=== PATIENT | male | born 1960 | race Caucasian/White ===

== ENCOUNTER → 2017-02-02 | Outpatient (CLI) | payer OTHER ==
[~2017-02-02] MED LIST: ASPI325T PO; ASPI81CH PO; CLONI1TA PO; FOLI1TAB2 PO; LISI10TA4 PO; LOPR1TAB6 PO; METO50TA2 PO; MULT1TAB8 PO; NO HOME MEDS; SERO1TAB PO; SERT50TA PO; TRAZ50TA4 PO; VITA100T2 PO; ZEST1TAB6 PO; ZOLO25TA PO; ZOLO50TA PO; serax PO
[2017-02-02 12:44] LABS: BASO % 0.3 % (0.0-1.0); EOS % 0.9 % (0.0-3.0); LYMPH # 2.2 K/mm3 (1.5-4.5); LYMPH % 46.4 % (24.0-44.0); MEAN CORPUSCULAR HEMOGLOBIN 33.4 pg (27.0-33.0); MEAN CORPUSCULAR HGB CONC 33.5 g/dl (32.0-36.5); MEAN CORPUSCULAR VOLUME 99.8 fl (80.0-96.0); MONO # 0.2 K/mm3 (0.0-0.8); NEUTROPHILS # 2.1 K/mm3 (1.8-7.7); NEUTROPHILS % 45.1 % (36.0-66.0); RED CELL DISTRIBUTION WIDTH 12.5 % (11.5-14.5); WHITE BLOOD COUNT 4.6 K/mm3 (4.0-10.0)
[2017-02-02 13:26] LABS: ALBUMIN 3.4 GM/DL (3.2-5.2); ALBUMIN/GLOBULIN RATIO 0.89 (1.00-1.93); ALKALINE PHOSPHATASE 58 U/L (45-117); ALT/SGPT 36 U/L (12-78); ANION GAP 6 MEQ/L (8-16); AST/SGOT 26 U/L (15-37); BILIRUBIN,TOTAL 0.4 MG/DL (0.2-1.0); BLOOD UREA NITROGEN 6 MG/DL (7-18); CALCIUM LEVEL 8.5 MG/DL (8.5-10.1); CARBON DIOXIDE LEVEL 31 MEQ/L (21-32); CHLORIDE LEVEL 105 MEQ/L (98-107); CHOLESTEROL LEVEL 173 MG/DL (<200); CREATININE FOR GFR 0.84 MG/DL (0.70-1.30); GLOMERULAR FILTRATION RATE > 60.0 (>56); GLUCOSE, FASTING 98 MG/DL (70-105); POTASSIUM SERUM 4.1 MEQ/L (3.5-5.1); SODIUM LEVEL 142 MEQ/L (136-145); TOTAL PROTEIN 7.2 GM/DL (6.4-8.2); TRIGLYCERIDES LEVEL 175 MG/DL (<150)
== END ==
LOC: M LAB 11:41
PROVIDERS: ATTEND Physician Assistant Medical
DX: I10 Essential (primary) hypertension (principal); R53.83 Other fatigue

== ENCOUNTER → 2017-04-08 | Outpatient (CLI) | payer OTHER ==
[2017-04-08 14:15] LABS: BASO # 0.1 K/mm3 (0.0-0.2); BASO % 1.1 % (0.0-1.0); EOS # 0.1 K/mm3 (0.0-0.50); EOS % 1.4 % (0.0-3.0); LYMPH # 2.3 K/mm3 (1.5-4.5); LYMPH % 41.4 % (24.0-44.0); MEAN CORPUSCULAR HEMOGLOBIN 34.5 pg (27.0-33.0); MEAN CORPUSCULAR HGB CONC 34.7 g/dl (32.0-36.5); MEAN CORPUSCULAR VOLUME 99.6 fl (80.0-96.0); MONO # 0.4 K/mm3 (0.0-0.8); MONO % 6.4 % (0.0-5.0); NEUTROPHILS # 2.5 K/mm3 (1.8-7.7); NEUTROPHILS % 45.7 % (36.0-66.0); RED CELL DISTRIBUTION WIDTH 13.1 % (11.5-14.5); WHITE BLOOD COUNT 5.5 K/mm3 (4.0-10.0)
[2017-04-08 15:28] LABS: ALBUMIN 3.9 GM/DL (3.2-5.2); ALKALINE PHOSPHATASE 60 U/L (45-117); ALT/SGPT 53 U/L (12-78); ANION GAP 5 MEQ/L (8-16); AST/SGOT 33 U/L (15-37); BILIRUBIN,TOTAL 0.5 MG/DL (0.2-1.0); BLOOD UREA NITROGEN 14 MG/DL (7-18); CALCIUM LEVEL 8.9 MG/DL (8.5-10.1); CARBON DIOXIDE LEVEL 28 MEQ/L (21-32); CHLORIDE LEVEL 106 MEQ/L (98-107); CREATININE FOR GFR 0.95 MG/DL (0.70-1.30); FERRITIN 377 NG/ML (26-388); GLOMERULAR FILTRATION RATE > 60.0 (>56); GLUCOSE, FASTING 88 MG/DL (70-105); SODIUM LEVEL 139 MEQ/L (136-145); TOTAL PROTEIN 7.8 GM/DL (6.4-8.2)
[2017-04-08 15:34] LABS: FOLATE 18.5 NG/ML; VITAMIN B12 LEVEL 240 PG/ML
--- NOTE | 2017-04-09 00:53 | ECGEPIP ---
Stationary ECG Study [facility] Test Date: 2017-04-08 Pat Name: ADIEL KNIGHT Department: Room: - Gender: M Outreach Assistant: MICHAEL : 1960 Requested By: Kathe Eugene Order Number: [id number] Reading MD: Micha Julio Measurements Intervals [place] Rate: 85 P: 29 WY: 165 QRS: 6 QRSD: 102 T: 14 QT: 393 QTc: 468 Interpretive Statements SINUS RHYTHM INCOMPLETE RIGHT BUNDLE BRANCH BLOCK MODERATE T-WAVE ABNORMALITY, CONSIDER ANTERIOR ISCHEMIA Compared to the last 4 tracings in the system, no significant changes Electronically Signed On 04-09-2017 0:53:03 EDT by Micha Julio
--- NOTE | 2017-04-09 01:47 | REP ---
Clinical: Back pain. Technique: AP, lateral, flexion/extension, bilateral oblique and coned-down views of the lumbosacral spine. Findings: Alignment and lordosis maintained. No acute fracture / compression injury or subluxation. Mild osteopenia is suggested along with moderate to early advanced multilevel degenerative disc osteophyte complexes. Findings primarily involve L5-S1, L4-L5, and L3-L4 levels and include marginal osteophytes, endplate sclerosis and disc space narrowing. No evidence for spondylolysis. Impression: Osteopenia and moderate/early advanced multilevel degenerative changes. No acute fracture / compression injury or subluxation. Signed by Rakesh Dacosta MD 04/09/2017 01:39 A
[2017-04-10 00:07] LABS: Lyme Disease IgG/IgM Antibodie <0.91 ISR (0.00-0.90); Lyme Disease IgM Ab Quantitati <0.80 index (0.00-0.79)
[2017-04-12 11:37] LABS: ALBUMIN 4.41 GM/DL (3.29-5.55); ALBUMIN % 56.6 % (55.8-66.1); GAMMA GLOBULIN % 17.9 % (11.1-18.8)
== END ==
LOC: M LAB 12:59
PROVIDERS: ATTEND Physician Assistant Medical
DX: R53.83 Other fatigue (principal); R00.2 Palpitations; M54.5 Low back pain; M81.0 Age-related osteoporosis without current pathological fracture; M47.9 Spondylosis, unspecified; I45.10 Unspecified right bundle-branch block

== ENCOUNTER → 2017-05-14 | Outpatient (CLI) | payer OTHER ==
[~2017-05-14] MED LIST changes: -FOLI1TAB2 PO; +FOLI1TAB4 PO; -METO50TA2 PO; +METO50TA7 PO; +TRAZ50TA11 PO; -TRAZ50TA4 PO
--- NOTE | 2017-05-14 16:51 | REP ---
CHEST, TWO VIEWS: COMPARISON: 12/08/2014 There is no evidence of acute infiltrate. No pleural effusion is seen. The heart is normal in size. The mediastinal silhouette is unremarkable. The visualized osseous structures are intact. IMPRESSION: No acute pulmonary disease. Signed by Preet Vieira MD 05/14/2017 04:52 P
--- NOTE | 2017-05-14 17:20 | REP ---
REASON: Low back pain. COMPARISON: None. No history of trauma. There is moderate loss of disc space height posteriorly and universal loss of disc hydrational signal at L3-4 to L5-S1. The remainder of the disc spaces are relatively well hydrated and of normal appearing height. There is a vertebral body hemangioma seen involving T11. The marrow signal is within normal limits. Modic type 1 and 2 endplate changes are seen anteriorly at L5-S1. At the L1-2 level there is no disc herniation or foraminal narrowing or central canal stenosis. At the L2-3 level there is a minimal broad based annular bulge. There is no disc herniation or foraminal narrowing, or central canal stenosis. At the L3-4 level there is a moderate broad based annular bulge which mildly compresses the anterior thecal sac. There is no right foraminal stenosis. There is mild left foraminal narrowing. At the L4-5 level there is a large asymmetric broad based annular bulge seen in conjunction with degenerative facet joint changes bilaterally and thickening of the ligamentum flava. Factors in concert are causing moderate right foraminal stenosis with mild right L4 nerve compression. The left L4 nerve is not compressed. There is minimal central canal stenosis. There is no evidence of an acute disc extrusion. At the L5-S1 level there is a broad based annular bulge seen with conjunction with a small central and slightly right paracentral disc protrusion which contacts but does not deform the anterior thecal sac. Degenerative facet joint changes are present bilaterally with thickening of the ligamentum ligamenta. There is mild bilateral foraminal narrowing, right slightly greater than left. There is no evidence of an acute disc extrusion. IMPRESSION: Multilevel discogenic changes and other findings as described above. Signed by Capo Rasmussen DO 05/14/2017 05:57 P
== END ==
LOC: M RAD 15:19
PROVIDERS: ATTEND Physician Assistant Medical
DX: M54.5 Low back pain (principal)

== ENCOUNTER 2017-08-30 14:17 | Inpatient (IN) | payer OTHER ==
[~2017-08-30] VITALS: Ht 162.6 cm; Wt 97.1 kg
[2017-08-30] MEDS ORDERED: NS 1,000 ML IV ONE (14:45)
[2017-08-30] MEDS ORDERED: CLON1TAB17 (14:49)
[2017-08-30] MEDS ORDERED: DOXE10CA PO (14:49)
[2017-08-30] MEDS ORDERED: LOSA100T36 PO (14:49)
[2017-08-30] MEDS ORDERED: TRAZ1TAB14 PO (14:49)
[2017-08-30] MEDS ORDERED: METO1TAB7 PO (14:49)
[2017-08-30] MEDS ORDERED: TIZA4CAP3 (14:49)
[2017-08-30 15:22] LABS: MEAN CORPUSCULAR HEMOGLOBIN 33.6 pg (27.0-33.0); MEAN CORPUSCULAR HGB CONC 35.2 g/dl (32.0-36.5); MEAN CORPUSCULAR VOLUME 95.4 fl (80.0-96.0); PLATELET COUNT, AUTOMATED 286 10^3/uL (150-450); RED CELL DISTRIBUTION WIDTH 12.3 % (11.5-14.5); WHITE BLOOD COUNT 6.6 10^3/uL (4.0-10.0)
[2017-08-30 15:54] LABS: ALBUMIN 4.1 GM/DL (3.2-5.2); ALBUMIN/GLOBULIN RATIO 0.95 (1.00-1.93); ALKALINE PHOSPHATASE 80 U/L (45-117); ALT/SGPT 45 U/L (12-78); ANION GAP 10 MEQ/L (8-16); AST/SGOT 36 U/L (7-37); BILIRUBIN,DIRECT 0.1 MG/DL (0.0-0.2); BILIRUBIN,TOTAL 0.5 MG/DL (0.2-1.0); BLOOD UREA NITROGEN 6 MG/DL (7-18); CALCIUM LEVEL 8.7 MG/DL (8.5-10.1); CARBON DIOXIDE LEVEL 27 MEQ/L (21-32); CHLORIDE LEVEL 104 MEQ/L (98-107); CREATININE FOR GFR 0.95 MG/DL (0.70-1.30); GLOMERULAR FILTRATION RATE > 60.0 (>56); GLUCOSE, FASTING 127 MG/DL (70-105); POTASSIUM SERUM 4.2 MEQ/L (3.5-5.1); SODIUM LEVEL 141 MEQ/L (136-145); TOTAL PROTEIN 8.4 GM/DL (6.4-8.2)
[2017-08-30 16:05] LABS: METHADONE URINE NEGATIVE (NEGATIVE)
--- NOTE | 2017-08-30 16:50 | REP ---
Clinical: Overdose . Comparison: 05/14/2017 . Findings: The mediastinum and cardiac silhouette are stable and within normal limits for portable technique. The lung flannery are clear without acute consolidation, effusion, or pneumothorax. Skeletal structures are intact. Impression: No acute cardiopulmonary process appreciated. Signed by Rakesh Dacosta MD 08/30/2017 04:41 P
[2017-08-30] MEDS ORDERED: CLON1TAB PO (17:14)
[2017-08-30] MEDS ORDERED: ZANA4TAB PO (17:14)
[2017-08-30] MEDS: ACETAMINOPHEN TAB 650MG DOSE (2X325MG) PO PRN (18:35)
--- NOTE | 2017-08-30 18:35 | ECGEPIP ---
Stationary ECG Study [facility] Test Date: 2017-08-30 Pat Name: ADIEL KNIGHT Department: Room: - Gender: M Slip Caster: zoila : 1960 Requested By: Mary Alice Preston Order Number: [id number] Reading MD: Reyes Sanders Measurements Intervals [place] Rate: 136 P: 18 [place]: 150 QRS: -3 QRSD: 93 T: 16 QT: 297 QTc: 447 Interpretive Statements SINUS TACHYCARDIA INCOMPLETE RIGHT BUNDLE BRANCH BLOCK NSTTW ABNORMALITIES SIMILAR TO 04/08/17 Electronically Signed On 08-30-2017 18:35:11 EST by Reyes Sanders
--- NOTE | 2017-08-30 20:08 | HPE ---
DATE OF ADMISSION: 08/30/2017 This a patient of Yoselyn Fleming. CHIEF COMPLAINT: Overdose. The following is a summary of his presentation: This is a 57-year-old gentleman who on the anniversary of his lover's 12 years ago relapsed from his abstinence from alcohol, began drinking heavily and today took an overdose of beta blockade in the form of metoprolol succinate, trazodone and various other pills in an attempt to kill himself. He does not want to live anymore. Currently is without complaint. He is not a useful historian for review of systems. PAST MEDICAL HISTORY: Notable for: Depression. Hypertension. Suicidal ideation. Alcohol dependence. ALLERGIES: To PENICILLIN, BEES, ZOLOFT, AMBIEN and BANANAS. HOME MEDICATIONS: Include: - clonazepam - doxepin - losartan - metoprolol succinate - Zanaflex - trazodone PAST SURGICAL HISTORY: Notable for: Hernia repair. SOCIAL HISTORY: He is a former smoker, lives alone. FAMILY HISTORY: Notable for father with squamous cell cancer, mother with pulmonary hypertension. PHYSICAL EXAMINATION: Temperature is 97.4, pulse is 125, respiratory rate 18, blood pressure 132/82, 96% on room air. He is awake, appropriately interactive, sitting upright in bed, no acute distress, somewhat variable in his affect. Head is normocephalic, nontender sinuses. Pupils are equal, round, and reactive, anicteric. Nasal septum is midline. Mucous membranes are moist. Neck is thick. Breathing is symmetrical and rested. I:E ratio is 1:3. No wheezes, rales or rhonchi. Heart: Distant sounding. Normal S1, S2. He is tachycardic. Radial pulses are 2+. Capillary refill is less than 2 seconds. The abdomen is distended, soft, doughy, nontender. There is no lower extremity edema. He is moving all four extremities. White cell count is 6.6, hemoglobin 16.1 and platelets of 286. BUN 6, creatinine 0.95, CK 335, albumin 4.1. TSH is 1.24. Chest x-ray shows no acute process. EKG shows sinus tachycardia with incomplete right bundle branch block similar to March of 2017. My assessment is as follows: This is a 57-year-old with suicidal ideation, intentional overdose. The plan will be as follows: 1. Cardiovascular: The patient will be monitored on telemetry. Obviously withhold his home medications, including his beta blockade. He is tachycardic. The cause of this remains unclear. I will give him some intravenous (IV) fluids. Blood pressure is reasonably well controlled for the current setting. 2. The patient has severe depression and suicidal ideation with suicidal attempt. He will need psychiatric consult in the morning and will likely benefit from an inpatient mental health unit (IMHU) stay. 3. Deep vein thrombosis (DVT) prophylaxis is ordered.
[2017-08-30 20:20] VITALS: BP 141/84
[2017-08-30] MEDS: NS 1,000 ML IV SCH (20:36)
[2017-08-30] MEDS: LORazepam 2 MG TAB PO PRN (22:54)
[2017-08-31] VITALS: BP 143/82
[2017-08-31] MEDS: ONDANSETRON 4MG/2ML VIAL (J2405) IV PRN ×2 (00:46→08:58)
[2017-08-31 04:00] VITALS: BP 129/76
[2017-08-31] MEDS: ACETAMINOPHEN TAB 650MG DOSE (2X325MG) PO PRN ×2 (04:22→09:43)
[2017-08-31 05:35] LABS: MEAN CORPUSCULAR HEMOGLOBIN 32.9 pg (27.0-33.0); MEAN CORPUSCULAR HGB CONC 34.7 g/dl (32.0-36.5); MEAN CORPUSCULAR VOLUME 94.7 fl (80.0-96.0); RED CELL DISTRIBUTION WIDTH 12.3 % (11.5-14.5); WHITE BLOOD COUNT 6.8 10^3/uL (4.0-10.0)
[2017-08-31 05:48] LABS: PLATELET COUNT, AUTOMATED 177 10^3/uL (150-450)
[2017-08-31 05:57] LABS: ALBUMIN 3.3 GM/DL (3.2-5.2); ALBUMIN/GLOBULIN RATIO 0.97 (1.00-1.93); ALKALINE PHOSPHATASE 63 U/L (45-117); ALT/SGPT 36 U/L (12-78); ANION GAP 8 MEQ/L (8-16); AST/SGOT 27 U/L (7-37); BLOOD UREA NITROGEN 3 MG/DL (7-18); CALCIUM LEVEL 7.9 MG/DL (8.5-10.1); CARBON DIOXIDE LEVEL 27 MEQ/L (21-32); CHLORIDE LEVEL 103 MEQ/L (98-107); CREATININE FOR GFR 0.76 MG/DL (0.70-1.30); GLOMERULAR FILTRATION RATE > 60.0 (>56); GLUCOSE, FASTING 104 MG/DL (70-105); MAGNESIUM LEVEL 1.4 MG/DL (1.8-2.4); POTASSIUM SERUM 3.3 MEQ/L (3.5-5.1); SODIUM LEVEL 138 MEQ/L (136-145); TOTAL PROTEIN 6.7 GM/DL (6.4-8.2)
[2017-08-31 07:50] VITALS: BP 165/89
[2017-08-31] MEDS: NS 1,000 ML IV SCH (08:58)
[2017-08-31] MEDS ORDERED: ENOXAPARIN 40 MG/0.4 ML SYRINGE (J1650) SC SCH (09:00)
[2017-08-31] MEDS ORDERED: POTASSIUM CHLORIDE 10 MEQ SR TABLET PO ONE (09:00)
[2017-08-31] MEDS: MAG SULF 1GM/100ML (MAG RUN) 1 GM in APPROPRIATE DILUENT 1 EA IV SCH ×3 (09:44→12:06)
[2017-08-31] MEDS: LORazepam 2 MG TAB PO PRN (10:41)
[2017-08-31 12:45] VITALS: BP 155/81
[2017-08-31 15:40] VITALS: BP 150/97
[2017-08-31 20:00] VITALS: BP 152/91
--- NOTE | 2017-08-31 20:59 | MHCR ---
DATE OF CONSULTATION: 08/31/2017 CHIEF COMPLAINT: Feels stressed. SUBJECTIVE: He is 57 years old. He came in after he had overdosed, had taken a couple of trazodone and his other pills, including clonazepam and losartan. He had wanted to kill himself. He was admitted to medicine, seen by the hospitalist. I was asked to come in and see him by Dr. Araujo. He was admitted for mental stabilization, as there were concerns regarding the effects of the overdose. He was monitored and he is now being deemed as medically stable. I had seen him a couple of years ago, January 2015, on the consult service. Please refer to my summary from that time for details related to background history, his condition at that time, and of circumstances. He was diagnosed with alcohol induced depressive disorder with the possibility of major depressive disorder. Has a history of alcohol use disorder. He says that he had been sober for about 3 years, and had a disagreement with his boss. He implies that this happened about 5 days ago and that they were in [place]. Says after that, yesterday, he got afraid after he had relapsed, started drinking again, called a friend, and that the police were sent over to check on his welfare and they brought him here. He reluctantly acknowledges that he had taken an overdose, metoprolol, Klonopin, losartan, trazodone. He now denies that he was trying to kill himself. Says he just wanted to "go to sleep." It should also be noted that the narrative and the time line, per the nursing staff here, has changed on a couple of occasions when the patient has been asked about this. He says that he is quite involved with his own recovery, participates at [facility], apparently a local center here, and attends outpatient psychiatric care at [facility] ([facility]). Sees a nurse practitioner there, as well as a therapist. 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 He spoke of anniversaries, apparently his partner about 12 years ago. The patient did not go into any other details of any other anniversaries. Says he attends his appointments regularly at [facility]. Upon admission here, has been stabilized medically, and is now deemed stable. PAST PSYCHIATRIC HISTORY: Has had at least one previous hospitalization. Please refer to my summary of a couple of years ago, and details related to hospitalization, as well as circumstances of that hospitalization. He had apparently had one prior hospitalization before the one 2-1/2 years ago. MEDICAL HISTORY: Has a history of hypertension, depression. ALLERGIES: PENICILLIN, BEES, ZOLOFT, AMBIEN, BANANAS. MEDICATIONS AT HOME: These include: - clonazepam 1 mg four times a day as needed for anxiety - trazodone 300 mg at bedtime - doxepin 10 mg daily - tizanidine 4 mg three times a day as needed for muscle spasms - metoprolol 50 mg daily SUBSTANCE ABUSE HISTORY: He has a history of alcohol misuse, was clean from alcohol for about 3 years, suggests that he relapsed a few days ago. SOCIAL HISTORY/BACKGROUND HISTORY: Please refer to the previous summaries. Says has good social supports locally. MENTAL STATUS EXAMINATION: Sitting up in bed, cooperative, though somewhat superficially so. No agitation. No psychomotor retardation. He is neat. He is coherent. Speech is normal in amount and rate, spontaneous. No formal thought disorder. At times appears mildly anxious. He denies any thoughts of harming himself or anyone else at present. No evidence of any psychosis. Cognition is grossly intact. Judgment is quite questionable. Insight is poor. VITAL SIGNS: Blood pressure 150/97, pulse 106, temperature 98.9. ASSESSMENT: 1. Adjustment Disorder with mixed disturbance of emotions and conduct. 2. Alcohol induced depressive disorder. 3. Alcohol use disorder. 4. Rule out major depressive disorder. 5. Status post overdose. He has relapsed into using alcohol a few days. He says that this was after a disagreement with his boss. He took an overdose of several pills, including Klonopin, metoprolol, losartan, trazodone and per the emergency room note and assessment, he had indicated that he wanted to . I understand there are discrepancies in his narrative when asked by various staff members. He currently minimizes his difficulties. He has questionable insight and judgment. RECOMMENDATIONS: He needs inpatient psychiatric hospitalization once he is medically stable. Per the hospitalist, I understand that he has been stabilized. He does not want to be hospitalized, meets criteria for involuntary hospitalization. The relevant paperwork, its implication and the legal status are explained to the patient. Thank you for the consult. If you have any questions, please call. The assessment took 30 minutes. MIESHA
[2017-09-01] MEDS ORDERED: CELE10TA PO (14:23)
--- NOTE | 2017-09-01 15:10 | DS.PDOC ---
Discharge Summary General Date of Admission Aug 30, 2017 at 16:57 Date of Discharge 08/31/17 Specialist/Consultants Involve: Casandra Rod MD Discharge Summary PROCEDURES PERFORMED DURING STAY: None. ADMITTING/DISCHARGE DIAGNOSES: Suicidal ideation/attempt Alcohol dependence Depression HTN COMPLICATIONS/CHIEF COMPLAINT: Intentional O/D Beta Adrenergic Blocking Drug. HISTORY OF PRESENT ILLNESS: . 57-year-old male with past medical history of depression, hypertension, suicide attempt, and alcohol dependence presented to the ER after he relapsed from alcohol abstinence and began to drink heavily. The patient states that he began to drink alcohol because he was upset about the anniversary of his lover passing away. In addition, the patient states that he took a handful of his metoprolol, trazodone, and various other pills in an attempt to kill himself. He subsequently called his counselor after the event, who brought him to the emergency room. The hospitalist service was called to admit the patient for medical observation. During hospitalization, the patient did not have any acute events and was provided supportive treatment with IV fluid hydration and close monitoring on telemetry. At this time, the patient states he is feeling well, and is without any acute complaints. Psychiatry was consulted, and has deemed that the patient be admitted to the inpatient mental health unit for further psychiatric stabilization. I've advised the patient to follow-up with psychiatric stabilization and inpatient mental health unit, and to follow-up with his behavioral therapist/mental counselor as an outpatient once he is eventually discharge. In addition, the patient is advised to follow-up with his primary care physician within 7 days, and he has been consulted to return to the ER for any acute emergencies. DISCHARGE MEDICATIONS: Please see below. ALLERGIES: Please see below. PHYSICAL EXAMINATION ON DISCHARGE: VITAL SIGNS: Please see below. GENERAL: Awake, alert, oriented HEENT: Normocephalic, atraumatic NECK: No JVD CARDIOVASCULAR EXAMINATION: Normal rate, normal S1, S2 RESPIRATORY EXAMINATION: Clear to auscultation bilaterally ABDOMINAL EXAMINATION: Soft, nontender, nondistended EXTREMITIES: No erythema or tenderness LABORATORY DATA: Please see below. IMAGING: Clinical: Overdose . Comparison: 05/14/2017 . Findings: The mediastinum and cardiac silhouette are stable and within normal limits for portable technique. The lung flannery are clear without acute consolidation, effusion, or pneumothorax. Skeletal structures are intact. Impression: No acute cardiopulmonary process appreciated. PROGNOSIS: Fair ACTIVITY: As tolerated. DIET: . 2 g low sodium diet DISCHARGE PLAN: DISPOSITION: 66 [facility]. DISCHARGE INSTRUCTIONS: 1. . Follow-up with psychiatric stabilization in the inpatient mental health unit 2. . Follow-up with outpatient behavioral health/mental counselor, follow-up with PCP within 7 days 3. . Return to the ER for any acute emergencies DISCHARGE CONDITION: Stable. TIME SPENT ON DISCHARGE: Greater than 30 minutes. Vital Signs/I&Os Vital Signs Date Time Temp Pulse Resp B/P (MAP) Pulse Ox O2 Delivery O2 Flow Rate FiO2 08/31/17 20:00 99.1 111 18 152/91 (111) 94 Room Air Discharge Medications Scheduled Citalopram Hydrobromide (Celexa) 10 Mg Tab, 10 MG PO QAM for DEPRESSION Increase to 20 mg in 3 days Losartan Potassium (Losartan Potassium) 100 Mg Tab, 100 MG PO DAILY, (Reported) Metoprolol Succinate (Metoprolol Succinate ER) 50 Mg Tab, 50 MG PO DAILY, ( Reported) Allergies Coded Allergies: Bee Venom (Verified Allergy, Severe, ANAPHYLAXIS, 12/08/14) Penicillins (Verified Allergy, Severe, ANAPHYLACTIC, 12/08/14) Banana (Unverified Allergy, Intermediate, hives, 08/30/17) Sertraline (Verified Adverse Reaction, Intermediate, "STRANGE THOUGHTS", ) Zolpidem (Verified Adverse Reaction, Intermediate, PSYCHOTIC, 08/30/17) YOSI MORILLO MD Sep 01, 2017 15:10
--- NOTE | 2017-09-02 00:25 | ECGEPIP ---
Stationary ECG Study [facility] Test Date: 2017-08-31 Pat Name: ADIEL KNIGHT Department: Room: [place] [address] Gender: M Hearse Driver: TOMI : 1960 Requested By: TASHA Mazariegos Order Number: [id number] Reading MD: Micha Julio Measurements Intervals [place] Rate: 100 P: 21 DC: 161 QRS: -3 QRSD: 104 T: 18 QT: 389 QTc: 502 Interpretive Statements SINUS TACHYCARDIA INCOMPLETE RIGHT BUNDLE BRANCH BLOCK MODERATE T-WAVE ABNORMALITY, CONSIDER ANTERIOR ISCHEMIA Last tracing on 08/31/2017 at 14:42:13, heart rate is now slower Electronically Signed On 09-02-2017 0:25:10 EST by Micha Julio
== END 2017-08-31 21:59 | DRG 812 ==
LOC: EDBD 14:17 → M ED 14:17 → M ED INP 16:57 → M PCU 20:16
PROVIDERS: ADMIT Internal Medicine; ATTEND Internal Medicine
DX: T44.7X2A Poisoning by beta-adrenoreceptor antagonists, intentional self-harm, initial encounter (principal); R45.851 Suicidal ideations; I10 Essential (primary) hypertension; F32.9 Major depressive disorder, single episode, unspecified; Z88.0 Allergy status to penicillin; Z91.018 Allergy to other foods; Z88.8 Allergy status to other drugs, medicaments and biological substances; Z91.030 Bee allergy status; Z79.899 Other long term (current) drug therapy; Z87.891 Personal history of nicotine dependence; Z91.5 Personal history of self-harm; F43.25 Adjustment disorder with mixed disturbance of emotions and conduct; F10.14 Alcohol abuse with alcohol-induced mood disorder

== ENCOUNTER 2017-08-31 21:11 | Inpatient (IN) | payer OTHER ==
[~2017-08-31] VITALS: Ht 172.7 cm; Wt 96.0 kg
[2017-08-31] MEDS: THIAMINE 100 MG TAB PO SCH (21:00)
[~2017-08-31 21:11] MED LIST changes: +CLON1TAB PO; +CLON1TAB17; +DOXE10CA PO; +LOSA100T36 PO; +METO1TAB7 PO; +TIZA4CAP3; +TRAZ1TAB14 PO; +ZANA4TAB PO
[2017-08-31 22:52] VITALS: BP 152/90
[2017-09-01] MEDS ORDERED: MOM 30ML SUSPENSION UDC PO PRN
[2017-09-01] MEDS ORDERED: MAALOX 30 ML SUSP *UDC PO PRN
[2017-09-01] MEDS ORDERED: tiZANidine 4 MG TAB PO PRN
[2017-09-01] MEDS ORDERED: traZODone 50 MG TAB PO PRN
[2017-09-01] MEDS ORDERED: LORazepam 2 MG TAB PO PRN
[2017-09-01 06:35] VITALS: BP 143/91
[2017-09-01] MEDS ORDERED: CitaloPRAM (CeleXA) 10 MG TABLET PO SCH (09:00)
[2017-09-01] MEDS ORDERED: METOPROLOL SUCC (TopROL XL) 50MG **XL** TAB PO SCH (09:00)
[2017-09-01] MEDS ORDERED: FOLIC ACID 1 MG TAB PO SCH (09:00)
[2017-09-01] MEDS ORDERED: MULTIVITAMINS/MINERALS THERAP 1 TAB PO SCH (09:00)
[2017-09-01] MEDS ORDERED: LOSARTAN 50 MG TAB PO SCH (09:00)
[2017-09-01 09:15] VITALS: BP 160/96
[2017-09-01] MEDS: THIAMINE 100 MG TAB PO SCH (09:15)
--- NOTE | 2017-09-01 09:48 | HPEPDOC ---
[facility] Medical History & Physical Date of Admission Aug 31, 2017 History and Physical PCP: Kathe Fleming PA-C ATTENDING: Dr. Deep Garrido HPI: 57yoM [facility] for unspecified depressive disorder, being medically examined today. The patient was admitted to [facility] from 08/30/17-08/31/17 related to a relapse of alcohol use and an overdose of metoprolol, trazodone, and other pills. The patient was medically stabilized and felt stable to transfer to [facility] 08/31/17. The patient reports no acute medical complaints today. Denies any fevers, chills, weakness, fatigue, LEO, CP, SOB, cough, palpitations, abdominal pain, N/V/D or changes in bowel or bladder habits. PMHx: Depression Anxiety Suicidal Ideation/suicide attempt. Overdose. Basal cell carcinoma (left wrist) Hx of ETOH use HTN history of superficial DVT in right upper extremity PSHX: BL Inguinal Hernia Repair SOCHX: From: [place]. 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 Previously had not consumed alcohol in 3 years per patient. Illicit Drugs: Denies IV Drug Use: Denies Tattoos done unprofessionally: Denies FAMHX: Mother: age 72 secondary to pulmonary edema Father: secondary to age 69 secondary to squamous cell carcinoma. History of alcohol use. Siblings: Alive, well (1 brothers, 3 sisters) Unexpected deaths due to medical reasons: None. ROS: As noted in HPI, otherwise 10pt ROS of systems reviewed and unremarkable.. PE: GEN: 57yoM, appears stated age. Well-nourished, well developed. No acute distress. Alert and oriented x 3. Pleasant, interactive. HEENT: Normocephalic, atraumatic. Pupils are equal, round, and reactive to light. Extraocular movements are intact. No nystagmus appreciated. Sclera are nonicteric. Conjunctiva without injection. Nose midline. No facial asymmetry. Moist mucous membranes. Dentition fair. Pharynx pink and moist, no cobblestoning. Neck supple, trachea midline. No lymphadenopathy or thyromegaly appreciated. CHEST: Regular rate and rhythm, +S1, +S2 LUNGS: Clear to auscultation bilaterally. No wheezes, rales, or rhonchi. Breathing appears symmetric and easy. Patient is speaking in full sentences. No accessory muscle use. ABD: Round, soft, non-tender, non-distended. +Bowel sounds throughout. No rebound or guarding. No costovertebral angle tenderness. EXT: Pulses 2+ bilaterally dorsalis pedis and radial. No lower extremity edema appreciated. SKIN: [place], dry, warm. Capillary refill <2sec. No rashes. NEURO: Alert and oriented x 3. No focal deficits appreciated. EK08/30/17 SINUS TACHYCARDIA INCOMPLETE RIGHT BUNDLE BRANCH BLOCK NSTTW ABNORMALITIES SIMILAR TO 04/08/17 A&P: 57yoM admitted [facility] for unspecified depressive disorder 1. Psych. Plan per Psychiatry. EKG on file. 2. Substance use. Per psychiatry. Continue multivitamin, thiamine, and folic acid supplements. 3. Borderline EKG. No cardiac signs or symptoms appreciated on exam, follow with PCP. 4. Follow up as outpatient with Yoselyn Fleming. 5. HTN. Continue metoprolol XL with hold parameters and Cozaar 100 mg by mouth daily with hold parameters. 6. Hypokalemia. Status post supplement. Recheck BMP today. 7. Hypomagnesemia. Status post supplement. Recheck magnesium level today. 8. Staff member Tam present throughout exam. Vital Signs Vital Signs Date Time Temp Pulse Resp B/P (MAP) Pulse Ox O2 Delivery O2 Flow Rate FiO2 09/01/17 09:15 160/96 09/01/17 09:15 90 09/01/17 06:35 98.9 16 Room Air Laboratory Data Labs 24H Item Value Date Time Sodium Level 138 MEQ/L 08/31/17 0507 Potassium Level 3.3 MEQ/L L # 08/31/17 0507 Chloride Level 103 MEQ/L 08/31/17 0507 Carbon Dioxide Level 27 MEQ/L 08/31/17 0507 Anion Gap 8 MEQ/L 08/31/17 0507 Blood Urea Nitrogen 3 MG/DL L 08/31/17 0507 Creatinine 0.76 MG/DL 08/31/17 0507 Glomerular Filtration Rate > 60.0 08/31/17 0507 Fasting Glucose 104 MG/DL 08/31/17 0507 Calcium Level 7.9 MG/DL L 08/31/17 0507 Magnesium Level 1.4 MG/DL L 08/31/17 0507 Total Bilirubin 1.0 MG/DL # 08/31/17 0507 Aspartate Amino Transf (AST/SGOT) 27 U/L 08/31/17 0507 Alanine Aminotransferase (ALT/SGPT) 36 U/L 08/31/17 0507 Alkaline Phosphatase 63 U/L 08/31/17 0507 Total Protein 6.7 GM/DL # 08/31/17 0507 Albumin 3.3 GM/DL 08/31/17 0507 Albumin/Globulin Ratio 0.97 L 08/31/17 0507 Thyroid Stimulating Hormone (TSH) 1.240 uIU/ML 08/30/17 1510 White Blood Count 6.8 10^3/uL 08/31/17 0507 Red Blood Count 3.80 10^6/uL L 08/31/17 0507 Hemoglobin 12.5 g/dl L # 08/31/17 0507 Hematocrit 36.0 % L 08/31/17 0507 Mean Corpuscular Volume 94.7 fl 08/31/17 0507 Mean Corpuscular Hemoglobin 32.9 pg 08/31/17 0507 Mean Corpuscular Hemoglobin Concent 34.7 g/dl 08/31/17 0507 Red Cell Distribution Width 12.3 % 08/31/17 0507 Platelet Count 177 10^3/uL # 08/31/17 0507 Salicylates Level < 1.7 MG/DL L 08/30/17 1510 Urine Opiates Screen NEGATIVE 08/30/17 1534 Urine Methadone Screen NEGATIVE 08/30/17 1534 Acetaminophen Level < 2.0 UG/ML L 08/30/17 1510 Urine Barbiturates Screen NEGATIVE 08/30/17 1534 Urine Phencyclidine Screen NEGATIVE 08/30/17 1534 Urine Amphetamines Screen NEGATIVE 08/30/17 1534 Urine Benzodiazepines Screen NEGATIVE 08/30/17 1534 Urine Cocaine Metabolite Screen NEGATIVE 08/30/17 1534 Urine Cannabinoids Screen NEGATIVE 08/30/17 1534 Ethyl Alcohol Level 0.292 % H 08/30/17 1510 Home Medications Scheduled Doxepin HCl (Doxepin HCl) 10 Mg Cap, 10 MG PO DAILY Losartan Potassium (Losartan Potassium) 100 Mg Tab, 100 MG PO DAILY Metoprolol Succinate (Metoprolol Succinate ER) 50 Mg Tab, 50 MG PO DAILY Scheduled PRN Tizanidine Hydrochloride (Zanaflex) 4 Mg Tab, 1 TAB PO TID PRN for MUSCLE SPASMS Allergies Coded Allergies: Bee Venom (Verified Allergy, Severe, ANAPHYLAXIS, 12/08/14) Penicillins (Verified Allergy, Severe, ANAPHYLACTIC, 12/08/14) Banana (Unverified Allergy, Intermediate, hives, 08/30/17) Sertraline (Verified Adverse Reaction, Intermediate, "STRANGE THOUGHTS", ) Zolpidem (Verified Adverse Reaction, Intermediate, PSYCHOTIC, 08/30/17) Aliyah Mcgrath Sep 01, 2017 09:48
[2017-09-01 10:19] LABS: MEAN CORPUSCULAR HEMOGLOBIN 34.2 pg (27.0-33.0); MEAN CORPUSCULAR HGB CONC 36.4 g/dl (32.0-36.5); MEAN CORPUSCULAR VOLUME 93.9 fl (80.0-96.0); PLATELET COUNT, AUTOMATED 189 10^3/uL (150-450); WHITE BLOOD COUNT 7.3 10^3/uL (4.0-10.0)
[2017-09-01 10:40] VITALS: BP 160/96
[2017-09-01 11:22] LABS: ANION GAP 7 MEQ/L (8-16); BLOOD UREA NITROGEN 3 MG/DL (7-18); CALCIUM LEVEL 8.6 MG/DL (8.5-10.1); CARBON DIOXIDE LEVEL 27 MEQ/L (21-32); CHLORIDE LEVEL 105 MEQ/L (98-107); CREATININE FOR GFR 1.04 MG/DL (0.70-1.30); GLOMERULAR FILTRATION RATE > 60.0 (>56); GLUCOSE, FASTING 108 MG/DL (70-105); MAGNESIUM LEVEL 2.2 MG/DL (1.8-2.4); POTASSIUM SERUM 3.8 MEQ/L (3.5-5.1); SODIUM LEVEL 139 MEQ/L (136-145)
[2017-09-01] MEDS ORDERED: CELE10TA PO (14:23)
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
== END 2017-09-01 16:00 | disposition home or self-care (01) | DRG 754 ==
LOC: M PSY 22:01
PROVIDERS: ADMIT Psychiatry & Neurology Psychiatry; ATTEND Psychiatry & Neurology Psychiatry
DX: F32.9 Major depressive disorder, single episode, unspecified (principal); E83.42 Hypomagnesemia; I10 Essential (primary) hypertension; F10.14 Alcohol abuse with alcohol-induced mood disorder; Z91.5 Personal history of self-harm; Z86.718 Personal history of other venous thrombosis and embolism; Z87.891 Personal history of nicotine dependence; E87.6 Hypokalemia; R94.31 Abnormal electrocardiogram [ECG] [EKG]

== ENCOUNTER → 2018-07-12 | Outpatient (CLI) | payer OTHER | LOC: M SLEEP HO 10:01 | DX: I27.20 Pulmonary hypertension, unspecified (principal) ==

== ENCOUNTER → 2018-09-16 | Outpatient (CLI) | payer OTHER ==
[2018-09-16 14:47] LABS: RED BLOOD COUNT 4.45 10^6/uL (4.30-6.10); WHITE BLOOD COUNT 4.6 10^3/uL (4.0-10.0)
[2018-09-16 14:48] LABS: BASO % 0.4 % (0.0-1.0); EOS # 0.1 10^3/uL (0.0-0.50); EOS % 1.1 % (0.0-3.0); HEMATOCRIT 42.9 % (42.0-52.0); LYMPH % 42.9 % (24.0-44.0); MEAN CORPUSCULAR HEMOGLOBIN 33.7 pg (27.0-33.0); MEAN CORPUSCULAR VOLUME 96.4 fl (80.0-96.0); MONO # 0.4 10^3/uL (0.0-0.8); MONO % 8.5 % (0.0-5.0); NEUTROPHILS # 2.2 10^3/uL (1.8-7.7); NEUTROPHILS % 47.1 % (36.0-66.0); PLATELET COUNT, AUTOMATED 224 10^3/uL (150-450); RED CELL DISTRIBUTION WIDTH 11.7 % (11.5-14.5)
[2018-09-16 15:21] LABS: ALBUMIN 3.8 GM/DL (3.2-5.2); ALBUMIN/GLOBULIN RATIO 1.09 (1.00-1.93); ALKALINE PHOSPHATASE 64 U/L (45-117); ALT/SGPT 29 U/L (12-78); ANION GAP 7 MEQ/L (8-16); AST/SGOT 14 U/L (7-37); BILIRUBIN,DIRECT 0.2 MG/DL (0.0-0.2); BILIRUBIN,TOTAL 0.7 MG/DL (0.2-1.0); BLOOD UREA NITROGEN 8 MG/DL (7-18); CARBON DIOXIDE LEVEL 30 MEQ/L (21-32); CHLORIDE LEVEL 103 MEQ/L (98-107); CHOLESTEROL LEVEL 178 MG/DL (<200); CHOLESTEROL RISK RATIO 5.085 (<5); CREATININE FOR GFR 1.12 MG/DL (0.70-1.30); GLOMERULAR FILTRATION RATE > 60.0 (>56); GLUCOSE, FASTING 100 MG/DL (70-100); GLUCOSE,RANDOM 100 MG/DL (LESS THAN 200); HDL CHOLESTEROL 35 MG/DL (>40); LDL CHOLESTEROL 124 MG/DL (<100); NON-HDL-C 143 MG/DL; PHOSPHORUS LEVEL 2.4 MG/DL (2.5-4.9); POTASSIUM SERUM 3.9 MEQ/L (3.5-5.1); SODIUM LEVEL 140 MEQ/L (136-145); TOTAL PROTEIN 7.3 GM/DL (6.4-8.2); TRIGLYCERIDES LEVEL 96 MG/DL (<150)
[2018-09-16 15:57] LABS: TOTAL 25(OH) VITAMIN D 30.4 NG/ML (30.0-100.0)
== END ==
LOC: M LAB 13:21
DX: F33.1 Major depressive disorder, recurrent, moderate (principal)
CPT/HCPCS: 93005

== ENCOUNTER → 2018-09-16 | Outpatient (CLI) | payer OTHER ==
[2018-09-16 14:47] LABS: BASO % 0.4 % (0.0-1.0); EOS # 0.1 10^3/uL (0.0-0.50); EOS % 1.3 % (0.0-3.0); HEMATOCRIT 43.6 % (42.0-52.0); IMMATURE GRANULOCYTE % 0.2 % (0-3.0); LYMPH # 1.9 10^3/uL (1.5-4.5); LYMPH % 41.2 % (24.0-44.0); MEAN CORPUSCULAR HEMOGLOBIN 33.3 pg (27.0-33.0); MEAN CORPUSCULAR HGB CONC 34.4 g/dl (32.0-36.5); MEAN CORPUSCULAR VOLUME 96.9 fl (80.0-96.0); MONO # 0.4 10^3/uL (0.0-0.8); MONO % 8.2 % (0.0-5.0); NEUTROPHILS # 2.3 10^3/uL (1.8-7.7); NEUTROPHILS % 48.7 % (36.0-66.0); PLATELET COUNT, AUTOMATED 234 10^3/uL (150-450); RED CELL DISTRIBUTION WIDTH 11.7 % (11.5-14.5); WHITE BLOOD COUNT 4.7 10^3/uL (4.0-10.0)
[2018-09-16 15:25] LABS: ALBUMIN 3.6 GM/DL (3.2-5.2); ALBUMIN/GLOBULIN RATIO 0.97 (1.00-1.93); ALKALINE PHOSPHATASE 61 U/L (45-117); ALT/SGPT 30 U/L (12-78); ANION GAP 9 MEQ/L (8-16); AST/SGOT 13 U/L (7-37); BILIRUBIN,TOTAL 0.7 MG/DL (0.2-1.0); BLOOD UREA NITROGEN 8 MG/DL (7-18); CALCIUM LEVEL 8.5 MG/DL (8.5-10.1); CARBON DIOXIDE LEVEL 30 MEQ/L (21-32); CHLORIDE LEVEL 104 MEQ/L (98-107); CHOLESTEROL LEVEL 173 MG/DL (<200); CHOLESTEROL RISK RATIO 4.325 (<5); CREATININE FOR GFR 1.13 MG/DL (0.70-1.30); FOLLICLE STIMULATING HORMONE 3.7 mIU/mL (1.4-18.1); FREE T4 0.92 NG/DL (0.76-1.46); GLOMERULAR FILTRATION RATE > 60.0 (>56); GLUCOSE, FASTING 92 MG/DL (70-100); HDL CHOLESTEROL 40 MG/DL (>40); LDL CHOLESTEROL 114 MG/DL (<100); LUTEINIZING HORMONE 2.9 mIU/mL (1.5-9.3); NON-HDL-C 133 MG/DL; POTASSIUM SERUM 3.9 MEQ/L (3.5-5.1); PROLACTIN 8.4 NG/ML (2.1-17.7); SODIUM LEVEL 143 MEQ/L (136-145); TOTAL PROTEIN 7.3 GM/DL (6.4-8.2); TRIGLYCERIDES LEVEL 94 MG/DL (<150)
[2018-09-17 14:13] LABS: TESTOSTERONE FREE (DIRECT) 13.7 pg/mL (7.2-24.0)
== END ==
LOC: M LAB 13:13
DX: I10 Essential (primary) hypertension (principal)
CPT/HCPCS: 83001

== ENCOUNTER → 2019-04-10 | Outpatient (CLI) | payer OTHER ==
[~2019-04-10] MED LIST changes: +ASPI-1 PO; -ASPI325T PO; -ASPI81CH PO; +ASPI81CH49 PO; +CELE10TA PO; -CLON1TAB PO; +CLON1TAB8 PO; +FOLI1TAB11 PO; -FOLI1TAB4 PO; -LOSA100T36 PO; +LOSA100T50 PO; +SERT-141 PO; -SERT50TA PO; +TIZA4CAP; -TIZA4CAP3; +TRAZ-252 PO; -TRAZ50TA11 PO; -VITA100T2 PO; +VITA100T8 PO
--- NOTE | 2019-04-10 14:19 | REP ---
Clinical: Right shoulder pain. Technique: Internal rotation, external rotation, and Y view of the right shoulder. Findings: Very subtle cortical irregularity at the acromioclavicular joint is appreciated. Subacromial space is normal. The glenohumeral joint appears intact and normal for age. No periarticular calcifications or loose bodies. Surrounding soft tissues are unremarkable. Impression: Mild age-related degenerative changes suggested. Electronically Signed by Rakesh Dacosta MD 04/10/2019 02:10 P
--- NOTE | 2019-04-10 14:20 | REP ---
Clinical: Radicular pain to the right upper extremity. Technique: AP, lateral, flexion/extension, bilateral oblique, and open mouth views of the cervical spine. Findings: Reversal of normal lordosis is appreciated along with advanced multilevel degenerative disc osteophyte complexes including chronic-appearing compression deformities at C6 and C7. Alignment is essentially maintained. Oblique views demonstrate relatively patent bilateral neural foramen. Open mouth view demonstrates normal C1-C2 articulation and odontoid process. Impression: Reversal of normal lordosis along with multilevel degenerative changes including chronic loss of vertebral body height primarily involving C6 and C7. Electronically Signed by Rakesh Dacosta MD 04/10/2019 02:12 P
== END ==
LOC: M SMT 13:06
PROVIDERS: ATTEND Nurse Practitioner Family
DX: M50.323 Other cervical disc degeneration at C6-C7 level (principal)

== ENCOUNTER → 2019-06-03 | Outpatient (CLI) | payer OTHER ==
--- NOTE | 2019-06-04 12:36 | REP ---
MRI CERVICAL SPINE WITHOUT CONTRAST: 06/03/2019. Comparison: X-ray 04/10/2019. Clinical history: Neuropathy numbness of right upper extremity involving three fingers. Technique: Sagittal T1, T2 and STIR; axial T1 and T2 sequences. Findings: There is reversal of the normal cervical lordosis as on the radiographs. Loss of height of the C5-6 and C6-7 vertebral bodies as on the radiographs. The C6 vertebral body shows hyperintense T1 and T2 signal consistent with vertebral hemangioma. It is not hyperintense on STIR images. There are discogenic endplate changes anteriorly at C3-4. Loss of disc water signal at all levels in the cervical spine. The disc space heights are maintained. There is no pattern of hyperintense marrow to suggest acute or subacute compression fractures or marrow replacement process. There is ample subarachnoid space at the craniocervical junction with no cerebellar tonsillar ectopia. Cervical cord shows no intrinsic signal abnormality, syrinx, atrophy or mass. At C2-3 there is a minimal broad-based disc bulge slightly thinning the ventral thecal sac to its right of midline. Ample subarachnoid space in the foramina adequate. At C3-4 broad-based disc bulge thinning ventral subarachnoid space causing mild central canal stenosis without cord compression. Foramina show uncinate spurring, right greater than left with mild encroachment on the right. At C4-5 there is no significant disc bulge or herniation and no central canal stenosis. Foramina appear grossly adequate. At C5-6 there is mild broad-based disc bulge thinning ventral subarachnoid space but not causing cord compression, central canal marginally adequate foramina are adequate. At C6-7 posterior osteophytic ridging and right paracentral region with associated disc bulge. This abuts and indents the ventral cord surface to the right of midline and there is central canal stenosis with subarachnoid space absent. AP canal diameter 7.1 mm. Uncinate spurring causing some encroachment, left greater than right at this level. At C7-T1 mild broad-based disc bulge without central canal stenosis. Foramina adequate on the right mildly narrowed on the left with some encroachment. Impression: 1. At C6-7 there is cervical spondylosis with right paracentral disc bulge and associated osteophyte causing central canal stenosis and compressing the ventral right aspect of the cord. AP canal diameter only 7.1 mm with no subarachnoid space. Foraminal encroachment, greater on the left than right. 2. The C3-4 and C5-6 levels show mild disc bulges without significant central canal stenosis. There is some foraminal encroachment on the right and at C3-4 greater on left. 3. Some left foraminal encroachment at C7-T1. Electronically Signed by Kenney Watson MD 06/04/2019 08:31 P
== END ==
LOC: M RAD 11:48
PROVIDERS: ATTEND Physician Assistant Medical
DX: G62.9 Polyneuropathy, unspecified (principal)

== ENCOUNTER → 2019-06-12 | Outpatient (REF) | payer OTHER | LOC: M SFHCPLAZ 11:04 | PROVIDERS: ATTEND Physician Assistant Medical | DX: Z12.5 Encounter for screening for malignant neoplasm of prostate (principal) ==

== ENCOUNTER 2019-11-01 13:02 | Outpatient (RCR) | payer OTHER | END 2019-11-17 | LOC: M PT 13:02 | PROVIDERS: ATTEND Physician Assistant Medical | DX: G62.9 Polyneuropathy, unspecified (principal) ==

== ENCOUNTER → 2019-11-01 | Outpatient (CLI) | payer OTHER ==
--- NOTE | 2019-11-01 09:41 | REPPI ---
INDICATION: Osteoarthritis PROCEDURE: Plain films of the lumbar spine COMPARISON STUDIES: Plain films of the lumbar spine 04/08/2017. FINDINGS: No acute fracture or malalignment. There is degenerative anterior osteophytic spurring L5 S1 level. Vertebral heights are well preserved. No malalignments. Neural foraminal narrowing appears significant at L5 S1 level with loss of disc height and migration of the superior articulating facet of S1. The AP view also shows some are more advanced degenerative change at L5 and S1 levels. Scattered surgical material seen within the pelvis, may represent surgical mesh. When compared to prior studies 04/08/2017 and there appears to be diffuse progression of degenerative disc disease at L4-5 and L5 S1 levels. IMPRESSION: No acute findings. Degenerative changes more notable at L4-5 and L5 S1 levels as described. Electronically Signed by Jaspreet Prater MD 11/01/2019 09:34 A
== END ==
LOC: M PLAIMG 09:15
PROVIDERS: ATTEND Physician Assistant Medical
DX: M47.816 Spondylosis without myelopathy or radiculopathy, lumbar region (principal)

== ENCOUNTER → 2019-11-01 | Outpatient (REF) | payer OTHER ==
[2019-11-01 12:38] LABS: BASO % 0.4 % (0.0-1.0); EOS % 0.7 % (0.0-3.0); HEMATOCRIT 49.4 % (42.0-52.0); HEMOGLOBIN 16.7 g/dl (13.5-17.5); LYMPH # 2.3 10^3/uL (1.5-5.0); LYMPH % 42.1 % (24.0-44.0); MEAN CORPUSCULAR HEMOGLOBIN 32.6 pg (27.0-33.0); MEAN CORPUSCULAR HGB CONC 33.8 g/dl (32.0-36.5); MEAN CORPUSCULAR VOLUME 96.3 fl (80.0-96.0); MONO # 0.6 10^3/uL (0.0-0.8); MONO % 11.6 % (0.0-5.0); NEUTROPHILS # 2.5 10^3/uL (1.5-8.5); PLATELET COUNT, AUTOMATED 231 10^3/uL (150-450); RED BLOOD COUNT 5.13 10^6/uL (4.30-6.10); WHITE BLOOD COUNT 5.5 10^3/uL (4.0-10.0)
[2019-11-01 13:11] LABS: ALBUMIN 4.3 GM/DL (3.2-5.2); ALT/SGPT 32 U/L (12-78); BILIRUBIN,TOTAL 0.7 MG/DL (0.2-1.0); BLOOD UREA NITROGEN 11 MG/DL (7-18); CALCIUM LEVEL 9.3 MG/DL (8.5-10.1); CARBON DIOXIDE LEVEL 30 MEQ/L (21-32); CHLORIDE LEVEL 105 MEQ/L (98-107); CHOLESTEROL LEVEL 167 MG/DL (<200); CHOLESTEROL RISK RATIO 4.513 (<5); CREATININE FOR GFR 1.12 MG/DL (0.70-1.30); FREE T4 0.99 NG/DL (0.76-1.46); GLOMERULAR FILTRATION RATE > 60.0 (>56); GLUCOSE, FASTING 96 MG/DL (70-100); HDL CHOLESTEROL 37 MG/DL (>40); LDL CHOLESTEROL 92 MG/DL (<100); NON-HDL-C 130 MG/DL; POTASSIUM SERUM 4.2 MEQ/L (3.5-5.1); SODIUM LEVEL 140 MEQ/L (136-145); TRIGLYCERIDES LEVEL 191 MG/DL (<150)
== END ==
LOC: M SFHCPLAZ 09:05
PROVIDERS: ATTEND Physician Assistant Medical
DX: I10 Essential (primary) hypertension (principal); E66.1 Drug-induced obesity; Z13.220 Encounter for screening for lipoid disorders

== ENCOUNTER → 2019-11-27 | Outpatient (CLI) | payer OTHER ==
--- NOTE | 2019-11-27 17:52 | REPVR ---
PROCEDURE INFORMATION: Exam: MR Lumbar Spine Without Contrast. Exam date and time: 11/27/2019 2:57 PM Age: 59 years old Clinical indication: Low back pain; Additional info: Osteoarthritis of lumbar, unspec complication statu TECHNIQUE: Imaging protocol: Multiplanar magnetic resonance images of the lumbar spine without contrast. COMPARISON: MRI-Spine, L.S. without con 05/14/2017 3:31 PM FINDINGS: Vertebral body height and AP alignment is preserved. Multilevel disc desiccation. There is degenerative endplate signal without evidence of discitis/osteomyelitis. Prominent hemangioma involving the T11 vertebral body is incompletely imaged. There are few scattered additional small vertebral body hemangiomas. Conus medullaris terminates at L1. No epidural fluid collection. L1-L2: No significant central or foraminal stenosis. L2-L3: No significant central or foraminal stenosis. L3-L4: Mild disc bulge without significant central canal stenosis. [id number] bilateral foraminal stenosis. L4-L5: Ubwg-hb-[id number] disc bulge with left foraminal annular tear. There is mild bilateral facet joint arthropathy. There is mild central canal stenosis, moderate right foraminal stenosis and [id number] left foraminal stenosis. L5-S1: Mild disc bulge with mild facet joint arthropathy and small bilateral facet joint effusions. No significant central canal stenosis. There is moderate bilateral foraminal stenosis. IMPRESSION: 1. No acute abnormality. 2. Degenerative findings as above including mild central canal stenosis at L4-L5. No high-grade central canal stenosis. Electronically signed by: Aden Caballero On 11/27/2019 17:52:44 PM
== END ==
LOC: M RAD 14:17
PROVIDERS: ATTEND Physician Assistant Medical
DX: M19.90 Unspecified osteoarthritis, unspecified site (principal)

== ENCOUNTER → 2019-11-27 | Outpatient (REF) | payer OTHER ==
[2019-11-27 15:29] LABS: APPEARANCE, URINE CLEAR (CLEAR); BACTERIA, URINE AUTO NEGATIVE (NEGATIVE); BILIRUBIN, URINE AUTO NEGATIVE (NEGATIVE); BLOOD, URINE BLOOD NEGATIVE (NEGATIVE); COLOR, URINE YELLOW (YELLOW); GLUCOSE, URINE (UA) AUTO NEGATIVE (NEGATIVE); KETONE, URINE AUTO NEGATIVE (NEGATIVE); LEUKOCYTE ESTERASE, URINE AUTO NEGATIVE (NEGATIVE); NITRITE, URINE AUTO NEGATIVE (NEGATIVE); PROTEIN, URINE AUTO NEGATIVE (NEGATIVE); RBC, URINE AUTO 2 /HPF (0-3); SPECIFIC GRAVITY URINE AUTO 1.009 (1.002-1.035); SQUAMOUS EPITHELIAL CELL UR AU 0 /HPF (0-6); UROBILINOGEN, URINE AUTO 0.2 mg/dL (0.0-2.0); WBC, URINE AUTO 1 /HPF (0-3)
== END ==
LOC: M SFHCPLAZ 14:59
PROVIDERS: ATTEND Physician Assistant Medical
DX: R35.0 Frequency of micturition (principal)

== ENCOUNTER → 2020-01-05 | Outpatient (CLI) | payer OTHER ==
--- NOTE | 2020-01-09 02:27 | ECWPNPC ---
PATIENT NAME: ADIEL KNIGHT : 1960 GENDER: MALE VISIT DATE: 01/05/2020 DISCHARGE DATE: 01/05/20 1056 VISIT LOCKED DATE TIME: PHYSICIAN: AMARILIS WEEKS RESOURCE: AMARILIS WEEKS REASON FOR APPOINTMENT 1. NECK HISTORY OF PRESENT ILLNESS PAIN SCREENING: PATIENT HAS A COMPLAINT OF ACUTE OR CHRONIC PAIN :YES LOCATION OF PAIN:NECK, HAND(S) RIGHT INTENSITY OF PAIN (SCALE OF 1 TO 10):5 WHAT DOES YOUR PAIN FEEL LIKE:ACHING DURATION:INTERMITTENT PAIN IS INREASED BY:ACTIVITIES ACTIVITIES INVOLVING THE ARM 59-YEAR-OLD MALE IN FOR INITIAL PAIN CONSULT. HE RATES HIS PAIN CURRENTLY AT A 5 OUT OF 10 AND DESCRIBES IT ACHING. HE'S HAD PAIN ON THE RIGHT SIDE OF HIS NECK WITH RIGHT-SIDED RADICULOPATHY FOR ALMOST ONE YEAR NOW. HE HAS BEEN SEEN BY ORTHOPEDICS FOR THIS AND THEY ARE THE REFERRING SOURCE. HE HAS TAKEN MELOXICAM AND TIZANIDINE IN THE PAST TO HELP ALLEVIATE HIS SYMPTOMS AND HE FELT THAT THESE WERE BENEFICIAL. HE DENIES HISTORY OF TRAUMA. FALL RISK SCREENING: SCREENING :NO FALLS REPORTED IN THE LAST YEAR CURRENT MEDICATIONS TAKING METOPROLOL TARTRATE 50 MG TABLET 1 TABLET WITH FOOD ORALLY ONCE DAILY TAKING TRAZODONE HCL 300 MG TABLET 0.5 TABLET AT BEDTIME ORALLY ONCE A DAY TAKING TRIAMCINOLONE ACETONIDE 55 MCG/ACT AEROSOL 1 SPRAY IN EACH NOSTRIL NASALLY ONCE A DAY TAKING AMLODIPINE BESYLATE 5 MG TABLET 1 TABLET ORALLY ONCE A DAY NOT-TAKING BIOFREEZE 4 % GEL 1 APPLICATION TO AFFECTED AREA NEEDED EXTERNALLY THREE TIMES A DAY NOT-TAKING TIZANIDINE HCL 4 MG TABLET 1 TABLET NEEDED ORALLY THREE TIMES A DAY NOT-TAKING MELOXICAM 7.5 MG TABLET 1 TABLET ORALLY ONCE A DAY MEDICATION LIST REVIEWED AND RECONCILED WITH THE PATIENT PAST MEDICAL HISTORY MAJOR DEPRESSIVE DISORDER C MULTIPLE HOSPITALIZATIONS DDD, HNP, OA-MRI 04/2017 LUMBAR, MULTILEVEL DISCOGENIC CHANGES HTN H/O BASAL CELL CA REMOVED FROM LEFT WRIST ALLERGIES PENICILLIN (FOR ALLERGIES USE ONLY) ZOLOFT AMBIEN BANANA (DIAGNOSTIC) BEE STINGS : ANAPHYLAXIS DECADRON: ANGER, AGGRESSION SURGICAL HISTORY DOUBLE HERNIA [address] WINSTON 2012 WISDOM TEETH EXTRACTED PREV.LY FAMILY HISTORY FATHER: 72 YRS, DIAGNOSED WITH OTHER MALIGNANT NEOPLASM OF UNSPECIFIED SITE MOTHER: 73 YRS, HYPERTENSION 1 BROTHER(S) , 3 SISTER(S) . FATHER HAD SQUAMOUS CELL OF HIS FACE\NMOTHER OF PULM. HTN, PE\NNO CHILDREN\N1 BROTHER A&W\N3 SISTERS A&W. SOCIAL HISTORY GENERAL: TOBACCO USE ARE YOU A:NONSMOKER HIV / HEP-C SCREENING HIV TEST OFFERED TO PATIENT:YES DATE OFFERED:01/10/2018 TEST ACCEPTED:NO HEP-C TEST OFFERED TO PATIENT:YES DATE OFFERED:01/10/2018 REASON:OTHER (DOCUMENT IN NOTE) HAVE BEEN TESTED TEST ACCEPTED:NO REASON:PATIENT DECLINED BROCHURE PROVIDED TO PATIENTYES OTHERS AT HOME: NICA MCKEON. EDUCATION LEVEL OF EDUCATION:COLLEGE LANGUAGE LANGUAGES SPOKEN:VIETNAMESE SIGN LANGUAGE DOMESTIC VIOLENCE DO YOU FEEL SAFE IN YOUR ENVIRONMENT?YES RECREATIONAL DRUG USE DRUG USE?NO LEARNING BARRIERS / SPECIAL NEEDS CHANGE FROM LAST VISIT?NO BARRIERS TO LEARNING?NO HEARING IMPAIRED?NO VISION IMPAIRED?YES COGNITIVELY IMPAIRED?NO :CORRECTIVE LENSES READINESS TO LEARN?YES LEARNING PREFERENCES?YES :HANDOUTS LEARNING CAPABILITIES PRESENT?YES EMOTIONAL BARRIERS?NO SPECIAL DEVICES?NO LIFE SKILLS TRAINER NEEDED?NO PAIN CLINIC PFS, CLERGY, PUBLIC HEALTH REFERRALS PFS REFERRAL NEEDED?NO CLERGY REFERRAL NEEDED?NO PUBLIC HEALTH REFERRAL NEEDED?NO HAS THE PATIENT BEEN EDUCATED REGARDING HIS/HER PLAN OF CARE?YES HAS THE PATIENT BEEN EDUCATED REGARDING PAIN, THE RISK FOR PAIN, THE IMPORTANCE OF EFFECTIVE PAIN MANAGEMENT, AND THE PAIN ASSESSMENT PROCESS?YES LATEX QUESTIONNAIRE LATEX ALLERGY : HAVE YOU EVER DEVELOPED ANY TYPE OF REACTION AFTER HANDLING LATEX PRODUCTS SUCH RUBBER GLOVES, CONDOMS, DIAPHRAGMS, BALLOONS, SOCKS, OR UNDERWEAR?NO LATEX ALLERGY : HAVE YOU EVER DEVELOPED ANY TYPE OF REACTION DURING OR AFTER DENTAL APPOINTMENT, VAGINAL/RECTAL EXAMINATION, SURGICAL PROCEDURE, OR ANY OTHER EXPOSURE?NO DATE ASKED : 02/15/2019 LATEX RISK : HAVE YOU EVER HAD ANY DIFFICULTY BREATHING OR HIVES AFTER EATING OR HANDLING ANY FRUITS, OR VEGETABLES; SUCH KIWI, BANANAS, STONE FRUITS, OR CHESTNUTSNO LATEX RISK : DO YOU HAVE A PREVIOUS PERSONAL HISTORY OF MORE THAN NINE SURGERIES, SPINA BIFIDA, OR REPEATED CATHERIZATIONS? NO LATEX RISK : ARE YOU FREQUENTLY EXPOSED TO LATEX PRODUCTS IN YOUR OCCUPATION?NO CAFFEINE CAFFEINE USE?YES COFFEE, TEA AND SODA ADVANCE DIRECTIVE ADVANCE DIRECTIVE DISCUSSED WITH PATIENT: 01/05/2020 PT DOES NOT HAVE ANY ADVANCED DIRECTIVES AND SHE DECLINES INFORMATION ON HCP AT THIS TIME YARSANI [id number] OTHER MARITAL STATUS: SINGLE. 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 SEXUAL HX HAD SEX IN THE LAST 12 MONTHS (VAGINAL, ORAL, OR ANAL)?YES WITHMEN ONLY USE PROTECTION?YES HAVE YOU EVER HAD AN STD?NO HOSPITALIZATION/MAJOR DIAGNOSTIC PROCEDURE PSYCHOTIC EPISODE 08/2017 REVIEW OF SYSTEMS REVIEWED BY: PROVIDER: JULIETTE CARLIN . CONSTITUTIONAL: ANY CHANGE IN YOUR MEDICAL CONDITION? NO . CHILLS NO . FEVER NO . INFECTION: DO YOU HAVE NEW INFECTIONS? NO . DO YOU HAVE HISTORY OF MRSA? NO . MUSCULOSKELETAL: ANY NEW PATTERNS OF PAIN OR NUMBNESS? YES, PAIN AND NUMBNESS GOES THRU THE NECK AND THRU THE RIGHT ARM AND FINGERS . SYTEMIC LUPUS NO . GASTROENTEROLOGY: ANY NEW CHANGE IN BOWEL CONTROL? NO . BARRETTS ESOPHAGUS NO . CIRRHOSIS NO . HEPATITIS NO . LIVER FAILURE NO . ACID REFLUX NO . UNEXPLAINED WEIGHT LOSS NO . GENITOURINARY: ANY NEW CHANGE IN BLADDER CONTROL? NO . IS THERE A CHANCE YOU COULD BE ? NO . HEMATOLOGY/LYMPH: DO YOU TAKE ANY BLOOD THINNERS? (FOR EXAMPLE- COUMADIN, PLAVIX, AGGRENOX, PLATEL, PRADAXA, OR XARELTO) NO . WHEN WAS YOUR LAST DOSE? DATE: TIME: . LOW PLATELET COUNT NO . SICKLE CELL DISEASE NO . VON WILLIEBRANDS NO . FACTOR V LEIDEN NO . THALLASEMIA NO . ANEMIA NO . EASY BRUISING NO . NEUROLOGY: HAVE YOU FALLEN IN THE PAST 12 MONTHS? NO . ANY NEW EXTREMITY NUMBNESS OR WEAKNESS? NO . HEAD INJURY NO . DEMENTIA NO . CEREBRAL PALSY NO . MULTIPLE SCLEROSIS NO . DIZZINESS NO . HEADACHE NO . STROKES NO . VERTIGO NO . CARDIOLOGY: DO YOU HAVE A PACEMAKER OR DEFIBRILLATOR? NO . ANGINA NO . HEART ATTACK NO . HEART SURGERY NO . CONGESTIVE HEART FAILURE/FLUID OVERLOAD NO . CHEST PAIN NO . HIGH BLOOD PRESSURE NO . IRREGULAR HEART BEAT NO . RESPIRATORY: HAVE YOU BEEN SICK IN THE PAST WEEK? NO . FEVER NO . FLU LIKE SYMPTOMS? NO . CPAP NO . BYPAP NO . ASTHMA NO . EMPHYSEMA NO . CHRONIC LUNG DISEASES NO . SHORTNESS OF BREATH ON EXERTION NO . COUGH NO . SNORING NO . INTEGUMENTARY: DO YOU HAVE ANY RASHES OR OPEN SORES? NO . ALLERGIC/IMMUNO: ARE YOU ALLERGIC TO IV DYE? NO . ANY NEW ALLERGIES? NO . PSYCHIATRIC: DO YOU HAVE THOUGHTS OF HURTING YOURSELF OR SOMEONE ELSE? NO . ARE YOU ABUSED, NEGLECTED, OR IN AN UNSAFE ENVIRONMENT? NO . ENDOCRINOLOGY: ARE YOU DIABETIC? NO . THYROID DISORDER NO . OTHER: DO YOU NEED ANY PRESCRIPTIONS? NO . IF YES, PLEASE LIST: ____ . ANY NEW PROBLEMS WITH YOUR MEDICATIONS? NO . WHEN DID YOU LAST EAT? ____ . WHEN DID YOU LAST DRINK? ____ . WHAT DID YOU LAST DRINK? ____ . NAME OF PERSON DRIVING YOU HOME? ____ . DO YOU HAVE ANY OTHER QUESTIONS OR CONCERNS NO . VITAL SIGNS WT 199.4 LBS, HT 68 IN, BMI 30.32 INDEX, BP 110/73 MM HG, HR 73 /MIN, RR 18 /MIN, TEMP 96.0 F, OXYGEN SAT % 96%, SAFE IN ENV? (Y/N) YES, NA INITIALS AW 1008, REVIEWED BY: TUYET LUDWIG LPN. EXAMINATION GENERAL EXAMINATION: GENERALNO ACUTE DISTRESS, WELL NOURISHED AND HYDRATED. PSYCHAPPROPRIATE MOOD AND AFFECT . NECK:DENIES POINT TENDERNESS ALONG CERVICAL SPINE, SURROUNDING SKIN SHOWS NO ERYTHEMA, ECCHYMOSIS, INCREASED WARMTH, AND/OR SKIN ERUPTIONS NOTED. PATIENT DOES ENDORSE INCREASED PAIN WHEN ASKED TO LIFT ARMS AGAINST RESISTANCE ESPECIALLY ON THE RIGHT SIDE. . LUNGS:CLEAR TO AUSCULTATION BILATERALLY, NO WHEEZES, RHONCHI, RALES. HEART:NO MURMURS, REGULAR RATE AND RHYTHM. ASSESSMENTS CERVICAL RADICULOPATHY DUE TO INTERVERTEBRAL DISC DISORDER - M50.10 (PRIMARY) TREATMENT CERVICAL RADICULOPATHY DUE TO INTERVERTEBRAL DISC DISORDER NOTES: MEE C7-T1. CLINICAL NOTES: 59-YEAR-OLD MALE IN FOR INITIAL PAIN CONSULT. GIVEN PRESENTING SYMPTOMS AND RESULTS OF PHYSICAL EXAMINATION RECOMMENDED MEE C7-T1 WITH POSTPROCEDURAL FOLLOW-UP. PATIENT HAS EXPRESSED UNDERSTANDING OF AND WAS IN AGREEMENT WITH TREATMENT PLAN. GIVEN TIME TO ASK QUESTIONS AND EXPRESS CONCERNS. PREVENTIVE MEDICINE PAIN CLINIC TEACHING: PROCEDURE TEACHING PRINTED AND REVIEWED INFORMATION ON CERVICAL EPIDURAL STEROID INJECTION PROCEDURE WITH PATIENT. ALSO REVIEWED PRE-PROCEDURE INSTRUCTIONS. PATIENT VERBALIZED AN UNDERSTANDING. LALIT LO 01/05/2020 11:07:27 AM > . PROCEDURE CODES FA211 ESTABILISHED PATIENT [facility] CHARGE DISPOSITION & COMMUNICATION FOLLOW UP POSTPROCEDURE (REASON: MEE C7-T1) ELECTRONICALLY SIGNED BY CL COBOS ON 01/08/2020 AT 01:48 PM EDT DISCLAIMER : THIS IS A VISIT SUMMARY EXTRACTED FROM THE [employer] CHART. IT IS NOT A COPY OF THE [employer] PROGRESS NOTE. DIRKD
== END ==
LOC: M PAIN 10:30
PROVIDERS: ATTEND Family Medicine
DX: M50.10 Cervical disc disorder with radiculopathy, unspecified cervical region (principal)

== ENCOUNTER → 2020-02-16 | Outpatient (CLI) | payer OTHER | LOC: M LABSMTC 11:06 | PROVIDERS: ATTEND Anesthesiology | DX: Z11.59 Encounter for screening for other viral diseases (principal) ==

== ENCOUNTER → 2020-02-19 | Outpatient (CLI) | payer OTHER ==
[~2020-02-19] MED LIST changes: +ISOVUE-M 300 61% 15ML VIAL As Ordered ONE; +LIDOCAINE 1% SDV 30ML VIAL As Ordered ONE; +NORCO, ANEXSIA 5/325MG TABLET (HYDROcodone/ACETAMINOPHEN) As Ordered ONE; +dexameTHASONE 10MG/1ML VIAL PRES.FREE (J1100 PER 1MG) As Ordered ONE; +diazePAM 2 MG TAB As Ordered ONE
--- NOTE | 2020-02-19 12:04 | REP ---
C-ARM VIEWS CERVICAL SPINE: CLINICAL HISTORY: Pain. Three C-arm views of the cervical spine performed during cervical epidural injection performed by Dr. Boone. A needle is seen at the cervicothoracic junction. 32 seconds of fluoroscopy time utilized. Electronically Signed by Preet Vieira MD 02/19/2020 12:05 P
--- NOTE | 2020-02-20 00:44 | ECWPNPC ---
PATIENT NAME: ADIEL KNIGHT : 1960 GENDER: MALE VISIT DATE: 02/19/2020 DISCHARGE DATE: 02/19/20 1019 VISIT LOCKED DATE TIME: PHYSICIAN: JUSTO MENDOZA MD RESOURCE: JUSTO MENDOZA MD REASON FOR APPOINTMENT 1. MEE C7-T1 HISTORY OF PRESENT ILLNESS HISTORY OF PRESENT ILLNESS: PAIN THE PATIENT DESCRIBES THE PAIN... FALL RISK SCREENING: SCREENING :NO FALLS REPORTED IN THE LAST YEAR CURRENT MEDICATIONS TAKING AMLODIPINE BESYLATE 5 MG TABLET 1 TABLET ORALLY ONCE A DAY, NOTES: 02/19/2020 0700 TAKING TRAZODONE HCL 300 MG TABLET 0.5 TABLET AT BEDTIME ORALLY ONCE A DAY, NOTES: 02/18/2020 2300 TAKING TRIAMCINOLONE ACETONIDE 55 MCG/ACT AEROSOL 1 SPRAY IN EACH NOSTRIL NASALLY ONCE A DAY, NOTES: PRN TAKING TIZANIDINE HCL 4 MG TABLET 1 TABLET NEEDED ORALLY THREE TIMES A DAY, NOTES: PRN TAKING METOPROLOL TARTRATE 50 MG TABLET 1 TABLET WITH FOOD ORALLY ONCE DAILY, NOTES: 02/19/2020 0700 MEDICATION LIST REVIEWED AND RECONCILED WITH THE PATIENT PAST MEDICAL HISTORY MAJOR DEPRESSIVE DISORDER C MULTIPLE HOSPITALIZATIONS DDD, HNP, OA-MRI 04/2017 LUMBAR, MULTILEVEL DISCOGENIC CHANGES HTN H/O BASAL CELL CA REMOVED FROM LEFT WRIST ALLERGIES PENICILLIN (FOR ALLERGIES USE ONLY): ANAPHYLAXIS - ALLERGY ZOLOFT: PSYCHOSIS - SIDE EFFECTS AMBIEN: AMNESIA - ALLERGY BANANA (DIAGNOSTIC): HIVES - SIDE EFFECTS BEE STINGS : ANAPHYLAXIS - ALLERGY DECADRON: ANGER, AGGRESSION SURGICAL HISTORY DOUBLE HERNIA [address] WINSTON 2012 WISDOM TEETH EXTRACTED PREV.LY FAMILY HISTORY FATHER: 72 YRS, DIAGNOSED WITH OTHER MALIGNANT NEOPLASM OF UNSPECIFIED SITE MOTHER: 73 YRS, HYPERTENSION 1 BROTHER(S) , 3 SISTER(S) . FATHER HAD SQUAMOUS CELL OF HIS FACE\NMOTHER OF PULM. HTN, PE\NNO CHILDREN\N1 BROTHER A&W\N3 SISTERS A&W. SOCIAL HISTORY GENERAL: TOBACCO USE ARE YOU A:NONSMOKER LATEX QUESTIONNAIRE LATEX ALLERGY : HAVE YOU EVER DEVELOPED ANY TYPE OF REACTION AFTER HANDLING LATEX PRODUCTS SUCH RUBBER GLOVES, CONDOMS, DIAPHRAGMS, BALLOONS, SOCKS, OR UNDERWEAR?NO LATEX ALLERGY : HAVE YOU EVER DEVELOPED ANY TYPE OF REACTION DURING OR AFTER DENTAL APPOINTMENT, VAGINAL/RECTAL EXAMINATION, SURGICAL PROCEDURE, OR ANY OTHER EXPOSURE?NO DATE ASKED : 02/15/2019 LATEX RISK : HAVE YOU EVER HAD ANY DIFFICULTY BREATHING OR HIVES AFTER EATING OR HANDLING ANY FRUITS, OR VEGETABLES; SUCH KIWI, BANANAS, STONE FRUITS, OR CHESTNUTSNO LATEX RISK : DO YOU HAVE A PREVIOUS PERSONAL HISTORY OF MORE THAN NINE SURGERIES, SPINA BIFIDA, OR REPEATED CATHERIZATIONS? NO LATEX RISK : ARE YOU FREQUENTLY EXPOSED TO LATEX PRODUCTS IN YOUR OCCUPATION?NO ALCOHOL SCREENING DID YOU HAVE A DRINK CONTAINING ALCOHOL IN THE PAST YEAR?NO POINTS0 INTERPRETATIONNEGATIVE RECREATIONAL DRUG USE DRUG USE?NO CAFFEINE CAFFEINE USE?YES COFFEE, TEA AND SODA SEXUAL HX HAD SEX IN THE LAST 12 MONTHS (VAGINAL, ORAL, OR ANAL)?YES WITHMEN ONLY USE PROTECTION?YES HAVE YOU EVER HAD AN STD?NO HIV / HEP-C SCREENING HIV TEST OFFERED TO PATIENT:YES DATE OFFERED:01/10/2018 TEST ACCEPTED:NO HEP-C TEST OFFERED TO PATIENT:YES DATE OFFERED:01/10/2018 REASON:OTHER (DOCUMENT IN NOTE) HAVE BEEN TESTED TEST ACCEPTED:NO REASON:PATIENT DECLINED BROCHURE PROVIDED TO PATIENTYES CHEONDOISM [id number] OTHER LANGUAGE LANGUAGES SPOKEN:CHADIAN SIGN LANGUAGE EDUCATION LEVEL OF EDUCATION:COLLEGE LEARNING BARRIERS / SPECIAL NEEDS CHANGE FROM LAST VISIT?NO BARRIERS TO LEARNING?NO HEARING IMPAIRED?NO VISION IMPAIRED?YES COGNITIVELY IMPAIRED?NO :CORRECTIVE LENSES READINESS TO LEARN?YES LEARNING PREFERENCES?YES :HANDOUTS LEARNING CAPABILITIES PRESENT?YES EMOTIONAL BARRIERS?NO SPECIAL DEVICES?NO HYDRAULIC PRESS TENDER NEEDED?NO DOMESTIC VIOLENCE DO YOU FEEL SAFE IN YOUR ENVIRONMENT?YES 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 MARITAL STATUS: SINGLE. OTHERS AT HOME: NICA MCKEON. NEW PATIENT PAIN DIARY TODAY'S VISITNOTES PATIENT DESCRIBES PAIN :ACHING, IT COMES AND GOES, OTHER PINS AND NEEDLES IN RIGHT HAND FROM 0-10, WHAT LEVEL IS YOUR PAIN TODAY?5 PRECIPITATING FACTORS ACTIVITY ALLEVIATING FACTORS SOMETIMES TIZANIDINE HELPS PAIN CLINIC PFS, CLERGY, PUBLIC HEALTH REFERRALS PFS REFERRAL NEEDED?NO CLERGY REFERRAL NEEDED?NO PUBLIC HEALTH REFERRAL NEEDED?NO HAS THE PATIENT BEEN EDUCATED REGARDING HIS/HER PLAN OF CARE?YES HAS THE PATIENT BEEN EDUCATED REGARDING PAIN, THE RISK FOR PAIN, THE IMPORTANCE OF EFFECTIVE PAIN MANAGEMENT, AND THE PAIN ASSESSMENT PROCESS?YES ADVANCE DIRECTIVE ADVANCE DIRECTIVE DISCUSSED WITH PATIENT: 01/05/2020 PT DOES NOT HAVE ANY ADVANCED DIRECTIVES AND SHE DECLINES INFORMATION ON HCP AT THIS TIME HOSPITALIZATION/MAJOR DIAGNOSTIC PROCEDURE PSYCHOTIC EPISODE 08/2017 REVIEW OF SYSTEMS REVIEWED BY: PROVIDER: JUSTO MENDOZA MD . CONSTITUTIONAL: ANY CHANGE IN YOUR MEDICAL CONDITION? NO . CHILLS NO . FEVER NO . INFECTION: DO YOU HAVE NEW INFECTIONS? NO . DO YOU HAVE HISTORY OF MRSA? NO . MUSCULOSKELETAL: ANY NEW PATTERNS OF PAIN OR NUMBNESS? NO . GASTROENTEROLOGY: ANY NEW CHANGE IN BOWEL CONTROL? NO . GENITOURINARY: ANY NEW CHANGE IN BLADDER CONTROL? NO . IS THERE A CHANCE YOU COULD BE ? NO . HEMATOLOGY/LYMPH: DO YOU TAKE ANY BLOOD THINNERS? (FOR EXAMPLE- COUMADIN, PLAVIX, AGGRENOX, PLATEL, PRADAXA, OR XARELTO) NO . WHEN WAS YOUR LAST DOSE? DATE: TIME: . NEUROLOGY: HAVE YOU FALLEN IN THE PAST 12 MONTHS? NO . ANY NEW EXTREMITY NUMBNESS OR WEAKNESS? NO . CARDIOLOGY: DO YOU HAVE A PACEMAKER OR DEFIBRILLATOR? NO . RESPIRATORY: HAVE YOU BEEN SICK IN THE PAST WEEK? NO . FEVER NO . FLU LIKE SYMPTOMS? NO . COUGH NO . INTEGUMENTARY: DO YOU HAVE ANY RASHES OR OPEN SORES? NO . ALLERGIC/IMMUNO: ARE YOU ALLERGIC TO IV DYE? NO . ANY NEW ALLERGIES? NO . PSYCHIATRIC: DO YOU HAVE THOUGHTS OF HURTING YOURSELF OR SOMEONE ELSE? NO . ARE YOU ABUSED, NEGLECTED, OR IN AN UNSAFE ENVIRONMENT? NO . ENDOCRINOLOGY: ARE YOU DIABETIC? NO . OTHER: DO YOU NEED ANY PRESCRIPTIONS? NO . IF YES, PLEASE LIST: ____ . ANY NEW PROBLEMS WITH YOUR MEDICATIONS? NO . WHEN DID YOU LAST EAT? 02/18/20200 . WHEN DID YOU LAST DRINK? 02/19/2020 . WHAT DID YOU LAST DRINK? 02/19/2020 ORANGE JUICE . NAME OF PERSON DRIVING YOU HOME? SISTER . DO YOU HAVE ANY OTHER QUESTIONS OR CONCERNS NO . VITAL SIGNS WT 200.4 LBS, HT 68 IN, BMI 30.47 INDEX, BP 113/71 MM HG, HR 65 /MIN, RR 18 /MIN, TEMP 97.1 F, OXYGEN SAT % 95%, SAFE IN ENV? (Y/N) YES, NA INITIALS AW 0844, REVIEWED BY: NLJ. ASSESSMENTS CERVICAL DISC DISORDER WITH RADICULOPATHY OF CERVICAL REGION - M50.10 (PRIMARY) CERVICAL SPINAL STENOSIS - M48.02 TREATMENT CERVICAL DISC DISORDER WITH RADICULOPATHY OF CERVICAL REGION [facility] FLUORO GUIDE SPINE INJECTION (PAIN)[id number] PROCEDURES PN CERVICAL EPIDURAL PRE PROCEDURE DIAGNOSIS CERVICAL DISC DISORDER WITH RADICULOPATHY, CERVICAL SPINAL STENOSIS POST PROCEDURE DIAGNOSIS CERVICAL DISC DISORDER WITH RADICULOPATHY, CERVICAL SPINAL STENOSIS PROCEDURE CERVICAL EPIDURAL STEROID INJECTION UNDER FLUOROSCOPIC GUIDANCE SURGEON DR. JUSTO MENDOZA BRAZING MACHINE TENDER NONE ANESTHESIA LOCAL PRE PROCEDURE NOTE THE PATIENT HAS A HISTORY OF CHRONIC CERVICAL PAIN. I EVALUATED THE PATIENT AND REVIEWED THE CHART. I WENT OVER THE RISKS, ALTERNATIVES, AND BENEFITS ASSOCIATED WITH THIS PROCEDURE. I DISCUSSED WITH THE PATIENT THAT THE USE OF STEROIDS MAY CONTRIBUTE TO IMMUNOSUPPRESSION OF HIS BODY AGAINST INFECTIONS SUCH THE DRAPER VIRUS, COVID-19. HE IS AWARE OF THE POTENTIAL COMPLICATIONS ASSOCIATED WITH AN INFECTION OF THIS VIRUS INCLUDING . THE PATIENT WOULD LIKE TO PROCEED AND GIVE CONSENT TO PERFORMED THE PROCEDURE. THE PATIENT DENIES UNEXPLAINABLE WEIGHT LOSS, FEVER, CHILLS, OR NEW CHANGES IN URINARY OR BOWEL CONTROL. THE PATIENT IS COVID-19 NEGATIVE DESCRIPTION OF PROCEDURE THE PATIENT WAS BROUGHT TO THE PROCEDURE ROOM AND PLACED IN THE PRONE POSITION. THE CERVICOTHORACIC AREA WAS CLEANED WITH BETADINE SOLUTION AND DRAPED ASEPTICALLY. THE PROCEDURE WAS DONE UNDER STERILE CONDITIONS. I CHECKED LATERALITY AND THE LEVEL WHERE THE PROCEDURE WAS GOING TO BE PERFORMED WITH THE PATIENT AND THE SUPPORTING STAFF AT THE MOMENT OF THE TIME OUT IN THE PROCEDURE ROOM. UNDER FLUOROSCOPIC GUIDANCE, THE TARGET WAS SELECTED AT THE INTERLAMINAR LEVEL OF C7-T1. LIDOCAINE WAS USED TO NUMB THE SKIN AND THE SUBCUTANEOUS TISSUE BELOW IT. EPIDURAL TUOHY NEEDLE 17-GAUGE WAS ADVANCED UNDER FLUOROSCOPIC GUIDANCE AND FOLLOWING PATIENT FEEDBACK UNTIL THE EPIDURAL SPACE WAS REACHED 6 CM DEEP INTO THE SKIN BY THE LOSS OF RESISTANCE TECHNIQUE. ISOVUE M DYE 30%, 0.25 ML, WAS INJECTED SHOWING ADEQUATE SPREAD OF THE DYE. THEN, A SOLUTION OF 3 ML OF NORMAL SALINE WITH DEXAMETHASONE 10 MG WAS INJECTED SLOWLY FOLLOWING PATIENT FEEDBACK. THERE WAS NO EVIDENCE OF BLOOD, PARESTHESIA OR CEREBROSPINAL FLUID DURING THE PROCEDURE. THE PATIENT WAS SENT TO THE RECOVERY ROOM. THE PATIENT WAS MOVING THE EXTREMITIES AND DOING WELL. THERE WAS NO COMPLICATION DURING THE PROCEDURE. FLUOROSCOPY TIME WAS 31 SECONDS POST PROCEDURE NOTE THE PATIENT WILL BE SEEN IN A FOLLOW UP IN THE NEXT FEW WEEKS. INSTRUCTIONS WERE GIVEN, QUESTIONS WERE ANSWERED, AND THE PATIENT EXPRESSED UNDERSTANDING AND AGREES WITH THE PLAN. I INSTRUCTED THE PATIENT TO STAY HOME, IF POSSIBLE, FOR A WEEK DUE TO COVID-19. I, CARTER FAM, DOCUMENTED THE ABOVE INFORMATION ACTING A SCRIBE FOR DR. MENDOZA. I HAVE REVIEWED THE ABOVE DOCUMENT, WRITTEN BY CARTER FAM, SCRIBE, AND I VERIFY THAT IT IS ACCURATE PROCEDURE CODES 6045F RADXPS IN END [id number] PXD [id number] CERVICAL/THORACIC W/ IMAGING DISPOSITION & COMMUNICATION FOLLOW UP F/UP WITH MEAT GRINDER (REASON: POST-PROCEDURE F/UP-NECK PAIN) ELECTRONICALLY SIGNED BY JUSTO MENDOZA MD, MD ON 02/19/2020 AT 10:45 AM EDT DISCLAIMER : THIS IS A VISIT SUMMARY EXTRACTED FROM THE [email or web address] CHART. IT IS NOT A COPY OF THE [email or web address] PROGRESS NOTE. MTDD
== END ==
LOC: M PAIN 09:00
PROVIDERS: ATTEND Anesthesiology
DX: M50.10 Cervical disc disorder with radiculopathy, unspecified cervical region (principal); M48.02 Spinal stenosis, cervical region; Z86.59 Personal history of other mental and behavioral disorders; I10 Essential (primary) hypertension; Z88.0 Allergy status to penicillin; Z88.8 Allergy status to other drugs, medicaments and biological substances; Z91.018 Allergy to other foods; Z91.030 Bee allergy status; Z79.899 Other long term (current) drug therapy
CPT/HCPCS: 62321; J1100; Q9967

== ENCOUNTER → 2020-03-05 | Outpatient (CLI) | payer OTHER ==
[~2020-03-05] MED LIST changes: -ISOVUE-M 300 61% 15ML VIAL As Ordered ONE; -LIDOCAINE 1% SDV 30ML VIAL As Ordered ONE; -NORCO, ANEXSIA 5/325MG TABLET (HYDROcodone/ACETAMINOPHEN) As Ordered ONE; -dexameTHASONE 10MG/1ML VIAL PRES.FREE (J1100 PER 1MG) As Ordered ONE; -diazePAM 2 MG TAB As Ordered ONE
--- NOTE | 2020-03-07 00:31 | ECWPNPC ---
PATIENT NAME: ADIEL KNIGHT : 1960 GENDER: MALE VISIT DATE: 03/05/2020 DISCHARGE DATE: 03/05/20 0946 VISIT LOCKED DATE TIME: PHYSICIAN: AMARILIS WEEKS RESOURCE: AMARILIS WEEKS REASON FOR APPOINTMENT 1. POST-PROCEDURE F/UP-NECK PAIN HISTORY OF PRESENT ILLNESS HISTORY OF PRESENT ILLNESS: PAIN THE PATIENT DESCRIBES THE PAIN... 59-YEAR-OLD MALE IN FOR POST MEE FOLLOW-UP. HE RATES HIS PAIN PREPROCEDURE AT A 5-6 OUT OF 10 AND POSTPROCEDURE AT A 2 OUT OF 10X2 DAYS. HE RATES HIS PAIN CURRENTLY AT A 5 OUT OF 10 AND DESCRIBES IT ACHY. FALL RISK SCREENING: SCREENING :NO FALLS REPORTED IN THE LAST YEAR CURRENT MEDICATIONS TAKING AMLODIPINE BESYLATE 5 MG TABLET 1 TABLET ORALLY ONCE A DAY TAKING TRAZODONE HCL 300 MG TABLET 0.5 TABLET AT BEDTIME ORALLY ONCE A DAY TAKING TRIAMCINOLONE ACETONIDE 55 MCG/ACT AEROSOL 1 SPRAY IN EACH NOSTRIL NASALLY ONCE A DAY TAKING TIZANIDINE HCL 4 MG TABLET 1 TABLET NEEDED ORALLY THREE TIMES A DAY TAKING METOPROLOL TARTRATE 50 MG TABLET 1 TABLET WITH FOOD ORALLY ONCE DAILY MEDICATION LIST REVIEWED AND RECONCILED WITH THE PATIENT PAST MEDICAL HISTORY MAJOR DEPRESSIVE DISORDER C MULTIPLE HOSPITALIZATIONS DDD, HNP, OA-MRI 04/2017 LUMBAR, MULTILEVEL DISCOGENIC CHANGES HTN H/O BASAL CELL CA REMOVED FROM LEFT WRIST ALLERGIES PENICILLIN (FOR ALLERGIES USE ONLY): ANAPHYLAXIS - ALLERGY ZOLOFT: PSYCHOSIS - SIDE EFFECTS AMBIEN: AMNESIA - ALLERGY BANANA (DIAGNOSTIC): HIVES - SIDE EFFECTS BEE STINGS : ANAPHYLAXIS - ALLERGY DECADRON: ANGER, AGGRESSION SURGICAL HISTORY DOUBLE HERNIA [address] WINSTON 2013 WISDOM TEETH EXTRACTED PREV.LY FAMILY HISTORY FATHER: 72 YRS, DIAGNOSED WITH OTHER MALIGNANT NEOPLASM OF UNSPECIFIED SITE MOTHER: 73 YRS, HYPERTENSION 1 BROTHER(S) , 3 SISTER(S) . FATHER HAD SQUAMOUS CELL OF HIS FACE\NMOTHER OF PULM. HTN, PE\NNO CHILDREN\N1 BROTHER A&W\N3 SISTERS A&W. SOCIAL HISTORY GENERAL: TOBACCO USE ARE YOU A:NONSMOKER LATEX QUESTIONNAIRE LATEX ALLERGY : HAVE YOU EVER DEVELOPED ANY TYPE OF REACTION AFTER HANDLING LATEX PRODUCTS SUCH RUBBER GLOVES, CONDOMS, DIAPHRAGMS, BALLOONS, SOCKS, OR UNDERWEAR?NO LATEX ALLERGY : HAVE YOU EVER DEVELOPED ANY TYPE OF REACTION DURING OR AFTER DENTAL APPOINTMENT, VAGINAL/RECTAL EXAMINATION, SURGICAL PROCEDURE, OR ANY OTHER EXPOSURE?NO LATEX RISK : HAVE YOU EVER HAD ANY DIFFICULTY BREATHING OR HIVES AFTER EATING OR HANDLING ANY FRUITS, OR VEGETABLES; SUCH KIWI, BANANAS, STONE FRUITS, OR CHESTNUTSNO LATEX RISK : DO YOU HAVE A PREVIOUS PERSONAL HISTORY OF MORE THAN NINE SURGERIES, SPINA BIFIDA, OR REPEATED CATHERIZATIONS? NO LATEX RISK : ARE YOU FREQUENTLY EXPOSED TO LATEX PRODUCTS IN YOUR OCCUPATION?NO DATE ASKED : 03/05/2020 ALCOHOL SCREENING DID YOU HAVE A DRINK CONTAINING ALCOHOL IN THE PAST YEAR?NO POINTS0 INTERPRETATIONNEGATIVE RECREATIONAL DRUG USE DRUG USE?NO CAFFEINE CAFFEINE USE?YES COFFEE, TEA AND SODA SEXUAL HX HAD SEX IN THE LAST 12 MONTHS (VAGINAL, ORAL, OR ANAL)?YES WITHMEN ONLY USE PROTECTION?YES HAVE YOU EVER HAD AN STD?NO HIV / HEP-C SCREENING HIV TEST OFFERED TO PATIENT:YES DATE OFFERED:01/10/2018 TEST ACCEPTED:NO HEP-C TEST OFFERED TO PATIENT:YES DATE OFFERED:01/10/2018 REASON:OTHER (DOCUMENT IN NOTE) HAVE BEEN TESTED TEST ACCEPTED:NO REASON:PATIENT DECLINED BROCHURE PROVIDED TO PATIENTYES CAODAISM [id number] OTHER LANGUAGE LANGUAGES SPOKEN:MAURITANIAN SIGN LANGUAGE EDUCATION LEVEL OF EDUCATION:COLLEGE LEARNING BARRIERS / SPECIAL NEEDS CHANGE FROM LAST VISIT?NO BARRIERS TO LEARNING?NO HEARING IMPAIRED?NO VISION IMPAIRED?YES COGNITIVELY IMPAIRED?NO :CORRECTIVE LENSES READINESS TO LEARN?YES LEARNING PREFERENCES?YES :HANDOUTS LEARNING CAPABILITIES PRESENT?YES EMOTIONAL BARRIERS?NO SPECIAL DEVICES?NO DIELECTRIC PRESS OPERATOR NEEDED?NO DOMESTIC VIOLENCE DO YOU FEEL SAFE IN YOUR ENVIRONMENT?YES 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 OTHERS AT HOME: NICA MCKEON. NEW PATIENT PAIN DIARY TODAY'S VISITNOTES 03/05/20 PATIENT DESCRIBES PAIN :ACHING, IT COMES AND GOES, OTHER PINS AND NEEDLES IN RIGHT HAND FROM 0-10, WHAT LEVEL IS YOUR PAIN TODAY?5 PRECIPITATING FACTORS ACTIVITY ALLEVIATING FACTORS SOMETIMES TIZANIDINE HELPS IMPACT ON FUNCTION YES PAIN CLINIC PFS, CLERGY, PUBLIC HEALTH REFERRALS PFS REFERRAL NEEDED?NO CLERGY REFERRAL NEEDED?NO PUBLIC HEALTH REFERRAL NEEDED?NO HAS THE PATIENT BEEN EDUCATED REGARDING HIS/HER PLAN OF CARE?YES HAS THE PATIENT BEEN EDUCATED REGARDING PAIN, THE RISK FOR PAIN, THE IMPORTANCE OF EFFECTIVE PAIN MANAGEMENT, AND THE PAIN ASSESSMENT PROCESS?YES ADVANCE DIRECTIVE ADVANCE DIRECTIVE DISCUSSED WITH PATIENT: PT DOES NOT HAVE ANY ADVANCED DIRECTIVES AND SHE DECLINES INFORMATION ON HCP AT THIS TIME HOSPITALIZATION/MAJOR DIAGNOSTIC PROCEDURE PSYCHOTIC EPISODE 08/2017 REVIEW OF SYSTEMS REVIEWED BY: PROVIDER: JULIETTE CARLIN . CONSTITUTIONAL: ANY CHANGE IN YOUR MEDICAL CONDITION? NO . CHILLS NO . FEVER NO . INFECTION: DO YOU HAVE NEW INFECTIONS? NO . DO YOU HAVE HISTORY OF MRSA? NO . MUSCULOSKELETAL: ANY NEW PATTERNS OF PAIN OR NUMBNESS? NO . GASTROENTEROLOGY: ANY NEW CHANGE IN BOWEL CONTROL? NO . GENITOURINARY: ANY NEW CHANGE IN BLADDER CONTROL? NO . IS THERE A CHANCE YOU COULD BE ? NO . HEMATOLOGY/LYMPH: DO YOU TAKE ANY BLOOD THINNERS? (FOR EXAMPLE- COUMADIN, PLAVIX, AGGRENOX, PLATEL, PRADAXA, OR XARELTO) NO . WHEN WAS YOUR LAST DOSE? DATE: TIME: . NEUROLOGY: HAVE YOU FALLEN IN THE PAST 12 MONTHS? NO . ANY NEW EXTREMITY NUMBNESS OR WEAKNESS? NO . CARDIOLOGY: DO YOU HAVE A PACEMAKER OR DEFIBRILLATOR? NO . RESPIRATORY: HAVE YOU BEEN SICK IN THE PAST WEEK? NO . FEVER NO . FLU LIKE SYMPTOMS? NO . COUGH NO . INTEGUMENTARY: DO YOU HAVE ANY RASHES OR OPEN SORES? NO . ALLERGIC/IMMUNO: ARE YOU ALLERGIC TO IV DYE? NO . ANY NEW ALLERGIES? NO . PSYCHIATRIC: DO YOU HAVE THOUGHTS OF HURTING YOURSELF OR SOMEONE ELSE? NO . ARE YOU ABUSED, NEGLECTED, OR IN AN UNSAFE ENVIRONMENT? NO . ENDOCRINOLOGY: ARE YOU DIABETIC? NO . OTHER: DO YOU NEED ANY PRESCRIPTIONS? NO . IF YES, PLEASE LIST: ____ . ANY NEW PROBLEMS WITH YOUR MEDICATIONS? NO . WHEN DID YOU LAST EAT? ____ . WHEN DID YOU LAST DRINK? ____ . WHAT DID YOU LAST DRINK? ____ . NAME OF PERSON DRIVING YOU HOME? ____ . DO YOU HAVE ANY OTHER QUESTIONS OR CONCERNS NO . VITAL SIGNS WT 200.4 LBS, HT 68 IN, BMI 30.47 INDEX, BP 114/59 MM HG, HR 964 /MIN, RR 18 /MIN, TEMP 96.5 F, OXYGEN SAT % 97%, SAFE IN ENV? (Y/N) Y, NA INITIALS AW 0905, REVIEWED BY: EM. EXAMINATION GENERAL EXAMINATION: GENERALNO ACUTE DISTRESS, WELL NOURISHED AND HYDRATED. PSYCHAPPROPRIATE MOOD AND AFFECT . LUNGS:CLEAR TO AUSCULTATION BILATERALLY, NO WHEEZES, RHONCHI, RALES. HEART:NO MURMURS, REGULAR RATE AND RHYTHM. 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 DISCUSSED SYMPTOMS WITH PATIENT AND HE ADMITS TO CONCERNS REGARDING FUNCTIONALITY OF RIGHT ARM. PATIENT HAS HAD A CONSULT WITH DR. TANNER IN THE PAST AND HE WAS ENCOURAGED TO DISCUSS CONTINUED SYMPTOMS WITH HIM THE MEE DID NOT WORK FOR PATIENT. GIVEN PRESENTING SYMPTOMS RECOMMEND LYRICA 75 MG DAILY WITH FOLLOW-UP IN ONE MONTH TO DETERMINE EFFICACY OF TREATMENT. PATIENT HAS EXPRESSED UNDERSTANDING OF AND WAS IN AGREEMENT WITH TREATMENT PLAN. GIVEN TIME TO ASK QUESTIONS AND EXPRESS CONCERNS. OTHERS NOTES: PREGABALIN MATERIAL WAS PRINTED. PROCEDURE CODES FA211 ESTABILISHED PATIENT [facility] CHARGE DISPOSITION & COMMUNICATION FOLLOW UP 4 WEEKS (REASON: NECK PAIN,NEW MED ) ELECTRONICALLY SIGNED BY CL COBOS ON 03/06/2020 AT 07:58 AM EDT DISCLAIMER : THIS IS A VISIT SUMMARY EXTRACTED FROM THE [employer] CHART. IT IS NOT A COPY OF THE [employer] PROGRESS NOTE. MIESHA
== END ==
LOC: M PAIN 09:30
PROVIDERS: ATTEND Family Medicine
DX: M50.10 Cervical disc disorder with radiculopathy, unspecified cervical region (principal); Z79.899 Other long term (current) drug therapy; Z88.0 Allergy status to penicillin; Z88.8 Allergy status to other drugs, medicaments and biological substances; Z91.018 Allergy to other foods; Z91.030 Bee allergy status

== ENCOUNTER → 2020-03-18 | Outpatient (REF) | payer OTHER ==
[2020-03-18 15:37] LABS: BASO % 0.3 % (0.0-1.0); EOS # 0.1 10^3/uL (0.0-0.5); EOS % 0.8 % (0.0-3.0); HEMATOCRIT 46.4 % (42.0-52.0); HEMOGLOBIN 16.1 g/dl (13.5-17.5); LYMPH # 2.8 10^3/uL (1.5-5.0); LYMPH % 41.9 % (24.0-44.0); MEAN CORPUSCULAR HEMOGLOBIN 32.8 pg (27.0-33.0); MEAN CORPUSCULAR HGB CONC 34.7 g/dl (32.0-36.5); MEAN CORPUSCULAR VOLUME 94.5 fl (80.0-96.0); MONO # 0.7 10^3/uL (0.0-0.8); MONO % 11.1 % (0.0-5.0); NEUTROPHILS % 45.6 % (36.0-66.0); PLATELET COUNT, AUTOMATED 264 10^3/uL (150-450); RED BLOOD COUNT 4.91 10^6/uL (4.30-6.10); WHITE BLOOD COUNT 6.6 10^3/uL (4.0-10.0)
[2020-03-18 16:01] LABS: ALT/SGPT 33 U/L (12-78); BILIRUBIN,TOTAL 0.7 MG/DL (0.2-1.0); BLOOD UREA NITROGEN 5 MG/DL (7-18); CALCIUM LEVEL 9.4 MG/DL (8.5-10.1); CARBON DIOXIDE LEVEL 34 MEQ/L (21-32); CHLORIDE LEVEL 105 MEQ/L (98-107); CREATININE FOR GFR 1.05 MG/DL (0.70-1.30); GLOMERULAR FILTRATION RATE > 60.0 (>56); GLUCOSE, FASTING 104 MG/DL (70-100); POTASSIUM SERUM 4.3 MEQ/L (3.5-5.1); SODIUM LEVEL 142 MEQ/L (136-145); TOTAL PROTEIN 7.7 GM/DL (6.4-8.2)
== END ==
LOC: M SFHCPLAZ 12:51
PROVIDERS: ATTEND Physician Assistant Medical
DX: I10 Essential (primary) hypertension (principal)

== ENCOUNTER → 2020-09-03 | Outpatient (CLI) | payer SELFPAY | LOC: M LABSMTC 11:13 | PROVIDERS: ATTEND Pediatrics | DX: Z20.828 Contact with and (suspected) exposure to other viral communicable diseases (principal) ==

== ENCOUNTER → 2021-08-04 | Outpatient (CLI) | payer OTHER ==
[~2021-08-04] MED LIST changes: +LISI10TA22 PO; -LISI10TA4 PO
[2021-08-04 14:21] LABS: BASO % 0.2 % (0.0-1.0); EOS # 0.1 10^3/uL (0.0-0.5); EOS % 0.9 % (0.0-3.0); HEMATOCRIT 45.7 % (42.0-52.0); HEMOGLOBIN 15.5 g/dl (13.5-17.5); LYMPH # 1.9 10^3/uL (1.5-5.0); MEAN CORPUSCULAR HEMOGLOBIN 33.4 pg (27.0-33.0); MEAN CORPUSCULAR HGB CONC 33.9 g/dl (32.0-36.5); MEAN CORPUSCULAR VOLUME 98.5 fl (80.0-96.0); MONO # 0.6 10^3/uL (0.0-0.8); MONO % 10.6 % (2.0-8.0); NEUTROPHILS % 53.9 % (36.0-66.0); PLATELET COUNT, AUTOMATED 216 10^3/uL (150-450); RED BLOOD COUNT 4.64 10^6/uL (4.30-6.10); WHITE BLOOD COUNT 5.6 10^3/uL (4.0-10.0)
[2021-08-04 14:54] LABS: ALBUMIN 3.4 GM/DL (3.2-5.2); ALT/SGPT 29 U/L (12-78); BILIRUBIN,TOTAL 0.5 MG/DL (0.2-1.0); BLOOD UREA NITROGEN 11 MG/DL (7-18); CARBON DIOXIDE LEVEL 31 MEQ/L (21-32); CHLORIDE LEVEL 106 MEQ/L (98-107); CHOLESTEROL LEVEL 165 MG/DL (<200); CHOLESTEROL RISK RATIO 2.946 (<5); CREATININE FOR GFR 0.94 MG/DL (0.70-1.30); FREE T4 0.82 NG/DL (0.76-1.46); GLOMERULAR FILTRATION RATE > 60.0 (>49); GLUCOSE, FASTING 103 MG/DL (70-100); HDL CHOLESTEROL 56 MG/DL (>40); LDL CHOLESTEROL 93 MG/DL (<100); NON-HDL-C 109 MG/DL; POTASSIUM SERUM 4.5 MEQ/L (3.5-5.1); SODIUM LEVEL 139 MEQ/L (136-145); THYROID STIMULATING HORMONE 0.596 uIU/ML (0.358-3.740); TOTAL PROTEIN 7.2 GM/DL (6.4-8.2); TRIGLYCERIDES LEVEL 78 MG/DL (<150)
== END ==
LOC: M PLALAB 10:25
PROVIDERS: ATTEND Physician Assistant Medical
DX: Z12.5 Encounter for screening for malignant neoplasm of prostate (principal); I10 Essential (primary) hypertension; F32.5 Major depressive disorder, single episode, in full remission; Z13.220 Encounter for screening for lipoid disorders

== ENCOUNTER → 2021-11-25 | Outpatient (CLI) | payer OTHER ==
[~2021-11-25] MED LIST changes: +LOSA100T45 PO; -LOSA100T50 PO
[2021-11-25 12:52] LABS: BLOOD UREA NITROGEN 5 MG/DL (7-18); CREATININE FOR GFR 0.77 MG/DL (0.70-1.30); GLOMERULAR FILTRATION RATE > 60.0 (>49)
== END ==
LOC: M LAB 11:04
PROVIDERS: ATTEND Internal Medicine Gastroenterology
DX: R63.4 Abnormal weight loss (principal)

== ENCOUNTER → 2021-12-05 | Outpatient (CLI) | payer OTHER ==
[~2021-12-05] MED LIST changes: +GLUCAGON INJ 1MG VIAL As Ordered ONE; +ISOVUE-370 76% 100ML VIAL As Ordered ONE; +NEULUMEX 0.1% SUSPENSION 450ML BOTTLE (FORMERLY VOLUMEN) As Ordered ONE
== END ==
LOC: M RAD 11:47
PROVIDERS: ATTEND Internal Medicine Gastroenterology
DX: R63.4 Abnormal weight loss (principal); R19.7 Diarrhea, unspecified
CPT/HCPCS: 74177; 82656; 87505; J1610; Q9967

== ENCOUNTER 2021-12-16 10:44 | Day surgery (SDC) | payer OTHER ==
[~2021-12-16] VITALS: Ht 172.7 cm; Wt 84.7 kg
[~2021-12-16 10:44] MED LIST changes: +AMLO1TAB24 PO; -GLUCAGON INJ 1MG VIAL As Ordered ONE; -ISOVUE-370 76% 100ML VIAL As Ordered ONE; -NEULUMEX 0.1% SUSPENSION 450ML BOTTLE (FORMERLY VOLUMEN) As Ordered ONE; +NS 1,000 ML IV ONE; +TRAZ-257 PO; +XANA0.5T PO
[2021-12-16] MEDS ORDERED: fentaNYL 100 MCG/2 ML INJECTION As Ordered ONE (11:23)
[2021-12-16] MEDS ORDERED: propofoL 500 MG/50 ML VIAL As Ordered ONE (11:23)
[2021-12-16] MEDS ORDERED: LIDOCAINE 2% 100MG/5ML SDV (FOR ANES.) As Ordered ONE (11:23)
[2021-12-16 13:15] VITALS: BP 138/85
== END 2021-12-16 13:16 | disposition home or self-care (01) ==
LOC: M OPP 10:44
PROVIDERS: ATTEND Internal Medicine Gastroenterology
DX: K52.9 Noninfective gastroenteritis and colitis, unspecified (principal); K63.5 Polyp of colon; K22.89 Other specified disease of esophagus; R63.4 Abnormal weight loss; Z79.899 Other long term (current) drug therapy; Z88.0 Allergy status to penicillin; Z88.8 Allergy status to other drugs, medicaments and biological substances; Z91.018 Allergy to other foods; Z91.030 Bee allergy status; Z87.891 Personal history of nicotine dependence
CPT/HCPCS: 43239; 45380; 45385; 88305; J3010

== ENCOUNTER → 2021-12-19 | Outpatient (CLI) | payer OTHER ==
[~2021-12-19] MED LIST changes: -NS 1,000 ML IV ONE
[2021-12-19 13:31] LABS: BASO % 0.4 % (0.0-1.0); EOS # 0.1 10^3/uL (0.0-0.5); HEMATOCRIT 47.2 % (42.0-52.0); HEMOGLOBIN 16.3 g/dl (13.5-17.5); LYMPH # 2.9 10^3/uL (1.5-5.0); LYMPH % 43.4 % (24.0-44.0); MEAN CORPUSCULAR HEMOGLOBIN 33.2 pg (27.0-33.0); MEAN CORPUSCULAR HGB CONC 34.5 g/dl (32.0-36.5); MEAN CORPUSCULAR VOLUME 96.1 fl (80.0-96.0); MONO # 0.8 10^3/uL (0.0-0.8); MONO % 11.2 % (2.0-8.0); NEUTROPHILS # 2.9 10^3/uL (1.5-8.5); NEUTROPHILS % 43.9 % (36.0-66.0); PLATELET COUNT, AUTOMATED 216 10^3/uL (150-450); RED BLOOD COUNT 4.91 10^6/uL (4.30-6.10); WHITE BLOOD COUNT 6.7 10^3/uL (4.0-10.0)
[2021-12-19 14:19] LABS: ALT/SGPT 42 U/L (12-78); BILIRUBIN,TOTAL 0.9 MG/DL (0.2-1.0); BLOOD UREA NITROGEN 7 MG/DL (7-18); CALCIUM LEVEL 9.6 MG/DL (8.8-10.2); CARBON DIOXIDE LEVEL 30 MEQ/L (21-32); CHLORIDE LEVEL 104 MEQ/L (98-107); CHOLESTEROL LEVEL 180 MG/DL (<200); CREATININE FOR GFR 0.88 MG/DL (0.70-1.30); FREE T4 0.91 NG/DL (0.76-1.46); GLOMERULAR FILTRATION RATE > 60.0 (>49); GLUCOSE, FASTING 97 MG/DL (70-100); HDL CHOLESTEROL 50 MG/DL (>40); LDL CHOLESTEROL 101 MG/DL (<100); NON-HDL-C 130 MG/DL; SODIUM LEVEL 139 MEQ/L (136-145); TRIGLYCERIDES LEVEL 146 MG/DL (<150)
== END ==
LOC: M PLALAB 10:33
PROVIDERS: ATTEND Physician Assistant Medical
DX: F32.5 Major depressive disorder, single episode, in full remission (principal); Z12.5 Encounter for screening for malignant neoplasm of prostate; I10 Essential (primary) hypertension; Z13.220 Encounter for screening for lipoid disorders

== ENCOUNTER → 2022-08-04 | Outpatient (CLI) | payer OTHER | LOC: M PLAIMG 15:47 | PROVIDERS: ATTEND Physician Assistant | DX: S49.92XA Unspecified injury of left shoulder and upper arm, initial encounter (principal); W18.30XA Fall on same level, unspecified, initial encounter; Y92.009 Unspecified place in unspecified non-institutional (private) residence as the place of occurrence of the external cause ==

== ENCOUNTER 2022-11-02 18:38 | Emergency (ER) | payer OTHER ==
[~2022-11-02] VITALS: Ht 172.7 cm; Wt 81.8 kg
[2022-11-02 19:04] VITALS: BP 124/97
[2022-11-02 20:10] LABS: HEMATOCRIT 47.3 % (42.0-52.0); HEMOGLOBIN 16.7 g/dl (13.5-17.5); MEAN CORPUSCULAR HEMOGLOBIN 33.7 pg (27.0-33.0); MEAN CORPUSCULAR HGB CONC 35.3 g/dl (32.0-36.5); MEAN CORPUSCULAR VOLUME 95.6 fl (80.0-96.0); PLATELET COUNT, AUTOMATED 233 10^3/uL (150-450); RED BLOOD COUNT 4.95 10^6/uL (4.30-6.10); WHITE BLOOD COUNT 9.6 10^3/uL (4.0-10.0)
[2022-11-02 20:33] LABS: ETHYL ALCOHOL (ETHANOL) 0.096 % (0.000-0.010)
[2022-11-02 20:35] LABS: ACETAMINOPHEN LEVEL < 2.0 UG/ML (10.0-20.0); ALKALINE PHOSPHATASE 82 U/L (46-116); ALT/SGPT 38 U/L (7.0-40); AST/SGOT 30 U/L (<34); BILIRUBIN,DIRECT 0.3 MG/DL (<0.4); BILIRUBIN,TOTAL 0.6 MG/DL (0.3-1.2); BLOOD UREA NITROGEN 6 MG/DL (9-23); CALCIUM LEVEL 8.8 MG/DL (8.3-10.6); CARBON DIOXIDE LEVEL 29 MMOL/L (20-31); CHLORIDE LEVEL 100 MMOL/L (98-107); CREATININE FOR GFR 0.66 MG/DL (0.70-1.30); GLOMERULAR FILTRATION RATE > 60.0 (>49); GLUCOSE, FASTING 121 MG/DL (74-106); SALICYLATE LEVEL < 3.0 MG/DL (<30); SODIUM LEVEL 138 MMOL/L (136-145); TOTAL PROTEIN 7.9 G/DL (5.7-8.2)
[2022-11-02 20:38] LABS: THYROID STIMULATING HORMONE 1.119 uIU/ML (0.55-4.78)
== END 2022-11-02 22:16 | disposition home or self-care (01) ==
LOC: M ED 18:58
DX: F32.A Depression, unspecified (principal); F41.9 Anxiety disorder, unspecified; I45.10 Unspecified right bundle-branch block; R00.0 Tachycardia, unspecified; Z88.0 Allergy status to penicillin; Z88.8 Allergy status to other drugs, medicaments and biological substances; Z91.030 Bee allergy status; Z79.899 Other long term (current) drug therapy

== ENCOUNTER → 2023-05-21 | Outpatient (CLI) | payer OTHER ==
[~2023-05-21] MED LIST changes: -LOSA100T45 PO; +LOSA100T46 PO
[2023-05-21 13:46] LABS: APPEARANCE, URINE HAZY (CLEAR); BACTERIA, URINE AUTO NEGATIVE (NEGATIVE); BILIRUBIN, URINE AUTO NEGATIVE (NEGATIVE); BLOOD, URINE BLOOD NEGATIVE (NEGATIVE); CALCIUM OXALATE CRYSTALS LARGE; COLOR, URINE AMBER (YELLOW); GLUCOSE, URINE (UA) AUTO NEGATIVE (NEGATIVE); KETONE, URINE AUTO NEGATIVE (NEGATIVE); LEUKOCYTE ESTERASE, URINE AUTO NEGATIVE (NEGATIVE); MUCUS, URINE LARGE (NEGATIVE); NITRITE, URINE AUTO NEGATIVE (NEGATIVE); PROTEIN, URINE AUTO 1+ mg/dL (NEGATIVE); RBC, URINE AUTO 0 /HPF (0-3); SPECIFIC GRAVITY URINE AUTO 1.028 (1.002-1.035); SQUAMOUS EPITHELIAL CELL UR AU 1 /HPF (0-6); WBC, URINE AUTO 0 /HPF (0-3)
[2023-05-21 15:56] LABS: LIPASE 41 U/L (12-53)
[2023-05-21 15:59] LABS: ALBUMIN 4.3 G/DL (3.2-5.2); ALKALINE PHOSPHATASE 110 U/L (46-116); ALT/SGPT 118 U/L (7.0-40); AST/SGOT 91 U/L (<34); BASO % 0.3 % (0.0-1.0); BLOOD UREA NITROGEN 9 MG/DL (9-23); CALCIUM LEVEL 9.7 MG/DL (8.3-10.6); CARBON DIOXIDE LEVEL 27 MMOL/L (20-31); CHLORIDE LEVEL 100 MMOL/L (98-107); CHOLESTEROL LEVEL 146 MG/DL (<200); CHOLESTEROL RISK RATIO 2.81 (<5); CREATININE FOR GFR 0.91 MG/DL (0.70-1.30); EOS % 0.3 % (0.0-3.0); GLOMERULAR FILTRATION RATE > 60.0 (>49); GLUCOSE, FASTING 98 MG/DL (74-106); HDL CHOLESTEROL 51.8 MG/DL (>40); HEMATOCRIT 51.1 % (42.0-52.0); HEMOGLOBIN 17.3 g/dl (13.5-17.5); LDL CHOLESTEROL 72.6 MG/DL (<100); LYMPH # 2.3 10^3/uL (1.5-5.0); LYMPH % 34.8 % (24.0-44.0); MEAN CORPUSCULAR HEMOGLOBIN 33.7 pg (27.0-33.0); MEAN CORPUSCULAR HGB CONC 33.9 g/dl (32.0-36.5); MEAN CORPUSCULAR VOLUME 99.4 fl (80.0-96.0); MONO # 0.8 10^3/uL (0.0-0.8); NEUTROPHILS # 3.4 10^3/uL (1.5-8.5); NEUTROPHILS % 52.1 % (36.0-66.0); NON-HDL-C 94.2 MG/DL; PLATELET COUNT, AUTOMATED 148 10^3/uL (150-450); POTASSIUM SERUM 3.9 MMOL/L (3.5-5.1); RED BLOOD COUNT 5.14 10^6/uL (4.30-6.10); SODIUM LEVEL 138 MMOL/L (136-145); TOTAL PROTEIN 8.2 G/DL (5.7-8.2); TRIGLYCERIDES LEVEL 108 MG/DL (<150); WHITE BLOOD COUNT 6.5 10^3/uL (4.0-10.0)
[2023-05-21 16:02] LABS: FREE T4 1.21 NG/DL (0.89-1.76); THYROID STIMULATING HORMONE 2.125 uIU/ML (0.55-4.78)
[2023-05-21 16:30] LABS: HEMOGLOBIN A1c 5.1 % (4.0-6.0)
== END ==
LOC: M PLALAB 12:34
PROVIDERS: ATTEND Physician Assistant Medical
DX: I10 Essential (primary) hypertension (principal); R10.9 Unspecified abdominal pain

== ENCOUNTER → 2023-05-24 | Outpatient (CLI) | payer OTHER | LOC: M RAD 07:47 | PROVIDERS: ATTEND Physician Assistant Medical | DX: S32.020A Wedge compression fracture of second lumbar vertebra, initial encounter for closed fracture (principal); R10.9 Unspecified abdominal pain; W19.XXXA Unspecified fall, initial encounter; Y92.89 Other specified places as the place of occurrence of the external cause; Y93.89 Activity, other specified; Y99.8 Other external cause status ==

== ENCOUNTER 2023-12-15 06:45 | Emergency (ER) | payer OTHER ==
[~2023-12-15] VITALS: Ht 172.7 cm; Wt 83.5 kg
[2023-12-15 06:52] VITALS: TEMP 98.3; O2SAT 93
[2023-12-15 07:46] VITALS: BP 129/75
== END 2023-12-15 08:55 | disposition left against medical advice (07) ==
LOC: M ED 06:45 → EDBD 06:45 → M ED 08:55
DX: R04.0 Epistaxis (principal); I10 Essential (primary) hypertension; F19.10 Other psychoactive substance abuse, uncomplicated; G47.33 Obstructive sleep apnea (adult) (pediatric); B19.9 Unspecified viral hepatitis without hepatic coma; K58.9 Irritable bowel syndrome, unspecified; Z88.8 Allergy status to other drugs, medicaments and biological substances; Z88.0 Allergy status to penicillin; Z91.018 Allergy to other foods; Z91.030 Bee allergy status; Z79.899 Other long term (current) drug therapy; Z53.9 Procedure and treatment not carried out, unspecified reason

== ENCOUNTER 2024-01-02 12:07 | Observation (INO) | payer OTHER ==
[~2024-01-02] VITALS: Ht 172.7 cm; Wt 85.5 kg
[2024-01-02] MEDS: ACETAMINOPHEN TAB 650MG DOSE (2X325MG) PO ONE (13:15)
[2024-01-02] MEDS: FOLIC ACID 1MG TAB PO ONE (13:15)
[2024-01-02] MEDS: MULTIVITAMINS/MINERALS THERAP 1 TAB PO ONE (13:15)
[2024-01-02] MEDS: NS 1,000 ML IV ONE ×3 (13:15→21:53)
[2024-01-02] MEDS: THIAMINE 100 MG TAB PO ONE (13:15)
[2024-01-02 13:25] LABS: HEMATOCRIT 42.1 % (42.0-52.0); HEMOGLOBIN 15.6 g/dl (13.5-17.5); MEAN CORPUSCULAR HEMOGLOBIN 35.8 pg (27.0-33.0); MEAN CORPUSCULAR VOLUME 96.6 fl (80.0-96.0); PLATELET COUNT, AUTOMATED 128 10^3/uL (150-450); RED BLOOD COUNT 4.36 10^6/uL (4.30-6.10); WHITE BLOOD COUNT 8.6 10^3/uL (4.0-10.0)
[2024-01-02] MEDS: OXAZEPAM 10MG CAP PO PRN (13:37)
[2024-01-02 13:41] LABS: CK-MB VALUE MASS < 1.0 NG/ML (<3.6); LIPASE 54 U/L (12-53)
[2024-01-02 13:42] LABS: ETHYL ALCOHOL (ETHANOL) 0.283 % (0.000-0.010)
[2024-01-02 13:43] LABS: MEAN CORPUSCULAR HGB CONC 37.1 g/dl (32.0-36.5); SALICYLATE LEVEL < 3.0 MG/DL (<30)
[2024-01-02 13:44] LABS: ALBUMIN 3.8 G/DL (3.2-5.2); ALKALINE PHOSPHATASE 88 U/L (46-116); ALT/SGPT 102 U/L (7.0-40); AST/SGOT 107 U/L (<34); BILIRUBIN,DIRECT 0.3 MG/DL (<0.4); BILIRUBIN,TOTAL 0.8 MG/DL (0.3-1.2); BLOOD UREA NITROGEN 8 MG/DL (9-23); CALCIUM LEVEL 8.3 MG/DL (8.3-10.6); CARBON DIOXIDE LEVEL 22 MMOL/L (20-31); CHLORIDE LEVEL 98 MMOL/L (98-107); CPK CREATINE PHOSPHOKINASE 289 U/L (46-171); CREATININE FOR GFR 0.63 MG/DL (0.70-1.30); GLOMERULAR FILTRATION RATE > 60.0 (>49); GLUCOSE, FASTING 152 MG/DL (74-106); MAGNESIUM LEVEL 1.7 MG/DL (1.8-2.4); MB/CK RELATIVE INDEX 0.34 (< OR =4); SODIUM LEVEL 132 MMOL/L (136-145)
[2024-01-02 13:45] LABS: THYROID STIMULATING HORMONE 0.462 uIU/ML (0.55-4.78)
[2024-01-02] MEDS: ONDANSETRON 4MG 2ML VIAL IV ONE (13:45)
[2024-01-02] MEDS: MAG SULF 1GM/100ML (MAG RUN) 1 GM in IV 1 EA IV ONE (13:59)
[2024-01-02 14:08] LABS: FREE T4 0.85 NG/DL (0.89-1.76)
[2024-01-02] MEDS ORDERED: ISOVUE-370 76% 100ML VIAL As Ordered ONE (14:30)
[2024-01-02 15:49] LABS: AMPHETAMINES LEVEL URINE NEGATIVE (NEGATIVE); BARBITURATES URINE NEGATIVE (NEGATIVE); BENZODIAZEPINES URINE NEGATIVE (NEGATIVE); COCAINE METABOLITE URINE NEGATIVE (NEGATIVE); METHADONE URINE NEGATIVE (NEGATIVE)
[2024-01-02 15:50] LABS: CANNABINOIDS URINE NEGATIVE (NEGATIVE); OPIATES URINE NEGATIVE (NEGATIVE); PHENCYCLIDINE URINE NEGATIVE (NEGATIVE)
[2024-01-02] MEDS ORDERED: MOM 30ML SUSPENSION UDC PO PRN (16:55)
[2024-01-02] MEDS ORDERED: MAALOX 30 ML SUSP *UDC PO PRN (16:55)
[2024-01-02] MEDS: PROPRANOLOL 20 MG TAB PO ONE (18:42)
[2024-01-02] MEDS ORDERED: HOME MED LIST COMPLETE! XX SCH (19:05)
[2024-01-02 19:57] VITALS: BP 122/75; TEMP 103.4; O2SAT 93
[2024-01-02 20:07] VITALS: BP 122/75
[2024-01-02] MEDS: ACETAMINOPHEN TAB 650MG DOSE (2X325MG) PO PRN (20:21)
[2024-01-02] MEDS: SODIUM CHLORIDE 0.9% 1000ML IV STA (20:43)
[2024-01-02] MEDS: LORazepam 2 MG TAB PO PRN (20:47)
[2024-01-02] MEDS: OXAZEPAM 15MG CAP PO SCH (21:00)
[2024-01-02] MEDS ORDERED: VANCOMYCIN HCL 1,000 MG, VIAL MATE ADAPTER 1 EACH in NS 250 ML IV SCH (21:15)
[2024-01-02 21:19] LABS: ABG HCO3 23.8 MMOL/L (22.0-26.0); ABG O2 SATURATION 94.8 % (95.0-99.0); ABG PARTIAL PRESSURE CO2 32.3 mmHg (35.0-45.0); ABG PARTIAL PRESSURE O2 68.4 mmHg (75.0-100.0); ABG STANDARD HCO3 25.3 MMOL/L. (22.0-26.0); ABG TOTAL CO2 24.8 MMOL/L (23.0-31.0); ABG pH (ARTERIAL) 7.485 UNITS (7.350-7.450)
[2024-01-02 21:36] VITALS: BP 120/65; TEMP 102.5; O2SAT 93
[2024-01-02 21:38] LABS: BASO % 0.3 % (0.0-1.0); HEMATOCRIT 34.5 % (42.0-52.0); LYMPH % 12.7 % (24.0-44.0); MEAN CORPUSCULAR HEMOGLOBIN 35.2 pg (27.0-33.0); MEAN CORPUSCULAR HGB CONC 35.9 g/dl (32.0-36.5); MONO # 0.7 10^3/uL (0.0-0.8); MONO % 8.6 % (2.0-8.0); NEUTROPHILS % 77.7 % (36.0-66.0); PLATELET COUNT, AUTOMATED 106 10^3/uL (150-450); RED BLOOD COUNT 3.52 10^6/uL (4.30-6.10); WHITE BLOOD COUNT 7.7 10^3/uL (4.0-10.0)
[2024-01-02 21:41] LABS: HEMOGLOBIN 12.4 g/dl (13.5-17.5)
[2024-01-02 21:58] LABS: PROCALCITONIN 0.22 ng/ml
[2024-01-02 22:00] VITALS: BP 120/65
[2024-01-02] MEDS: MULTIVITAMIN -ADULT INJECTION 10 ML, THIAMINE INJection 100 MG, FOLIC ACID 1 MG in NS 1... IV ONE (22:19)
[2024-01-02 22:26] LABS: HEPATITIS C VIRUS ABY INDEX 0.03 INDEX (<0.8)
[2024-01-02 22:27] LABS: HEPATITIS B CORE ANTIBODY IGM NEGATIVE (NEGATIVE)
[2024-01-02 22:29] LABS: ALKALINE PHOSPHATASE 64 U/L (46-116); ALT/SGPT 71 U/L (7.0-40); AST/SGOT 73 U/L (<34); BILIRUBIN,TOTAL 0.7 MG/DL (0.3-1.2); BLOOD UREA NITROGEN 8 MG/DL (9-23); CALCIUM LEVEL 7.5 MG/DL (8.3-10.6); CARBON DIOXIDE LEVEL 24 MMOL/L (20-31); CHLORIDE LEVEL 100 MMOL/L (98-107); CREATININE FOR GFR 0.69 MG/DL (0.70-1.30); GLOMERULAR FILTRATION RATE > 60.0 (>49); GLUCOSE, FASTING 111 MG/DL (74-106); POTASSIUM SERUM 3.8 MMOL/L (3.5-5.1); SODIUM LEVEL 131 MMOL/L (136-145); TOTAL PROTEIN 6.2 G/DL (5.7-8.2)
[2024-01-02] MEDS: VANCOMYCIN HCL 1,000 MG, VIAL MATE ADAPTER 1 EACH in D5W 250 ML IV ONE (22:32)
[2024-01-02 23:25] LABS: MAGNESIUM LEVEL 1.7 MG/DL (1.8-2.4)
[2024-01-02 23:59] VITALS: BP 132/67; TEMP 101.3; O2SAT 97
[2024-01-03] VITALS (26 sets, daily range): BP systolic 112–132; BP diastolic 67–93; TEMP 98.4–100.9; O2SAT 90–98
[2024-01-03] MEDS: MAG SULF 1GM/100ML (MAG RUN) 1 GM in IV 1 EA IV SCH (00:19)
[2024-01-03] MEDS: VANCOMYCIN HCL 750 MG, VIAL MATE ADAPTER 1 EACH in D5W 250 ML IV ONE (00:20)
[2024-01-03] MEDS: AZTREONAM 1 GM in D5W MINI-BAG PLUS 50 ML IV SCH (02:12)
[2024-01-03] MEDS: LevoFLOXacin IV 750 MG in IV 1 EA IV SCH (02:57)
[2024-01-03 05:59] LABS: BLOOD UREA NITROGEN 9 MG/DL (9-23); CALCIUM LEVEL 7.5 MG/DL (8.3-10.6); CARBON DIOXIDE LEVEL 26 MMOL/L (20-31); CHLORIDE LEVEL 102 MMOL/L (98-107); CREATININE FOR GFR 0.69 MG/DL (0.70-1.30); GLOMERULAR FILTRATION RATE > 60.0 (>49); GLUCOSE, FASTING 105 MG/DL (74-106); MAGNESIUM LEVEL 2.3 MG/DL (1.8-2.4); POTASSIUM SERUM 3.7 MMOL/L (3.5-5.1); SODIUM LEVEL 133 MMOL/L (136-145)
[2024-01-03] MEDS ORDERED: OXAZEPAM 15MG CAP PO SCH ×2 (09:00→21:00)
[2024-01-03] MEDS ORDERED: PROPRANOLOL 20 MG TAB PO PRN (09:00)
[2024-01-03] MEDS ORDERED: OXAZEPAM 10MG CAP PO SCH (09:14)
[2024-01-03] MEDS: amLODIPine 5 MG TAB PO SCH (09:24)
[2024-01-03] MEDS: LACTOBACILLUS ACIDOPHILUS CAP (BACID) PO SCH (09:25)
[2024-01-03] MEDS: MULTIVITAMINS/MINERALS THERAP 1 TAB PO SCH (09:25)
[2024-01-03] MEDS: OXAZEPAM 10MG CAP PO SCH (09:25)
[2024-01-03] MEDS: FOLIC ACID 1MG TAB PO SCH (09:25)
[2024-01-03] MEDS: FLUTICASONE PROP 0.05% NASAL SPRAY 16 GM (FLONASE) NARES SCH (09:26)
[2024-01-03] MEDS: ENOXAPARIN 40MG/0.4ML SYRINGE (J1650 PER 10MG) SC SCH (09:26)
[2024-01-03] MEDS: VANCOMYCIN HCL 750 MG, VIAL MATE ADAPTER 1 EACH in D5W 250 ML IV SCH (09:39)
[2024-01-03] MEDS: VANCOMYCIN HCL 500 MG in D5W MINI-BAG PLUS 100 ML IV SCH (11:34)
[2024-01-03] MEDS: OFLOXACIN 0.3 % (OCUFLOX) OPTH SOL 5ML OU SCH (12:30)
[2024-01-03] MEDS: THIAMINE 100 MG TAB PO SCH (20:07)
[2024-01-04] VITALS (12 sets, daily range): BP systolic 1–133; BP diastolic 65–85; TEMP 97.8–99.4; O2SAT 95–97
[2024-01-04 06:00] LABS: BLOOD UREA NITROGEN 7 MG/DL (9-23); CALCIUM LEVEL 8.2 MG/DL (8.3-10.6); CARBON DIOXIDE LEVEL 28 MMOL/L (20-31); CHLORIDE LEVEL 104 MMOL/L (98-107); CREATININE FOR GFR 0.69 MG/DL (0.70-1.30); GLOMERULAR FILTRATION RATE > 60.0 (>49); GLUCOSE, FASTING 84 MG/DL (74-106); MAGNESIUM LEVEL 2.2 MG/DL (1.8-2.4); POTASSIUM SERUM 3.9 MMOL/L (3.5-5.1); SODIUM LEVEL 136 MMOL/L (136-145)
[2024-01-04] MEDS: LevoFLOXacin 750 MG TABLET PO SCH (06:31)
[2024-01-04] MEDS ORDERED: LEVO1TAB40 PO (11:26)
[2024-01-04] MEDS ORDERED: OCUF0.25 OU (11:26)
[2024-01-04] MEDS ORDERED: RISATAB3 PO (11:26)
== END 2024-01-04 22:19 ==
LOC: M ED 12:07 → M ED INP 12:08 → M PCU 19:52
PROVIDERS: ADMIT Student in an Organized Health Care Education/Training Program; ATTEND Student in an Organized Health Care Education/Training Program
DX: F10.139 Alcohol abuse with withdrawal, unspecified (principal); F32.A Depression, unspecified; R45.851 Suicidal ideations; H10.9 Unspecified conjunctivitis; J32.0 Chronic maxillary sinusitis; R50.9 Fever, unspecified; K76.0 Fatty (change of) liver, not elsewhere classified; R74.01 Elevation of levels of liver transaminase levels; E87.1 Hypo-osmolality and hyponatremia; E83.42 Hypomagnesemia; R74.02 Elevation of levels of lactic acid dehydrogenase [LDH]; D69.6 Thrombocytopenia, unspecified; F41.9 Anxiety disorder, unspecified; R25.1 Tremor, unspecified; Z63.79 Other stressful life events affecting family and household; Z88.0 Allergy status to penicillin; Z88.8 Allergy status to other drugs, medicaments and biological substances; Z91.018 Allergy to other foods; Z91.030 Bee allergy status; Z79.899 Other long term (current) drug therapy; Z79.2 Long term (current) use of antibiotics
CPT/HCPCS: 36600; 71046; 74177; 80048; 80053; 80074; 80076; 80143; 80307; 81001; 82077; 82550; 82553; 82803; 83605; 83690; 83735; 84145; 84439; 84443; 85025; 85027; 86140; 87040; 87486; 87581; 87633; 87641; 87798; 93005; 93041; 96372; 96374; 96375; 96376; 99285; J0457; J1650; J1956; J2405; J3370; J3411; J3475; Q9967

== ENCOUNTER 2024-01-04 13:57 | Inpatient (IN) | payer MEDICAID, OTHER ==
[~2024-01-04] VITALS: Ht 172.7 cm; Wt 80.7 kg
[~2024-01-04 13:57] MED LIST changes: +LEVO1TAB40 PO; +OCUF0.25 OU; +RISATAB3 PO
[2024-01-04] MEDS ORDERED: MOM 30ML SUSPENSION UDC PO PRN (18:40)
[2024-01-04] MEDS ORDERED: LORazepam 2 MG TAB PO PRN (18:40)
[2024-01-04] MEDS ORDERED: IBUPROFEN 400MG TAB PO PRN (18:40)
[2024-01-04] MEDS ORDERED: ACETAMINOPHEN TAB 650MG DOSE (2X325MG) PO PRN (18:40)
[2024-01-04] MEDS ORDERED: MAALOX 30 ML SUSP *UDC PO PRN (18:40)
[2024-01-04] MEDS: THIAMINE 100 MG TAB PO SCH (22:45)
[2024-01-04 22:59] VITALS: BP 132/79; TEMP 98.7; O2SAT 95
[2024-01-05] MEDS: OXAZEPAM 10MG CAP PO SCH (00:44)
[2024-01-05 06:00] VITALS: BP 118/74
[2024-01-05 06:21] VITALS: BP 111/69; TEMP 98.6; O2SAT 95
[2024-01-05] MEDS: FOLIC ACID 1MG TAB PO SCH (09:18)
[2024-01-05] MEDS: MULTIVITAMINS/MINERALS THERAP 1 TAB PO SCH (09:18)
[2024-01-05] MEDS: LevoFLOXacin 750 MG TABLET PO SCH (14:10)
[2024-01-05 17:38] VITALS: BP 136/76; TEMP 97.8
[2024-01-05] MEDS: CARIPRAZINE 1.5MG CAPSULE (VRAYLAR) PO SCH (20:59)
[2024-01-05] MEDS: traZODone 50 MG TAB PO PRN (20:59)
[2024-01-05 21:01] VITALS: BP 146/83
[2024-01-06 06:00] VITALS: BP 139/82
[2024-01-06 06:40] VITALS: BP 139/82; TEMP 98.3; O2SAT 96
[2024-01-06] MEDS ORDERED: ALPR0.25 PO (11:04)
[2024-01-06] MEDS ORDERED: OFLO5DRO OU (11:04)
[2024-01-06] MEDS ORDERED: TRAZ300T2 PO (11:04)
[2024-01-06] MEDS ORDERED: CREO6000 PO (11:06)
[2024-01-06] MEDS ORDERED: HOME MED LIST COMPLETE! XX SCH (11:10)
[2024-01-06] MEDS: METOPROLOL TART 50 MG TAB PO SCH (13:16)
[2024-01-06] MEDS: amLODIPine 5 MG TAB PO SCH (13:16)
[2024-01-06 13:18] VITALS: BP 140/80; TEMP 97.8; O2SAT 98
[2024-01-06] MEDS: OXAZEPAM 10MG CAP PO SCH (20:46)
[2024-01-06 21:01] VITALS: BP 148/98
[2024-01-06 21:14] VITALS: BP 148/98
[2024-01-06] MEDS: QUEtiapine FUMARATE 25 MG TAB PO SCH (21:19)
[2024-01-07 06:50] VITALS: BP 124/66; TEMP 98.4; O2SAT 96
[2024-01-07 07:41] LABS: CHOLESTEROL RISK RATIO 2.97 (<5); HDL CHOLESTEROL 40.7 MG/DL (>40); LDL CHOLESTEROL 51.7 MG/DL (<100); NON-HDL-C 80.3 MG/DL
[2024-01-07 08:42] VITALS: BP 139/82
[2024-01-07 16:33] VITALS: BP 117/70; TEMP 98.5; O2SAT 99
[2024-01-07] MEDS ORDERED: SODIUM CHLORIDE NASAL 0.65% SPRAY BTL (OCEAN) PRN (19:50)
[2024-01-07] MEDS: QUEtiapine FUMARATE 50MG TAB PO SCH (21:14)
[2024-01-07] MEDS: OXAZEPAM 10MG CAP PO SCH (21:14)
[2024-01-08 06:18] VITALS: BP 124/77; TEMP 97.7; O2SAT 95
[2024-01-08] MEDS: ARTIFICIAL TEARS DROPS 15ML BTL (VISINE DRY RELIEF) OU SA PRN (15:15)
[2024-01-08 16:00] VITALS: BP 131/78; TEMP 98.1; O2SAT 98
[2024-01-09 06:41] VITALS: BP 132/79; TEMP 98.3; O2SAT 95
[2024-01-09] MEDS: OXAZEPAM 10MG CAP PO SCH (08:18)
[2024-01-09 16:11] VITALS: BP 113/59; TEMP 97.4; O2SAT 97
[2024-01-09] MEDS: diphenhydrAMINE 25MG CAP PO PRN (20:37)
[2024-01-10 06:51] VITALS: BP 132/76; TEMP 98.7; O2SAT 97
[2024-01-10 16:48] VITALS: BP 138/73; TEMP 97.7; O2SAT 99
[2024-01-11 06:17] VITALS: BP 128/78; TEMP 98.4; O2SAT 87
[2024-01-11 08:27] VITALS: BP 136/76
[2024-01-11] MEDS ORDERED: QUET50TA4 PO (10:16)
[2024-01-11] MEDS ORDERED: VRAY1.5C PO (10:16)
== END 2024-01-11 11:43 | disposition home or self-care (01) | DRG 751 ==
LOC: M ED INP 18:36 → M PSY 22:20
PROVIDERS: ADMIT Student in an Organized Health Care Education/Training Program; ATTEND Student in an Organized Health Care Education/Training Program
DX: F33.9 Major depressive disorder, recurrent, unspecified (principal); F10.230 Alcohol dependence with withdrawal, uncomplicated; R45.851 Suicidal ideations; G47.00 Insomnia, unspecified; I10 Essential (primary) hypertension; J32.9 Chronic sinusitis, unspecified; H10.9 Unspecified conjunctivitis; Z79.899 Other long term (current) drug therapy; Z88.0 Allergy status to penicillin; Z88.8 Allergy status to other drugs, medicaments and biological substances; Z91.030 Bee allergy status; Z91.018 Allergy to other foods; Z63.5 Disruption of family by separation and divorce

== ENCOUNTER 2024-05-15 15:45 | Emergency (ER) | payer MEDICAID, OTHER ==
[~2024-05-15] VITALS: Ht 172.7 cm; Wt 86.4 kg
[~2024-05-15 15:45] MED LIST changes: +ALPR0.25 PO; +CREO6000 PO; +OFLO5DRO OU; +QUET50TA4 PO; +TRAZ300T2 PO; +VRAY1.5C PO
[2024-05-15 16:00] VITALS: TEMP 97.2
[2024-05-15] MEDS ORDERED: ISOVUE-370 76% 100ML VIAL As Ordered ONE (16:23)
[2024-05-15 16:46] LABS: BASO % 0.6 % (0.0-1.0); EOS % 0.6 % (0.0-3.0); HEMOGLOBIN 15.8 g/dl (13.5-17.5); LYMPH % 37.6 % (24.0-44.0); MEAN CORPUSCULAR HEMOGLOBIN 34.2 pg (27.0-33.0); MEAN CORPUSCULAR HGB CONC 35.1 g/dl (32.0-36.5); MEAN CORPUSCULAR VOLUME 97.4 fl (80.0-96.0); MONO # 0.7 10^3/uL (0.0-0.8); NEUTROPHILS # 2.6 10^3/uL (1.5-8.5); NEUTROPHILS % 48.8 % (36.0-66.0); PLATELET COUNT, AUTOMATED 142 10^3/uL (150-450); RED BLOOD COUNT 4.62 10^6/uL (4.30-6.10); WHITE BLOOD COUNT 5.4 10^3/uL (4.0-10.0)
[2024-05-15] MEDS: NS 500 ML IV ONE (16:49)
[2024-05-15] MEDS: LORazepam 2 MG/ML 1ML VIAL IV STA (16:49)
[2024-05-15 17:05] LABS: INR 1.09; PARTIAL THROMBOPLASTIN TIME 24.5 SECONDS (24.8-34.2); PROTHROMBIN TIME 13.8 SECONDS (12.5-14.5)
[2024-05-15 17:16] LABS: ETHYL ALCOHOL (ETHANOL) 0.037 % (0.000-0.010)
[2024-05-15 17:18] LABS: CPK CREATINE PHOSPHOKINASE 278 U/L (46-171); SALICYLATE LEVEL < 3.0 MG/DL (<30)
[2024-05-15 17:21] LABS: ALKALINE PHOSPHATASE 74 U/L (46-116); ALT/SGPT 126 U/L (7.0-40); AST/SGOT 119 U/L (<34); BILIRUBIN,DIRECT 0.3 MG/DL (<0.4); BILIRUBIN,TOTAL 0.8 MG/DL (0.3-1.2); BLOOD UREA NITROGEN < 5 MG/DL (9-23); CALCIUM LEVEL 9.3 MG/DL (8.3-10.6); CARBON DIOXIDE LEVEL 30 MMOL/L (20-31); CHLORIDE LEVEL 100 MMOL/L (98-107); CK-MB VALUE MASS 2.7 NG/ML (<3.6); CREATININE FOR GFR 0.76 MG/DL (0.70-1.30); GLOMERULAR FILTRATION RATE > 60.0 (>49); GLUCOSE, FASTING 124 MG/DL (74-106); MB/CK RELATIVE INDEX 0.97 (< OR =4); POTASSIUM SERUM 3.8 MMOL/L (3.5-5.1); SODIUM LEVEL 138 MMOL/L (136-145); THYROID STIMULATING HORMONE 1.772 uIU/ML (0.55-4.78); TOTAL PROTEIN 8.2 G/DL (5.7-8.2)
[2024-05-15 17:51] LABS: AMPHETAMINES LEVEL URINE NEGATIVE (NEGATIVE); BARBITURATES URINE NEGATIVE (NEGATIVE); BENZODIAZEPINES URINE NEGATIVE (NEGATIVE); COCAINE METABOLITE URINE NEGATIVE (NEGATIVE); METHADONE URINE NEGATIVE (NEGATIVE); OPIATES URINE NEGATIVE (NEGATIVE); PHENCYCLIDINE URINE NEGATIVE (NEGATIVE)
[2024-05-15 17:53] LABS: CANNABINOIDS URINE POSITIVE (NEGATIVE)
[2024-05-15 17:59] LABS: HEPATITIS B SURFACE ANTIGEN NEGATIVE (NEGATIVE)
[2024-05-15 18:12] LABS: HIV 1&2 SCREEN NEGATIVE (NEGATIVE)
[2024-05-15 18:21] LABS: HEPATITIS B CORE ANTIBODY IGM NEGATIVE (NEGATIVE); HEPATITIS C VIRUS ABY INDEX 0.03 INDEX (<0.8)
[2024-05-15 19:57] LABS: MB/CK RELATIVE INDEX 0.78 (< OR =4)
[2024-05-15 20:30] VITALS: BP 159/84; O2SAT 92
== END 2024-05-15 21:12 | disposition home or self-care (01) ==
LOC: M ED 15:45 → EDBD 15:45 → M ED 21:12
DX: R20.0 Anesthesia of skin (principal); I45.81 Long QT syndrome; I10 Essential (primary) hypertension; F32.A Depression, unspecified; F41.9 Anxiety disorder, unspecified; F10.10 Alcohol abuse, uncomplicated; K58.9 Irritable bowel syndrome, unspecified; F12.10 Cannabis abuse, uncomplicated; Z87.891 Personal history of nicotine dependence; Z88.0 Allergy status to penicillin; Z88.8 Allergy status to other drugs, medicaments and biological substances; Z91.030 Bee allergy status; Z91.018 Allergy to other foods; Z79.899 Other long term (current) drug therapy
CPT/HCPCS: 36415; 70450; 70496; 70498; 70551; 71045; 80047; 80048; 80074; 80076; 80143; 80307; 82077; 82550; 82553; 84443; 84484; 85025; 85610; 85730; 87389; 93005; 93041; 94760; 96361; 96374; 99285; J2060; Q9967

== ENCOUNTER 2024-06-28 18:06 | Inpatient (IN) | payer MEDICAID, OTHER ==
[~2024-06-28] VITALS: Ht 172.7 cm; Wt 86.4 kg
[2024-06-28 19:18] LABS: HEMATOCRIT 47.3 % (42.0-52.0); MEAN CORPUSCULAR HEMOGLOBIN 34.8 pg (27.0-33.0); MEAN CORPUSCULAR HGB CONC 35.9 g/dl (32.0-36.5); MEAN CORPUSCULAR VOLUME 96.9 fl (80.0-96.0); PLATELET COUNT, AUTOMATED 165 10^3/uL (150-450); RED BLOOD COUNT 4.88 10^6/uL (4.30-6.10)
[2024-06-28] MEDS ORDERED: HOME MED LIST COMPLETE! XX SCH (19:30)
[2024-06-28] MEDS: LORazepam 2 MG TAB PO STA (19:45)
[2024-06-28 19:48] LABS: ETHYL ALCOHOL (ETHANOL) < 0.003 % (0.000-0.010)
[2024-06-28 19:50] LABS: ALBUMIN 4.5 G/DL (3.2-5.2); ALKALINE PHOSPHATASE 70 U/L (46-116); ALT/SGPT 105 U/L (7.0-40); AST/SGOT 103 U/L (<34); BILIRUBIN,DIRECT 0.6 MG/DL (<0.4); BILIRUBIN,TOTAL 1.5 MG/DL (0.3-1.2); BLOOD UREA NITROGEN 6 MG/DL (9-23); CARBON DIOXIDE LEVEL 23 MMOL/L (20-31); CHLORIDE LEVEL 96 MMOL/L (98-107); CREATININE FOR GFR 0.63 MG/DL (0.70-1.30); GLOMERULAR FILTRATION RATE > 60.0 (>49); GLUCOSE, FASTING 127 MG/DL (74-106); MAGNESIUM LEVEL 1.4 MG/DL (1.8-2.4); POTASSIUM SERUM 3.6 MMOL/L (3.5-5.1); SALICYLATE LEVEL < 3.0 MG/DL (<30); SODIUM LEVEL 131 MMOL/L (136-145); TOTAL PROTEIN 9.1 G/DL (5.7-8.2)
[2024-06-28 19:52] LABS: THYROID STIMULATING HORMONE 1.664 uIU/ML (0.55-4.78)
[2024-06-28 21:04] LABS: AMPHETAMINES LEVEL URINE NEGATIVE (NEGATIVE)
[2024-06-28 21:05] LABS: BARBITURATES URINE NEGATIVE (NEGATIVE); BENZODIAZEPINES URINE NEGATIVE (NEGATIVE); COCAINE METABOLITE URINE NEGATIVE (NEGATIVE); METHADONE URINE NEGATIVE (NEGATIVE); OPIATES URINE NEGATIVE (NEGATIVE); PHENCYCLIDINE URINE NEGATIVE (NEGATIVE)
[2024-06-28 21:06] LABS: CANNABINOIDS URINE POSITIVE (NEGATIVE)
[2024-06-28] MEDS: MAGNESIUM OXIDE 400MG TAB (MAG-OX) PO ONE (21:29)
[2024-06-28] MEDS ORDERED: IBUPROFEN 400MG TAB PO PRN (23:00)
[2024-06-28] MEDS ORDERED: MAALOX 30 ML SUSP *UDC PO PRN (23:00)
[2024-06-28] MEDS ORDERED: diphenhydrAMINE 25MG CAP PO PRN (23:00)
[2024-06-28] MEDS ORDERED: ACETAMINOPHEN TAB 650MG DOSE (2X325MG) PO PRN (23:00)
[2024-06-28] MEDS ORDERED: LORazepam 2 MG TAB PO PRN (23:00)
[2024-06-28] MEDS ORDERED: MOM 30ML SUSPENSION UDC PO PRN (23:00)
[2024-06-28] MEDS ORDERED: NICOTINE 21MG/24HR 1 EA TRANSDERMAL TD PRN (23:00)
[2024-06-28] MEDS ORDERED: traZODone 50 MG TAB PO PRN (23:00)
[2024-06-28] MEDS: THIAMINE 100 MG TAB PO SCH (23:32)
[2024-06-28 23:34] VITALS: BP 135/97
[2024-06-28] MEDS: amLODIPine 5 MG TAB PO ONE (23:34)
[2024-06-28 23:55] LABS: FOLATE > 24.00 NG/ML (>5.4); VITAMIN B12 LEVEL 373 PG/ML (211-911)
[2024-06-29 00:42] VITALS: BP 136/94; TEMP 97.7; O2SAT 98
[2024-06-29 00:55] VITALS: BP 136/94; TEMP 97.7; O2SAT 98
[2024-06-29 05:53] VITALS: BP 140/91
[2024-06-29 06:37] VITALS: BP 140/91; TEMP 97.8; O2SAT 95
[2024-06-29] MEDS: MULTIVITAMINS/MINERALS THERAP 1 TAB PO SCH (08:49)
[2024-06-29] MEDS: FOLIC ACID 1MG TAB PO SCH (08:49)
[2024-06-29] MEDS ORDERED: MAGN400C2 PO (13:49)
== END 2024-06-29 14:38 | disposition home or self-care (01) | DRG 751 ==
LOC: M ED 18:06 → M ED INP 22:56 → M PSY 06-29 00:43
PROVIDERS: ADMIT Psychiatry & Neurology Psychiatry; ATTEND Psychiatry & Neurology Psychiatry
DX: F33.0 Major depressive disorder, recurrent, mild (principal); E87.0 Hyperosmolality and hypernatremia; K76.0 Fatty (change of) liver, not elsewhere classified; E83.42 Hypomagnesemia; F41.0 Panic disorder [episodic paroxysmal anxiety]; Z62.811 Personal history of psychological abuse in childhood; Z63.8 Other specified problems related to primary support group; I10 Essential (primary) hypertension; Z87.891 Personal history of nicotine dependence; Z79.899 Other long term (current) drug therapy; Z88.0 Allergy status to penicillin; Z88.8 Allergy status to other drugs, medicaments and biological substances; Z91.018 Allergy to other foods; Z91.030 Bee allergy status; Z85.828 Personal history of other malignant neoplasm of skin; R20.0 Anesthesia of skin

== ENCOUNTER 2024-07-11 13:16 | Emergency (ER) | payer MEDICAID, OTHER ==
[~2024-07-11] VITALS: Ht 172.7 cm; Wt 90.9 kg
[~2024-07-11 13:16] MED LIST changes: +MAGN400C2 PO
[2024-07-11 13:57] LABS: HEMATOCRIT 46.3 % (42.0-52.0); HEMOGLOBIN 16.7 g/dl (13.5-17.5); MEAN CORPUSCULAR HEMOGLOBIN 35.1 pg (27.0-33.0); MEAN CORPUSCULAR HGB CONC 36.1 g/dl (32.0-36.5); MEAN CORPUSCULAR VOLUME 97.3 fl (80.0-96.0); PLATELET COUNT, AUTOMATED 227 10^3/uL (150-450); RED BLOOD COUNT 4.76 10^6/uL (4.30-6.10); WHITE BLOOD COUNT 6.9 10^3/uL (4.0-10.0)
[2024-07-11 14:19] LABS: ETHYL ALCOHOL (ETHANOL) 0.142 % (0.000-0.010)
[2024-07-11 14:21] LABS: ALBUMIN 3.9 G/DL (3.2-5.2); ALKALINE PHOSPHATASE 71 U/L (46-116); ALT/SGPT 113 U/L (7.0-40); AST/SGOT 108 U/L (<34); BILIRUBIN,DIRECT 0.4 MG/DL (<0.4); BILIRUBIN,TOTAL 0.8 MG/DL (0.3-1.2); BLOOD UREA NITROGEN 5 MG/DL (9-23); CALCIUM LEVEL 9.3 MG/DL (8.3-10.6); CARBON DIOXIDE LEVEL 23 MMOL/L (20-31); CHLORIDE LEVEL 102 MMOL/L (98-107); CREATININE FOR GFR 0.63 MG/DL (0.70-1.30); GLOMERULAR FILTRATION RATE > 60.0 (>49); GLUCOSE, FASTING 136 MG/DL (74-106); POTASSIUM SERUM 3.7 MMOL/L (3.5-5.1); SALICYLATE LEVEL < 3.0 MG/DL (<30); SODIUM LEVEL 137 MMOL/L (136-145); TOTAL PROTEIN 8.3 G/DL (5.7-8.2)
[2024-07-11] MEDS ORDERED: ISOVUE-370 76% 100ML VIAL As Ordered ONE (14:22)
[2024-07-11 14:23] LABS: THYROID STIMULATING HORMONE 1.332 uIU/ML (0.55-4.78)
[2024-07-11] MEDS: LORazepam 2 MG/ML 1ML VIAL IV STA (14:27)
[2024-07-11 15:07] VITALS: TEMP 97.9
[2024-07-11] MEDS: ACETAMINOPHEN 325 MG TAB PO ONE (15:29)
[2024-07-11] MEDS: NS 1,000 ML IV ONE (15:29)
[2024-07-11 15:34] LABS: INR 1.05; PARTIAL THROMBOPLASTIN TIME 23.7 SECONDS (24.8-34.2); PROTHROMBIN TIME 13.4 SECONDS (12.5-14.5)
[2024-07-11 15:39] LABS: BASO # 0.1 10^3/uL (0.0-0.2); BASO % 0.8 % (0.0-1.0); CK-MB VALUE MASS < 1.0 NG/ML (<3.6); EOS % 0.2 % (0.0-3.0); LYMPH # 1.9 10^3/uL (1.5-5.0); LYMPH % 28.1 % (24.0-44.0); MONO # 0.7 10^3/uL (0.0-0.8); MONO % 10.3 % (2.0-8.0); NEUTROPHILS % 60.3 % (36.0-66.0)
[2024-07-11 15:40] LABS: CPK CREATINE PHOSPHOKINASE 194 U/L (46-171); MB/CK RELATIVE INDEX 0.51 (< OR =4)
[2024-07-11 16:45] VITALS: O2SAT 94
[2024-07-11] MEDS ORDERED: LORazepam 2 MG TAB PO PRN (17:20)
[2024-07-11 17:21] VITALS: BP 148/84
[2024-07-11 19:59] LABS: MB/CK RELATIVE INDEX 0.51 (< OR =4)
[2024-07-11] MEDS: THIAMINE 100 MG TAB PO SCH (20:24)
[2024-07-12] MEDS ORDERED: FOLIC ACID 1MG TAB PO SCH (09:00)
[2024-07-12] MEDS ORDERED: MULTIVITAMINS/MINERALS THERAP 1 TAB PO SCH (09:00)
[2024-07-13] MEDS ORDERED: QUET50TA4 (22:16)
== END 2024-07-11 20:57 | disposition left against medical advice (07) ==
LOC: EDBD 13:16 → M ED 13:16
DX: F10.120 Alcohol abuse with intoxication, uncomplicated (principal); I45.10 Unspecified right bundle-branch block; I45.81 Long QT syndrome; I10 Essential (primary) hypertension; F41.9 Anxiety disorder, unspecified; F32.A Depression, unspecified; F17.210 Nicotine dependence, cigarettes, uncomplicated; F12.10 Cannabis abuse, uncomplicated; Z88.0 Allergy status to penicillin; Z88.8 Allergy status to other drugs, medicaments and biological substances; Z91.030 Bee allergy status; Z91.018 Allergy to other foods; Z79.899 Other long term (current) drug therapy; Z53.9 Procedure and treatment not carried out, unspecified reason
CPT/HCPCS: 70450; 70496; 70498; 70551; 71045; 72125; 72141; 80047; 80048; 80076; 80143; 82077; 82550; 82553; 84443; 84484; 85027; 85610; 85730; 93005; 93041; 94760; 96361; 96374; 99285; J2060; Q9967

== ENCOUNTER 2024-07-13 21:41 | Emergency (ER) | payer OTHER ==
[~2024-07-13] VITALS: Ht 172.7 cm; Wt 90.9 kg
[2024-07-13] MEDS ORDERED: QUET50TA4 PO (22:16)
[2024-07-13 22:42] LABS: HEMATOCRIT 47.9 % (42.0-52.0); HEMOGLOBIN 17.2 g/dl (13.5-17.5); MEAN CORPUSCULAR HEMOGLOBIN 34.9 pg (27.0-33.0); MEAN CORPUSCULAR HGB CONC 35.9 g/dl (32.0-36.5); MEAN CORPUSCULAR VOLUME 97.2 fl (80.0-96.0); PLATELET COUNT, AUTOMATED 150 10^3/uL (150-450); RED BLOOD COUNT 4.93 10^6/uL (4.30-6.10)
[2024-07-13 22:57] LABS: AMPHETAMINES LEVEL URINE NEGATIVE (NEGATIVE); BARBITURATES URINE NEGATIVE (NEGATIVE); BENZODIAZEPINES URINE NEGATIVE (NEGATIVE); COCAINE METABOLITE URINE NEGATIVE (NEGATIVE)
[2024-07-13 22:58] LABS: METHADONE URINE NEGATIVE (NEGATIVE); OPIATES URINE NEGATIVE (NEGATIVE); PHENCYCLIDINE URINE NEGATIVE (NEGATIVE)
[2024-07-13 23:00] LABS: CANNABINOIDS URINE POSITIVE (NEGATIVE)
[2024-07-13 23:02] LABS: SALICYLATE LEVEL < 3.0 MG/DL (<30)
[2024-07-13 23:14] LABS: ALBUMIN 4.2 G/DL (3.2-5.2); ALKALINE PHOSPHATASE 76 U/L (46-116); ALT/SGPT 142 U/L (7.0-40); AST/SGOT 160 U/L (<34); BILIRUBIN,DIRECT 0.5 MG/DL (<0.4); BILIRUBIN,TOTAL 1.2 MG/DL (0.3-1.2); BLOOD UREA NITROGEN < 5 MG/DL (9-23); CALCIUM LEVEL 9.2 MG/DL (8.3-10.6); CARBON DIOXIDE LEVEL 19 MMOL/L (20-31); CHLORIDE LEVEL 102 MMOL/L (98-107); CREATININE FOR GFR 0.69 MG/DL (0.70-1.30); GLOMERULAR FILTRATION RATE > 60.0 (>49); GLUCOSE, FASTING 131 MG/DL (74-106); POTASSIUM SERUM 3.3 MMOL/L (3.5-5.1); SODIUM LEVEL 135 MMOL/L (136-145); THYROID STIMULATING HORMONE 2.337 uIU/ML (0.55-4.78); TOTAL PROTEIN 8.7 G/DL (5.7-8.2)
[2024-07-14] MEDS: LORazepam 0.5 MG TAB PO ONE (06:17)
[2024-07-14] MEDS ORDERED: HOME MED LIST COMPLETE! XX SCH (07:00)
[2024-07-14 10:26] VITALS: BP 141/85; TEMP 97.6; O2SAT 95
== END 2024-07-14 10:36 | disposition home or self-care (01) ==
LOC: M ED 21:41
DX: F10.120 Alcohol abuse with intoxication, uncomplicated (principal); I10 Essential (primary) hypertension; F32.A Depression, unspecified; F20.9 Schizophrenia, unspecified; F41.9 Anxiety disorder, unspecified; B17.9 Acute viral hepatitis, unspecified; Z88.0 Allergy status to penicillin; Z91.030 Bee allergy status; Z91.018 Allergy to other foods; Z88.8 Allergy status to other drugs, medicaments and biological substances; Z79.899 Other long term (current) drug therapy

== ENCOUNTER 2024-07-26 14:19 | Emergency (ER) | payer OTHER ==
[~2024-07-26] VITALS: Ht 172.7 cm; Wt 90.9 kg
[2024-07-26] MEDS: NS 1,000 ML IV ONE (15:56)
[2024-07-26 16:15] LABS: BASO % 0.7 % (0.0-1.0); EOS % 0.5 % (0.0-3.0); HEMATOCRIT 46.2 % (42.0-52.0); HEMOGLOBIN 16.5 g/dl (13.5-17.5); LYMPH # 1.8 10^3/uL (1.5-5.0); LYMPH % 31.2 % (24.0-44.0); MEAN CORPUSCULAR HEMOGLOBIN 35.3 pg (27.0-33.0); MEAN CORPUSCULAR HGB CONC 35.7 g/dl (32.0-36.5); MEAN CORPUSCULAR VOLUME 98.9 fl (80.0-96.0); MONO # 0.5 10^3/uL (0.0-0.8); MONO % 9.1 % (2.0-8.0); NEUTROPHILS # 3.4 10^3/uL (1.5-8.5); NEUTROPHILS % 58.2 % (36.0-66.0); PLATELET COUNT, AUTOMATED 143 10^3/uL (150-450); RED BLOOD COUNT 4.67 10^6/uL (4.30-6.10); WHITE BLOOD COUNT 5.8 10^3/uL (4.0-10.0)
[2024-07-26] MEDS: LORazepam 1 MG TAB PO ONE (16:29)
[2024-07-26 16:35] LABS: ETHYL ALCOHOL (ETHANOL) 0.165 % (0.000-0.010)
[2024-07-26 16:48] LABS: ALBUMIN 3.8 G/DL (3.2-5.2); ALKALINE PHOSPHATASE 85 U/L (46-116); ALT/SGPT 128 U/L (7.0-40); AST/SGOT 151 U/L (<34); BILIRUBIN,DIRECT 0.4 MG/DL (<0.4); BLOOD UREA NITROGEN 6 MG/DL (9-23); CALCIUM LEVEL 8.8 MG/DL (8.3-10.6); CARBON DIOXIDE LEVEL 29 MMOL/L (20-31); CHLORIDE LEVEL 98 MMOL/L (98-107); CREATININE FOR GFR 0.59 MG/DL (0.70-1.30); GLOMERULAR FILTRATION RATE > 60.0 (>49); GLUCOSE, FASTING 144 MG/DL (74-106); MAGNESIUM LEVEL 1.7 MG/DL (1.8-2.4); POTASSIUM SERUM 3.9 MMOL/L (3.5-5.1); SALICYLATE LEVEL < 3.0 MG/DL (<30); SODIUM LEVEL 136 MMOL/L (136-145); TOTAL PROTEIN 8.3 G/DL (5.7-8.2)
[2024-07-26] MEDS ORDERED: LORazepam 2 MG TAB PO PRN (17:10)
[2024-07-26 17:52] VITALS: TEMP 97.2
[2024-07-26] MEDS ORDERED: HOME MED LIST COMPLETE! XX SCH (18:05)
[2024-07-26] MEDS: MAGNESIUM GLUCONATE 500 MG TAB PO ONE (18:19)
[2024-07-26] MEDS: THIAMINE 100 MG TAB PO SCH (18:19)
[2024-07-26 18:27] LABS: AMPHETAMINES LEVEL URINE NEGATIVE (NEGATIVE); BARBITURATES URINE NEGATIVE (NEGATIVE); BENZODIAZEPINES URINE NEGATIVE (NEGATIVE); COCAINE METABOLITE URINE NEGATIVE (NEGATIVE)
[2024-07-26 18:28] LABS: METHADONE URINE NEGATIVE (NEGATIVE); OPIATES URINE NEGATIVE (NEGATIVE); PHENCYCLIDINE URINE NEGATIVE (NEGATIVE)
[2024-07-26 18:29] LABS: CANNABINOIDS URINE POSITIVE (NEGATIVE)
[2024-07-26 21:39] VITALS: BP 138/88; O2SAT 97
[2024-07-27] MEDS ORDERED: MULTIVITAMINS/MINERALS THERAP 1 TAB PO SCH (09:00)
[2024-07-27] MEDS ORDERED: FOLIC ACID 1MG TAB PO SCH (09:00)
== END 2024-07-26 22:18 | disposition home or self-care (01) ==
LOC: M ED 14:19 → EDBD 14:19 → M ED 22:18
DX: F10.120 Alcohol abuse with intoxication, uncomplicated (principal); I45.10 Unspecified right bundle-branch block; I45.81 Long QT syndrome; I10 Essential (primary) hypertension; F32.A Depression, unspecified; F17.210 Nicotine dependence, cigarettes, uncomplicated; Z88.0 Allergy status to penicillin; Z88.8 Allergy status to other drugs, medicaments and biological substances; Z91.030 Bee allergy status; Z91.018 Allergy to other foods; Z79.899 Other long term (current) drug therapy

== ENCOUNTER 2024-08-05 06:36 | Inpatient (IN) | payer OTHER ==
[~2024-08-05] VITALS: Ht 172.7 cm; Wt 80.3 kg
[2024-08-05] MEDS: LORazepam 2 MG/ML 1ML VIAL IV STA ×2 (07:49→13:02)
[2024-08-05 08:46] LABS: VENOUS BASE EXCESS 1.6 (-2.0-2.0); VENOUS HCO3 24.3 MMOL/L (23.0-27.0); VENOUS O2 SATURATION 84.8 % (60.0-80.0); VENOUS PARTIAL PRESSURE CO2 33.2 mmHg (38.0-50.0); VENOUS PARTIAL PRESSURE O2 47.9 mmHg (30.0-50.0); VENOUS PH 7.482 UNITS (7.330-7.430); VENOUS STANDARD HCO3 25.5 MMOL/L; VENOUS TOTAL CO2 25.3 MMOL/L (24.0-28.0)
[2024-08-05 08:54] LABS: BASO # 0.1 10^3/uL (0.0-0.2); BASO % 0.7 % (0.0-1.0); HEMATOCRIT 43.5 % (42.0-52.0); HEMOGLOBIN 15.6 g/dl (13.5-17.5); LYMPH # 1.4 10^3/uL (1.5-5.0); LYMPH % 19.2 % (24.0-44.0); MEAN CORPUSCULAR HEMOGLOBIN 35.2 pg (27.0-33.0); MEAN CORPUSCULAR HGB CONC 35.9 g/dl (32.0-36.5); MEAN CORPUSCULAR VOLUME 98.2 fl (80.0-96.0); MONO # 0.8 10^3/uL (0.0-0.8); MONO % 11.3 % (2.0-8.0); NEUTROPHILS # 4.8 10^3/uL (1.5-8.5); NEUTROPHILS % 68.5 % (36.0-66.0); PLATELET COUNT, AUTOMATED 189 10^3/uL (150-450); RED BLOOD COUNT 4.43 10^6/uL (4.30-6.10); WHITE BLOOD COUNT 7.1 10^3/uL (4.0-10.0)
[2024-08-05 09:11] LABS: CK-MB VALUE MASS 1.7 NG/ML (<3.6)
[2024-08-05 09:13] LABS: CPK CREATINE PHOSPHOKINASE 190 U/L (46-171); MB/CK RELATIVE INDEX 0.89 (< OR =4)
[2024-08-05 09:14] LABS: ALBUMIN 3.9 G/DL (3.2-5.2); ALKALINE PHOSPHATASE 85 U/L (46-116); ALT/SGPT 119 U/L (7.0-40); AST/SGOT 89 U/L (<34); BILIRUBIN,DIRECT 0.4 MG/DL (<0.4); BILIRUBIN,TOTAL 0.9 MG/DL (0.3-1.2); BLOOD UREA NITROGEN 6 MG/DL (9-23); CALCIUM LEVEL 9.6 MG/DL (8.3-10.6); CARBON DIOXIDE LEVEL 24 MMOL/L (20-31); CHLORIDE LEVEL 100 MMOL/L (98-107); CREATININE FOR GFR 0.57 MG/DL (0.70-1.30); GLOMERULAR FILTRATION RATE > 60.0 (>49); GLUCOSE, FASTING 125 MG/DL (74-106); POTASSIUM SERUM 3.6 MMOL/L (3.5-5.1); SODIUM LEVEL 136 MMOL/L (136-145); TOTAL PROTEIN 8.6 G/DL (5.7-8.2)
[2024-08-05 09:16] LABS: THYROID STIMULATING HORMONE 1.829 uIU/ML (0.55-4.78)
[2024-08-05 09:20] LABS: PROCALCITONIN 0.08 ng/ml
[2024-08-05] MEDS: NS IV STA (09:45)
[2024-08-05] MEDS ORDERED: ISOVUE-370 76% 100ML VIAL As Ordered ONE (15:12)
[2024-08-05] MEDS: THIAMINE 100 MG TAB PO SCH (16:42)
[2024-08-05] MEDS: FOLIC ACID 1MG TAB PO SCH (16:42)
[2024-08-05] MEDS: MULTIVITAMINS/MINERALS THERAP 1 TAB PO SCH (16:42)
[2024-08-05] MEDS: LORazepam 2 MG TAB PO PRN (17:21)
[2024-08-05] MEDS ORDERED: LORazepam 2 MG TAB PO PRN (17:45)
[2024-08-05] MEDS ORDERED: HOME MED LIST COMPLETE! XX SCH (17:50)
[2024-08-05] MEDS: NS 1,000 ML IV ONE (17:53)
[2024-08-05] MEDS ORDERED: LORazepam 2 MG/ML 1ML VIAL IV PRN (17:55)
[2024-08-05] MEDS: cloNIDine 0.1MG TABLET PO SCH (18:00)
[2024-08-05] MEDS ORDERED: OXAZEPAM 15MG CAP PO SCH (18:00)
[2024-08-05] MEDS: METOPROLOL TART 50 MG TAB PO SCH (18:09)
[2024-08-05] MEDS: OXAZEPAM 10MG CAP PO SCH (18:39)
[2024-08-05] MEDS: atenoloL 50 MG TAB PO ONE (19:05)
[2024-08-05 19:13] LABS: AMPHETAMINES LEVEL URINE NEGATIVE (NEGATIVE); BARBITURATES URINE NEGATIVE (NEGATIVE)
[2024-08-05 19:14] LABS: BENZODIAZEPINES URINE NEGATIVE (NEGATIVE); COCAINE METABOLITE URINE NEGATIVE (NEGATIVE); METHADONE URINE NEGATIVE (NEGATIVE); OPIATES URINE NEGATIVE (NEGATIVE); PHENCYCLIDINE URINE NEGATIVE (NEGATIVE)
[2024-08-05 19:15] LABS: CANNABINOIDS URINE POSITIVE (NEGATIVE)
[2024-08-05 20:02] VITALS: BP 108/68; TEMP 97.8; O2SAT 94
[2024-08-05] MEDS: amLODIPine 5 MG TAB PO SCH (20:26)
[2024-08-05 23:12] VITALS: BP 111/60; TEMP 98.4; O2SAT 93
[2024-08-05 23:38] VITALS: BP 111/60
[2024-08-06] VITALS (10 sets, daily range): BP systolic 115–141; BP diastolic 63–89; TEMP 97.3–98.5; O2SAT 92–98
[2024-08-06 06:41] LABS: HEMATOCRIT 39.6 % (42.0-52.0); HEMOGLOBIN 13.7 g/dl (13.5-17.5); MEAN CORPUSCULAR HEMOGLOBIN 34.9 pg (27.0-33.0); MEAN CORPUSCULAR HGB CONC 34.6 g/dl (32.0-36.5); PLATELET COUNT, AUTOMATED 129 10^3/uL (150-450); RED BLOOD COUNT 3.92 10^6/uL (4.30-6.10)
[2024-08-06] MEDS: METOPROLOL TART 25 MG TABLET PO SCH (07:05)
[2024-08-06 07:17] LABS: ALBUMIN 3.3 G/DL (3.2-5.2); ALKALINE PHOSPHATASE 72 U/L (46-116); ALT/SGPT 87 U/L (7.0-40); AST/SGOT 67 U/L (<34); BILIRUBIN,TOTAL 1.6 MG/DL (0.3-1.2); BLOOD UREA NITROGEN < 5 MG/DL (9-23); CALCIUM LEVEL 9.4 MG/DL (8.3-10.6); CARBON DIOXIDE LEVEL 25 MMOL/L (20-31); CHLORIDE LEVEL 105 MMOL/L (98-107); CHOLESTEROL LEVEL 175 MG/DL (<200); CHOLESTEROL RISK RATIO 2.12 (<5); CREATININE FOR GFR 0.61 MG/DL (0.70-1.30); GLOMERULAR FILTRATION RATE > 60.0 (>49); GLUCOSE, FASTING 94 MG/DL (74-106); HDL CHOLESTEROL 82.2 MG/DL (>40); LDL CHOLESTEROL 80.2 MG/DL (<100); MAGNESIUM LEVEL 1.8 MG/DL (1.8-2.4); NON-HDL-C 92.8 MG/DL; POTASSIUM SERUM 3.6 MMOL/L (3.5-5.1); SODIUM LEVEL 136 MMOL/L (136-145); TOTAL PROTEIN 7.5 G/DL (5.7-8.2); TRIGLYCERIDES LEVEL 63 MG/DL (<150)
[2024-08-06 07:47] LABS: HEMOGLOBIN A1c 5.4 % (4.0-6.0)
[2024-08-06] MEDS: METOCLOPRAMIDE INJ 10MG/2ML VIAL IV ONE (11:04)
[2024-08-06] MEDS: FIORICET TAB PO ONE (11:05)
[2024-08-06] MEDS: KETOROLAC 30 MG/ML 1ML VIAL IV ONE (11:05)
[2024-08-06] MEDS ORDERED: FIORICET TAB PO PRN (11:05)
[2024-08-06] MEDS ORDERED: SUMAtriptan SUCCINATE 6MG/0.5ML VIAL SC PRN (11:05)
[2024-08-06] MEDS ORDERED: IBUPROFEN 600MG TAB PO PRN (15:15)
[2024-08-06] MEDS: MULTIVITAMINS/MINERALS THERAP 1 TAB PO SCH (15:32)
[2024-08-06] MEDS: FOLIC ACID 1MG TAB PO SCH (15:33)
[2024-08-06] MEDS: THIAMINE 100 MG TAB PO SCH (20:01)
[2024-08-06] MEDS: traZODone 100 MG TAB PO PRN (20:01)
[2024-08-06] MEDS: LORazepam 2 MG TAB PO PRN (21:47)
[2024-08-07 03:27] VITALS: BP 146/94; TEMP 97.8; O2SAT 98
[2024-08-07 03:32] VITALS: BP 146/94
[2024-08-07 06:33] LABS: ALBUMIN 3.5 G/DL (3.2-5.2); ALKALINE PHOSPHATASE 76 U/L (46-116); ALT/SGPT 85 U/L (7.0-40); AST/SGOT 63 U/L (<34); BILIRUBIN,TOTAL 1.3 MG/DL (0.3-1.2); BLOOD UREA NITROGEN 6 MG/DL (9-23); CALCIUM LEVEL 9.5 MG/DL (8.3-10.6); CARBON DIOXIDE LEVEL 26 MMOL/L (20-31); CHLORIDE LEVEL 103 MMOL/L (98-107); GLOMERULAR FILTRATION RATE > 60.0 (>49); GLUCOSE, FASTING 120 MG/DL (74-106); MAGNESIUM LEVEL 1.7 MG/DL (1.8-2.4); POTASSIUM SERUM 4.3 MMOL/L (3.5-5.1); SODIUM LEVEL 133 MMOL/L (136-145)
[2024-08-07] MEDS ORDERED: amLODIPine 5 MG TAB PO SCH (09:00)
[2024-08-07] MEDS ORDERED: METOPROLOL TART 50 MG TAB PO SCH (09:00)
== END 2024-08-07 07:19 | disposition home or self-care (01) | DRG 775 ==
LOC: M ED 06:36 → EDBD 06:36 → M ED INP 17:39 → M PCU 20:30
PROVIDERS: ADMIT General Practice; ATTEND General Practice
DX: F10.139 Alcohol abuse with withdrawal, unspecified (principal); E87.20 Acidosis, unspecified; R45.851 Suicidal ideations; D69.6 Thrombocytopenia, unspecified; E83.42 Hypomagnesemia; G62.1 Alcoholic polyneuropathy; K76.0 Fatty (change of) liver, not elsewhere classified; K70.9 Alcoholic liver disease, unspecified; F12.10 Cannabis abuse, uncomplicated; E87.1 Hypo-osmolality and hyponatremia; R74.01 Elevation of levels of liver transaminase levels; I10 Essential (primary) hypertension; F32.A Depression, unspecified; M19.90 Unspecified osteoarthritis, unspecified site; F43.25 Adjustment disorder with mixed disturbance of emotions and conduct; R27.0 Ataxia, unspecified; R53.1 Weakness; R20.0 Anesthesia of skin; F17.200 Nicotine dependence, unspecified, uncomplicated; D75.89 Other specified diseases of blood and blood-forming organs; Z79.899 Other long term (current) drug therapy; Z88.0 Allergy status to penicillin; Z88.8 Allergy status to other drugs, medicaments and biological substances; Z91.018 Allergy to other foods; Z98.1 Arthrodesis status; Z91.030 Bee allergy status; Z85.828 Personal history of other malignant neoplasm of skin; Z91.040 Latex allergy status

== ENCOUNTER 2024-08-17 17:33 | Emergency (ER) | payer MEDICAID, OTHER ==
[~2024-08-17] VITALS: Ht 175.3 cm; Wt 100.0 kg
[2024-08-17 18:10] LABS: HEMATOCRIT 45.9 % (42.0-52.0); MEAN CORPUSCULAR HEMOGLOBIN 35.2 pg (27.0-33.0); MEAN CORPUSCULAR HGB CONC 34.9 g/dl (32.0-36.5); MEAN CORPUSCULAR VOLUME 101.1 fl (80.0-96.0); PLATELET COUNT, AUTOMATED 209 10^3/uL (150-450); RED BLOOD COUNT 4.54 10^6/uL (4.30-6.10); WHITE BLOOD COUNT 7.9 10^3/uL (4.0-10.0)
[2024-08-17 18:41] LABS: SALICYLATE LEVEL < 3.0 MG/DL (<30)
[2024-08-17 18:42] LABS: ALBUMIN 3.7 G/DL (3.2-5.2); ALKALINE PHOSPHATASE 90 U/L (40-129); ALT/SGPT 94 U/L (7.0-40); AST/SGOT 103 U/L (<34); BILIRUBIN,DIRECT 0.3 MG/DL (<0.4); BILIRUBIN,TOTAL 0.6 MG/DL (0.3-1.2); BLOOD UREA NITROGEN < 5 MG/DL (9-23); CALCIUM LEVEL 9.3 MG/DL (8.3-10.6); CARBON DIOXIDE LEVEL 22 MMOL/L (20-31); CHLORIDE LEVEL 104 MMOL/L (98-107); CREATININE FOR GFR 0.69 MG/DL (0.70-1.30); GLOMERULAR FILTRATION RATE > 60.0 (>49); GLUCOSE, FASTING 122 MG/DL (74-106); POTASSIUM SERUM 3.8 MMOL/L (3.5-5.1); SODIUM LEVEL 141 MMOL/L (136-145); TOTAL PROTEIN 8.6 G/DL (5.7-8.2)
[2024-08-17 18:43] LABS: THYROID STIMULATING HORMONE 1.044 uIU/ML (0.55-4.78)
[2024-08-17] MEDS: LORazepam 2 MG/ML 1ML VIAL IM ONE (18:50)
[2024-08-17] MEDS: diphenhydrAMINE 50MG/ML VIAL IM ONE (18:50)
[2024-08-17] MEDS: HALOPERIDOL LACTATE 5MG/ML VIAL IM ONE (18:50)
[2024-08-17] MEDS ORDERED: MED REC COMMENT (18:56)
[2024-08-17] MEDS ORDERED: HOME MED LIST COMPLETE! XX SCH (19:20)
[2024-08-17] MEDS: THIAMINE 100 MG TAB PO SCH (22:28)
[2024-08-18 06:03] VITALS: TEMP 96.9; O2SAT 99
[2024-08-18 09:26] VITALS: BP 160/80
[2024-08-18] MEDS: METOPROLOL TART 50 MG TAB PO SCH (09:26)
[2024-08-18] MEDS: FOLIC ACID 1MG TAB PO SCH (09:26)
[2024-08-18] MEDS: MULTIVITAMINS/MINERALS THERAP 1 TAB PO SCH (09:26)
[2024-08-18] MEDS: amLODIPine 5 MG TAB PO SCH (09:27)
[2024-08-18 09:53] LABS: AMPHETAMINES LEVEL URINE NEGATIVE (NEGATIVE); BENZODIAZEPINES URINE NEGATIVE (NEGATIVE); PHENCYCLIDINE URINE NEGATIVE (NEGATIVE)
[2024-08-18 09:54] LABS: COCAINE METABOLITE URINE NEGATIVE (NEGATIVE); METHADONE URINE NEGATIVE (NEGATIVE); OPIATES URINE NEGATIVE (NEGATIVE)
[2024-08-18 09:57] LABS: BARBITURATES URINE POSITIVE (NEGATIVE); CANNABINOIDS URINE POSITIVE (NEGATIVE)
[2024-08-18] MEDS: LORazepam 2 MG TAB PO PRN (10:32)
[2024-08-18 12:41] VITALS: BP 157/97
[2024-08-18] MEDS ORDERED: MOM 30ML SUSPENSION UDC PO PRN (12:45)
[2024-08-18] MEDS ORDERED: IBUPROFEN 400MG TAB PO PRN (12:45)
[2024-08-18] MEDS ORDERED: diphenhydrAMINE 25MG CAP PO PRN (12:45)
[2024-08-18] MEDS ORDERED: traZODone 50 MG TAB PO PRN (12:45)
[2024-08-18] MEDS ORDERED: ACETAMINOPHEN 325 MG TAB PO PRN (12:45)
[2024-08-18] MEDS ORDERED: MAALOX 30 ML SUSP *UDC PO PRN (12:45)
== END 2024-08-18 13:37 | disposition home or self-care (01) ==
LOC: M ED 17:33 → EDBD 17:33 → UNDOADMIN 08-18 12:42 → M ED INP 08-18 12:42 → UNDODISIN 08-18 13:36
DX: F19.14 Other psychoactive substance abuse with psychoactive substance-induced mood disorder (principal); M85.88 Other specified disorders of bone density and structure, other site; M25.78 Osteophyte, vertebrae; M41.86 Other forms of scoliosis, lumbar region; F32.A Depression, unspecified; I25.10 Atherosclerotic heart disease of native coronary artery without angina pectoris; I10 Essential (primary) hypertension; F41.9 Anxiety disorder, unspecified; F10.10 Alcohol abuse, uncomplicated; F12.10 Cannabis abuse, uncomplicated; F17.200 Nicotine dependence, unspecified, uncomplicated; Z79.899 Other long term (current) drug therapy; Z88.0 Allergy status to penicillin; Z88.8 Allergy status to other drugs, medicaments and biological substances; Z91.018 Allergy to other foods; Z91.013 Allergy to seafood; Z91.040 Latex allergy status
CPT/HCPCS: 70450; 71045; 72125; 72128; 72131; 80048; 80076; 80143; 80307; 82077; 84443; 85027; 87635; 96372; 99285; J1200; J1630; J2060

== ENCOUNTER 2024-09-01 19:47 | Inpatient (IN) | payer MEDICAID, OTHER ==
[~2024-09-01] VITALS: Ht 172.7 cm; Wt 82.1 kg
[~2024-09-01 19:47] MED LIST changes: +MED REC COMMENT
[2024-09-01] MEDS: LORazepam 2 MG TAB PO ONE (21:01)
[2024-09-01] MEDS: THIAMINE 100 MG TAB PO SCH (21:02)
[2024-09-01] MEDS ORDERED: HOME MED LIST COMPLETE! XX SCH ×2 (21:10)
[2024-09-01 21:29] LABS: HEMATOCRIT 47.1 % (42.0-52.0); HEMOGLOBIN 17.1 g/dl (13.5-17.5); MEAN CORPUSCULAR HGB CONC 36.3 g/dl (32.0-36.5); MEAN CORPUSCULAR VOLUME 99.2 fl (80.0-96.0); PLATELET COUNT, AUTOMATED 146 10^3/uL (150-450); RED BLOOD COUNT 4.75 10^6/uL (4.30-6.10); WHITE BLOOD COUNT 3.9 10^3/uL (4.0-10.0)
[2024-09-01] MEDS: diphenhydrAMINE 50MG/ML VIAL IM ONE (21:48)
[2024-09-01] MEDS: HALOPERIDOL LACTATE 5MG/ML VIAL IM ONE (21:52)
[2024-09-01] MEDS: LORazepam 2 MG/ML 1ML VIAL IM ONE (21:53)
[2024-09-01 21:58] LABS: ALKALINE PHOSPHATASE 89 U/L (40-129); ALT/SGPT 123 U/L (7.0-40); AST/SGOT 170 U/L (<34); BILIRUBIN,DIRECT 0.4 MG/DL (<0.4); BILIRUBIN,TOTAL 0.9 MG/DL (0.3-1.2); BLOOD UREA NITROGEN 8 MG/DL (9-23); CALCIUM LEVEL 9.4 MG/DL (8.3-10.6); CARBON DIOXIDE LEVEL 28 MMOL/L (20-31); CHLORIDE LEVEL 102 MMOL/L (98-107); CREATININE FOR GFR 0.67 MG/DL (0.70-1.30); GLOMERULAR FILTRATION RATE > 60.0 (>49); GLUCOSE, FASTING 119 MG/DL (74-106); POTASSIUM SERUM 4.3 MMOL/L (3.5-5.1); SALICYLATE LEVEL < 3.0 MG/DL (<30); SODIUM LEVEL 142 MMOL/L (136-145); TOTAL PROTEIN 8.6 G/DL (5.7-8.2)
[2024-09-01 22:00] LABS: THYROID STIMULATING HORMONE 1.174 uIU/ML (0.55-4.78)
[2024-09-01 22:31] LABS: ETHYL ALCOHOL (ETHANOL) 0.321 % (0.000-0.010)
[2024-09-02 09:29] LABS: AMPHETAMINES LEVEL URINE NEGATIVE (NEGATIVE)
[2024-09-02 09:30] LABS: BARBITURATES URINE NEGATIVE (NEGATIVE); BENZODIAZEPINES URINE NEGATIVE (NEGATIVE); COCAINE METABOLITE URINE NEGATIVE (NEGATIVE); METHADONE URINE NEGATIVE (NEGATIVE); OPIATES URINE NEGATIVE (NEGATIVE); PHENCYCLIDINE URINE NEGATIVE (NEGATIVE)
[2024-09-02 09:31] LABS: CANNABINOIDS URINE POSITIVE (NEGATIVE)
[2024-09-02] MEDS: FOLIC ACID 1MG TAB PO SCH (10:03)
[2024-09-02] MEDS: MULTIVITAMINS/MINERALS THERAP 1 TAB PO SCH (10:03)
[2024-09-02] MEDS: LORazepam 2 MG TAB PO PRN ×2 (10:03→19:52)
[2024-09-02] MEDS: METOPROLOL TART 50 MG TAB PO ONE (12:14)
[2024-09-02] MEDS: ACETAMINOPHEN 325 MG TAB PO ONE (12:28)
[2024-09-02] MEDS ORDERED: MAALOX 30 ML SUSP *UDC PO PRN (14:05)
[2024-09-02] MEDS ORDERED: MOM 30ML SUSPENSION UDC PO PRN (14:05)
[2024-09-02 15:02] VITALS: BP 138/82; TEMP 97.4; O2SAT 96
[2024-09-02 15:38] VITALS: BP 138/82
[2024-09-02 19:58] VITALS: BP 140/86; TEMP 98
[2024-09-02 20:00] VITALS: BP 140/86
[2024-09-02] MEDS: traZODone 50 MG TAB PO PRN (21:12)
[2024-09-02] MEDS: diphenhydrAMINE 25MG CAP PO PRN (21:13)
[2024-09-02] MEDS: THIAMINE 100 MG TAB PO SCH (21:13)
[2024-09-03] VITALS (9 sets, daily range): BP systolic 106–140; BP diastolic 28–87; TEMP 96.7–98.4; O2SAT 95–98
[2024-09-03] MEDS: MULTIVITAMINS/MINERALS THERAP 1 TAB PO SCH (08:12)
[2024-09-03] MEDS: FOLIC ACID 1MG TAB PO SCH (08:12)
[2024-09-03] MEDS: amLODIPine 5 MG TAB PO SCH (08:14)
[2024-09-03] MEDS: ACETAMINOPHEN 325 MG TAB PO PRN (08:14)
[2024-09-03] MEDS: METOPROLOL TART 50 MG TAB PO SCH (09:49)
[2024-09-03] MEDS: IBUPROFEN 400MG TAB PO PRN (09:49)
[2024-09-03] MEDS: CAPSAICIN 0.025% CR 60 GM TOP SCH (10:11)
[2024-09-03 10:41] LABS: HEMATOCRIT 41.5 % (42.0-52.0); MEAN CORPUSCULAR HGB CONC 36.1 g/dl (32.0-36.5); RED BLOOD COUNT 4.28 10^6/uL (4.30-6.10); WHITE BLOOD COUNT 4.7 10^3/uL (4.0-10.0)
[2024-09-03 10:53] LABS: INR 1.01; PROTHROMBIN TIME 13.6 SECONDS (12.5-14.5)
[2024-09-03 11:06] LABS: BLOOD UREA NITROGEN 10 MG/DL (9-23); CALCIUM LEVEL 9.5 MG/DL (8.3-10.6); CARBON DIOXIDE LEVEL 23 MMOL/L (20-31); CHLORIDE LEVEL 98 MMOL/L (98-107); CREATININE FOR GFR 0.79 MG/DL (0.70-1.30); GLOMERULAR FILTRATION RATE > 60.0 (>49); GLUCOSE, FASTING 99 MG/DL (74-106); POTASSIUM SERUM 3.6 MMOL/L (3.5-5.1); SODIUM LEVEL 132 MMOL/L (136-145)
[2024-09-03 11:07] LABS: ALBUMIN 3.6 G/DL (3.2-5.2); BILIRUBIN,TOTAL 2.3 MG/DL (0.3-1.2); TOTAL PROTEIN 8.2 G/DL (5.7-8.2)
[2024-09-03 11:09] LABS: FOLATE > 24.00 NG/ML (>5.4); VITAMIN B12 LEVEL 472 PG/ML (211-911)
[2024-09-03 11:11] LABS: PLATELET COUNT, AUTOMATED 82 10^3/uL (150-450)
[2024-09-03] MEDS: GABAPENTIN 100 MG CAP PO ONE (11:22)
[2024-09-03 12:58] LABS: BASO % 0.5 % (0.0-1.0); EOS % 0.4 % (0.0-3.0); LYMPH # 1.3 10^3/uL (1.5-5.0); LYMPH % 22.9 % (24.0-44.0); MONO # 0.6 10^3/uL (0.0-0.8); MONO % 10.8 % (2.0-8.0); NEUTROPHILS # 3.6 10^3/uL (1.5-8.5)
[2024-09-03 13:04] LABS: PLATELET COUNT, AUTOMATED 97 10^3/uL (150-450)
[2024-09-03 13:06] LABS: PLATELET ESTIMATE DECREASED (NORMAL)
[2024-09-03] MEDS ORDERED: GABAPENTIN 100 MG CAP PO SCH (14:00)
[2024-09-03] MEDS: GABAPENTIN 100 MG CAP PO SCH (20:21)
[2024-09-04 00:16] VITALS: BP 138/88
[2024-09-04 02:00] VITALS: BP 132/77; TEMP 98.2; O2SAT 98
[2024-09-04 04:29] VITALS: BP 147/71
[2024-09-04 08:15] VITALS: BP 117/78
[2024-09-04 08:52] LABS: HEMATOCRIT 41.5 % (42.0-52.0); HEMOGLOBIN 14.8 g/dl (13.5-17.5); MEAN CORPUSCULAR HEMOGLOBIN 35.3 pg (27.0-33.0); MEAN CORPUSCULAR HGB CONC 35.7 g/dl (32.0-36.5); PLATELET COUNT, AUTOMATED 100 10^3/uL (150-450); RED BLOOD COUNT 4.19 10^6/uL (4.30-6.10); WHITE BLOOD COUNT 4.9 10^3/uL (4.0-10.0)
[2024-09-04 09:19] LABS: HEMATOCRIT 41.5 % (42.0-52.0); HEMOGLOBIN 14.8 g/dl (13.5-17.5); MEAN CORPUSCULAR HEMOGLOBIN 35.3 pg (27.0-33.0); MEAN CORPUSCULAR HGB CONC 35.7 g/dl (32.0-36.5); PLATELET COUNT, AUTOMATED 100 10^3/uL (150-450); RED BLOOD COUNT 4.19 10^6/uL (4.30-6.10); WHITE BLOOD COUNT 4.9 10^3/uL (4.0-10.0)
[2024-09-04 09:21] LABS: ALBUMIN 3.8 G/DL (3.2-5.2); ALKALINE PHOSPHATASE 75 U/L (40-129); ALT/SGPT 143 U/L (7.0-40); AST/SGOT 186 U/L (<34); BILIRUBIN,DIRECT 0.7 MG/DL (<0.4); BILIRUBIN,TOTAL 1.7 MG/DL (0.3-1.2); BLOOD UREA NITROGEN 7 MG/DL (9-23); CALCIUM LEVEL 9.7 MG/DL (8.3-10.6); CARBON DIOXIDE LEVEL 23 MMOL/L (20-31); CHLORIDE LEVEL 100 MMOL/L (98-107); CREATININE FOR GFR 0.74 MG/DL (0.70-1.30); GLOMERULAR FILTRATION RATE > 60.0 (>49); GLUCOSE, FASTING 150 MG/DL (74-106); INR 0.97; PARTIAL THROMBOPLASTIN TIME 23.1 SECONDS (24.8-34.2); POTASSIUM SERUM 3.6 MMOL/L (3.5-5.1); PROTHROMBIN TIME 13.2 SECONDS (12.5-14.5); SODIUM LEVEL 135 MMOL/L (136-145)
[2024-09-04 12:00] VITALS: BP 113/73
[2024-09-04 15:38] VITALS: BP 114/59; TEMP 97.5; O2SAT 96
[2024-09-05 06:33] VITALS: BP 147/92; TEMP 98.5; O2SAT 97
[2024-09-05 06:34] VITALS: BP 147/92
[2024-09-05 14:02] VITALS: BP 138/82
[2024-09-05 15:23] VITALS: BP 129/67; TEMP 98.4; O2SAT 97
[2024-09-06 06:25] VITALS: BP 138/89; TEMP 98; O2SAT 97
[2024-09-06 08:30] VITALS: BP 141/88
[2024-09-06] MEDS: NALTREXONE 50 MG TAB PO SCH (11:12)
[2024-09-06 15:45] VITALS: BP 123/70; TEMP 97.7; O2SAT 96
[2024-09-07 06:24] VITALS: BP 128/78; TEMP 98.4; O2SAT 96
[2024-09-07] MEDS: LORazepam 0.5 MG TAB PO ONE (09:01)
[2024-09-07 14:47] VITALS: BP 123/71; TEMP 98.4; O2SAT 98
[2024-09-08 06:32] VITALS: BP 137/86; TEMP 97.8; O2SAT 95
[2024-09-08] MEDS ORDERED: ARTIFICIAL TEARS DROPS 15ML BTL (VISINE DRY RELIEF) OP PRN (11:00)
[2024-09-08] MEDS: POLYVINYL ALCOHOL OPHTH SOLN 15ML (LIQUITEARS) OU PRN (11:25)
[2024-09-08 16:28] VITALS: BP 125/59; TEMP 98.9; O2SAT 100
[2024-09-09 06:26] VITALS: BP 136/82; TEMP 98.9; O2SAT 95
[2024-09-09 15:10] VITALS: BP 119/69; TEMP 98.3; O2SAT 98
[2024-09-10 06:23] VITALS: BP 135/79; TEMP 98.5; O2SAT 96
[2024-09-10] MEDS: CAPSAICIN 0.025% CR 60 GM TOP SCH (11:40)
[2024-09-10 16:03] VITALS: BP 101/63; TEMP 98.5; O2SAT 97
[2024-09-11 06:40] VITALS: BP 128/76; TEMP 98.4; O2SAT 95
[2024-09-11] MEDS ORDERED: PILL CUTTER 1 EACH XX PRN (08:35)
[2024-09-11] MEDS: NALTREXONE 50 MG TAB PO SCH (09:13)
[2024-09-11 14:45] VITALS: BP 101/58; TEMP 98; O2SAT 98
[2024-09-12 06:46] VITALS: BP 128/77; TEMP 98; O2SAT 96
[2024-09-12 08:08] VITALS: BP 123/76
[2024-09-12] MEDS ORDERED: AMLO1TAB24 PO (08:09)
[2024-09-12] MEDS ORDERED: TRAZ-252 PO (08:09)
[2024-09-12] MEDS ORDERED: CAPS25CR TOP (08:09)
[2024-09-12] MEDS ORDERED: Pill Cutter XX (08:09)
[2024-09-12] MEDS ORDERED: ARTIDRO4 OU (08:09)
[2024-09-12] MEDS ORDERED: NALT50TA4 PO (08:09)
[2024-09-12] MEDS ORDERED: THIA100TA PO (08:09)
[2024-09-12] MEDS ORDERED: Multivitamins PO (08:09)
[2024-09-12] MEDS ORDERED: METO50TA7 PO (08:09)
[2024-09-12] MEDS ORDERED: FOLI1TAB11 PO (08:09)
[2024-09-12] MEDS ORDERED: GABA-1171 PO (08:09)
[2024-09-12 14:57] VITALS: BP 103/58; TEMP 98.6; O2SAT 98
[2024-09-13 06:03] VITALS: BP 140/78; TEMP 98; O2SAT 97
[2024-09-13 08:32] VITALS: BP 86/64
== END 2024-09-13 11:50 | disposition home or self-care (01) | DRG 754 ==
LOC: M ED 19:47 → EDBD 19:47 → M ED INP 09-02 14:02 → M PSY 09-02 14:54
PROVIDERS: ADMIT Psychiatry & Neurology Psychiatry; ATTEND Psychiatry & Neurology Psychiatry
DX: F32.A Depression, unspecified (principal); D69.6 Thrombocytopenia, unspecified; K70.0 Alcoholic fatty liver; F10.14 Alcohol abuse with alcohol-induced mood disorder; I10 Essential (primary) hypertension; M19.90 Unspecified osteoarthritis, unspecified site; F10.129 Alcohol abuse with intoxication, unspecified; G56.01 Carpal tunnel syndrome, right upper limb; F10.139 Alcohol abuse with withdrawal, unspecified; G57.81 Other specified mononeuropathies of right lower limb; Z63.5 Disruption of family by separation and divorce; Z88.0 Allergy status to penicillin; Z63.8 Other specified problems related to primary support group; Z91.51 Personal history of suicidal behavior; Z88.8 Allergy status to other drugs, medicaments and biological substances; Z91.018 Allergy to other foods; Z91.030 Bee allergy status; Z91.040 Latex allergy status; Z98.1 Arthrodesis status

== ENCOUNTER 2024-10-02 12:06 | Observation (INO) | payer MEDICAID, OTHER ==
[~2024-10-02] VITALS: Ht 172.7 cm; Wt 79.1 kg
[~2024-10-02 12:06] MED LIST changes: +ARTIDRO4 OU; +CAPS25CR TOP; +GABA-1171 PO; +Multivitamins PO; +NALT50TA4 PO; +Pill Cutter XX; +THIA100TA PO
[2024-10-02 13:02] LABS: BASO % 0.4 % (0.0-1.0); EOS # 0.1 10^3/uL (0.0-0.5); EOS % 1.4 % (0.0-3.0); HEMATOCRIT 42.1 % (42.0-52.0); HEMOGLOBIN 14.9 g/dl (13.5-17.5); LYMPH % 12.2 % (24.0-44.0); MEAN CORPUSCULAR HEMOGLOBIN 34.7 pg (27.0-33.0); MEAN CORPUSCULAR HGB CONC 35.4 g/dl (32.0-36.5); MEAN CORPUSCULAR VOLUME 97.9 fl (80.0-96.0); MONO # 0.6 10^3/uL (0.0-0.8); MONO % 7.1 % (2.0-8.0); NEUTROPHILS # 6.2 10^3/uL (1.5-8.5); NEUTROPHILS % 78.5 % (36.0-66.0); PLATELET COUNT, AUTOMATED 111 10^3/uL (150-450); WHITE BLOOD COUNT 7.9 10^3/uL (4.0-10.0)
[2024-10-02] MEDS: LORazepam 2 MG TAB PO ONE ×2 (13:22→16:50)
[2024-10-02] MEDS ORDERED: GABA-1171 PO (13:23)
[2024-10-02] MEDS ORDERED: NALT50TA4 PO (13:24)
[2024-10-02 13:26] LABS: ETHYL ALCOHOL (ETHANOL) 0.062 % (0.000-0.010)
[2024-10-02] MEDS ORDERED: POLY1.4S OU (13:26)
[2024-10-02] MEDS ORDERED: THIA100T7 PO (13:27)
[2024-10-02 13:28] LABS: SALICYLATE LEVEL < 3.0 MG/DL (<30)
[2024-10-02] MEDS ORDERED: TRAZ-186 PO (13:28)
[2024-10-02 13:30] LABS: THYROID STIMULATING HORMONE 1.249 uIU/ML (0.55-4.78)
[2024-10-02] MEDS ORDERED: THERTAB52 PO (13:30)
[2024-10-02] MEDS ORDERED: HOME MED LIST COMPLETE! XX SCH (13:30)
[2024-10-02 13:31] LABS: ALBUMIN 3.5 G/DL (3.2-5.2); ALKALINE PHOSPHATASE 77 U/L (40-129); ALT/SGPT 47 U/L (7.0-40); AST/SGOT 57 U/L (<34); BILIRUBIN,DIRECT 0.5 MG/DL (<0.4); BILIRUBIN,TOTAL 1.2 MG/DL (0.3-1.2); BLOOD UREA NITROGEN < 5 MG/DL (9-23); CALCIUM LEVEL 8.8 MG/DL (8.3-10.6); CARBON DIOXIDE LEVEL 23 MMOL/L (20-31); CHLORIDE LEVEL 98 MMOL/L (98-107); CPK CREATINE PHOSPHOKINASE 120 U/L (46-171); CREATININE FOR GFR 0.54 MG/DL (0.70-1.30); GLOMERULAR FILTRATION RATE > 60.0 (>49); GLUCOSE, FASTING 119 MG/DL (74-106); MB/CK RELATIVE INDEX 0.83 (< OR =4); POTASSIUM SERUM 3.6 MMOL/L (3.5-5.1); SODIUM LEVEL 137 MMOL/L (136-145); TOTAL PROTEIN 7.8 G/DL (5.7-8.2)
[2024-10-02] MEDS: METOPROLOL TART 50 MG TAB PO ONE (15:58)
[2024-10-02 16:59] LABS: AMPHETAMINES LEVEL URINE NEGATIVE (NEGATIVE); BARBITURATES URINE NEGATIVE (NEGATIVE); BENZODIAZEPINES URINE NEGATIVE (NEGATIVE); CANNABINOIDS URINE NEGATIVE (NEGATIVE); COCAINE METABOLITE URINE NEGATIVE (NEGATIVE); METHADONE URINE NEGATIVE (NEGATIVE); OPIATES URINE NEGATIVE (NEGATIVE); PHENCYCLIDINE URINE NEGATIVE (NEGATIVE)
[2024-10-02] MEDS ORDERED: MAALOX 30 ML SUSP *UDC PO PRN (17:20)
[2024-10-02] MEDS ORDERED: MOM 30ML SUSPENSION UDC PO PRN (17:20)
[2024-10-02] MEDS ORDERED: ACETAMINOPHEN 325 MG TAB PO PRN (17:20)
[2024-10-02] MEDS ORDERED: LORazepam 2 MG TAB PO PRN (17:30)
[2024-10-02] MEDS: OXAZEPAM 10MG CAP PO SCH (18:07)
[2024-10-02] MEDS: THIAMINE 100 MG TAB PO SCH (21:47)
[2024-10-03] VITALS (8 sets, daily range): BP systolic 110–144; BP diastolic 64–82; TEMP 96.8–97.9; O2SAT 92–97
[2024-10-03] MEDS: traZODone 50 MG TAB PO PRN (02:42)
[2024-10-03 07:58] LABS: BLOOD UREA NITROGEN 6 MG/DL (9-23); CALCIUM LEVEL 8.9 MG/DL (8.3-10.6); CARBON DIOXIDE LEVEL 27 MMOL/L (20-31); CHLORIDE LEVEL 101 MMOL/L (98-107); CREATININE FOR GFR 0.57 MG/DL (0.70-1.30); GLOMERULAR FILTRATION RATE > 60.0 (>49); GLUCOSE, FASTING 94 MG/DL (74-106); MAGNESIUM LEVEL 1.7 MG/DL (1.8-2.4); POTASSIUM SERUM 3.4 MMOL/L (3.5-5.1); SODIUM LEVEL 136 MMOL/L (136-145)
[2024-10-03] MEDS: FOLIC ACID 1MG TAB PO SCH (08:59)
[2024-10-03] MEDS: NALTREXONE 50 MG TAB PO SCH (09:00)
[2024-10-03] MEDS: MULTIVITAMINS/MINERALS THERAP 1 TAB PO SCH (09:00)
[2024-10-03] MEDS: GABAPENTIN 100 MG CAP PO SCH (09:00)
[2024-10-03] MEDS: amLODIPine 5 MG TAB PO SCH (09:01)
[2024-10-03] MEDS: ENOXAPARIN 40MG/0.4ML SYRINGE (J1650 PER 10MG) SC SCH (09:02)
[2024-10-03] MEDS: METOPROLOL TART 50 MG TAB PO SCH (09:02)
[2024-10-03] MEDS: OLANZapine ORAL DISINTEGRATING TAB 5MG PO STA (20:20)
== END 2024-10-03 21:27 ==
LOC: M ED 12:06 → EDBD 12:06 → M ED INP 12:07
PROVIDERS: ADMIT Student in an Organized Health Care Education/Training Program; ATTEND Student in an Organized Health Care Education/Training Program
DX: F10.239 Alcohol dependence with withdrawal, unspecified (principal); F10.229 Alcohol dependence with intoxication, unspecified; R45.851 Suicidal ideations; F41.1 Generalized anxiety disorder; R00.0 Tachycardia, unspecified; F32.A Depression, unspecified; R07.9 Chest pain, unspecified; E87.1 Hypo-osmolality and hyponatremia; F10.288 Alcohol dependence with other alcohol-induced disorder; F12.90 Cannabis use, unspecified, uncomplicated; R74.01 Elevation of levels of liver transaminase levels; K76.0 Fatty (change of) liver, not elsewhere classified; D69.6 Thrombocytopenia, unspecified; I10 Essential (primary) hypertension; M19.90 Unspecified osteoarthritis, unspecified site; M51.9 Unspecified thoracic, thoracolumbar and lumbosacral intervertebral disc disorder; G62.9 Polyneuropathy, unspecified; Z98.1 Arthrodesis status; Z98.890 Other specified postprocedural states; Z88.0 Allergy status to penicillin; Z88.8 Allergy status to other drugs, medicaments and biological substances; Z91.040 Latex allergy status; Z91.018 Allergy to other foods; Z91.030 Bee allergy status; Z79.899 Other long term (current) drug therapy
CPT/HCPCS: 36415; 71045; 80048; 80076; 80143; 80307; 82077; 82550; 82553; 83735; 84443; 84484; 85025; 93005; 93041; 94760; 96372; 99285; J1650

== ENCOUNTER 2024-10-03 18:49 | Inpatient (IN) | payer MEDICAID, OTHER ==
[~2024-10-03] VITALS: Ht 172.7 cm; Wt 81.5 kg
[~2024-10-03 18:49] MED LIST changes: +POLY1.4S OU; +THERTAB52 PO; +THIA100T7 PO; +TRAZ-186 PO
[2024-10-03] MEDS ORDERED: MOM 30ML SUSPENSION UDC PO PRN (19:00)
[2024-10-03] MEDS ORDERED: IBUPROFEN 400MG TAB PO PRN (19:00)
[2024-10-03] MEDS ORDERED: MAALOX 30 ML SUSP *UDC PO PRN (19:00)
[2024-10-03 21:30] VITALS: BP 168/94; TEMP 97.8; O2SAT 97
[2024-10-03 22:00] VITALS: BP 162/94
[2024-10-03] MEDS ORDERED: HOME MED LIST COMPLETE! XX SCH (22:10)
[2024-10-03] MEDS: LORazepam 2 MG TAB PO PRN (22:33)
[2024-10-03 22:35] VITALS: BP 150/100
[2024-10-03 23:01] VITALS: BP 154/96; TEMP 97.8; O2SAT 98
[2024-10-03] MEDS ORDERED: POLYVINYL ALCOHOL OPHTH SOLN 15ML (LIQUITEARS) OU PRN (23:20)
[2024-10-03] MEDS: OXAZEPAM 15MG CAP PO SCH (23:57)
[2024-10-04] VITALS (9 sets, daily range): BP systolic 101–141; BP diastolic 61–94; TEMP 97.6–98.6; O2SAT 94–100
[2024-10-04] MEDS: NALTREXONE 50 MG TAB PO SCH (09:40)
[2024-10-04] MEDS: MULTIVITAMINS/MINERALS THERAP 1 TAB PO SCH (09:41)
[2024-10-04] MEDS: amLODIPine 5 MG TAB PO SCH (09:41)
[2024-10-04] MEDS: FOLIC ACID 1MG TAB PO SCH (09:41)
[2024-10-04] MEDS: THIAMINE 100 MG TAB PO SCH (09:41)
[2024-10-04] MEDS: GABAPENTIN 100 MG CAP PO SCH (09:42)
[2024-10-04] MEDS: METOPROLOL TART 50 MG TAB PO SCH (09:42)
[2024-10-04] MEDS: traZODone 50 MG TAB PO PRN (21:39)
[2024-10-04] MEDS: diphenhydrAMINE 25MG CAP PO PRN (21:39)
[2024-10-05 06:56] VITALS: BP 131/59; TEMP 97.3; O2SAT 100
[2024-10-05 06:57] VITALS: BP 131/59
[2024-10-05] MEDS: ACETAMINOPHEN 325 MG TAB PO PRN (09:15)
[2024-10-05 14:42] VITALS: BP 106/64; TEMP 98.1; O2SAT 96
[2024-10-06 06:19] VITALS: BP 121/71; TEMP 98.6; O2SAT 96
[2024-10-06 08:33] VITALS: BP 134/92
[2024-10-06 08:36] VITALS: BP 134/92
== END 2024-10-06 10:26 | disposition home or self-care (01) | DRG 751 ==
LOC: M PSY 21:21
PROVIDERS: ADMIT Psychiatry & Neurology Psychiatry; ATTEND Psychiatry & Neurology Psychiatry
DX: F33.9 Major depressive disorder, recurrent, unspecified (principal); E87.1 Hypo-osmolality and hyponatremia; D69.6 Thrombocytopenia, unspecified; R45.851 Suicidal ideations; F10.10 Alcohol abuse, uncomplicated; F12.10 Cannabis abuse, uncomplicated; I10 Essential (primary) hypertension; M19.90 Unspecified osteoarthritis, unspecified site; Z85.828 Personal history of other malignant neoplasm of skin; Z81.8 Family history of other mental and behavioral disorders; Z79.899 Other long term (current) drug therapy; Z88.0 Allergy status to penicillin; Z88.8 Allergy status to other drugs, medicaments and biological substances; Z91.030 Bee allergy status; Z91.040 Latex allergy status; Z63.5 Disruption of family by separation and divorce

== ENCOUNTER 2024-10-29 00:37 | Emergency (ER) | payer MEDICAID, OTHER ==
[~2024-10-29] VITALS: Ht 172.7 cm; Wt 81.8 kg
[2024-10-29 00:50] VITALS: TEMP 97.9
[2024-10-29] MEDS: LORazepam 2 MG/ML 1ML VIAL IV STA (01:08)
[2024-10-29] MEDS: NS (Normal Saline) 0.9% 1,000 ML IV SCH (01:13)
[2024-10-29 01:44] LABS: HEMATOCRIT 41.3 % (42.0-52.0); HEMOGLOBIN 14.7 g/dl (13.5-17.5); MEAN CORPUSCULAR HEMOGLOBIN 35.9 pg (27.0-33.0); MEAN CORPUSCULAR HGB CONC 35.6 g/dl (32.0-36.5); PLATELET COUNT, AUTOMATED 112 10^3/uL (150-450); RED BLOOD COUNT 4.09 10^6/uL (4.30-6.10); WHITE BLOOD COUNT 5.1 10^3/uL (4.0-10.0)
[2024-10-29 02:06] LABS: ALBUMIN 3.8 G/DL (3.2-5.2); ALKALINE PHOSPHATASE 72 U/L (40-129); ALT/SGPT 65 U/L (7.0-40); AST/SGOT 109 U/L (<34); BILIRUBIN,TOTAL 0.7 MG/DL (0.3-1.2); BLOOD UREA NITROGEN 6 MG/DL (9-23); CALCIUM LEVEL 8.3 MG/DL (8.3-10.6); CARBON DIOXIDE LEVEL 22 MMOL/L (20-31); CHLORIDE LEVEL 99 MMOL/L (98-107); CREATININE FOR GFR 0.63 MG/DL (0.70-1.30); GLOMERULAR FILTRATION RATE > 60.0 (>49); GLUCOSE, FASTING 157 MG/DL (74-106); POTASSIUM SERUM 3.3 MMOL/L (3.5-5.1); SODIUM LEVEL 138 MMOL/L (136-145); TOTAL PROTEIN 8.5 G/DL (5.7-8.2)
[2024-10-29 02:08] LABS: THYROID STIMULATING HORMONE 0.744 uIU/ML (0.55-4.78)
[2024-10-29 02:30] VITALS: BP 137/68; O2SAT 92
[2024-10-29 02:38] LABS: CPK CREATINE PHOSPHOKINASE 153 U/L (46-171)
== END 2024-10-29 03:31 | disposition left against medical advice (07) ==
LOC: EDBD 00:37 → M ED 00:37
DX: F10.180 Alcohol abuse with alcohol-induced anxiety disorder (principal); F41.0 Panic disorder [episodic paroxysmal anxiety]; R00.0 Tachycardia, unspecified; I45.10 Unspecified right bundle-branch block; Z88.0 Allergy status to penicillin; Z88.8 Allergy status to other drugs, medicaments and biological substances; Z91.018 Allergy to other foods; Z91.040 Latex allergy status; Z91.030 Bee allergy status; Z79.810 Long term (current) use of selective estrogen receptor modulators (SERMs); Z79.899 Other long term (current) drug therapy
CPT/HCPCS: 71045; 80053; 82550; 84443; 84484; 85027; 85379; 93005; 96361; 96374; 99284; J2060

== ENCOUNTER 2024-11-04 14:37 | Emergency (ER) | payer OTHER ==
[~2024-11-04] VITALS: Ht 172.7 cm; Wt 92.1 kg
[2024-11-04 15:02] LABS: HEMATOCRIT 45.6 % (42.0-52.0); HEMOGLOBIN 16.3 g/dl (13.5-17.5); MEAN CORPUSCULAR HEMOGLOBIN 35.6 pg (27.0-33.0); MEAN CORPUSCULAR HGB CONC 35.7 g/dl (32.0-36.5); MEAN CORPUSCULAR VOLUME 99.6 fl (80.0-96.0); PLATELET COUNT, AUTOMATED 101 10^3/uL (150-450); RED BLOOD COUNT 4.58 10^6/uL (4.30-6.10); WHITE BLOOD COUNT 4.5 10^3/uL (4.0-10.0)
[2024-11-04] MEDS: LORazepam 2 MG/ML 1ML VIAL IV STA (15:06)
[2024-11-04] MEDS ORDERED: LORazepam 2 MG TAB PO PRN (15:10)
[2024-11-04 15:22] LABS: INR 0.94; PROTHROMBIN TIME 12.9 SECONDS (12.5-14.5)
[2024-11-04 15:31] LABS: VENOUS BASE EXCESS -0.6 (-2.0-2.0); VENOUS HCO3 24.9 MMOL/L (23.0-27.0); VENOUS O2 SATURATION 68.9 % (60.0-80.0); VENOUS PARTIAL PRESSURE CO2 44.3 mmHg (38.0-50.0); VENOUS PARTIAL PRESSURE O2 38.5 mmHg (30.0-50.0); VENOUS PH 7.368 UNITS (7.330-7.430); VENOUS STANDARD HCO3 23.2 MMOL/L; VENOUS TOTAL CO2 26.3 MMOL/L (24.0-28.0)
[2024-11-04 15:35] LABS: ETHYL ALCOHOL (ETHANOL) 0.183 % (0.000-0.010)
[2024-11-04 15:37] LABS: SALICYLATE LEVEL < 3.0 MG/DL (<30)
[2024-11-04 15:39] LABS: ALBUMIN 3.7 G/DL (3.2-5.2); ALKALINE PHOSPHATASE 71 U/L (40-129); ALT/SGPT 73 U/L (7.0-40); AST/SGOT 101 U/L (<34); BILIRUBIN,DIRECT 0.4 MG/DL (<0.4); BILIRUBIN,TOTAL 1.1 MG/DL (0.3-1.2); BLOOD UREA NITROGEN 8 MG/DL (9-23); CARBON DIOXIDE LEVEL 25 MMOL/L (20-31); CHLORIDE LEVEL 96 MMOL/L (98-107); CREATININE FOR GFR 0.63 MG/DL (0.70-1.30); GLOMERULAR FILTRATION RATE > 60.0 (>49); GLUCOSE, FASTING 202 MG/DL (74-106); MAGNESIUM LEVEL 1.5 MG/DL (1.8-2.4); POTASSIUM SERUM 3.7 MMOL/L (3.5-5.1); SODIUM LEVEL 134 MMOL/L (136-145); THYROID STIMULATING HORMONE 0.909 uIU/ML (0.55-4.78); TOTAL PROTEIN 8.3 G/DL (5.7-8.2)
[2024-11-04 15:41] LABS: OSMOLALITY SERUM 336 MOSM/KG (280-301)
[2024-11-04] MEDS: MAG SULF 1GM/100ML (MAG RUN) 1 GM in IV 1 EA IV ONE ×2 (16:00→16:35)
[2024-11-04] MEDS: NS (Normal Saline) 0.9% 1,000 ML IV ONE (19:28)
[2024-11-04] MEDS: SUCRALFATE SUSP 1GM/10ML UD PO ONE (19:28)
[2024-11-04] MEDS: PANTOPRAZOLE 40MG VIAL IV ONE (19:28)
[2024-11-04 19:30] VITALS: BP 135/71
[2024-11-04 20:15] VITALS: O2SAT 87
[2024-11-04 20:50] VITALS: TEMP 98.9
[2024-11-04] MEDS ORDERED: THIAMINE 100 MG TAB PO SCH (21:00)
[2024-11-05] MEDS ORDERED: MULTIVITAMINS/MINERALS THERAP 1 TAB PO SCH (09:00)
[2024-11-05] MEDS ORDERED: FOLIC ACID 1MG TAB PO SCH (09:00)
== END 2024-11-04 20:49 | disposition home or self-care (01) ==
LOC: M ED 14:37 → EDBD 14:37 → M ED 20:49
DX: R07.89 Other chest pain (principal); F10.120 Alcohol abuse with intoxication, uncomplicated; I10 Essential (primary) hypertension; I45.10 Unspecified right bundle-branch block; Z88.0 Allergy status to penicillin; Z88.8 Allergy status to other drugs, medicaments and biological substances; Z91.030 Bee allergy status; Z91.040 Latex allergy status; Z91.018 Allergy to other foods; Z79.810 Long term (current) use of selective estrogen receptor modulators (SERMs); Z79.899 Other long term (current) drug therapy
CPT/HCPCS: 36415; 70450; 71045; 80048; 80076; 80143; 82077; 82140; 82803; 83735; 83930; 84443; 84484; 85027; 85610; 87486; 87581; 87633; 87798; 93005; 93041; 94760; 96361; 96365; 96366; 96375; 99285; J2060; J2470; J3475

== ENCOUNTER 2024-11-17 13:29 | Emergency (ER) | payer OTHER ==
[2024-11-17 13:54] VITALS: TEMP 98.7
[2024-11-17 14:14] LABS: BASO % 0.9 % (0.0-1.0); EOS % 0.3 % (0.0-3.0); HEMATOCRIT 45.6 % (42.0-52.0); HEMOGLOBIN 15.7 g/dl (13.5-17.5); LYMPH # 2.1 10^3/uL (1.5-5.0); LYMPH % 61.7 % (24.0-44.0); MEAN CORPUSCULAR HEMOGLOBIN 35.2 pg (27.0-33.0); MEAN CORPUSCULAR HGB CONC 34.4 g/dl (32.0-36.5); MEAN CORPUSCULAR VOLUME 102.2 fl (80.0-96.0); MONO # 0.3 10^3/uL (0.0-0.8); MONO % 8.3 % (2.0-8.0); NEUTROPHILS % 28.8 % (36.0-66.0); PLATELET COUNT, AUTOMATED 192 10^3/uL (150-450); RED BLOOD COUNT 4.46 10^6/uL (4.30-6.10); WHITE BLOOD COUNT 3.4 10^3/uL (4.0-10.0)
[2024-11-17] MEDS: NS (Normal Saline) 0.9% 1,000 ML IV SCH (14:15)
[2024-11-17 14:17] VITALS: BP 134/78
[2024-11-17 14:43] LABS: CK-MB VALUE MASS < 1.0 NG/ML (<3.6)
[2024-11-17 14:45] LABS: SALICYLATE LEVEL < 3.0 MG/DL (<30)
[2024-11-17 14:47] LABS: THYROID STIMULATING HORMONE 0.783 uIU/ML (0.55-4.78)
[2024-11-17 15:07] LABS: ALBUMIN 3.5 G/DL (3.2-5.2); ALKALINE PHOSPHATASE 69 U/L (40-129); ALT/SGPT 101 U/L (7.0-40); AST/SGOT 113 U/L (<34); BILIRUBIN,DIRECT 0.2 MG/DL (<0.4); BILIRUBIN,TOTAL 0.5 MG/DL (0.3-1.2); BLOOD UREA NITROGEN < 5 MG/DL (9-23); CALCIUM LEVEL 8.6 MG/DL (8.3-10.6); CARBON DIOXIDE LEVEL 27 MMOL/L (20-31); CHLORIDE LEVEL 107 MMOL/L (98-107); CPK CREATINE PHOSPHOKINASE 161 U/L (46-171); CREATININE FOR GFR 0.71 MG/DL (0.70-1.30); ETHYL ALCOHOL (ETHANOL) 0.358 % (0.000-0.010); GLOMERULAR FILTRATION RATE > 60.0 (>49); GLUCOSE, FASTING 115 MG/DL (74-106); MB/CK RELATIVE INDEX 0.62 (< OR =4); POTASSIUM SERUM 4.5 MMOL/L (3.5-5.1); SODIUM LEVEL 142 MMOL/L (136-145)
[2024-11-17 15:29] VITALS: O2SAT 86
[2024-11-17 17:03] LABS: CK-MB VALUE MASS < 1.0 NG/ML (<3.6)
[2024-11-17 17:05] LABS: CPK CREATINE PHOSPHOKINASE 225 U/L (46-171); MB/CK RELATIVE INDEX 0.44 (< OR =4)
== END 2024-11-17 17:34 | disposition left against medical advice (07) ==
LOC: M ED 13:29
DX: R41.0 Disorientation, unspecified (principal); R00.0 Tachycardia, unspecified; I45.10 Unspecified right bundle-branch block; I10 Essential (primary) hypertension; K76.0 Fatty (change of) liver, not elsewhere classified; F10.10 Alcohol abuse, uncomplicated; Z88.0 Allergy status to penicillin; Z88.8 Allergy status to other drugs, medicaments and biological substances; Z91.030 Bee allergy status; Z91.040 Latex allergy status; Z91.018 Allergy to other foods; Z79.899 Other long term (current) drug therapy; Z53.9 Procedure and treatment not carried out, unspecified reason

== ENCOUNTER 2024-11-19 12:07 | Emergency (ER) | payer OTHER ==
[~2024-11-19] VITALS: Ht 172.7 cm; Wt 82.3 kg
[2024-11-19 12:37] VITALS: TEMP 97.8
[2024-11-19] MEDS: OLANZapine INTRAMUSCULAR 10MG VIAL IM ONE (12:43)
[2024-11-19] MEDS ORDERED: ISOVUE-370 76% 100ML VIAL As Ordered ONE (12:47)
[2024-11-19 13:06] LABS: VENOUS BASE EXCESS -1.9 (-2.0-2.0); VENOUS HCO3 23.4 MMOL/L (23.0-27.0); VENOUS O2 SATURATION 70.2 % (60.0-80.0); VENOUS PARTIAL PRESSURE O2 40.4 mmHg (30.0-50.0); VENOUS PH 7.364 UNITS (7.330-7.430); VENOUS STANDARD HCO3 22.1 MMOL/L; VENOUS TOTAL CO2 24.7 MMOL/L (24.0-28.0)
[2024-11-19] MEDS: NS (Normal Saline) 0.9% 1,000 ML IV ONE ×2 (13:08→14:38)
[2024-11-19 13:12] LABS: BASO % 1.2 % (0.0-1.0); EOS # 0.1 10^3/uL (0.0-0.5); EOS % 1.8 % (0.0-3.0); HEMATOCRIT 47.9 % (42.0-52.0); HEMOGLOBIN 16.8 g/dl (13.5-17.5); LYMPH # 2.2 10^3/uL (1.5-5.0); LYMPH % 65.7 % (24.0-44.0); MEAN CORPUSCULAR HEMOGLOBIN 34.9 pg (27.0-33.0); MEAN CORPUSCULAR HGB CONC 35.1 g/dl (32.0-36.5); MEAN CORPUSCULAR VOLUME 99.6 fl (80.0-96.0); MONO # 0.2 10^3/uL (0.0-0.8); MONO % 6.3 % (2.0-8.0); PLATELET COUNT, AUTOMATED 161 10^3/uL (150-450); RED BLOOD COUNT 4.81 10^6/uL (4.30-6.10); WHITE BLOOD COUNT 3.4 10^3/uL (4.0-10.0)
[2024-11-19 13:19] LABS: NEUTROPHILS # 0.8 10^3/uL (1.5-8.5)
[2024-11-19 13:26] LABS: INR 0.95; PARTIAL THROMBOPLASTIN TIME 24.5 SECONDS (24.8-34.2)
[2024-11-19 13:45] VITALS: BP 146/90
[2024-11-19 13:50] LABS: BLOOD UREA NITROGEN < 5 MG/DL (9-23); CALCIUM LEVEL 8.4 MG/DL (8.3-10.6); CARBON DIOXIDE LEVEL 23 MMOL/L (20-31); CHLORIDE LEVEL 104 MMOL/L (98-107); CK-MB VALUE MASS < 1.0 NG/ML (<3.6); CPK CREATINE PHOSPHOKINASE 387 U/L (46-171); CREATININE FOR GFR 0.66 MG/DL (0.70-1.30); ETHYL ALCOHOL (ETHANOL) 0.332 % (0.000-0.010); FREE T4 1.14 NG/DL (0.89-1.76); GLOMERULAR FILTRATION RATE > 60.0 (>49); GLUCOSE, FASTING 131 MG/DL (74-106); MAGNESIUM LEVEL 1.9 MG/DL (1.8-2.4); MB/CK RELATIVE INDEX 0.25 (< OR =4); POTASSIUM SERUM 3.9 MMOL/L (3.5-5.1); SODIUM LEVEL 142 MMOL/L (136-145); THYROID STIMULATING HORMONE 0.891 uIU/ML (0.55-4.78)
[2024-11-19 14:05] LABS: CK-MB VALUE MASS < 1.0 NG/ML (<3.6)
[2024-11-19 14:08] LABS: CPK CREATINE PHOSPHOKINASE 340 U/L (46-171); MB/CK RELATIVE INDEX 0.29 (< OR =4)
[2024-11-19 15:00] VITALS: O2SAT 95
== END 2024-11-19 15:23 | disposition left against medical advice (07) ==
LOC: EDBD 12:07 → M ED 12:07
DX: F10.120 Alcohol abuse with intoxication, uncomplicated (principal); R00.0 Tachycardia, unspecified; I10 Essential (primary) hypertension; F12.10 Cannabis abuse, uncomplicated; Z88.0 Allergy status to penicillin; Z88.8 Allergy status to other drugs, medicaments and biological substances; Z91.030 Bee allergy status; Z91.018 Allergy to other foods; Z91.040 Latex allergy status; Z79.899 Other long term (current) drug therapy; Z79.810 Long term (current) use of selective estrogen receptor modulators (SERMs); Z53.9 Procedure and treatment not carried out, unspecified reason
CPT/HCPCS: 70450; 71045; 71275; 72125; 74177; 80047; 80048; 82077; 82140; 82550; 82553; 82803; 83605; 83735; 84439; 84443; 84484; 85025; 85610; 85730; 93005; 93041; 94760; 96372; 99285; J2359; Q9967

== ENCOUNTER 2024-11-20 09:54 | Emergency (ER) | payer OTHER ==
[~2024-11-20] VITALS: Ht 172.7 cm; Wt 84.1 kg
[2024-11-20 09:57] VITALS: BP 131/98; TEMP 98.7; O2SAT 98
== END 2024-11-20 10:08 | disposition left against medical advice (07) ==
LOC: M ED 09:54
DX: Z53.21 Procedure and treatment not carried out due to patient leaving prior to being seen by health care provider (principal)

== ENCOUNTER 2024-11-20 10:59 | Emergency (ER) | payer OTHER ==
[~2024-11-20] VITALS: Ht 172.7 cm; Wt 81.0 kg
[2024-11-20] MEDS: MIDAZOLAM INJ 2MG/2ML VIAL IV STA (11:17)
[2024-11-20 12:16] LABS: HEMATOCRIT 42.6 % (42.0-52.0); HEMOGLOBIN 15.1 g/dl (13.5-17.5); MEAN CORPUSCULAR HEMOGLOBIN 35.4 pg (27.0-33.0); MEAN CORPUSCULAR HGB CONC 35.4 g/dl (32.0-36.5); PLATELET COUNT, AUTOMATED 141 10^3/uL (150-450); RED BLOOD COUNT 4.26 10^6/uL (4.30-6.10)
[2024-11-20 12:18] LABS: ETHYL ALCOHOL (ETHANOL) 0.103 % (0.000-0.010)
[2024-11-20 12:21] LABS: ALBUMIN 3.7 G/DL (3.2-5.2); ALKALINE PHOSPHATASE 81 U/L (40-129); ALT/SGPT 110 U/L (7.0-40); AST/SGOT 176 U/L (<34); BILIRUBIN,DIRECT 0.4 MG/DL (<0.4); BILIRUBIN,TOTAL 1.1 MG/DL (0.3-1.2); BLOOD UREA NITROGEN < 5 MG/DL (9-23); CALCIUM LEVEL 8.5 MG/DL (8.3-10.6); CARBON DIOXIDE LEVEL 22 MMOL/L (20-31); CHLORIDE LEVEL 101 MMOL/L (98-107); CREATININE FOR GFR 0.64 MG/DL (0.70-1.30); GLOMERULAR FILTRATION RATE > 60.0 (>49); GLUCOSE, FASTING 100 MG/DL (74-106); SODIUM LEVEL 139 MMOL/L (136-145)
[2024-11-20 12:27] LABS: INR 0.95; PROTHROMBIN TIME 12.9 SECONDS (12.5-14.5)
[2024-11-20 15:15] VITALS: BP 135/81; TEMP 97.5; O2SAT 93
== END 2024-11-20 15:25 | disposition home or self-care (01) ==
LOC: M ED 10:59 → EDBD 10:59 → M ED 15:25
DX: F10.120 Alcohol abuse with intoxication, uncomplicated (principal); I10 Essential (primary) hypertension; F32.A Depression, unspecified; K76.0 Fatty (change of) liver, not elsewhere classified; Z88.0 Allergy status to penicillin; Z88.8 Allergy status to other drugs, medicaments and biological substances; Z91.030 Bee allergy status; Z91.040 Latex allergy status; Z91.018 Allergy to other foods; Z79.899 Other long term (current) drug therapy; Z79.810 Long term (current) use of selective estrogen receptor modulators (SERMs)
CPT/HCPCS: 70450; 72125; 80048; 80076; 82077; 85027; 85610; 96374; 99285; J2250

== ENCOUNTER 2024-11-28 15:54 | Emergency (ER) | payer OTHER ==
[~2024-11-28] VITALS: Ht 172.7 cm; Wt 77.7 kg
[2024-11-28 16:13] VITALS: TEMP 97.2
[2024-11-28 16:24] LABS: VENOUS BASE EXCESS -0.9 (-2.0-2.0); VENOUS HCO3 27.3 MMOL/L (23.0-27.0); VENOUS O2 SATURATION 85.8 % (60.0-80.0); VENOUS PARTIAL PRESSURE CO2 59.4 mmHg (38.0-50.0); VENOUS PARTIAL PRESSURE O2 62.7 mmHg (30.0-50.0); VENOUS PH 7.281 UNITS (7.330-7.430); VENOUS STANDARD HCO3 23.4 MMOL/L; VENOUS TOTAL CO2 29.2 MMOL/L (24.0-28.0)
[2024-11-28 16:30] LABS: HEMATOCRIT 45.8 % (42.0-52.0); HEMOGLOBIN 15.7 g/dl (13.5-17.5); MEAN CORPUSCULAR HEMOGLOBIN 35.7 pg (27.0-33.0); MEAN CORPUSCULAR HGB CONC 34.3 g/dl (32.0-36.5); MEAN CORPUSCULAR VOLUME 104.1 fl (80.0-96.0); PLATELET COUNT, AUTOMATED 173 10^3/uL (150-450); WHITE BLOOD COUNT 8.4 10^3/uL (4.0-10.0)
[2024-11-28] MEDS: NS (Normal Saline) 0.9% 1,000 ML IV ONE (16:33)
[2024-11-28] MEDS: LORazepam 2 MG/ML 1ML VIAL IV STA (16:33)
[2024-11-28 16:58] LABS: CPK CREATINE PHOSPHOKINASE 128 U/L (46-171)
[2024-11-28 16:59] LABS: ALBUMIN 3.7 G/DL (3.2-5.2); ALKALINE PHOSPHATASE 75 U/L (40-129); ALT/SGPT 72 U/L (7.0-40); AST/SGOT 74 U/L (<34); ATYPICAL LYMPH 17 % (0-5); BASOPHILS 1 % (0-1); BILIRUBIN,DIRECT 0.3 MG/DL (<0.4); BILIRUBIN,TOTAL 0.5 MG/DL (0.3-1.2); BLOOD UREA NITROGEN 5 MG/DL (9-23); CALCIUM LEVEL 8.7 MG/DL (8.3-10.6); CARBON DIOXIDE LEVEL 29 MMOL/L (20-31); CHLORIDE LEVEL 102 MMOL/L (98-107); CREATININE FOR GFR 0.69 MG/DL (0.70-1.30); EOSINOPHILS 1 % (0-3); GLOMERULAR FILTRATION RATE > 60.0 (>49); GLUCOSE, FASTING 114 MG/DL (74-106); LYMPHOCYTES 70 % (16-44); MONOCYTES 1 % (0-5); NEUTROPHILS 10 % (28-66); POTASSIUM SERUM 3.8 MMOL/L (3.5-5.1); SALICYLATE LEVEL < 3.0 MG/DL (<30); SODIUM LEVEL 151 MMOL/L (136-145); TOTAL PROTEIN 8.1 G/DL (5.7-8.2)
[2024-11-28 17:00] LABS: PLATELET ESTIMATE NORMAL (NORMAL)
[2024-11-28 17:01] LABS: THYROID STIMULATING HORMONE 1.316 uIU/ML (0.55-4.78)
[2024-11-28 17:31] LABS: ETHYL ALCOHOL (ETHANOL) 0.407 % (0.000-0.010)
[2024-11-28] MEDS ORDERED: MULTIVITAMIN -ADULT INJECTION 10 ML, THIAMINE INJection 100 MG, FOLIC ACID 1 MG in NS (... IV ONE (17:45)
[2024-11-28 19:30] VITALS: BP 140/74; O2SAT 95
== END 2024-11-28 19:30 | disposition left against medical advice (07) ==
LOC: EDBD 15:54 → M ED 15:54
DX: F10.120 Alcohol abuse with intoxication, uncomplicated (principal); R00.0 Tachycardia, unspecified; I45.10 Unspecified right bundle-branch block; G47.33 Obstructive sleep apnea (adult) (pediatric); F41.9 Anxiety disorder, unspecified; F32.A Depression, unspecified; F19.10 Other psychoactive substance abuse, uncomplicated; Z88.0 Allergy status to penicillin; Z88.8 Allergy status to other drugs, medicaments and biological substances; Z91.040 Latex allergy status; Z91.030 Bee allergy status; Z91.018 Allergy to other foods; Z79.899 Other long term (current) drug therapy; Z79.810 Long term (current) use of selective estrogen receptor modulators (SERMs); Z53.9 Procedure and treatment not carried out, unspecified reason
CPT/HCPCS: 70450; 71045; 72125; 80047; 80048; 80076; 80143; 82077; 82550; 82803; 84443; 85025; 93005; 93041; 94760; 96374; 99285; J2060

== ENCOUNTER 2024-11-30 20:29 | Emergency (ER) | payer OTHER ==
[~2024-11-30] VITALS: Ht 172.7 cm; Wt 82.8 kg
[2024-11-30] MEDS: MIDAZOLAM INJ 2MG/2ML VIAL IV STA ×2 (21:21→21:34)
[2024-11-30 21:33] LABS: HEMATOCRIT 44.9 % (42.0-52.0); HEMOGLOBIN 15.6 g/dl (13.5-17.5); MEAN CORPUSCULAR HEMOGLOBIN 35.5 pg (27.0-33.0); MEAN CORPUSCULAR HGB CONC 34.7 g/dl (32.0-36.5); PLATELET COUNT, AUTOMATED 144 10^3/uL (150-450); WHITE BLOOD COUNT 4.5 10^3/uL (4.0-10.0)
[2024-11-30 21:47] LABS: SALICYLATE LEVEL < 3.0 MG/DL (<30); THYROID STIMULATING HORMONE 1.026 uIU/ML (0.55-4.78)
[2024-11-30 21:53] LABS: ATYPICAL LYMPH 7 % (0-5); EOSINOPHILS 2 % (0-3); LYMPHOCYTES 68 % (16-44); MONOCYTES 8 % (0-5); NEUTROPHILS 15 % (28-66)
[2024-11-30 21:55] LABS: PLATELET ESTIMATE DECREASED (NORMAL)
[2024-11-30] MEDS: dexmedeTOMidine 200 MCG in IV 1 EA IV SCH (22:03)
[2024-11-30 22:25] LABS: ALKALINE PHOSPHATASE 85 U/L (40-129); ALT/SGPT 66 U/L (7.0-40); AST/SGOT 84 U/L (<34); BILIRUBIN,DIRECT 0.3 MG/DL (<0.4); BILIRUBIN,TOTAL 0.7 MG/DL (0.3-1.2); BLOOD UREA NITROGEN < 5 MG/DL (9-23); CALCIUM LEVEL 9.1 MG/DL (8.3-10.6); CARBON DIOXIDE LEVEL 28 MMOL/L (20-31); CHLORIDE LEVEL 105 MMOL/L (98-107); CREATININE FOR GFR 0.73 MG/DL (0.70-1.30); ETHYL ALCOHOL (ETHANOL) 0.443 % (0.000-0.010); GLOMERULAR FILTRATION RATE > 60.0 (>49); GLUCOSE, FASTING 107 MG/DL (74-106); POTASSIUM SERUM 3.6 MMOL/L (3.5-5.1); SODIUM LEVEL 147 MMOL/L (136-145); TOTAL PROTEIN 8.9 G/DL (5.7-8.2)
[2024-11-30] MEDS: LORazepam 2 MG/ML 1ML VIAL IV STA ×2 (22:49→23:29)
[2024-11-30] MEDS ORDERED: LORazepam 2 MG/ML 1ML VIAL IM STA (23:07)
[2024-12-01] MEDS: NS (Normal Saline) 0.9% 1,000 ML IV ONE (00:10)
[2024-12-01 02:30] VITALS: TEMP 98.7
[2024-12-01 06:00] VITALS: BP 117/75; O2SAT 94
[2024-12-02] MEDS ORDERED: OXAZ30CA2 PO (06:25)
== END 2024-12-01 06:36 | disposition home or self-care (01) ==
LOC: M ED 20:29 → EDBD 20:29 → M ED 12-01 06:36
DX: F10.120 Alcohol abuse with intoxication, uncomplicated (principal); I10 Essential (primary) hypertension; F32.A Depression, unspecified; F41.9 Anxiety disorder, unspecified; Z88.0 Allergy status to penicillin; Z88.8 Allergy status to other drugs, medicaments and biological substances; Z91.040 Latex allergy status; Z91.018 Allergy to other foods; Z91.030 Bee allergy status; Z79.810 Long term (current) use of selective estrogen receptor modulators (SERMs); Z79.899 Other long term (current) drug therapy
CPT/HCPCS: 70450; 71045; 80048; 80076; 80143; 82077; 82140; 83605; 84443; 85025; 87040; 93005; 93041; 94760; 96365; 96366; 96375; 96376; 99285; J2060; J2250

== ENCOUNTER 2024-12-02 00:41 | Emergency (ER) | payer OTHER ==
[~2024-12-02] VITALS: Ht 172.7 cm; Wt 81.8 kg
[2024-12-02 00:55] VITALS: TEMP 98
[2024-12-02 01:34] LABS: BASO % 0.3 % (0.0-1.0); EOS # 0.1 10^3/uL (0.0-0.5); EOS % 0.8 % (0.0-3.0); HEMATOCRIT 45.4 % (42.0-52.0); HEMOGLOBIN 15.7 g/dl (13.5-17.5); LYMPH # 4.1 10^3/uL (1.5-5.0); LYMPH % 64.1 % (24.0-44.0); MEAN CORPUSCULAR HEMOGLOBIN 35.2 pg (27.0-33.0); MEAN CORPUSCULAR HGB CONC 34.6 g/dl (32.0-36.5); MEAN CORPUSCULAR VOLUME 101.8 fl (80.0-96.0); MONO # 0.4 10^3/uL (0.0-0.8); MONO % 6.6 % (2.0-8.0); NEUTROPHILS # 1.8 10^3/uL (1.5-8.5); NEUTROPHILS % 27.9 % (36.0-66.0); PLATELET COUNT, AUTOMATED 150 10^3/uL (150-450); RED BLOOD COUNT 4.46 10^6/uL (4.30-6.10); WHITE BLOOD COUNT 6.4 10^3/uL (4.0-10.0)
[2024-12-02 02:22] LABS: BLOOD UREA NITROGEN < 5 MG/DL (9-23); CALCIUM LEVEL 8.2 MG/DL (8.3-10.6); CARBON DIOXIDE LEVEL 28 MMOL/L (20-31); CHLORIDE LEVEL 103 MMOL/L (98-107); CREATININE FOR GFR 0.64 MG/DL (0.70-1.30); GLOMERULAR FILTRATION RATE > 60.0 (>49); GLUCOSE, FASTING 105 MG/DL (74-106); POTASSIUM SERUM 3.9 MMOL/L (3.5-5.1); SODIUM LEVEL 148 MMOL/L (136-145)
[2024-12-02 05:00] VITALS: BP 165/98; O2SAT 93
[2024-12-02] MEDS ORDERED: OXAZ30CA2 PO (06:25)
[2024-12-02] MEDS: OXAZEPAM 15MG CAP PO ONE (06:30)
== END 2024-12-02 07:09 | disposition home or self-care (01) ==
LOC: M ED 00:41
DX: F10.120 Alcohol abuse with intoxication, uncomplicated (principal); Z88.0 Allergy status to penicillin; Z88.8 Allergy status to other drugs, medicaments and biological substances; Z91.040 Latex allergy status; Z91.030 Bee allergy status; Z91.018 Allergy to other foods; Z79.899 Other long term (current) drug therapy

== ENCOUNTER 2024-12-02 14:37 | Emergency (ER) | payer OTHER ==
[~2024-12-02 14:37] MED LIST changes: +OXAZ30CA2 PO
[2024-12-02] MEDS: NS 500 ML IV ONE (14:45)
[2024-12-02 14:54] VITALS: TEMP 97.4
[2024-12-02 15:13] LABS: BASO % 0.5 % (0.0-1.0); EOS # 0.1 10^3/uL (0.0-0.5); HEMATOCRIT 43.5 % (42.0-52.0); HEMOGLOBIN 15.2 g/dl (13.5-17.5); LYMPH # 2.7 10^3/uL (1.5-5.0); LYMPH % 48.7 % (24.0-44.0); MEAN CORPUSCULAR HEMOGLOBIN 35.3 pg (27.0-33.0); MEAN CORPUSCULAR HGB CONC 34.9 g/dl (32.0-36.5); MEAN CORPUSCULAR VOLUME 101.2 fl (80.0-96.0); MONO # 0.3 10^3/uL (0.0-0.8); MONO % 5.8 % (2.0-8.0); NEUTROPHILS # 2.4 10^3/uL (1.5-8.5); NEUTROPHILS % 42.6 % (36.0-66.0); PLATELET COUNT, AUTOMATED 131 10^3/uL (150-450); WHITE BLOOD COUNT 5.5 10^3/uL (4.0-10.0)
[2024-12-02 15:27] LABS: INR 0.89; PARTIAL THROMBOPLASTIN TIME 23.1 SECONDS (24.8-34.2); PROTHROMBIN TIME 12.4 SECONDS (12.5-14.5)
[2024-12-02 15:30] LABS: CK-MB VALUE MASS 1.6 NG/ML (<3.6)
[2024-12-02 15:31] LABS: SALICYLATE LEVEL < 3.0 MG/DL (<30)
[2024-12-02 15:33] LABS: THYROID STIMULATING HORMONE 1.279 uIU/ML (0.55-4.78)
[2024-12-02 15:47] LABS: ALBUMIN 3.7 G/DL (3.2-5.2); ALKALINE PHOSPHATASE 74 U/L (40-129); ALT/SGPT 63 U/L (7.0-40); AST/SGOT 102 U/L (<34); BILIRUBIN,DIRECT 0.3 MG/DL (<0.4); BILIRUBIN,TOTAL 0.8 MG/DL (0.3-1.2); BLOOD UREA NITROGEN < 5 MG/DL (9-23); CALCIUM LEVEL 8.5 MG/DL (8.3-10.6); CARBON DIOXIDE LEVEL 20 MMOL/L (20-31); CHLORIDE LEVEL 102 MMOL/L (98-107); CPK CREATINE PHOSPHOKINASE 247 U/L (46-171); CREATININE FOR GFR 0.55 MG/DL (0.70-1.30); ETHYL ALCOHOL (ETHANOL) 0.347 % (0.000-0.010); GLOMERULAR FILTRATION RATE > 60.0 (>49); GLUCOSE, FASTING 123 MG/DL (74-106); MB/CK RELATIVE INDEX 0.64 (< OR =4); POTASSIUM SERUM 4.1 MMOL/L (3.5-5.1); SODIUM LEVEL 143 MMOL/L (136-145)
[2024-12-02] MEDS ORDERED: MULTIVITAMIN -ADULT INJECTION 10 ML, THIAMINE INJection 100 MG, FOLIC ACID 1 MG in NS (... IV ONE (16:15)
[2024-12-02 16:45] VITALS: BP 128/75; O2SAT 95
[2024-12-02 16:46] LABS: CK-MB VALUE MASS 1.4 NG/ML (<3.6)
[2024-12-02 17:02] LABS: MB/CK RELATIVE INDEX 0.63 (< OR =4)
[2024-12-03] MEDS ORDERED: ISOVUE-370 76% 100ML VIAL As Ordered ONE (20:41)
== END 2024-12-02 17:04 | disposition left against medical advice (07) ==
LOC: M ED 14:37 → EDBD 14:37 → M ED 17:04
DX: R07.9 Chest pain, unspecified (principal); F10.129 Alcohol abuse with intoxication, unspecified; R00.0 Tachycardia, unspecified; I10 Essential (primary) hypertension; G47.33 Obstructive sleep apnea (adult) (pediatric); F32.A Depression, unspecified; F17.210 Nicotine dependence, cigarettes, uncomplicated; F19.10 Other psychoactive substance abuse, uncomplicated; Z88.0 Allergy status to penicillin; Z91.030 Bee allergy status; Z91.040 Latex allergy status; Z88.8 Allergy status to other drugs, medicaments and biological substances; Z79.899 Other long term (current) drug therapy; Z53.9 Procedure and treatment not carried out, unspecified reason

== ENCOUNTER 2024-12-02 21:42 | Emergency (ER) | payer OTHER ==
[2024-12-02 22:01] VITALS: BP 140/89; TEMP 97.5; O2SAT 95
== END 2024-12-02 23:37 | disposition left against medical advice (07) ==
LOC: M ED 21:42
DX: Z53.21 Procedure and treatment not carried out due to patient leaving prior to being seen by health care provider (principal)

== ENCOUNTER 2024-12-03 17:58 | Observation (INO) | payer OTHER ==
[~2024-12-03] VITALS: Ht 172.7 cm; Wt 80.8 kg
[2024-12-03] MEDS: LORazepam 2 MG/ML 1ML VIAL IV STA (18:27)
[2024-12-03 18:40] LABS: BASO % 0.6 % (0.0-1.0); EOS % 0.2 % (0.0-3.0); HEMATOCRIT 44.1 % (42.0-52.0); HEMOGLOBIN 15.8 g/dl (13.5-17.5); LYMPH # 2.7 10^3/uL (1.5-5.0); LYMPH % 52.7 % (24.0-44.0); MEAN CORPUSCULAR HEMOGLOBIN 35.7 pg (27.0-33.0); MEAN CORPUSCULAR HGB CONC 35.8 g/dl (32.0-36.5); MEAN CORPUSCULAR VOLUME 99.5 fl (80.0-96.0); MONO # 0.3 10^3/uL (0.0-0.8); MONO % 6.7 % (2.0-8.0); NEUTROPHILS % 39.8 % (36.0-66.0); PLATELET COUNT, AUTOMATED 125 10^3/uL (150-450); RED BLOOD COUNT 4.43 10^6/uL (4.30-6.10); WHITE BLOOD COUNT 5.1 10^3/uL (4.0-10.0)
[2024-12-03 19:07] LABS: SALICYLATE LEVEL < 3.0 MG/DL (<30)
[2024-12-03 19:09] LABS: THYROID STIMULATING HORMONE 1.779 uIU/ML (0.55-4.78)
[2024-12-03 19:26] LABS: ALBUMIN 3.8 G/DL (3.2-5.2); ALKALINE PHOSPHATASE 77 U/L (40-129); ALT/SGPT 70 U/L (7.0-40); AST/SGOT 125 U/L (<34); BILIRUBIN,DIRECT 0.4 MG/DL (<0.4); BILIRUBIN,TOTAL 0.9 MG/DL (0.3-1.2); BLOOD UREA NITROGEN < 5 MG/DL (9-23); CALCIUM LEVEL 8.7 MG/DL (8.3-10.6); CARBON DIOXIDE LEVEL 23 MMOL/L (20-31); CHLORIDE LEVEL 103 MMOL/L (98-107); CPK CREATINE PHOSPHOKINASE 735 U/L (46-171); ETHYL ALCOHOL (ETHANOL) 0.329 % (0.000-0.010); GLOMERULAR FILTRATION RATE > 60.0 (>49); GLUCOSE, FASTING 103 MG/DL (74-106); POTASSIUM SERUM 3.6 MMOL/L (3.5-5.1); SODIUM LEVEL 144 MMOL/L (136-145); TOTAL PROTEIN 8.4 G/DL (5.7-8.2)
[2024-12-03] MEDS: LORazepam 2 MG TAB PO PRN (20:01)
[2024-12-03] MEDS: NS (Normal Saline) 0.9% 1,000 ML IV ONE (20:02)
[2024-12-03] MEDS ORDERED: ISOVUE-370 76% 100ML VIAL ONE (20:41)
[2024-12-04] MEDS ORDERED: MOM 30ML SUSPENSION UDC PO PRN (00:25)
[2024-12-04] MEDS: ATORVASTATIN 20 MG TAB PO ONE (02:50)
[2024-12-04] MEDS: ASPIRIN 81MG ENTERIC TABLET PO SCH (03:00)
[2024-12-04 07:53] LABS: HEMATOCRIT 42.2 % (42.0-52.0); HEMOGLOBIN 14.4 g/dl (13.5-17.5); MEAN CORPUSCULAR HEMOGLOBIN 34.2 pg (27.0-33.0); MEAN CORPUSCULAR HGB CONC 34.1 g/dl (32.0-36.5); MEAN CORPUSCULAR VOLUME 100.2 fl (80.0-96.0); PLATELET COUNT, AUTOMATED 104 10^3/uL (150-450); RED BLOOD COUNT 4.21 10^6/uL (4.30-6.10); WHITE BLOOD COUNT 4.2 10^3/uL (4.0-10.0)
[2024-12-04 08:27] LABS: ALBUMIN 3.4 G/DL (3.2-5.2); ALKALINE PHOSPHATASE 70 U/L (40-129); ALT/SGPT 61 U/L (7.0-40); AST/SGOT 101 U/L (<34); BILIRUBIN,TOTAL 1.6 MG/DL (0.3-1.2); BLOOD UREA NITROGEN < 5 MG/DL (9-23); CALCIUM LEVEL 8.5 MG/DL (8.3-10.6); CARBON DIOXIDE LEVEL 22 MMOL/L (20-31); CHLORIDE LEVEL 105 MMOL/L (98-107); CREATININE FOR GFR 0.63 MG/DL (0.70-1.30); GLOMERULAR FILTRATION RATE > 60.0 (>49); GLUCOSE, FASTING 75 MG/DL (74-106); POTASSIUM SERUM 3.5 MMOL/L (3.5-5.1); SODIUM LEVEL 142 MMOL/L (136-145); TOTAL PROTEIN 7.4 G/DL (5.7-8.2)
[2024-12-04 08:35] LABS: INR 0.98; PROTHROMBIN TIME 13.3 SECONDS (12.5-14.5)
[2024-12-04] MEDS: DOCUSATE SODIUM 100MG CAPSULE PO SCH (09:00)
[2024-12-04] MEDS: NALTREXONE 50 MG TAB PO SCH (09:00)
[2024-12-04] MEDS: ATORVASTATIN 20 MG TAB PO SCH (10:07)
[2024-12-04] MEDS: FOLIC ACID 1MG TAB PO SCH (10:07)
[2024-12-04] MEDS: MULTIVITAMINS/MINERALS THERAP 1 TAB PO SCH (10:08)
[2024-12-04] MEDS: THIAMINE 100 MG TAB PO SCH (10:21)
[2024-12-04] MEDS ORDERED: HOME MED LIST COMPLETE! XX SCH (10:40)
[2024-12-04 11:10] LABS: VITAMIN B12 LEVEL 376 PG/ML (211-911)
[2024-12-04 11:11] LABS: FOLATE 12.4 NG/ML (>5.4)
[2024-12-04] MEDS: METOPROLOL TART 50 MG TAB PO SCH (13:34)
[2024-12-04] MEDS: OXAZEPAM 15MG CAP PO SCH (13:35)
[2024-12-04] MEDS: amLODIPine 5 MG TAB PO SCH (13:35)
[2024-12-04] MEDS: GABAPENTIN 100 MG CAP PO SCH (13:35)
[2024-12-04] MEDS: HEPARIN SOD (PORCINE) 5000UNITS/ML 1ML VIAL/SYRINGE SC SCH (13:41)
[2024-12-04] MEDS: LORazepam 2 MG TAB PO PRN (13:56)
[2024-12-04 14:00] VITALS: BP 141/85
[2024-12-04 14:14] VITALS: BP 153/97; TEMP 97.2; O2SAT 98
[2024-12-04 20:55] VITALS: BP 148/73; TEMP 97.5; O2SAT 98
[2024-12-05] VITALS (7 sets, daily range): BP systolic 107–133; BP diastolic 70–84; TEMP 97.2–98.7; O2SAT 92–98
[2024-12-05 06:10] LABS: BASO % 0.5 % (0.0-1.0); HEMATOCRIT 40.7 % (42.0-52.0); HEMOGLOBIN 14.1 g/dl (13.5-17.5); LYMPH # 1.5 10^3/uL (1.5-5.0); LYMPH % 37.8 % (24.0-44.0); MEAN CORPUSCULAR HEMOGLOBIN 34.6 pg (27.0-33.0); MEAN CORPUSCULAR HGB CONC 34.6 g/dl (32.0-36.5); MONO # 0.4 10^3/uL (0.0-0.8); MONO % 9.5 % (2.0-8.0); NEUTROPHILS % 50.9 % (36.0-66.0); RED BLOOD COUNT 4.07 10^6/uL (4.30-6.10); WHITE BLOOD COUNT 3.9 10^3/uL (4.0-10.0)
[2024-12-05 06:41] LABS: ALBUMIN 3.1 G/DL (3.2-5.2); ALKALINE PHOSPHATASE 65 U/L (40-129); ALT/SGPT 54 U/L (7.0-40); AST/SGOT 84 U/L (<34); BILIRUBIN,TOTAL 1.4 MG/DL (0.3-1.2); BLOOD UREA NITROGEN 8 MG/DL (9-23); CALCIUM LEVEL 8.9 MG/DL (8.3-10.6); CARBON DIOXIDE LEVEL 26 MMOL/L (20-31); CHLORIDE LEVEL 100 MMOL/L (98-107); CREATININE FOR GFR 0.66 MG/DL (0.70-1.30); GLOMERULAR FILTRATION RATE > 60.0 (>49); GLUCOSE, FASTING 84 MG/DL (74-106); POTASSIUM SERUM 3.4 MMOL/L (3.5-5.1); SODIUM LEVEL 135 MMOL/L (136-145); TOTAL PROTEIN 6.8 G/DL (5.7-8.2)
[2024-12-05 07:14] LABS: PLATELET COUNT, AUTOMATED 90 10^3/uL (150-450)
[2024-12-05] MEDS: traZODone 50 MG TAB PO PRN (20:58)
[2024-12-06] VITALS (8 sets, daily range): BP systolic 100–135; BP diastolic 60–83; TEMP 98.6–98.7; O2SAT 92–98
[2024-12-06 05:49] LABS: HEMATOCRIT 41.2 % (42.0-52.0); HEMOGLOBIN 14.2 g/dl (13.5-17.5); MEAN CORPUSCULAR HEMOGLOBIN 34.5 pg (27.0-33.0); MEAN CORPUSCULAR HGB CONC 34.5 g/dl (32.0-36.5); MEAN CORPUSCULAR VOLUME 100.2 fl (80.0-96.0); RED BLOOD COUNT 4.11 10^6/uL (4.30-6.10); WHITE BLOOD COUNT 4.4 10^3/uL (4.0-10.0)
[2024-12-06 05:57] LABS: PLATELET COUNT, AUTOMATED 89 10^3/uL (150-450)
[2024-12-06 08:42] LABS: BLOOD UREA NITROGEN 9 MG/DL (9-23); CALCIUM LEVEL 8.5 MG/DL (8.3-10.6); CARBON DIOXIDE LEVEL 24 MMOL/L (20-31); CHLORIDE LEVEL 102 MMOL/L (98-107); CREATININE FOR GFR 0.64 MG/DL (0.70-1.30); GLOMERULAR FILTRATION RATE > 60.0 (>49); GLUCOSE, FASTING 86 MG/DL (74-106); POTASSIUM SERUM 3.3 MMOL/L (3.5-5.1); SODIUM LEVEL 137 MMOL/L (136-145)
[2024-12-07 04:17] VITALS: BP 102/62; TEMP 98.7; O2SAT 96
[2024-12-07 05:49] LABS: HEMATOCRIT 45.6 % (42.0-52.0); MEAN CORPUSCULAR HEMOGLOBIN 35.2 pg (27.0-33.0); MEAN CORPUSCULAR HGB CONC 35.1 g/dl (32.0-36.5); MEAN CORPUSCULAR VOLUME 100.2 fl (80.0-96.0); PLATELET COUNT, AUTOMATED 111 10^3/uL (150-450); RED BLOOD COUNT 4.55 10^6/uL (4.30-6.10); WHITE BLOOD COUNT 5.3 10^3/uL (4.0-10.0)
[2024-12-07 06:12] LABS: ALBUMIN 3.7 G/DL (3.2-5.2); ALKALINE PHOSPHATASE 74 U/L (40-129); ALT/SGPT 83 U/L (7.0-40); AST/SGOT 94 U/L (<34); BLOOD UREA NITROGEN < 5 MG/DL (9-23); CALCIUM LEVEL 9.4 MG/DL (8.3-10.6); CARBON DIOXIDE LEVEL 26 MMOL/L (20-31); CHLORIDE LEVEL 102 MMOL/L (98-107); CREATININE FOR GFR 0.68 MG/DL (0.70-1.30); GLOMERULAR FILTRATION RATE > 60.0 (>49); GLUCOSE, FASTING 100 MG/DL (74-106); POTASSIUM SERUM 3.8 MMOL/L (3.5-5.1); SODIUM LEVEL 138 MMOL/L (136-145)
[2024-12-07 08:13] VITALS: BP 102/62
[2024-12-07 10:13] VITALS: BP 98/62
[2024-12-07 11:50] VITALS: BP 111/70
[2024-12-07 11:51] VITALS: BP 111/70; TEMP 97.3; O2SAT 96
== END 2024-12-07 12:01 ==
LOC: M ED 17:58 → EDBD 17:58 → M ED INP 17:59 → M MSPAV 12-04 14:10
PROVIDERS: ADMIT Family Medicine; ATTEND Student in an Organized Health Care Education/Training Program
DX: F10.220 Alcohol dependence with intoxication, uncomplicated (principal); R45.851 Suicidal ideations; F33.1 Major depressive disorder, recurrent, moderate; Z91.51 Personal history of suicidal behavior; F41.9 Anxiety disorder, unspecified; R20.2 Paresthesia of skin; R53.1 Weakness; R29.6 Repeated falls; G62.9 Polyneuropathy, unspecified; M51.360 Other intervertebral disc degeneration, lumbar region with discogenic back pain only; M19.90 Unspecified osteoarthritis, unspecified site; D69.6 Thrombocytopenia, unspecified; R74.8 Abnormal levels of other serum enzymes; R74.01 Elevation of levels of liver transaminase levels; E87.1 Hypo-osmolality and hyponatremia; I67.82 Cerebral ischemia; G31.1 Senile degeneration of brain, not elsewhere classified; Z91.148 Patient's other noncompliance with medication regimen for other reason; Z63.0 Problems in relationship with spouse or partner; Z88.0 Allergy status to penicillin; Z88.8 Allergy status to other drugs, medicaments and biological substances; Z91.018 Allergy to other foods; Z91.040 Latex allergy status; Z91.030 Bee allergy status; Z79.899 Other long term (current) drug therapy
CPT/HCPCS: 36415; 70450; 70496; 70498; 70551; 72125; 80048; 80053; 80076; 80143; 82077; 82550; 82607; 82746; 84443; 85025; 85027; 85049; 85055; 85610; 93005; 93041; 94760; 96374; 99285; J2060; Q9967

== ENCOUNTER 2024-12-06 19:23 | Inpatient (IN) | payer MEDICAID, OTHER ==
[~2024-12-06] VITALS: Ht 172.7 cm; Wt 81.1 kg
[2024-12-07] MEDS: NICOTINE 14 MG/24 HR TRANSDERMAL TD SCH (09:00)
[2024-12-07] MEDS ORDERED: OLANZapine 5 MG TAB PO PRN (09:45)
[2024-12-07] MEDS ORDERED: MOM 30ML SUSPENSION UDC PO PRN (09:45)
[2024-12-07] MEDS ORDERED: MAALOX 30 ML SUSP *UDC PO PRN (09:45)
[2024-12-07 12:14] VITALS: BP 104/67; TEMP 97.8; O2SAT 98
[2024-12-07 16:45] VITALS: BP 120/75; TEMP 97.2; O2SAT 98
[2024-12-07] MEDS: GABAPENTIN 100 MG CAP PO SCH (18:03)
[2024-12-07] MEDS: traZODone 50 MG TAB PO PRN (21:05)
[2024-12-07] MEDS: diphenhydrAMINE 25MG CAP PO PRN (21:05)
[2024-12-08 06:44] VITALS: BP 101/55; TEMP 97.1; O2SAT 100
[2024-12-08 08:34] VITALS: BP 126/80
[2024-12-08] MEDS: NALTREXONE 50 MG TAB PO SCH (08:36)
[2024-12-08] MEDS: FOLIC ACID 1MG TAB PO SCH (08:36)
[2024-12-08] MEDS: THIAMINE 100 MG TAB PO SCH (08:37)
[2024-12-08] MEDS: amLODIPine 5 MG TAB PO SCH (08:37)
[2024-12-08] MEDS: LORazepam 1 MG TAB PO PRN (13:19)
[2024-12-08 15:10] VITALS: BP 128/70; TEMP 97.8; O2SAT 98
[2024-12-08] MEDS: GABAPENTIN 100 MG CAP PO SCH (15:13)
[2024-12-08] MEDS ORDERED: SERTRALINE HCL 25 MG TABLET PO SCH (21:00)
[2024-12-09 06:50] VITALS: BP 125/68; TEMP 98.1; O2SAT 97
[2024-12-09 08:26] VITALS: BP 135/82
[2024-12-09] MEDS: ESCITALOPRAM OXALATE 5MG TABLET (LEXAPRO) PO SCH (08:29)
[2024-12-09 16:05] VITALS: BP 104/57; TEMP 97.8; O2SAT 100
[2024-12-10 06:39] VITALS: BP 94/55; TEMP 98.3; O2SAT 94
[2024-12-10 08:34] VITALS: BP 132/68
[2024-12-10] MEDS: ESCITALOPRAM OXALATE 10 MG TAB (LEXAPRO) PO SCH (08:37)
[2024-12-10] MEDS: ACETAMINOPHEN 325 MG TAB PO PRN (13:12)
[2024-12-10 15:54] VITALS: BP 97/55; TEMP 98; O2SAT 98
[2024-12-11 06:33] VITALS: BP 118/71; TEMP 98.3; O2SAT 95
[2024-12-11 15:13] VITALS: BP 109/55; TEMP 98; O2SAT 99
[2024-12-12 06:36] VITALS: BP 94/52; TEMP 98; O2SAT 95
[2024-12-12 08:30] VITALS: BP 101/59
[2024-12-12 09:45] VITALS: BP 117/72
[2024-12-12 15:17] VITALS: BP 118/69; TEMP 97.9; O2SAT 98
[2024-12-13 06:15] VITALS: BP 110/64; TEMP 97.3; O2SAT 99
[2024-12-13 07:55] VITALS: BP 121/69
[2024-12-13 18:16] VITALS: BP 123/68; TEMP 97.8
[2024-12-14 06:42] VITALS: BP 119/77; TEMP 97.4; O2SAT 96
[2024-12-14 16:36] VITALS: BP 102/65; TEMP 98; O2SAT 96
[2024-12-15 09:30] VITALS: BP 139/75; TEMP 97.5; O2SAT 95
[2024-12-15] MEDS: LORazepam 2 MG/ML 1ML VIAL IM STA (09:33)
[2024-12-15 09:35] VITALS: BP 139/75; TEMP 97.5; O2SAT 95
[2024-12-15 10:09] LABS: BASO # 0.1 10^3/uL (0.0-0.2); BASO % 0.8 % (0.0-1.0); EOS % 0.5 % (0.0-3.0); HEMATOCRIT 43.8 % (42.0-52.0); HEMOGLOBIN 14.8 g/dl (13.5-17.5); LYMPH # 2.4 10^3/uL (1.5-5.0); LYMPH % 38.3 % (24.0-44.0); MEAN CORPUSCULAR HEMOGLOBIN 35.2 pg (27.0-33.0); MEAN CORPUSCULAR HGB CONC 33.8 g/dl (32.0-36.5); MEAN CORPUSCULAR VOLUME 104.3 fl (80.0-96.0); MONO % 15.1 % (2.0-8.0); NEUTROPHILS # 2.9 10^3/uL (1.5-8.5); PLATELET COUNT, AUTOMATED 268 10^3/uL (150-450); WHITE BLOOD COUNT 6.4 10^3/uL (4.0-10.0)
[2024-12-15 10:10] VITALS: BP 121/69; TEMP 98.1; O2SAT 96
[2024-12-15 10:38] LABS: ALBUMIN 3.6 G/DL (3.2-5.2); ALKALINE PHOSPHATASE 60 U/L (40-129); ALT/SGPT 73 U/L (7.0-40); AST/SGOT 36 U/L (<34); BILIRUBIN,TOTAL 0.5 MG/DL (0.3-1.2); BLOOD UREA NITROGEN 7 MG/DL (9-23); CALCIUM LEVEL 8.7 MG/DL (8.3-10.6); CARBON DIOXIDE LEVEL 25 MMOL/L (20-31); CHLORIDE LEVEL 102 MMOL/L (98-107); CREATININE FOR GFR 0.88 MG/DL (0.70-1.30); GLOMERULAR FILTRATION RATE > 60.0 (>49); GLUCOSE, FASTING 93 MG/DL (74-106); MAGNESIUM LEVEL 1.8 MG/DL (1.8-2.4); POTASSIUM SERUM 3.6 MMOL/L (3.5-5.1); SODIUM LEVEL 138 MMOL/L (136-145); TOTAL PROTEIN 7.5 G/DL (5.7-8.2)
[2024-12-15 14:00] VITALS: BP 117/64
[2024-12-15] MEDS: LORazepam 2 MG/ML 1ML VIAL IM ONE (14:24)
[2024-12-15 14:33] VITALS: BP 117/64; TEMP 97.8; O2SAT 94
[2024-12-15] MEDS: LORazepam 0.5 MG TAB PO SCH (16:43)
[2024-12-15] MEDS: GABAPENTIN 300 MG CAP PO SCH (16:43)
[2024-12-16 06:39] VITALS: BP 124/72; TEMP 98.1; O2SAT 99
[2024-12-16 06:50] VITALS: BP 124/72
[2024-12-16 14:00] VITALS: BP 105/59
[2024-12-16 15:49] VITALS: BP 105/59; TEMP 98.2; O2SAT 100
[2024-12-16 22:00] VITALS: BP 108/60
[2024-12-17 05:23] VITALS: BP 125/78
[2024-12-17 06:34] VITALS: BP 125/78; TEMP 98.3; O2SAT 96
[2024-12-17 14:00] VITALS: BP 116/85
[2024-12-17 15:40] VITALS: BP 116/73; TEMP 97.8; O2SAT 99
[2024-12-17 16:57] VITALS: BP 116/85; TEMP 98.4; O2SAT 98
[2024-12-17 22:00] VITALS: BP 160/65
[2024-12-18 06:28] VITALS: BP 100/62; TEMP 98.4; O2SAT 96
[2024-12-18 06:30] VITALS: BP 100/62
[2024-12-18 08:43] VITALS: BP 127/67
[2024-12-18 14:00] VITALS: BP 141/74
[2024-12-18 16:37] VITALS: BP 141/74; TEMP 97.6; O2SAT 96
[2024-12-19 06:39] VITALS: BP 105/63; TEMP 98.4; O2SAT 97
[2024-12-19 08:57] VITALS: BP 129/66
[2024-12-19 09:04] VITALS: BP 129/72; TEMP 97.6; O2SAT 95
[2024-12-19 15:35] VITALS: BP 118/59; TEMP 98.1; O2SAT 100
[2024-12-19] MEDS: LORazepam 0.5 MG TAB PO SCH (20:22)
[2024-12-20 06:30] VITALS: BP 109/60; TEMP 97.6; O2SAT 97
[2024-12-20 08:58] VITALS: BP 108/63
[2024-12-20 10:00] VITALS: BP 108/63
[2024-12-20 16:54] VITALS: BP 98/54; TEMP 98.2; O2SAT 96
[2024-12-21 06:25] VITALS: BP 102/58; TEMP 97.7; O2SAT 95
[2024-12-21 06:28] VITALS: BP 100/58
[2024-12-21] MEDS: ESCITALOPRAM OXALATE 10 MG TAB (LEXAPRO) PO SCH (08:56)
[2024-12-21 12:42] VITALS: O2SAT 97
[2024-12-21 14:00] VITALS: BP 118/73
[2024-12-21 15:57] VITALS: BP 118/73; TEMP 97.6; O2SAT 97
[2024-12-21] MEDS: LORazepam 0.5 MG TAB PO SCH (20:04)
[2024-12-22 06:44] VITALS: BP 103/63; TEMP 97.5; O2SAT 95
[2024-12-22 14:00] VITALS: BP_SYST 103; BP_SYST 138; BP_DIAS 63; BP_DIAS 78
[2024-12-22 17:56] VITALS: BP 138/78; TEMP 97.4; O2SAT 97
[2024-12-23 06:43] VITALS: BP 97/58; TEMP 98; O2SAT 96
[2024-12-23 08:00] VITALS: BP 119/63
[2024-12-23 08:51] VITALS: BP 119/63
[2024-12-23 15:45] VITALS: BP 121/73; TEMP 97.3; O2SAT 98
[2024-12-23] MEDS: traZODone 50 MG TAB PO PRN (20:16)
[2024-12-23 22:00] VITALS: BP 126/72
[2024-12-24 06:00] VITALS: BP 113/56
[2024-12-24 06:33] VITALS: BP 113/56; TEMP 98; O2SAT 95
[2024-12-24] MEDS: PILL CUTTER 1 EACH XX PRN (09:22)
[2024-12-24 15:00] VITALS: BP 100/57
[2024-12-24 15:49] VITALS: BP 100/57; TEMP 97.9; O2SAT 98
[2024-12-25 06:45] VITALS: BP 103/64; TEMP 97.5; O2SAT 95
[2024-12-25 15:28] VITALS: BP 113/59; TEMP 97.9; O2SAT 98
[2024-12-26 06:24] VITALS: BP 107/52; TEMP 98; O2SAT 98
[2024-12-26 06:25] VITALS: BP 107/52
[2024-12-26 08:28] VITALS: BP 118/73
[2024-12-26 08:33] VITALS: BP 118/73
[2024-12-26] MEDS ORDERED: hydrOXYzine 50 MG TAB PO PRN (09:40)
[2024-12-26] MEDS ORDERED: GABA-1172 PO (11:13)
[2024-12-26] MEDS ORDERED: TRAZ-252 PO (11:13)
[2024-12-26] MEDS ORDERED: LEXA1TAB PO (11:13)
[2024-12-26] MEDS ORDERED: NALT50TA4 PO (11:13)
[2024-12-26] MEDS ORDERED: HYDR50TA70 PO (11:13)
[2024-12-26] MEDS ORDERED: NORV5TAB PO (14:05)
== END 2024-12-26 13:56 | DRG 751 ==
LOC: M PSY 12-07 12:06
PROVIDERS: ADMIT Internal Medicine; ATTEND Psychiatry & Neurology Psychiatry
DX: F33.1 Major depressive disorder, recurrent, moderate (principal); D69.6 Thrombocytopenia, unspecified; R45.851 Suicidal ideations; R56.9 Unspecified convulsions; G62.9 Polyneuropathy, unspecified; K76.0 Fatty (change of) liver, not elsewhere classified; F41.1 Generalized anxiety disorder; F10.229 Alcohol dependence with intoxication, unspecified; F10.239 Alcohol dependence with withdrawal, unspecified; F12.10 Cannabis abuse, uncomplicated; L98.8 Other specified disorders of the skin and subcutaneous tissue; I10 Essential (primary) hypertension; M19.90 Unspecified osteoarthritis, unspecified site; Z85.828 Personal history of other malignant neoplasm of skin; Z63.5 Disruption of family by separation and divorce; Z88.0 Allergy status to penicillin; Z88.8 Allergy status to other drugs, medicaments and biological substances; Z91.018 Allergy to other foods; Z91.030 Bee allergy status; Z91.040 Latex allergy status; Z91.51 Personal history of suicidal behavior

== ENCOUNTER 2025-01-31 17:47 | Inpatient (IN) | payer MEDICAID, OTHER ==
[~2025-01-31 17:47] MED LIST changes: +GABA-1172 PO; +HYDR50TA70 PO; +LEXA1TAB PO; +NORV5TAB PO
[2025-01-31 18:30] LABS: HEMATOCRIT 46.8 % (42.0-52.0); HEMOGLOBIN 16.4 g/dl (13.5-17.5); MEAN CORPUSCULAR HEMOGLOBIN 34.1 pg (27.0-33.0); MEAN CORPUSCULAR VOLUME 97.3 fl (80.0-96.0); PLATELET COUNT, AUTOMATED 213 10^3/uL (150-450); RED BLOOD COUNT 4.81 10^6/uL (4.30-6.10); WHITE BLOOD COUNT 9.6 10^3/uL (4.0-10.0)
[2025-01-31] MEDS: THIAMINE 100 MG TAB PO SCH (18:31)
[2025-01-31 18:58] LABS: SALICYLATE LEVEL < 3.0 MG/DL (<30)
[2025-01-31 19:00] LABS: THYROID STIMULATING HORMONE 0.755 uIU/ML (0.55-4.78)
[2025-01-31] MEDS ORDERED: TRAZ1TAB10 PO (19:03)
[2025-01-31] MEDS ORDERED: GABA-1172 PO (19:03)
[2025-01-31] MEDS ORDERED: HYDR1TAB33 PO (19:04)
[2025-01-31] MEDS ORDERED: HOME MED LIST COMPLETE! XX SCH (19:05)
[2025-01-31 19:29] LABS: ALBUMIN 4.2 G/DL (3.2-5.2); ALKALINE PHOSPHATASE 96 U/L (40-129); ALT/SGPT 29 U/L (7.0-40); AST/SGOT 39 U/L (<34); BILIRUBIN,DIRECT 0.5 MG/DL (<0.4); BILIRUBIN,TOTAL 1.1 MG/DL (0.3-1.2); BLOOD UREA NITROGEN 11 MG/DL (9-23); CALCIUM LEVEL 8.9 MG/DL (8.3-10.6); CARBON DIOXIDE LEVEL 18 MMOL/L (20-31); CHLORIDE LEVEL 99 MMOL/L (98-107); CREATININE FOR GFR 0.69 MG/DL (0.70-1.30); ETHYL ALCOHOL (ETHANOL) 0.308 % (0.000-0.010); GLOMERULAR FILTRATION RATE > 90.0 (>49); GLUCOSE, FASTING 137 MG/DL (74-106); POTASSIUM SERUM 3.2 MMOL/L (3.5-5.1); SODIUM LEVEL 141 MMOL/L (136-145); TOTAL PROTEIN 8.4 G/DL (5.7-8.2)
[2025-01-31 21:53] LABS: VENOUS BASE EXCESS -4.7 (-2.0-2.0); VENOUS HCO3 19.4 MMOL/L (23.0-27.0); VENOUS PARTIAL PRESSURE CO2 33.7 mmHg (38.0-50.0); VENOUS PARTIAL PRESSURE O2 38.7 mmHg (30.0-50.0); VENOUS PH 7.378 UNITS (7.330-7.430); VENOUS STANDARD HCO3 19.9 MMOL/L; VENOUS TOTAL CO2 20.4 MMOL/L (24.0-28.0)
[2025-01-31] MEDS: NS (Normal Saline) 0.9% 1,000 ML IV ONE (21:57)
[2025-01-31] MEDS: LORazepam 2 MG TAB PO PRN (21:57)
[2025-01-31 22:49] LABS: CPK CREATINE PHOSPHOKINASE 279 U/L (46-171)
[2025-01-31 23:01] LABS: PROCALCITONIN 0.05 ng/ml
[2025-01-31] MEDS: [UNRECOGNIZED DRUG - OTHER] IV ONE (23:10)
[2025-01-31] MEDS: NS 0.9% IV ONE (23:10)
[2025-01-31 23:19] LABS: ACETONE/KETONE 1.14 MMOL/L (0.02-0.27)
[2025-02-01] MEDS: LORazepam 2 MG/ML 1ML VIAL IM STA (00:14)
[2025-02-01 02:54] LABS: KETONE, URINE AUTO RFX 1+ mg/dL (NEGATIVE); LEUKOCYTE ESTERASE UR AUTO RFX NEGATIVE (NEGATIVE); MUCUS, URINE RFX SMALL (NEGATIVE); NITRITE, URINE AUTO RFX NEGATIVE (NEGATIVE); RBC, URINE AUTO RFX 1 /HPF (0-3); SQUAM EPITHELIAL CELL UR AURFX 0 /HPF (0-6); WBC, URINE AUTO RFX 2 /HPF (0-3)
[2025-02-01 03:08] LABS: AMPHETAMINES LEVEL URINE NEGATIVE (NEGATIVE); BARBITURATES URINE NEGATIVE (NEGATIVE); BENZODIAZEPINES URINE NEGATIVE (NEGATIVE); CANNABINOIDS URINE NEGATIVE (NEGATIVE); COCAINE METABOLITE URINE NEGATIVE (NEGATIVE); METHADONE URINE NEGATIVE (NEGATIVE); OPIATES URINE NEGATIVE (NEGATIVE); PHENCYCLIDINE URINE NEGATIVE (NEGATIVE)
[2025-02-01] MEDS: KCL 20MEQ IN 0.45NS 1000ML 1,000 ML IV SCH (04:45)
[2025-02-01] MEDS ORDERED: ONDANSETRON 4MG 2ML VIAL IV PRN (07:10)
[2025-02-01 07:31] LABS: BASO % 0.2 % (0.0-1.0); EOS % 0.1 % (0.0-3.0); HEMATOCRIT 38.1 % (42.0-52.0); LYMPH # 2.4 10^3/uL (1.5-5.0); LYMPH % 24.7 % (24.0-44.0); MEAN CORPUSCULAR HEMOGLOBIN 33.5 pg (27.0-33.0); MEAN CORPUSCULAR VOLUME 93.2 fl (80.0-96.0); MONO # 0.8 10^3/uL (0.0-0.8); MONO % 8.6 % (2.0-8.0); NEUTROPHILS # 6.4 10^3/uL (1.5-8.5); NEUTROPHILS % 66.1 % (36.0-66.0); PLATELET COUNT, AUTOMATED 188 10^3/uL (150-450); RED BLOOD COUNT 4.09 10^6/uL (4.30-6.10); WHITE BLOOD COUNT 9.7 10^3/uL (4.0-10.0)
[2025-02-01 07:32] LABS: ALBUMIN 3.7 G/DL (3.2-5.2); ALKALINE PHOSPHATASE 77 U/L (40-129); ALT/SGPT 27 U/L (7.0-40); AST/SGOT 42 U/L (<34); BILIRUBIN,TOTAL 1.5 MG/DL (0.3-1.2); BLOOD UREA NITROGEN 7 MG/DL (9-23); CALCIUM LEVEL 8.2 MG/DL (8.3-10.6); CARBON DIOXIDE LEVEL 20 MMOL/L (20-31); CHLORIDE LEVEL 98 MMOL/L (98-107); CREATININE FOR GFR 0.56 MG/DL (0.70-1.30); GLOMERULAR FILTRATION RATE > 90.0 (>49); GLUCOSE, FASTING 109 MG/DL (74-106); MAGNESIUM LEVEL 1.5 MG/DL (1.8-2.4); POTASSIUM SERUM 3.9 MMOL/L (3.5-5.1); SODIUM LEVEL 133 MMOL/L (136-145); TOTAL PROTEIN 7.5 G/DL (5.7-8.2)
[2025-02-01 07:51] LABS: HEMOGLOBIN 13.7 g/dl (13.5-17.5)
[2025-02-01] MEDS: OXAZEPAM 15MG CAP PO SCH (08:43)
[2025-02-01] MEDS: MULTIVITAMINS/MINERALS THERAP 1 TAB PO SCH (08:43)
[2025-02-01] MEDS: FOLIC ACID 1MG TAB PO SCH (08:43)
[2025-02-01] MEDS: PANTOPRAZOLE 40MG VIAL IV SCH (08:45)
[2025-02-01] MEDS: HEPARIN SOD (PORCINE) 5000UNITS/ML 1ML VIAL/SYRINGE SC SCH (08:48)
[2025-02-01] MEDS: MAG SULF 1GM/100ML (MAG RUN) 1 GM in IV 1 EA IV SCH (13:07)
[2025-02-01 20:00] VITALS: BP 136/76; TEMP 98.7; O2SAT 94
[2025-02-02 03:51] VITALS: BP 138/86; TEMP 98.2; O2SAT 96
[2025-02-02 05:37] LABS: HEMATOCRIT 36.8 % (42.0-52.0); HEMOGLOBIN 13.4 g/dl (13.5-17.5); MEAN CORPUSCULAR HGB CONC 36.4 g/dl (32.0-36.5); MEAN CORPUSCULAR VOLUME 93.4 fl (80.0-96.0); PLATELET COUNT, AUTOMATED 133 10^3/uL (150-450); RED BLOOD COUNT 3.94 10^6/uL (4.30-6.10); WHITE BLOOD COUNT 5.8 10^3/uL (4.0-10.0)
[2025-02-02 05:38] LABS: BASO % 0.2 % (0.0-1.0); EOS % 0.5 % (0.0-3.0); HEMATOCRIT 37.1 % (42.0-52.0); HEMOGLOBIN 13.4 g/dl (13.5-17.5); LYMPH # 2.2 10^3/uL (1.5-5.0); LYMPH % 37.7 % (24.0-44.0); MEAN CORPUSCULAR HEMOGLOBIN 33.7 pg (27.0-33.0); MEAN CORPUSCULAR HGB CONC 36.1 g/dl (32.0-36.5); MEAN CORPUSCULAR VOLUME 93.2 fl (80.0-96.0); MONO # 0.5 10^3/uL (0.0-0.8); MONO % 8.4 % (2.0-8.0); PLATELET COUNT, AUTOMATED 134 10^3/uL (150-450); RED BLOOD COUNT 3.98 10^6/uL (4.30-6.10); WHITE BLOOD COUNT 5.7 10^3/uL (4.0-10.0)
[2025-02-02 06:03] LABS: ALBUMIN 3.3 G/DL (3.2-5.2); ALKALINE PHOSPHATASE 74 U/L (40-129); ALT/SGPT 25 U/L (7.0-40); AST/SGOT 45 U/L (<34); BILIRUBIN,TOTAL 1.8 MG/DL (0.3-1.2); BLOOD UREA NITROGEN < 5 MG/DL (9-23); CALCIUM LEVEL 8.3 MG/DL (8.3-10.6); CARBON DIOXIDE LEVEL 25 MMOL/L (20-31); CHLORIDE LEVEL 101 MMOL/L (98-107); CREATININE FOR GFR 0.59 MG/DL (0.70-1.30); GLOMERULAR FILTRATION RATE > 90.0 (>49); GLUCOSE, FASTING 97 MG/DL (74-106); POTASSIUM SERUM 3.1 MMOL/L (3.5-5.1); SODIUM LEVEL 136 MMOL/L (136-145)
[2025-02-02 08:13] VITALS: BP 125/72; TEMP 97.9; O2SAT 96
[2025-02-02] MEDS: MAGNESIUM OXIDE 400MG TAB (MAG-OX) PO SCH (10:05)
[2025-02-02] MEDS: POTASSIUM CHLORIDE 10MEQ SR TABLET PO ONE (10:05)
[2025-02-02 12:00] VITALS: BP 127/83; TEMP 98.8; O2SAT 93
[2025-02-02] MEDS ORDERED: OXAZEPAM 15MG CAP PO SCH (18:00)
[2025-02-03] MEDS ORDERED: PANTOPRAZOLE 40MG TAB (PROTONIX) PO SCH (09:00)
== END 2025-02-02 16:40 | disposition left against medical advice (07) | DRG 770 ==
LOC: M ED 17:47 → M ED INP 02-01 03:48 → M PCU 02-01 20:00
PROVIDERS: ADMIT Student in an Organized Health Care Education/Training Program; ATTEND Internal Medicine Nephrology
DX: F10.239 Alcohol dependence with withdrawal, unspecified (principal); R45.851 Suicidal ideations; E87.20 Acidosis, unspecified; E87.1 Hypo-osmolality and hyponatremia; E83.42 Hypomagnesemia; K76.0 Fatty (change of) liver, not elsewhere classified; F41.1 Generalized anxiety disorder; M19.90 Unspecified osteoarthritis, unspecified site; E87.6 Hypokalemia; F32.9 Major depressive disorder, single episode, unspecified; F10.229 Alcohol dependence with intoxication, unspecified; F12.10 Cannabis abuse, uncomplicated; R19.7 Diarrhea, unspecified; I10 Essential (primary) hypertension; Z79.899 Other long term (current) drug therapy; Z88.0 Allergy status to penicillin; Z88.8 Allergy status to other drugs, medicaments and biological substances; Z91.018 Allergy to other foods; Z91.030 Bee allergy status; Z85.828 Personal history of other malignant neoplasm of skin; Z98.1 Arthrodesis status

== ENCOUNTER 2025-02-02 17:17 | Inpatient (IN) | payer OTHER ==
[~2025-02-02] VITALS: Ht 172.7 cm; Wt 80.5 kg
[~2025-02-02 17:17] MED LIST changes: +HYDR1TAB33 PO; +TRAZ1TAB10 PO
[2025-02-02] MEDS ORDERED: HOME MED LIST COMPLETE! XX SCH (19:10)
[2025-02-02] MEDS: OXAZEPAM 15MG CAP PO ONE (19:10)
[2025-02-02] MEDS: ONDANSETRON 4MG ORAL DISINTEGRATING TAB PO ONE (19:57)
[2025-02-02] MEDS ORDERED: MAALOX 30 ML SUSP *UDC PO PRN (20:20)
[2025-02-02] MEDS ORDERED: MOM 30ML SUSPENSION UDC PO PRN (20:20)
[2025-02-02 21:01] VITALS: BP 132/88; TEMP 97.7
[2025-02-03] MEDS ORDERED: LORazepam 2 MG TAB PO PRN (06:45)
[2025-02-03 06:52] VITALS: BP 130/86; TEMP 97.5
[2025-02-03] MEDS: OXAZEPAM 15MG CAP PO SCH (06:56)
[2025-02-03] MEDS: THIAMINE 100 MG TAB PO SCH (07:00)
[2025-02-03 07:09] VITALS: BP 142/92
[2025-02-03] MEDS: FOLIC ACID 1MG TAB PO SCH (09:02)
[2025-02-03] MEDS: MULTIVITAMINS/MINERALS THERAP 1 TAB PO SCH (09:02)
[2025-02-03] MEDS: amLODIPine 5 MG TAB PO SCH (09:05)
[2025-02-03 14:00] VITALS: BP 111/75
[2025-02-03 15:42] VITALS: BP 111/75; TEMP 97.6; O2SAT 95
[2025-02-03] MEDS: diphenhydrAMINE 25MG CAP PO PRN (15:53)
[2025-02-03] MEDS: ACETAMINOPHEN 325 MG TAB PO PRN (15:53)
[2025-02-03] MEDS: GABAPENTIN 100 MG CAP PO SCH (16:13)
[2025-02-03] MEDS: ESCITALOPRAM OXALATE 10 MG TAB (LEXAPRO) PO SCH (16:13)
[2025-02-03] MEDS: IBUPROFEN 400MG TAB PO PRN (21:58)
[2025-02-03 22:01] VITALS: BP 110/65
[2025-02-04 00:23] VITALS: BP 125/73; TEMP 97.1; O2SAT 94
[2025-02-04 05:44] VITALS: BP 116/66; TEMP 97.7; O2SAT 95
[2025-02-04 06:00] VITALS: BP 116/66
[2025-02-04] MEDS: FLUBLOK(EGGFREE) TRIVAL(24-25) VACCINE PF 0.5ML SYRINGE 18YRS & OLDER IM.IMMUN ONE (09:13)
[2025-02-04] MEDS: OXAZEPAM 15MG CAP PO SCH ×2 (13:45→20:49)
[2025-02-04 14:00] VITALS: BP 132/65
[2025-02-04 16:11] VITALS: BP 109/59; TEMP 98; O2SAT 99
[2025-02-04] MEDS: traZODone 50 MG TAB PO PRN (20:49)
[2025-02-04 22:00] VITALS: BP 110/64
[2025-02-05 07:34] VITALS: BP 131/89; TEMP 97.4; O2SAT 96
[2025-02-05 08:26] VITALS: BP 121/82
[2025-02-05 15:01] VITALS: BP 144/76; TEMP 97.4; O2SAT 97
[2025-02-05 15:34] VITALS: BP 144/76
[2025-02-05] MEDS: traZODone 100 MG TAB PO PRN (21:12)
[2025-02-05 22:06] VITALS: BP 131/78
[2025-02-06 06:49] VITALS: BP 100/63; TEMP 98.6; O2SAT 95
[2025-02-06 06:51] VITALS: BP 100/63
[2025-02-06 14:54] VITALS: BP 136/74; TEMP 97.1; O2SAT 100
[2025-02-06 14:55] VITALS: BP 136/74
[2025-02-07 06:41] VITALS: BP 112/68; TEMP 98.2; O2SAT 95
[2025-02-07 08:58] VITALS: BP 135/71
[2025-02-07 09:02] VITALS: BP 135/71
[2025-02-07] MEDS ORDERED: TRAZ-257 PO ×2 (09:13→12:17)
[2025-02-07] MEDS ORDERED: GABA-1171 PO ×2 (09:13→12:17)
[2025-02-07] MEDS ORDERED: LEXA1TAB PO ×2 (09:13→12:17)
== END 2025-02-07 12:10 | disposition home or self-care (01) | DRG 751 ==
LOC: M ED 17:17 → M ED INP 20:20 → M PSY 20:55
PROVIDERS: ADMIT Student in an Organized Health Care Education/Training Program; ATTEND Student in an Organized Health Care Education/Training Program
DX: F33.1 Major depressive disorder, recurrent, moderate (principal); F41.1 Generalized anxiety disorder; F10.220 Alcohol dependence with intoxication, uncomplicated; F10.230 Alcohol dependence with withdrawal, uncomplicated; R45.851 Suicidal ideations; M19.90 Unspecified osteoarthritis, unspecified site; I10 Essential (primary) hypertension; D69.6 Thrombocytopenia, unspecified; Z79.899 Other long term (current) drug therapy; Z88.0 Allergy status to penicillin; Z88.8 Allergy status to other drugs, medicaments and biological substances; Z91.040 Latex allergy status; Z91.030 Bee allergy status

== ENCOUNTER 2025-02-15 17:21 | Emergency (ER) | payer MEDICAID, OTHER ==
[~2025-02-15] VITALS: Ht 172.7 cm; Wt 81.8 kg
[2025-02-15 17:34] VITALS: TEMP 95.6
[2025-02-15 19:00] VITALS: BP 140/88
[2025-02-15 19:06] VITALS: O2SAT 93
== END 2025-02-15 19:55 | disposition left against medical advice (07) ==
LOC: EDBD 17:21 → M ED 17:21
DX: F10.120 Alcohol abuse with intoxication, uncomplicated (principal); I10 Essential (primary) hypertension; F32.A Depression, unspecified; Z88.0 Allergy status to penicillin; Z88.8 Allergy status to other drugs, medicaments and biological substances; Z91.030 Bee allergy status; Z91.040 Latex allergy status; Z79.899 Other long term (current) drug therapy; Z53.9 Procedure and treatment not carried out, unspecified reason

== ENCOUNTER 2025-02-24 13:15 | Emergency (ER) | payer OTHER ==
[2025-02-24] MEDS: MAALOX 30 ML SUSP *UDC PO ONE (13:49)
[2025-02-24] MEDS: LIDOCAINE VISCOUS 2% SOLN 15 ML UDC PO ONE (13:49)
[2025-02-24] MEDS: PANTOPRAZOLE 40MG VIAL IV ONE (13:54)
[2025-02-24 14:00] VITALS: TEMP 98.2
[2025-02-24] MEDS: LORazepam 2 MG/ML 1 ML VIAL IV STA (14:08)
[2025-02-24] MEDS: NS 500 ML IV ONE (14:15)
[2025-02-24 14:18] LABS: BASO % 0.4 % (0.0-1.0); EOS # 0.1 10^3/uL (0.0-0.5); EOS % 2.3 % (0.0-3.0); HEMATOCRIT 42.8 % (42.0-52.0); HEMOGLOBIN 15.2 g/dl (13.5-17.5); LYMPH # 1.4 10^3/uL (1.5-5.0); LYMPH % 25.1 % (24.0-44.0); MEAN CORPUSCULAR HEMOGLOBIN 33.9 pg (27.0-33.0); MEAN CORPUSCULAR HGB CONC 35.5 g/dl (32.0-36.5); MEAN CORPUSCULAR VOLUME 95.3 fl (80.0-96.0); MONO # 0.4 10^3/uL (0.0-0.8); MONO % 7.7 % (2.0-8.0); NEUTROPHILS # 3.6 10^3/uL (1.5-8.5); PLATELET COUNT, AUTOMATED 100 10^3/uL (150-450); RED BLOOD COUNT 4.49 10^6/uL (4.30-6.10); WHITE BLOOD COUNT 5.6 10^3/uL (4.0-10.0)
[2025-02-24 14:28] LABS: PROTHROMBIN TIME 13.5 SECONDS (12.5-14.5)
[2025-02-24 14:40] LABS: LIPASE 45 U/L (12-53)
[2025-02-24 14:41] LABS: CK-MB VALUE MASS 4.5 NG/ML (<3.6)
[2025-02-24 14:42] LABS: ALKALINE PHOSPHATASE 120 U/L (40-129); ALT/SGPT 46 U/L (7.0-40); AST/SGOT 84 U/L (<34); BILIRUBIN,DIRECT 0.5 MG/DL (<0.4); BILIRUBIN,TOTAL 1.2 MG/DL (0.3-1.2); BLOOD UREA NITROGEN 6 MG/DL (9-23); CALCIUM LEVEL 8.5 MG/DL (8.3-10.6); CARBON DIOXIDE LEVEL 22 MMOL/L (20-31); CHLORIDE LEVEL 96 MMOL/L (98-107); CPK CREATINE PHOSPHOKINASE 938 U/L (46-171); CREATININE FOR GFR 0.68 MG/DL (0.70-1.30); GLOMERULAR FILTRATION RATE > 90.0 (>49); GLUCOSE, FASTING 179 MG/DL (74-106); MB/CK RELATIVE INDEX 0.47 (< OR =4); POTASSIUM SERUM 3.2 MMOL/L (3.5-5.1); SODIUM LEVEL 137 MMOL/L (136-145); TOTAL PROTEIN 8.3 G/DL (5.7-8.2)
[2025-02-24 14:44] LABS: THYROID STIMULATING HORMONE 0.823 uIU/ML (0.55-4.78)
[2025-02-24 15:36] LABS: CK-MB VALUE MASS 3.5 NG/ML (<3.6)
[2025-02-24 15:38] LABS: MB/CK RELATIVE INDEX 0.39 (< OR =4)
[2025-02-24] MEDS ORDERED: THIAMINE 200MG 2ML VIAL IM ONE (15:40)
[2025-02-24] MEDS ORDERED: NS (Normal Saline) 0.9% 1,000 ML IV ONE (15:40)
[2025-02-24 15:53] LABS: MAGNESIUM LEVEL 1.5 MG/DL (1.8-2.4)
[2025-02-24 16:00] VITALS: BP 138/82; O2SAT 96
[2025-02-24] MEDS ORDERED: POTASSIUM CHLORIDE 10MEQ SR TABLET PO ONE (16:00)
[2025-03-20] MEDS ORDERED: GABA-1172 PO (07:49)
[2025-03-20] MEDS ORDERED: TRAZ-252 PO (07:49)
[2025-03-28] MEDS ORDERED: TRAZ1TAB10 PO (09:43)
[2025-03-30] MEDS ORDERED: THERTAB19 PO (08:17)
[2025-03-30] MEDS ORDERED: METO1TAB87 PO (08:17)
[2025-03-30] MEDS ORDERED: THIA100TA PO (08:17)
[2025-03-30] MEDS ORDERED: OXAZ15CA4 PO (08:17)
== END 2025-02-24 16:24 | disposition left against medical advice (07) ==
LOC: M ED 13:15 → EDBD 13:15 → M ED 16:24
DX: R07.9 Chest pain, unspecified (principal); F10.10 Alcohol abuse, uncomplicated; R00.0 Tachycardia, unspecified; I45.10 Unspecified right bundle-branch block; I10 Essential (primary) hypertension; F32.A Depression, unspecified; Z88.0 Allergy status to penicillin; Z88.8 Allergy status to other drugs, medicaments and biological substances; Z91.030 Bee allergy status; Z91.040 Latex allergy status; Z79.899 Other long term (current) drug therapy
CPT/HCPCS: 71045; 80048; 80076; 82077; 82550; 82553; 83690; 83735; 84443; 84484; 85025; 85610; 93005; 93041; 94760; 96361; 96365; 96366; 96374; 96375; 99284; 99285; J2060; J2470; J3475

== ENCOUNTER 2025-02-24 16:45 | Emergency (ER) | payer OTHER ==
[~2025-02-24] VITALS: Ht 172.7 cm; Wt 81.8 kg
[2025-02-24] MEDS: MAG SULF 1GM/100ML (MAG RUN) 1 GM in IV 1 EA IV ONE (18:28)
[2025-02-24] MEDS: POTASSIUM CHLORIDE 10MEQ SR TABLET PO ONE (18:29)
[2025-02-24] MEDS: NS (Normal Saline) 0.9% 1,000 ML IV ONE (18:29)
[2025-02-24] MEDS: LORazepam 2 MG TAB PO PRN (18:30)
[2025-02-24] MEDS: THIAMINE 100 MG TAB PO SCH (20:38)
[2025-02-24] MEDS: OXAZEPAM 15MG CAP PO ONE (20:39)
[2025-02-24] MEDS: LORazepam 2 MG/ML 1ML VIAL IV STA (20:39)
[2025-02-24 21:30] VITALS: BP 129/85; O2SAT 90
[2025-02-24 22:07] VITALS: TEMP 98.2
[2025-02-25] MEDS ORDERED: FOLIC ACID 1MG TAB PO SCH (09:00)
[2025-02-25] MEDS ORDERED: MULTIVITAMINS/MINERALS THERAP 1 TAB PO SCH (09:00)
== END 2025-02-24 22:10 | disposition home or self-care (01) ==
LOC: M ED 16:45
DX: F41.9 Anxiety disorder, unspecified (principal); F10.10 Alcohol abuse, uncomplicated; E83.42 Hypomagnesemia; I45.10 Unspecified right bundle-branch block; I10 Essential (primary) hypertension; Z88.0 Allergy status to penicillin; Z88.8 Allergy status to other drugs, medicaments and biological substances; Z91.040 Latex allergy status; Z91.030 Bee allergy status; Z79.899 Other long term (current) drug therapy
CPT/HCPCS: 93005; 96365; 96366; 96375; 99284; J2060; J3475

== ENCOUNTER 2025-02-26 18:36 | Emergency (ER) | payer OTHER ==
[~2025-02-26] VITALS: Ht 172.7 cm; Wt 81.9 kg
[2025-02-26 19:15] VITALS: TEMP 99.1
[2025-02-26 19:30] LABS: BASO % 0.5 % (0.0-1.0); EOS % 0.2 % (0.0-3.0); HEMATOCRIT 38.3 % (42.0-52.0); HEMOGLOBIN 13.4 g/dl (13.5-17.5); LYMPH # 2.1 10^3/uL (1.5-5.0); LYMPH % 49.5 % (24.0-44.0); MEAN CORPUSCULAR HEMOGLOBIN 33.4 pg (27.0-33.0); MEAN CORPUSCULAR VOLUME 95.5 fl (80.0-96.0); MONO # 0.4 10^3/uL (0.0-0.8); MONO % 10.4 % (2.0-8.0); NEUTROPHILS # 1.7 10^3/uL (1.5-8.5); NEUTROPHILS % 39.4 % (36.0-66.0); RED BLOOD COUNT 4.01 10^6/uL (4.30-6.10); WHITE BLOOD COUNT 4.2 10^3/uL (4.0-10.0)
[2025-02-26 19:40] LABS: PLATELET COUNT, AUTOMATED 79 10^3/uL (150-450)
[2025-02-26 19:53] LABS: BLOOD UREA NITROGEN < 5 MG/DL (9-23); CALCIUM LEVEL 8.5 MG/DL (8.3-10.6); CARBON DIOXIDE LEVEL 24 MMOL/L (20-31); CHLORIDE LEVEL 101 MMOL/L (98-107); CK-MB VALUE MASS 2.6 NG/ML (<3.6); CPK CREATINE PHOSPHOKINASE 841 U/L (46-171); CREATININE FOR GFR 0.65 MG/DL (0.70-1.30); GLOMERULAR FILTRATION RATE > 90.0 (>49); GLUCOSE, FASTING 122 MG/DL (74-106); POTASSIUM SERUM 3.5 MMOL/L (3.5-5.1); SODIUM LEVEL 138 MMOL/L (136-145)
[2025-02-26] MEDS: KETOROLAC 30 MG/ML 1ML VIAL IV ONE (20:03)
[2025-02-26] MEDS: LORazepam 2 MG/ML 1ML VIAL IV STA (20:03)
[2025-02-26] MEDS ORDERED: LORazepam 2 MG TAB PO PRN (20:55)
[2025-02-26] MEDS ORDERED: ISOVUE-370 76% 100ML VIAL As Ordered ONE (20:58)
[2025-02-26 21:13] LABS: MB/CK RELATIVE INDEX 0.24 (< OR =4)
[2025-02-26] MEDS: NS (Normal Saline) 0.9% 1,000 ML IV ONE (21:32)
[2025-02-26] MEDS: THIAMINE 100 MG TAB PO SCH (21:33)
[2025-02-26 22:15] VITALS: BP 118/68; O2SAT 95
[2025-02-26] MEDS: OXAZEPAM 15MG CAP PO ONE (22:27)
[2025-02-27] MEDS ORDERED: FOLIC ACID 1MG TAB PO SCH (09:00)
[2025-02-27] MEDS ORDERED: MULTIVITAMINS/MINERALS THERAP 1 TAB PO SCH (09:00)
== END 2025-02-26 22:36 | disposition home or self-care (01) ==
LOC: M ED 18:36 → EDBD 18:36 → M ED 22:36
DX: F10.130 Alcohol abuse with withdrawal, uncomplicated (principal); S20.214A Contusion of middle front wall of thorax, initial encounter; Y92.9 Unspecified place or not applicable; Y93.9 Activity, unspecified; Y99.9 Unspecified external cause status; R00.0 Tachycardia, unspecified; I45.81 Long QT syndrome; I10 Essential (primary) hypertension; Z88.0 Allergy status to penicillin; Z88.8 Allergy status to other drugs, medicaments and biological substances; Z91.030 Bee allergy status; Z91.040 Latex allergy status; Z91.018 Allergy to other foods; Z79.899 Other long term (current) drug therapy
CPT/HCPCS: 71045; 71275; 80048; 82077; 82550; 82553; 84484; 85025; 85049; 85055; 93005; 93041; 94760; 96361; 96374; 99285; J1885; J2060; Q9967

== ENCOUNTER 2025-03-02 15:05 | Emergency (ER) | payer OTHER ==
[~2025-03-02] VITALS: Ht 177.8 cm; Wt 90.0 kg
[2025-03-02] MEDS: MULTIVITAMINS/MINERALS THERAP 1 TAB PO SCH (09:00)
[2025-03-02] MEDS: FOLIC ACID 1MG TAB PO SCH (09:00)
[2025-03-02 16:35] LABS: HEMATOCRIT 39.1 % (42.0-52.0); HEMOGLOBIN 13.8 g/dl (13.5-17.5); MEAN CORPUSCULAR HEMOGLOBIN 33.9 pg (27.0-33.0); MEAN CORPUSCULAR HGB CONC 35.3 g/dl (32.0-36.5); MEAN CORPUSCULAR VOLUME 96.1 fl (80.0-96.0); PLATELET COUNT, AUTOMATED 106 10^3/uL (150-450); RED BLOOD COUNT 4.07 10^6/uL (4.30-6.10); WHITE BLOOD COUNT 5.2 10^3/uL (4.0-10.0)
[2025-03-02 16:58] LABS: ETHYL ALCOHOL (ETHANOL) 0.204 % (0.000-0.010)
[2025-03-02 16:59] LABS: SALICYLATE LEVEL < 3.0 MG/DL (<30)
[2025-03-02 17:01] LABS: THYROID STIMULATING HORMONE 0.548 uIU/ML (0.55-4.78)
[2025-03-02 17:06] LABS: ALBUMIN 3.9 G/DL (3.2-5.2); ALKALINE PHOSPHATASE 106 U/L (40-129); ALT/SGPT 57 U/L (7.0-40); AST/SGOT 80 U/L (<34); BILIRUBIN,DIRECT 0.3 MG/DL (<0.4); BILIRUBIN,TOTAL 0.6 MG/DL (0.3-1.2); BLOOD UREA NITROGEN < 5 MG/DL (9-23); CALCIUM LEVEL 8.4 MG/DL (8.3-10.6); CARBON DIOXIDE LEVEL 24 MMOL/L (20-31); CHLORIDE LEVEL 100 MMOL/L (98-107); CREATININE FOR GFR 0.54 MG/DL (0.70-1.30); GLOMERULAR FILTRATION RATE > 90.0 (>49); GLUCOSE, FASTING 116 MG/DL (74-106); POTASSIUM SERUM 3.6 MMOL/L (3.5-5.1); SODIUM LEVEL 138 MMOL/L (136-145); TOTAL PROTEIN 7.9 G/DL (5.7-8.2)
[2025-03-02] MEDS: THIAMINE 100 MG TAB PO SCH (19:47)
[2025-03-02] MEDS: OXAZEPAM 15MG CAP PO ONE (19:47)
[2025-03-02] MEDS: LORazepam 2 MG TAB PO PRN (19:56)
[2025-03-02 21:29] LABS: AMPHETAMINES LEVEL URINE NEGATIVE (NEGATIVE)
[2025-03-02 21:30] LABS: BARBITURATES URINE NEGATIVE (NEGATIVE); BENZODIAZEPINES URINE NEGATIVE (NEGATIVE); CANNABINOIDS URINE NEGATIVE (NEGATIVE); COCAINE METABOLITE URINE NEGATIVE (NEGATIVE); METHADONE URINE NEGATIVE (NEGATIVE); OPIATES URINE NEGATIVE (NEGATIVE); PHENCYCLIDINE URINE NEGATIVE (NEGATIVE)
[2025-03-03 00:28] VITALS: BP 154/87; TEMP 98; O2SAT 98
== END 2025-03-03 01:48 | disposition home or self-care (01) ==
LOC: M ED 15:05
DX: R45.851 Suicidal ideations (principal); F19.120 Other psychoactive substance abuse with intoxication, uncomplicated; I10 Essential (primary) hypertension; F32.A Depression, unspecified; F41.9 Anxiety disorder, unspecified; F12.10 Cannabis abuse, uncomplicated; F10.10 Alcohol abuse, uncomplicated; Z88.0 Allergy status to penicillin; Z88.8 Allergy status to other drugs, medicaments and biological substances; Z91.030 Bee allergy status; Z91.040 Latex allergy status; Z91.018 Allergy to other foods; Z79.899 Other long term (current) drug therapy

== ENCOUNTER 2025-03-06 04:23 | Emergency (ER) | payer OTHER ==
[~2025-03-06] VITALS: Ht 172.7 cm; Wt 84.1 kg
[2025-03-06 04:38] VITALS: TEMP 98.9
[2025-03-06 05:04] LABS: BASO % 0.9 % (0.0-1.0); EOS % 0.2 % (0.0-3.0); HEMATOCRIT 43.6 % (42.0-52.0); HEMOGLOBIN 15.6 g/dl (13.5-17.5); LYMPH # 1.9 10^3/uL (1.5-5.0); LYMPH % 42.7 % (24.0-44.0); MEAN CORPUSCULAR HEMOGLOBIN 34.4 pg (27.0-33.0); MEAN CORPUSCULAR HGB CONC 35.8 g/dl (32.0-36.5); MEAN CORPUSCULAR VOLUME 96.2 fl (80.0-96.0); MONO # 0.6 10^3/uL (0.0-0.8); MONO % 12.7 % (2.0-8.0); NEUTROPHILS # 1.9 10^3/uL (1.5-8.5); NEUTROPHILS % 43.3 % (36.0-66.0); PLATELET COUNT, AUTOMATED 192 10^3/uL (150-450); RED BLOOD COUNT 4.53 10^6/uL (4.30-6.10); WHITE BLOOD COUNT 4.3 10^3/uL (4.0-10.0)
[2025-03-06 05:29] LABS: CK-MB VALUE MASS 1.2 NG/ML (<3.6)
[2025-03-06 05:30] VITALS: BP 122/67; O2SAT 91
[2025-03-06 05:31] LABS: CPK CREATINE PHOSPHOKINASE 231 U/L (46-171); MB/CK RELATIVE INDEX 0.51 (< OR =4)
[2025-03-06 05:42] LABS: BLOOD UREA NITROGEN < 5 MG/DL (9-23); CALCIUM LEVEL 8.3 MG/DL (8.3-10.6); CARBON DIOXIDE LEVEL 23 MMOL/L (20-31); CHLORIDE LEVEL 104 MMOL/L (98-107); CREATININE FOR GFR 0.66 MG/DL (0.70-1.30); ETHYL ALCOHOL (ETHANOL) 0.345 % (0.000-0.010); GLOMERULAR FILTRATION RATE > 90.0 (>49); GLUCOSE, FASTING 131 MG/DL (74-106); POTASSIUM SERUM 3.6 MMOL/L (3.5-5.1); SODIUM LEVEL 143 MMOL/L (136-145)
[2025-03-06] MEDS ORDERED: LEXA1TAB PO (11:45)
== END 2025-03-06 05:52 | disposition left against medical advice (07) ==
LOC: M ED 04:23 → EDBD 04:23 → M ED 05:52
DX: Z53.21 Procedure and treatment not carried out due to patient leaving prior to being seen by health care provider (principal)

== ENCOUNTER 2025-03-06 06:31 | Emergency (ER) | payer OTHER ==
[2025-03-06 06:45] VITALS: TEMP 97.4; O2SAT 98
[2025-03-06 07:50] LABS: CK-MB VALUE MASS 1.3 NG/ML (<3.6)
[2025-03-06 07:52] LABS: SALICYLATE LEVEL < 3.0 MG/DL (<30)
[2025-03-06 07:54] LABS: THYROID STIMULATING HORMONE 0.719 uIU/ML (0.55-4.78)
[2025-03-06 07:57] LABS: MB/CK RELATIVE INDEX 0.54 (< OR =4)
[2025-03-06] MEDS: MULTIVITAMINS/MINERALS THERAP 1 TAB PO SCH (09:02)
[2025-03-06] MEDS: THIAMINE 100 MG TAB PO SCH (09:02)
[2025-03-06] MEDS: FOLIC ACID 1MG TAB PO SCH (09:02)
[2025-03-06 09:16] LABS: AMPHETAMINES LEVEL URINE NEGATIVE (NEGATIVE); BARBITURATES URINE NEGATIVE (NEGATIVE); BENZODIAZEPINES URINE NEGATIVE (NEGATIVE); CANNABINOIDS URINE NEGATIVE (NEGATIVE); COCAINE METABOLITE URINE NEGATIVE (NEGATIVE); METHADONE URINE NEGATIVE (NEGATIVE); OPIATES URINE NEGATIVE (NEGATIVE); PHENCYCLIDINE URINE NEGATIVE (NEGATIVE)
[2025-03-06] MEDS: LORazepam 2 MG TAB PO PRN (10:23)
[2025-03-06] MEDS ORDERED: LEXA1TAB PO (11:45)
[2025-03-06] MEDS ORDERED: HOME MED LIST COMPLETE! XX SCH (11:45)
[2025-03-06 14:06] VITALS: BP 122/76
== END 2025-03-06 17:39 | disposition home or self-care (01) ==
LOC: EDBD 06:31 → M ED 06:31
DX: F10.188 Alcohol abuse with other alcohol-induced disorder (principal); R00.0 Tachycardia, unspecified; I10 Essential (primary) hypertension; F32.A Depression, unspecified; F41.9 Anxiety disorder, unspecified; F12.10 Cannabis abuse, uncomplicated; Z88.0 Allergy status to penicillin; Z88.8 Allergy status to other drugs, medicaments and biological substances; Z91.040 Latex allergy status; Z91.030 Bee allergy status; Z91.018 Allergy to other foods; Z79.899 Other long term (current) drug therapy

== ENCOUNTER 2025-03-30 13:17 | Inpatient (IN) | payer OTHER, MEDICAID ==
[2025-03-30] MEDS: NICOTINE 14 MG/24 HR TRANSDERMAL TD SCH (09:00)
[~2025-03-30 13:17] MED LIST changes: +METO1TAB87 PO; +OXAZ15CA4 PO; +THERTAB19 PO
[2025-03-30] MEDS ORDERED: MAALOX 30 ML SUSP *UDC PO PRN (14:25)
[2025-03-30] MEDS ORDERED: OLANZapine 5 MG TAB PO PRN (14:25)
[2025-03-30] MEDS ORDERED: ACETAMINOPHEN 325 MG TAB PO PRN (14:25)
[2025-03-30] MEDS ORDERED: LORazepam 2 MG TAB PO PRN (14:25)
[2025-03-30] MEDS ORDERED: MOM 30 ML SUSPENSION UDC PO PRN (14:25)
[2025-03-30] MEDS ORDERED: LORazepam 1 MG TAB PO PRN (14:25)
[2025-03-30] MEDS ORDERED: IBUPROFEN 400 MG TAB PO PRN (14:25)
[2025-03-30 15:18] VITALS: BP 132/72; TEMP 89.3; O2SAT 97
[2025-03-30] MEDS: THIAMINE 100 MG TAB PO SCH (17:16)
[2025-03-30] MEDS: OXAZEPAM 15MG CAP PO SCH (18:03)
[2025-03-30 20:45] VITALS: BP 126/70; TEMP 98.6; O2SAT 100
[2025-03-30] MEDS: diphenhydrAMINE HCL 25 MG CAP PO PRN (21:17)
[2025-03-30] MEDS: traZODone 50 MG TAB PO PRN (21:50)
[2025-03-31 06:36] VITALS: BP 93/50; TEMP 98.2; O2SAT 100
[2025-03-31] MEDS: FOLIC ACID 1 MG TAB PO SCH (08:25)
[2025-03-31] MEDS: MULTIVITAMINS/MINERALS THERAP 1 TAB PO SCH (08:26)
[2025-03-31] MEDS: METOPROLOL TART 25 MG TABLET PO SCH (08:26)
[2025-03-31 09:27] VITALS: BP 128/89
[2025-03-31] MEDS: ESCITALOPRAM OXALATE 10 MG TABLET PO SCH (15:42)
[2025-03-31] MEDS: GABAPENTIN 300 MG CAP PO SCH (15:42)
[2025-03-31 16:04] VITALS: BP 138/83; TEMP 98; O2SAT 98
[2025-03-31 17:30] VITALS: BP 125/77
[2025-03-31] MEDS: OXAZEPAM 15MG CAP PO SCH (17:54)
[2025-03-31 21:52] VITALS: BP 159/91
[2025-04-01] MEDS: HALOPERIDOL 5 MG TAB PO PRN (03:12)
[2025-04-01 06:21] VITALS: BP 105/64; TEMP 98.1; O2SAT 96
[2025-04-01 06:26] VITALS: BP 105/64
[2025-04-01 09:03] VITALS: BP 111/70
[2025-04-01 15:59] VITALS: BP 111/67; TEMP 97.7; O2SAT 100
[2025-04-01 19:30] VITALS: BP 138/65
[2025-04-01] MEDS: QUEtiapine FUMARATE 50MG TAB PO SCH (20:51)
[2025-04-02 04:00] VITALS: BP 130/73
[2025-04-02 06:00] VITALS: BP 130/73; TEMP 97.3; O2SAT 96
[2025-04-02 08:57] VITALS: BP 122/66
[2025-04-02] MEDS: hydrOXYzine 25 MG TAB PO PRN (11:09)
[2025-04-02 16:37] VITALS: BP 118/65; TEMP 98.3; O2SAT 98
[2025-04-02 21:41] VITALS: BP 156/88
[2025-04-02] MEDS: NALTREXONE 50 MG TAB PO SCH (21:41)
[2025-04-03 06:53] VITALS: BP 110/55; TEMP 97.9; O2SAT 97
[2025-04-03 08:20] VITALS: BP 132/74
[2025-04-03 15:41] VITALS: BP 116/60; TEMP 97.8; O2SAT 98
[2025-04-04] MEDS ORDERED: TRAZ-252 PO (03:58)
[2025-04-04] MEDS ORDERED: GABA-1172 PO (03:58)
[2025-04-04] MEDS ORDERED: NALT50TA4 PO (03:58)
[2025-04-04] MEDS ORDERED: LEXA1TAB PO (03:58)
[2025-04-04 06:29] VITALS: BP 107/59; TEMP 98.1; O2SAT 98
[2025-04-04 08:09] VITALS: BP 118/65
== END 2025-04-04 10:19 | disposition home or self-care (01) | DRG 751 ==
LOC: M PSY 15:17
PROVIDERS: ADMIT Internal Medicine; ATTEND General Practice
DX: F33.2 Major depressive disorder, recurrent severe without psychotic features (principal); F41.1 Generalized anxiety disorder; F41.0 Panic disorder [episodic paroxysmal anxiety]; F12.10 Cannabis abuse, uncomplicated; K76.0 Fatty (change of) liver, not elsewhere classified; I10 Essential (primary) hypertension; Z79.899 Other long term (current) drug therapy; Z88.0 Allergy status to penicillin; Z88.8 Allergy status to other drugs, medicaments and biological substances; Z91.018 Allergy to other foods; Z91.030 Bee allergy status; Z91.040 Latex allergy status; Z91.51 Personal history of suicidal behavior; F10.229 Alcohol dependence with intoxication, unspecified; F10.24 Alcohol dependence with alcohol-induced mood disorder; R29.6 Repeated falls; S00.81XA Abrasion of other part of head, initial encounter; W01.198A Fall on same level from slipping, tripping and stumbling with subsequent striking against other object, initial encounter; Y92.9 Unspecified place or not applicable; F33.1 Major depressive disorder, recurrent, moderate; E87.20 Acidosis, unspecified; M62.82 Rhabdomyolysis; E83.42 Hypomagnesemia; R74.01 Elevation of levels of liver transaminase levels; R00.0 Tachycardia, unspecified; M54.30 Sciatica, unspecified side; M19.90 Unspecified osteoarthritis, unspecified site; G62.89 Other specified polyneuropathies; Z91.148 Patient's other noncompliance with medication regimen for other reason; R74.8 Abnormal levels of other serum enzymes; Z98.1 Arthrodesis status; Z81.8 Family history of other mental and behavioral disorders; Z80.8 Family history of malignant neoplasm of other organs or systems; Z82.49 Family history of ischemic heart disease and other diseases of the circulatory system

== ENCOUNTER 2025-04-15 10:53 | Inpatient (IN) | payer OTHER, MEDICAID ==
[~2025-04-15] VITALS: Ht 170.2 cm; Wt 77.3 kg
[2025-04-15 11:39] LABS: PLATELET COUNT, AUTOMATED 178 10^3/uL (150-450)
[2025-04-15 12:02] LABS: SALICYLATE LEVEL < 3.0 MG/DL (<30)
[2025-04-15 12:15] LABS: ALT/SGPT 53 U/L (7.0-40); AST/SGOT 77 U/L (<34); CALCIUM LEVEL 8.8 MG/DL (8.3-10.6); CARBON DIOXIDE LEVEL 21 MMOL/L (20-31); CHLORIDE LEVEL 105 MMOL/L (98-107); CREATININE FOR GFR 0.72 MG/DL (0.70-1.30); ETHYL ALCOHOL (ETHANOL) 0.380 % (0.000-0.010); GLOMERULAR FILTRATION RATE > 90.0 (>49); POTASSIUM SERUM 3.7 MMOL/L (3.5-5.1); SODIUM LEVEL 146 MMOL/L (136-145)
[2025-04-15 13:07] LABS: AMPHETAMINES LEVEL URINE NEGATIVE (NEGATIVE); BARBITURATES URINE NEGATIVE (NEGATIVE); BENZODIAZEPINES URINE NEGATIVE (NEGATIVE); COCAINE METABOLITE URINE NEGATIVE (NEGATIVE); METHADONE URINE NEGATIVE (NEGATIVE); OPIATES URINE NEGATIVE (NEGATIVE); PHENCYCLIDINE URINE NEGATIVE (NEGATIVE)
[2025-04-15 13:17] LABS: CANNABINOIDS URINE POSITIVE (NEGATIVE)
[2025-04-15] MEDS: MULTIVITAMINS/MINERALS THERAP 1 TAB PO SCH (14:01)
[2025-04-15] MEDS: FOLIC ACID 1 MG TAB PO SCH (14:02)
[2025-04-15] MEDS: THIAMINE 100 MG TAB PO SCH (14:02)
[2025-04-16] MEDS ORDERED: NALT50TA4 PO (11:45)
[2025-04-16] MEDS ORDERED: TRAZ-186 PO (11:45)
[2025-04-16] MEDS ORDERED: HOME MED LIST COMPLETE! XX SCH (11:55)
[2025-04-16] MEDS: amLODIPine 5 MG TAB PO SCH (13:18)
[2025-04-16] MEDS: ESCITALOPRAM OXALATE 10 MG TABLET PO SCH (13:18)
[2025-04-16] MEDS ORDERED: traZODone 50 MG TAB PO PRN (14:05)
[2025-04-16] MEDS ORDERED: ACETAMINOPHEN 325 MG TAB PO PRN (14:05)
[2025-04-16] MEDS ORDERED: MAALOX 30 ML SUSP *UDC PO PRN (14:05)
[2025-04-16] MEDS ORDERED: MOM 30 ML SUSPENSION UDC PO PRN (14:05)
[2025-04-16] MEDS ORDERED: IBUPROFEN 400 MG TAB PO PRN (14:05)
[2025-04-16] MEDS: GABAPENTIN 300 MG CAP PO SCH (15:48)
[2025-04-16 21:00] VITALS: BP 137/80
[2025-04-16] MEDS: NALTREXONE 50 MG TAB PO SCH (21:50)
[2025-04-16] MEDS: traZODone 50 MG TAB PO SCH (21:51)
[2025-04-17] MEDS: THIAMINE 100 MG TAB PO SCH (01:27)
[2025-04-17] MEDS: GABAPENTIN 300 MG CAP PO SCH (01:27)
[2025-04-17 06:00] VITALS: BP 106/59
[2025-04-17 06:41] VITALS: BP 106/59; TEMP 97.2; O2SAT 95
[2025-04-17 09:00] VITALS: BP 111/78
[2025-04-17] MEDS ORDERED: amLODIPine 5 MG TAB PO SCH (09:00)
[2025-04-17] MEDS ORDERED: ESCITALOPRAM OXALATE 10 MG TABLET PO SCH (09:00)
[2025-04-17] MEDS: MULTIVITAMINS/MINERALS THERAP 1 TAB PO SCH (09:01)
[2025-04-17] MEDS: ESCITALOPRAM OXALATE 10 MG TABLET PO SCH (09:01)
[2025-04-17] MEDS: amLODIPine 5 MG TAB PO SCH (09:01)
[2025-04-17] MEDS: FOLIC ACID 1 MG TAB PO SCH (09:01)
[2025-04-17 14:00] VITALS: BP 152/82
[2025-04-17 14:58] VITALS: BP 114/75; TEMP 98.6; O2SAT 99
[2025-04-17 20:45] VITALS: BP 130/83
[2025-04-18 06:26] VITALS: BP 105/68; TEMP 98.1; O2SAT 98
[2025-04-18 06:47] VITALS: BP 105/68
[2025-04-18 08:34] VITALS: BP 131/74
[2025-04-18] MEDS: ESCITALOPRAM OXALATE 5 MG TABLET PO SCH (08:36)
[2025-04-18 14:10] VITALS: BP 127/64; TEMP 97.8; O2SAT 97
[2025-04-18 17:32] VITALS: BP 123/74; TEMP 98.2
[2025-04-18 21:41] VITALS: BP 129/74
[2025-04-19] VITALS (7 sets, daily range): BP systolic 99–135; BP diastolic 58–76; TEMP 98.3; O2SAT 95–99
[2025-04-20 06:10] VITALS: BP 138/70; TEMP 98; O2SAT 96
[2025-04-20 06:47] VITALS: BP 138/70
[2025-04-20 14:11] VITALS: BP 135/77; TEMP 98; O2SAT 98
[2025-04-20 15:05] VITALS: BP 135/77; TEMP 98; O2SAT 98
[2025-04-21 06:33] VITALS: BP 101/59; TEMP 98.2; O2SAT 97
[2025-04-21 08:15] VITALS: BP 117/72
[2025-04-21 15:36] VITALS: BP 120/66; TEMP 97; O2SAT 97
[2025-04-22 06:30] VITALS: BP 109/64; TEMP 98.1; O2SAT 99
[2025-04-22 08:37] VITALS: BP 120/71
[2025-04-22 08:49] VITALS: BP 120/71; TEMP 98.1; O2SAT 99
[2025-04-22 15:17] VITALS: BP 126/68; TEMP 98.6; O2SAT 99
[2025-04-23 06:26] VITALS: BP 113/75; TEMP 98.7; O2SAT 100
[2025-04-23 08:29] VITALS: BP 118/70
[2025-04-23 16:03] VITALS: BP 126/70; TEMP 99.3; O2SAT 97
[2025-04-24] MEDS ORDERED: NALT50TA4 PO (06:29)
[2025-04-24] MEDS ORDERED: TRAZ-252 PO (06:29)
[2025-04-24] MEDS ORDERED: AMLO1TAB24 PO (06:29)
[2025-04-24] MEDS ORDERED: GABA-1172 PO (06:29)
[2025-04-24] MEDS ORDERED: LEXA1TAB PO (06:29)
[2025-04-24 06:34] VITALS: BP 115/69; TEMP 97.8; O2SAT 100
[2025-04-24 08:06] VITALS: BP 115/76
== END 2025-04-24 13:16 | disposition home or self-care (01) | DRG 751 ==
LOC: M ED 10:53 → M ED INP 04-16 14:01 → M PSY 04-16 18:25
PROVIDERS: ADMIT General Practice; ATTEND General Practice
DX: F33.1 Major depressive disorder, recurrent, moderate (principal); F10.220 Alcohol dependence with intoxication, uncomplicated; F10.230 Alcohol dependence with withdrawal, uncomplicated; F41.0 Panic disorder [episodic paroxysmal anxiety]; Z63.0 Problems in relationship with spouse or partner; I10 Essential (primary) hypertension; R26.89 Other abnormalities of gait and mobility; F41.1 Generalized anxiety disorder; Z79.899 Other long term (current) drug therapy; Z88.0 Allergy status to penicillin; Z88.8 Allergy status to other drugs, medicaments and biological substances; Z91.030 Bee allergy status; Z91.040 Latex allergy status; Z91.018 Allergy to other foods

== ENCOUNTER 2025-04-29 23:08 | Inpatient (IN) | payer OTHER ==
[~2025-04-29] VITALS: Ht 170.2 cm; Wt 79.5 kg
[2025-04-30 02:34] LABS: PLATELET COUNT, AUTOMATED 269 10^3/uL (150-450)
[2025-04-30 02:52] LABS: ETHYL ALCOHOL (ETHANOL) 0.285 % (0.000-0.010)
[2025-04-30 02:54] LABS: CPK CREATINE PHOSPHOKINASE 149 U/L (46-171); SALICYLATE LEVEL < 3.0 MG/DL (<30)
[2025-04-30 03:05] LABS: ALT/SGPT 33 U/L (7.0-40); AST/SGOT 31 U/L (<34); CALCIUM LEVEL 8.4 MG/DL (8.3-10.6); CARBON DIOXIDE LEVEL 25 MMOL/L (20-31); CHLORIDE LEVEL 103 MMOL/L (98-107); CK-MB VALUE MASS 2.4 NG/ML (<3.6); CREATININE FOR GFR 0.70 MG/DL (0.70-1.30); GLOMERULAR FILTRATION RATE > 90.0 (>49); MB/CK RELATIVE INDEX 1.61 (< OR =4); POTASSIUM SERUM 3.8 MMOL/L (3.5-5.1); SODIUM LEVEL 143 MMOL/L (136-145)
[2025-04-30] MEDS: THIAMINE 100 MG TAB PO SCH (05:06)
[2025-04-30] MEDS: OXAZEPAM 15MG CAP PO ONE (05:06)
[2025-04-30] MEDS ORDERED: TRAZ1TAB11 PO (08:40)
[2025-04-30] MEDS ORDERED: HOME MED LIST COMPLETE! XX SCH (08:45)
[2025-04-30] MEDS: FOLIC ACID 1 MG TAB PO SCH (09:16)
[2025-04-30] MEDS: MULTIVITAMINS/MINERALS THERAP 1 TAB PO SCH (09:16)
[2025-04-30 16:42] LABS: AMPHETAMINES LEVEL URINE NEGATIVE (NEGATIVE); BARBITURATES URINE NEGATIVE (NEGATIVE); BENZODIAZEPINES URINE NEGATIVE (NEGATIVE); COCAINE METABOLITE URINE NEGATIVE (NEGATIVE); METHADONE URINE NEGATIVE (NEGATIVE); OPIATES URINE NEGATIVE (NEGATIVE); PHENCYCLIDINE URINE NEGATIVE (NEGATIVE)
[2025-04-30 16:45] LABS: CANNABINOIDS URINE POSITIVE (NEGATIVE)
[2025-04-30] MEDS ORDERED: IBUPROFEN 400 MG TAB PO PRN (20:25)
[2025-04-30] MEDS ORDERED: MOM 30 ML SUSPENSION UDC PO PRN (20:25)
[2025-04-30] MEDS ORDERED: MAALOX 30 ML SUSP *UDC PO PRN (20:25)
[2025-04-30] MEDS ORDERED: ACETAMINOPHEN 325 MG TAB PO PRN (20:25)
[2025-04-30] MEDS: NALTREXONE 50 MG TAB PO SCH (21:00)
[2025-04-30] MEDS: GABAPENTIN 300 MG CAP PO SCH (22:18)
[2025-04-30] MEDS: traZODone 50 MG TAB PO PRN (23:50)
[2025-04-30 23:56] VITALS: BP 135/91; TEMP 98.2; O2SAT 98
[2025-05-01 00:23] VITALS: BP 135/91
[2025-05-01 06:30] VITALS: BP 122/72; TEMP 98.7; O2SAT 99
[2025-05-01 06:33] VITALS: BP 122/72
[2025-05-01] MEDS: MULTIVITAMINS/MINERALS THERAP 1 TAB PO SCH (09:27)
[2025-05-01] MEDS: amLODIPine 5 MG TAB PO SCH (09:27)
[2025-05-01] MEDS: ESCITALOPRAM OXALATE 10 MG TABLET PO SCH (09:27)
[2025-05-01] MEDS: THIAMINE 100 MG TAB PO SCH (09:27)
[2025-05-01] MEDS: FOLIC ACID 1 MG TAB PO SCH (09:27)
[2025-05-01 14:33] VITALS: BP 132/84
[2025-05-01 15:18] VITALS: BP 132/84; TEMP 98.9; O2SAT 95
[2025-05-01 21:17] VITALS: BP 130/80
[2025-05-02 06:24] VITALS: BP 100/60; TEMP 98.8; O2SAT 96
[2025-05-02 08:21] VITALS: BP 133/78
[2025-05-02 14:24] VITALS: BP 120/62
[2025-05-02 18:34] VITALS: BP 120/62; TEMP 98.6; O2SAT 96
[2025-05-02 20:29] VITALS: BP 115/77
[2025-05-02 20:31] VITALS: BP 146/72
[2025-05-03 06:24] VITALS: BP 168/82; TEMP 98; O2SAT 95
[2025-05-03 07:50] VITALS: BP 117/60; TEMP 98.3; O2SAT 100
[2025-05-03] MEDS: LORazepam 1 MG TAB PO ONE (12:07)
== END 2025-05-03 12:58 | disposition home or self-care (01) | DRG 751 ==
LOC: M ED 23:08 → M ED INP 04-30 20:24 → M PSY 04-30 23:08
PROVIDERS: ADMIT Psychiatry & Neurology Neurology; ATTEND Psychiatry & Neurology Neurology
DX: F33.1 Major depressive disorder, recurrent, moderate (principal); F10.220 Alcohol dependence with intoxication, uncomplicated; F60.89 Other specific personality disorders; F10.24 Alcohol dependence with alcohol-induced mood disorder; I10 Essential (primary) hypertension; R07.89 Other chest pain; F41.1 Generalized anxiety disorder; F41.0 Panic disorder [episodic paroxysmal anxiety]; Z56.0 Unemployment, unspecified; Z79.899 Other long term (current) drug therapy; Z88.0 Allergy status to penicillin; Z91.040 Latex allergy status; Z91.030 Bee allergy status; Z91.018 Allergy to other foods; Z88.8 Allergy status to other drugs, medicaments and biological substances; Z63.0 Problems in relationship with spouse or partner; Z91.410 Personal history of adult physical and sexual abuse

== ENCOUNTER 2025-05-08 11:49 | Emergency (ER) | payer OTHER ==
[~2025-05-08] VITALS: Ht 175.3 cm; Wt 77.8 kg
[~2025-05-08 11:49] MED LIST changes: +TRAZ1TAB11 PO
[2025-05-08 12:34] LABS: PLATELET COUNT, AUTOMATED 190 10^3/uL (150-450)
[2025-05-08 14:09] LABS: SALICYLATE LEVEL < 3.0 MG/DL (<30)
[2025-05-08 14:34] LABS: ALT/SGPT 53 U/L (7.0-40); AST/SGOT 73 U/L (<34); CALCIUM LEVEL 8.5 MG/DL (8.3-10.6); CARBON DIOXIDE LEVEL 29 MMOL/L (20-31); CHLORIDE LEVEL 101 MMOL/L (98-107); CK-MB VALUE MASS 1.5 NG/ML (<3.6); CPK CREATINE PHOSPHOKINASE 191 U/L (46-171); CREATININE FOR GFR 0.70 MG/DL (0.70-1.30); ETHYL ALCOHOL (ETHANOL) 0.405 % (0.000-0.010); GLOMERULAR FILTRATION RATE > 90.0 (>49); MB/CK RELATIVE INDEX 0.78 (< OR =4); POTASSIUM SERUM 4.4 MMOL/L (3.5-5.1); SODIUM LEVEL 146 MMOL/L (136-145)
[2025-05-08] MEDS ORDERED: HOME MED LIST COMPLETE! XX SCH (15:35)
[2025-05-08 19:28] LABS: AMPHETAMINES LEVEL URINE NEGATIVE (NEGATIVE); BARBITURATES URINE NEGATIVE (NEGATIVE); BENZODIAZEPINES URINE NEGATIVE (NEGATIVE); CANNABINOIDS URINE NEGATIVE (NEGATIVE); COCAINE METABOLITE URINE NEGATIVE (NEGATIVE); METHADONE URINE NEGATIVE (NEGATIVE); OPIATES URINE NEGATIVE (NEGATIVE); PHENCYCLIDINE URINE NEGATIVE (NEGATIVE)
[2025-05-08] MEDS: MULTIVITAMINS/MINERALS THERAP 1 TAB PO SCH (19:40)
[2025-05-08] MEDS: THIAMINE 100 MG TAB PO SCH (19:40)
[2025-05-08] MEDS: FOLIC ACID 1 MG TAB PO SCH (19:40)
[2025-05-08 19:51] LABS: RSV AMPLIFICATION NEGATIVE (NEGATIVE)
[2025-05-08 23:18] VITALS: BP 125/70; TEMP 98.8; O2SAT 94
== END 2025-05-09 02:33 | disposition home or self-care (01) ==
LOC: EDBD 11:49 → M ED 11:49
DX: F10.120 Alcohol abuse with intoxication, uncomplicated (principal); F43.0 Acute stress reaction; R00.0 Tachycardia, unspecified; I45.10 Unspecified right bundle-branch block; I45.81 Long QT syndrome; I10 Essential (primary) hypertension; Z88.0 Allergy status to penicillin; Z88.8 Allergy status to other drugs, medicaments and biological substances; Z91.030 Bee allergy status; Z91.040 Latex allergy status; Z91.018 Allergy to other foods; Z79.899 Other long term (current) drug therapy

== ENCOUNTER 2025-05-19 01:09 | Emergency (ER) | payer OTHER ==
[~2025-05-19] VITALS: Ht 172.7 cm; Wt 81.8 kg
[2025-05-19 01:57] LABS: BASO # 0.0 10^3/uL (0.0-0.2); BASO % 0.6 % (0.0-1.0); EOS # 0.0 10^3/uL (0.0-0.5); EOS % 0.0 % (0.0-3.0); LYMPH # 2.0 10^3/uL (1.5-5.0); LYMPH % 59.2 % (24.0-44.0); MONO # 0.2 10^3/uL (0.0-0.8); MONO % 6.8 % (2.0-8.0); NEUTROPHILS # 1.1 10^3/uL (1.5-8.5); NEUTROPHILS % 32.8 % (36.0-66.0); PLATELET COUNT, AUTOMATED 110 10^3/uL (150-450)
[2025-05-19 02:09] VITALS: BP 135/82; TEMP 97.5; O2SAT 96
[2025-05-19 02:24] LABS: CK-MB VALUE MASS 3.3 NG/ML (<3.6)
[2025-05-19 02:42] LABS: CPK CREATINE PHOSPHOKINASE 343 U/L (46-171); MB/CK RELATIVE INDEX 0.96 (< OR =4)
[2025-05-19] MEDS: ALPRAZolam 0.5 MG TAB PO ONE (03:04)
== END 2025-05-19 04:07 | disposition left against medical advice (07) ==
LOC: M ED 01:09
DX: F10.120 Alcohol abuse with intoxication, uncomplicated (principal); R07.89 Other chest pain; R00.0 Tachycardia, unspecified; I45.10 Unspecified right bundle-branch block; I10 Essential (primary) hypertension; F41.9 Anxiety disorder, unspecified; Z88.0 Allergy status to penicillin; Z88.8 Allergy status to other drugs, medicaments and biological substances; Z91.030 Bee allergy status; Z91.040 Latex allergy status; Z91.018 Allergy to other foods; Z79.899 Other long term (current) drug therapy; Z53.9 Procedure and treatment not carried out, unspecified reason

== ENCOUNTER 2025-05-21 12:36 | Emergency (ER) | payer OTHER ==
[2025-05-21 12:48] VITALS: BP 117/75; TEMP 97; O2SAT 97
[2025-05-21 13:16] LABS: PLATELET COUNT, AUTOMATED 123 10^3/uL (150-450)
[2025-05-21 13:45] LABS: SALICYLATE LEVEL < 3.0 MG/DL (<30)
[2025-05-21 13:46] LABS: ALT/SGPT 55 U/L (7.0-40); AST/SGOT 87 U/L (<34); CALCIUM LEVEL 8.3 MG/DL (8.3-10.6); CARBON DIOXIDE LEVEL 22 MMOL/L (20-31); CHLORIDE LEVEL 94 MMOL/L (98-107); CREATININE FOR GFR 0.64 MG/DL (0.70-1.30); GLOMERULAR FILTRATION RATE > 90.0 (>49); POTASSIUM SERUM 3.4 MMOL/L (3.5-5.1); SODIUM LEVEL 133 MMOL/L (136-145)
[2025-05-21 14:00] LABS: ETHYL ALCOHOL (ETHANOL) 0.329 % (0.000-0.010)
== END 2025-05-21 13:13 | disposition left against medical advice (07) ==
LOC: M ED 12:36
DX: F32.A Depression, unspecified (principal); F10.10 Alcohol abuse, uncomplicated; Z88.0 Allergy status to penicillin; Z88.8 Allergy status to other drugs, medicaments and biological substances; Z91.030 Bee allergy status; Z91.018 Allergy to other foods; Z79.899 Other long term (current) drug therapy; Z53.9 Procedure and treatment not carried out, unspecified reason

== ENCOUNTER 2025-05-21 13:38 | Emergency (ER) | payer OTHER ==
[2025-05-21] MEDS: MULTIVITAMINS/MINERALS THERAP 1 TAB PO SCH (14:28)
[2025-05-21] MEDS: FOLIC ACID 1 MG TAB PO SCH (14:28)
[2025-05-21] MEDS: THIAMINE 100 MG TAB PO SCH (14:29)
[2025-05-21 21:46] VITALS: TEMP 98
[2025-05-22 00:52] VITALS: BP 136/88; O2SAT 96
== END 2025-05-22 02:40 | disposition home or self-care (01) ==
LOC: M ED 13:38
DX: F41.9 Anxiety disorder, unspecified (principal); F10.10 Alcohol abuse, uncomplicated; I10 Essential (primary) hypertension; B18.9 Chronic viral hepatitis, unspecified; F32.A Depression, unspecified; Z88.0 Allergy status to penicillin; Z88.8 Allergy status to other drugs, medicaments and biological substances; Z91.030 Bee allergy status; Z91.040 Latex allergy status; Z91.018 Allergy to other foods; Z79.899 Other long term (current) drug therapy

== ENCOUNTER 2025-05-23 04:28 | Emergency (ER) | payer OTHER ==
[2025-05-23 05:04] LABS: PLATELET COUNT, AUTOMATED 116 10^3/uL (150-450)
[2025-05-23 05:42] LABS: SALICYLATE LEVEL < 3.0 MG/DL (<30)
[2025-05-23 06:13] LABS: ALT/SGPT 56 U/L (7.0-40); AST/SGOT 103 U/L (<34); CALCIUM LEVEL 8.5 MG/DL (8.3-10.6); CARBON DIOXIDE LEVEL 20 MMOL/L (20-31); CHLORIDE LEVEL 97 MMOL/L (98-107); CREATININE FOR GFR 0.73 MG/DL (0.70-1.30); ETHYL ALCOHOL (ETHANOL) 0.335 % (0.000-0.010); GLOMERULAR FILTRATION RATE > 90.0 (>49); POTASSIUM SERUM 3.2 MMOL/L (3.5-5.1); SODIUM LEVEL 135 MMOL/L (136-145)
[2025-05-23] MEDS ORDERED: HOME MED LIST COMPLETE! XX SCH (07:15)
[2025-05-23 07:33] LABS: AMPHETAMINES LEVEL URINE NEGATIVE (NEGATIVE); BARBITURATES URINE NEGATIVE (NEGATIVE); BENZODIAZEPINES URINE NEGATIVE (NEGATIVE); CANNABINOIDS URINE NEGATIVE (NEGATIVE); COCAINE METABOLITE URINE NEGATIVE (NEGATIVE); METHADONE URINE NEGATIVE (NEGATIVE); OPIATES URINE NEGATIVE (NEGATIVE); PHENCYCLIDINE URINE NEGATIVE (NEGATIVE)
[2025-05-23] MEDS: ESCITALOPRAM OXALATE 10 MG TABLET PO SCH (10:55)
[2025-05-23 10:56] VITALS: BP 120/78
[2025-05-23] MEDS: amLODIPine 5 MG TAB PO SCH (10:56)
[2025-05-23 12:37] VITALS: BP 131/78; TEMP 97.7; O2SAT 98
[2025-05-23] MEDS ORDERED: GABAPENTIN 300 MG CAP PO SCH (16:00)
[2025-05-23] MEDS ORDERED: traZODone 50 MG TAB PO SCH (21:00)
[2025-05-23] MEDS ORDERED: NALTREXONE 50 MG TAB PO SCH (21:00)
== END 2025-05-23 13:09 | disposition home or self-care (01) ==
LOC: M ED 04:28
DX: F10.14 Alcohol abuse with alcohol-induced mood disorder (principal); Z88.0 Allergy status to penicillin; Z88.8 Allergy status to other drugs, medicaments and biological substances; Z91.040 Latex allergy status; Z91.030 Bee allergy status; Z91.018 Allergy to other foods; Z79.899 Other long term (current) drug therapy

== ENCOUNTER 2025-05-23 13:19 | Emergency (ER) | payer OTHER ==
[~2025-05-23] VITALS: Ht 172.7 cm; Wt 76.9 kg
[2025-05-23 14:15] LABS: BASO # 0.0 10^3/uL (0.0-0.2); BASO % 0.5 % (0.0-1.0); EOS # 0.0 10^3/uL (0.0-0.5); EOS % 0.2 % (0.0-3.0); LYMPH # 1.2 10^3/uL (1.5-5.0); LYMPH % 28.9 % (24.0-44.0); MONO # 0.4 10^3/uL (0.0-0.8); MONO % 10.8 % (2.0-8.0); NEUTROPHILS # 2.4 10^3/uL (1.5-8.5); NEUTROPHILS % 59.6 % (36.0-66.0); PLATELET COUNT, AUTOMATED 101 10^3/uL (150-450)
[2025-05-23] MEDS: THIAMINE 100 MG TAB PO SCH (14:24)
[2025-05-23] MEDS: FOLIC ACID 1 MG TAB PO SCH (14:24)
[2025-05-23] MEDS: MULTIVITAMINS/MINERALS THERAP 1 TAB PO SCH (14:24)
[2025-05-23 14:41] LABS: CK-MB VALUE MASS 7.9 NG/ML (<3.6)
[2025-05-23 14:44] LABS: ALT/SGPT 67 U/L (7.0-40); AST/SGOT 129 U/L (<34); CALCIUM LEVEL 8.6 MG/DL (8.3-10.6); CARBON DIOXIDE LEVEL 21 MMOL/L (20-31); CHLORIDE LEVEL 93 MMOL/L (98-107); CREATININE FOR GFR 0.63 MG/DL (0.70-1.30); GLOMERULAR FILTRATION RATE > 90.0 (>49); POTASSIUM SERUM 3.4 MMOL/L (3.5-5.1); SODIUM LEVEL 133 MMOL/L (136-145)
[2025-05-23 14:46] LABS: FREE T4 1.22 NG/DL (0.89-1.76)
[2025-05-23 14:47] LABS: CPK CREATINE PHOSPHOKINASE 622 U/L (46-171); MB/CK RELATIVE INDEX 1.27 (< OR =4)
[2025-05-23] MEDS: NS (Normal Saline) 0.9% 1,000 ML IV ONE (15:17)
[2025-05-23] MEDS: POTASSIUM CHLORIDE 10MEQ SR TABLET PO ONE (15:17)
[2025-05-23 15:32] LABS: CK-MB VALUE MASS 7.7 NG/ML (<3.6); ETHYL ALCOHOL (ETHANOL) 0.117 % (0.000-0.010)
[2025-05-23 15:34] LABS: CPK CREATINE PHOSPHOKINASE 618 U/L (46-171); MB/CK RELATIVE INDEX 1.24 (< OR =4)
[2025-05-23 17:45] VITALS: BP 129/64; TEMP 98.4; O2SAT 97
== END 2025-05-23 18:34 | disposition home or self-care (01) ==
LOC: M ED 13:19
DX: F43.0 Acute stress reaction (principal); F10.10 Alcohol abuse, uncomplicated; R00.0 Tachycardia, unspecified; I45.10 Unspecified right bundle-branch block; I10 Essential (primary) hypertension; F32.A Depression, unspecified; Z88.0 Allergy status to penicillin; Z88.8 Allergy status to other drugs, medicaments and biological substances; Z91.030 Bee allergy status; Z91.018 Allergy to other foods; Z91.040 Latex allergy status; Z79.899 Other long term (current) drug therapy

== ENCOUNTER 2025-05-23 20:03 | Emergency (ER) | payer OTHER ==
[~2025-05-23] VITALS: Ht 172.7 cm; Wt 73.6 kg
[2025-05-23] MEDS: THIAMINE 100 MG TAB PO SCH (20:26)
[2025-05-23 20:44] LABS: PLATELET COUNT, AUTOMATED 107 10^3/uL (150-450)
[2025-05-23 21:59] LABS: ALT/SGPT 64 U/L (7.0-40); AST/SGOT 112 U/L (<34); CALCIUM LEVEL 8.8 MG/DL (8.3-10.6); CARBON DIOXIDE LEVEL 18 MMOL/L (20-31); CHLORIDE LEVEL 95.3 MMOL/L (98-107); CREATININE FOR GFR 0.65 MG/DL (0.70-1.30); ETHYL ALCOHOL (ETHANOL) 0.028 % (0.000-0.010); GLOMERULAR FILTRATION RATE > 90.0 (>49); POTASSIUM SERUM 3.7 MMOL/L (3.5-5.1); SODIUM LEVEL 132 MMOL/L (136-145)
[2025-05-23 22:00] LABS: SALICYLATE LEVEL < 3.0 MG/DL (<30)
[2025-05-24 08:35] VITALS: TEMP 98.1; O2SAT 97
[2025-05-24] MEDS: FOLIC ACID 1 MG TAB PO SCH (08:39)
[2025-05-24] MEDS: MULTIVITAMINS/MINERALS THERAP 1 TAB PO SCH (08:39)
[2025-05-24 12:19] VITALS: BP 120/85
== END 2025-05-24 12:23 | disposition home or self-care (01) ==
LOC: M ED 20:03
DX: F41.9 Anxiety disorder, unspecified (principal); I10 Essential (primary) hypertension; F32.A Depression, unspecified; F10.10 Alcohol abuse, uncomplicated; Z88.0 Allergy status to penicillin; Z88.8 Allergy status to other drugs, medicaments and biological substances; Z91.030 Bee allergy status; Z91.040 Latex allergy status; Z91.018 Allergy to other foods; Z79.899 Other long term (current) drug therapy

== ENCOUNTER 2025-05-28 13:50 | Emergency (ER) | payer OTHER ==
[~2025-05-28] VITALS: Ht 172.7 cm; Wt 56.3 kg
[2025-05-28 13:56] VITALS: BP 146/80; TEMP 97.1; O2SAT 95
[2025-05-28] MEDS ORDERED: HYDR-3363 PO (22:05)
== END 2025-05-28 16:21 | disposition left against medical advice (07) ==
LOC: M ED 13:50
DX: Z53.21 Procedure and treatment not carried out due to patient leaving prior to being seen by health care provider (principal)

== ENCOUNTER 2025-05-28 16:25 | Emergency (ER) | payer OTHER ==
[~2025-05-28] VITALS: Ht 172.7 cm; Wt 56.3 kg
[2025-05-28] MEDS: LORazepam 1 MG TAB PO ONE (18:56)
[2025-05-28 19:15] LABS: PLATELET COUNT, AUTOMATED 126 10^3/uL (150-450)
[2025-05-28 19:36] LABS: ETHYL ALCOHOL (ETHANOL) 0.076 % (0.000-0.010)
[2025-05-28 19:38] LABS: SALICYLATE LEVEL < 3.0 MG/DL (<30)
[2025-05-28 19:41] LABS: ALT/SGPT 66 U/L (7.0-40); AST/SGOT 86 U/L (<34); CALCIUM LEVEL 8.9 MG/DL (8.3-10.6); CARBON DIOXIDE LEVEL 22 MMOL/L (20-31); CHLORIDE LEVEL 94 MMOL/L (98-107); CREATININE FOR GFR 0.53 MG/DL (0.70-1.30); GLOMERULAR FILTRATION RATE > 90.0 (>49); POTASSIUM SERUM 3.3 MMOL/L (3.5-5.1); SODIUM LEVEL 134 MMOL/L (136-145)
[2025-05-28] MEDS: LORazepam 1 MG TAB PO STA (20:12)
[2025-05-28] MEDS ORDERED: HYDR-3363 PO (22:05)
[2025-05-28 22:28] VITALS: BP 137/70; TEMP 98.4; O2SAT 94
[2025-05-28 22:28] LABS: FREE T4 0.88 NG/DL (0.89-1.76)
== END 2025-05-28 22:30 | disposition home or self-care (01) ==
LOC: M ED 16:25
DX: F41.9 Anxiety disorder, unspecified (principal); F43.0 Acute stress reaction; I10 Essential (primary) hypertension; G47.33 Obstructive sleep apnea (adult) (pediatric); Z88.0 Allergy status to penicillin; Z88.8 Allergy status to other drugs, medicaments and biological substances; Z91.040 Latex allergy status; Z91.018 Allergy to other foods; Z91.030 Bee allergy status

== ENCOUNTER 2025-06-03 11:55 | Emergency (ER) | payer OTHER ==
[~2025-06-03] VITALS: Ht 172.7 cm; Wt 81.8 kg
[~2025-06-03 11:55] MED LIST changes: +HYDR-3363 PO
[2025-06-03 12:54] LABS: PLATELET COUNT, AUTOMATED 179 10^3/uL (150-450)
[2025-06-03 13:19] LABS: SALICYLATE LEVEL < 3.0 MG/DL (<30)
[2025-06-03] MEDS: LORazepam 0.5 MG TAB PO STA (13:36)
[2025-06-03 13:55] LABS: ALT/SGPT 64 U/L (7.0-40); AST/SGOT 73 U/L (<34); CALCIUM LEVEL 7.9 MG/DL (8.3-10.6); CARBON DIOXIDE LEVEL 24 MMOL/L (20-31); CHLORIDE LEVEL 99 MMOL/L (98-107); CREATININE FOR GFR 0.60 MG/DL (0.70-1.30); ETHYL ALCOHOL (ETHANOL) 0.335 % (0.000-0.010); GLOMERULAR FILTRATION RATE > 90.0 (>49); POTASSIUM SERUM 3.8 MMOL/L (3.5-5.1); SODIUM LEVEL 138 MMOL/L (136-145)
[2025-06-03] MEDS ORDERED: HYDR-3363 PO (14:00)
[2025-06-03] MEDS ORDERED: HOME MED LIST COMPLETE! XX SCH (14:05)
[2025-06-03 18:05] LABS: AMPHETAMINES LEVEL URINE NEGATIVE (NEGATIVE); BARBITURATES URINE NEGATIVE (NEGATIVE); BENZODIAZEPINES URINE NEGATIVE (NEGATIVE); COCAINE METABOLITE URINE NEGATIVE (NEGATIVE); METHADONE URINE NEGATIVE (NEGATIVE); OPIATES URINE NEGATIVE (NEGATIVE); PHENCYCLIDINE URINE NEGATIVE (NEGATIVE)
[2025-06-03 18:14] LABS: CANNABINOIDS URINE POSITIVE (NEGATIVE)
[2025-06-04] MEDS: OXAZEPAM 15MG CAP PO ONE (01:08)
[2025-06-04] MEDS: MULTIVITAMINS/MINERALS THERAP 1 TAB PO SCH (09:49)
[2025-06-04] MEDS: FOLIC ACID 1 MG TAB PO SCH (09:49)
[2025-06-04] MEDS: THIAMINE 100 MG TAB PO SCH (09:50)
[2025-06-04 10:38] VITALS: BP 117/74; TEMP 97.9; O2SAT 97
== END 2025-06-04 10:57 | disposition home or self-care (01) ==
LOC: M ED 11:55
DX: F10.10 Alcohol abuse, uncomplicated (principal); F32.A Depression, unspecified; F41.9 Anxiety disorder, unspecified; Z88.0 Allergy status to penicillin; Z88.8 Allergy status to other drugs, medicaments and biological substances; Z91.040 Latex allergy status; Z91.030 Bee allergy status; Z91.018 Allergy to other foods; Z79.899 Other long term (current) drug therapy

== ENCOUNTER 2025-06-10 17:22 | Emergency (ER) | payer OTHER ==
[~2025-06-10] VITALS: Ht 172.7 cm; Wt 76.6 kg
[2025-06-10 17:35] VITALS: BP 145/81; TEMP 98.2; O2SAT 93
== END 2025-06-10 17:41 | disposition left against medical advice (07) ==
LOC: EDBD 17:22 → M ED 17:22
DX: Z53.21 Procedure and treatment not carried out due to patient leaving prior to being seen by health care provider (principal)

== ENCOUNTER 2025-06-11 15:06 | Emergency (ER) | payer OTHER ==
[~2025-06-11] VITALS: Ht 172.7 cm; Wt 81.8 kg
[2025-06-11 15:19] VITALS: BP 130/94; TEMP 97.7; O2SAT 93
== END 2025-06-11 15:47 | disposition left against medical advice (07) ==
LOC: M ED 15:06
DX: Z53.21 Procedure and treatment not carried out due to patient leaving prior to being seen by health care provider (principal)

== ENCOUNTER 2025-06-11 16:26 | Emergency (ER) | payer OTHER ==
[~2025-06-11] VITALS: Ht 172.7 cm; Wt 81.8 kg
[2025-06-11 17:23] LABS: BASO # 0.0 10^3/uL (0.0-0.2); BASO % 0.9 % (0.0-1.0); EOS # 0.0 10^3/uL (0.0-0.5); EOS % 0.0 % (0.0-3.0); LYMPH # 1.5 10^3/uL (1.5-5.0); LYMPH % 43.8 % (24.0-44.0); MONO # 0.4 10^3/uL (0.0-0.8); MONO % 10.9 % (2.0-8.0); NEUTROPHILS # 1.5 10^3/uL (1.5-8.5); NEUTROPHILS % 44.1 % (36.0-66.0); PLATELET COUNT, AUTOMATED 138 10^3/uL (150-450)
[2025-06-11 17:47] LABS: CK-MB VALUE MASS 2.7 NG/ML (<3.6)
[2025-06-11 17:51] LABS: ALT/SGPT 58 U/L (7.0-40); AST/SGOT 71 U/L (<34); CALCIUM LEVEL 8.0 MG/DL (8.3-10.6); CARBON DIOXIDE LEVEL 28 MMOL/L (20-31); CHLORIDE LEVEL 103 MMOL/L (98-107); CREATININE FOR GFR 0.70 MG/DL (0.70-1.30); GLOMERULAR FILTRATION RATE > 90.0 (>49); POTASSIUM SERUM 3.6 MMOL/L (3.5-5.1); SALICYLATE LEVEL < 3.0 MG/DL (<30); SODIUM LEVEL 143 MMOL/L (136-145)
[2025-06-11 18:11] LABS: CPK CREATINE PHOSPHOKINASE 172 U/L (46-171); ETHYL ALCOHOL (ETHANOL) 0.361 % (0.000-0.010); MB/CK RELATIVE INDEX 1.56 (< OR =4)
[2025-06-11 19:04] LABS: CK-MB VALUE MASS 2.7 NG/ML (<3.6)
[2025-06-11 19:10] LABS: CPK CREATINE PHOSPHOKINASE 173.0 U/L (46-171); MB/CK RELATIVE INDEX 1.56 (< OR =4)
[2025-06-11] MEDS: THIAMINE 100 MG TAB PO SCH (19:12)
[2025-06-11 19:29] LABS: AMPHETAMINES LEVEL URINE NEGATIVE (NEGATIVE); BARBITURATES URINE NEGATIVE (NEGATIVE); BENZODIAZEPINES URINE NEGATIVE (NEGATIVE); CANNABINOIDS URINE NEGATIVE (NEGATIVE); COCAINE METABOLITE URINE NEGATIVE (NEGATIVE); METHADONE URINE NEGATIVE (NEGATIVE); OPIATES URINE NEGATIVE (NEGATIVE); PHENCYCLIDINE URINE NEGATIVE (NEGATIVE)
[2025-06-12] MEDS ORDERED: FOLIC ACID 1 MG TAB PO SCH (09:00)
[2025-06-12] MEDS ORDERED: MULTIVITAMINS/MINERALS THERAP 1 TAB PO SCH (09:00)
[2025-06-12 09:05] VITALS: BP 150/98; TEMP 98.4; O2SAT 97
== END 2025-06-12 09:05 | disposition home or self-care (01) ==
LOC: M ED 16:26
DX: F10.14 Alcohol abuse with alcohol-induced mood disorder (principal); I10 Essential (primary) hypertension; R51.9 Headache, unspecified; B18.9 Chronic viral hepatitis, unspecified; Z88.0 Allergy status to penicillin; Z88.8 Allergy status to other drugs, medicaments and biological substances; Z91.040 Latex allergy status; K58.9 Irritable bowel syndrome, unspecified; F32.A Depression, unspecified; F41.9 Anxiety disorder, unspecified; Z79.899 Other long term (current) drug therapy; S22.41XA Multiple fractures of ribs, right side, initial encounter for closed fracture; X58.XXXA Exposure to other specified factors, initial encounter; M19.90 Unspecified osteoarthritis, unspecified site; R45.851 Suicidal ideations; Y92.9 Unspecified place or not applicable; Y93.9 Activity, unspecified; Y99.9 Unspecified external cause status
CPT/HCPCS: 71101; 80048; 80076; 80143; 80307; 82077; 82550; 82553; 84443; 84484; 85025; 93005; 93041; 94760; 96374; 96376; 99285; J2060

== ENCOUNTER 2025-06-13 08:35 | Emergency (ER) | payer OTHER ==
[~2025-06-13] VITALS: Ht 172.7 cm; Wt 73.0 kg
[2025-06-13 08:41] VITALS: BP 133/91; TEMP 98.2; O2SAT 95
== END 2025-06-13 10:45 | disposition left against medical advice (07) ==
LOC: EDBD 08:35 → M ED 10:42
DX: Z53.21 Procedure and treatment not carried out due to patient leaving prior to being seen by health care provider (principal)

== ENCOUNTER 2025-06-13 10:58 | Emergency (ER) | payer OTHER ==
[~2025-06-13] VITALS: Ht 172.7 cm; Wt 73.0 kg
[2025-06-13 11:08] VITALS: BP 146/91; TEMP 98.1; O2SAT 96
== END 2025-06-13 11:23 | disposition left against medical advice (07) ==
LOC: EDBD 10:58 → M ED 10:58
DX: Z53.21 Procedure and treatment not carried out due to patient leaving prior to being seen by health care provider (principal)

== ENCOUNTER 2025-06-14 05:44 | Emergency (ER) | payer OTHER ==
[~2025-06-14] VITALS: Ht 172.7 cm; Wt 84.1 kg
[2025-06-14 05:52] VITALS: BP 151/96; TEMP 97.9; O2SAT 96
[2025-06-14 06:32] LABS: PLATELET COUNT, AUTOMATED 141 10^3/uL (150-450)
[2025-06-14 06:53] LABS: ETHYL ALCOHOL (ETHANOL) 0.273 % (0.000-0.010)
[2025-06-14 06:54] LABS: SALICYLATE LEVEL < 3.0 MG/DL (<30)
[2025-06-14 07:08] LABS: ALT/SGPT 65 U/L (7.0-40); AST/SGOT 83 U/L (<34); CALCIUM LEVEL 9.2 MG/DL (8.3-10.6); CARBON DIOXIDE LEVEL 22 MMOL/L (20-31); CHLORIDE LEVEL 100 MMOL/L (98-107); CREATININE FOR GFR 0.64 MG/DL (0.70-1.30); GLOMERULAR FILTRATION RATE > 90.0 (>49); POTASSIUM SERUM 3.4 MMOL/L (3.5-5.1); SODIUM LEVEL 139 MMOL/L (136-145)
[2025-06-14] MEDS ORDERED: HOME MED LIST COMPLETE! XX SCH (08:10)
== END 2025-06-14 11:06 | disposition home or self-care (01) ==
LOC: M ED 05:44
DX: F10.14 Alcohol abuse with alcohol-induced mood disorder (principal); Z88.0 Allergy status to penicillin; Z91.018 Allergy to other foods; Z91.030 Bee allergy status; Z91.040 Latex allergy status; Z88.8 Allergy status to other drugs, medicaments and biological substances; Z79.899 Other long term (current) drug therapy; Z79.891 Long term (current) use of opiate analgesic

== ENCOUNTER 2025-06-17 12:42 | Emergency (ER) | payer OTHER ==
[~2025-06-17] VITALS: Ht 172.7 cm; Wt 81.8 kg
[2025-06-17 13:16] VITALS: TEMP 97.6
[2025-06-17 18:04] VITALS: BP 128/86; O2SAT 95
== END 2025-06-17 18:22 | disposition home or self-care (01) ==
LOC: M ED 12:42
DX: F10.14 Alcohol abuse with alcohol-induced mood disorder (principal); I10 Essential (primary) hypertension; F32.A Depression, unspecified; F12.10 Cannabis abuse, uncomplicated; Z88.0 Allergy status to penicillin; Z88.8 Allergy status to other drugs, medicaments and biological substances; Z91.030 Bee allergy status; Z91.018 Allergy to other foods; Z91.040 Latex allergy status; Z79.899 Other long term (current) drug therapy

== ENCOUNTER 2025-06-23 07:34 | Inpatient (IN) | payer OTHER ==
[~2025-06-23] VITALS: Ht 172.7 cm; Wt 79.4 kg
[2025-06-23] MEDS: MULTIVITAMINS/MINERALS THERAP 1 TAB PO SCH (08:07)
[2025-06-23] MEDS: THIAMINE 100 MG TAB PO SCH (08:07)
[2025-06-23] MEDS: FOLIC ACID 1 MG TAB PO SCH (08:07)
[2025-06-23 08:21] LABS: PLATELET COUNT, AUTOMATED 102 10^3/uL (150-450)
[2025-06-23 08:51] LABS: ALT/SGPT 51 U/L (7.0-40); AST/SGOT 105 U/L (<34); CALCIUM LEVEL 8.2 MG/DL (8.3-10.6); CARBON DIOXIDE LEVEL 26 MMOL/L (20-31); CHLORIDE LEVEL 96 MMOL/L (98-107); CREATININE FOR GFR 0.65 MG/DL (0.70-1.30); GLOMERULAR FILTRATION RATE > 90.0 (>49); POTASSIUM SERUM 3.4 MMOL/L (3.5-5.1); SALICYLATE LEVEL < 3.0 MG/DL (<30); SODIUM LEVEL 139 MMOL/L (136-145)
[2025-06-23 09:03] LABS: ETHYL ALCOHOL (ETHANOL) 0.349 % (0.000-0.010)
[2025-06-23 09:56] LABS: AMPHETAMINES LEVEL URINE NEGATIVE (NEGATIVE); BARBITURATES URINE NEGATIVE (NEGATIVE); BENZODIAZEPINES URINE NEGATIVE (NEGATIVE); CANNABINOIDS URINE NEGATIVE (NEGATIVE); COCAINE METABOLITE URINE NEGATIVE (NEGATIVE); METHADONE URINE NEGATIVE (NEGATIVE); OPIATES URINE NEGATIVE (NEGATIVE); PHENCYCLIDINE URINE NEGATIVE (NEGATIVE)
[2025-06-23] MEDS: POTASSIUM CHLORIDE 10MEQ SR TABLET PO ONE (10:14)
[2025-06-23] MEDS: NS (Normal Saline) 0.9% 1,000 ML IV ONE ×2 (11:09→18:38)
[2025-06-23 11:25] LABS: MAGNESIUM LEVEL 1.6 MG/DL (1.8-2.4)
[2025-06-23] MEDS: MAGNESIUM OXIDE 400 MG TAB PO ONE (12:42)
[2025-06-23] MEDS: MAG SULF 1GM/100ML (MAG RUN) 1 GM in IV 1 EA IV ONE (12:42)
[2025-06-23] MEDS ORDERED: MAALOX 30 ML SUSP *UDC PO PRN (19:35)
[2025-06-23] MEDS ORDERED: MOM 30 ML SUSPENSION UDC PO PRN (19:35)
[2025-06-23] MEDS: DOCUSATE SODIUM 100 MG CAPSULE PO SCH (21:24)
[2025-06-23] MEDS: chlordiazePOXIDE 25 MG CAP PO SCH (21:24)
[2025-06-23] MEDS: POTASSIUM PHOSPHATE INJ 18 MMOL in D5W 250 ML IV ONE (21:48)
[2025-06-23 22:28] VITALS: BP 134/81; TEMP 97.7; O2SAT 98
[2025-06-24] MEDS ORDERED: HOME MED LIST COMPLETE! XX SCH (03:50)
[2025-06-24 04:36] VITALS: BP 121/70; TEMP 97.9; O2SAT 93
[2025-06-24 06:28] LABS: PLATELET COUNT, AUTOMATED 80 10^3/uL (150-450)
[2025-06-24 06:56] LABS: ALT/SGPT 47 U/L (7.0-40); AST/SGOT 78 U/L (<34); CALCIUM LEVEL 8.7 MG/DL (8.3-10.6); CARBON DIOXIDE LEVEL 28 MMOL/L (20-31); CHLORIDE LEVEL 100 MMOL/L (98-107); CREATININE FOR GFR 0.62 MG/DL (0.70-1.30); GLOMERULAR FILTRATION RATE > 90.0 (>49); MAGNESIUM LEVEL 1.9 MG/DL (1.8-2.4); POTASSIUM SERUM 3.6 MMOL/L (3.5-5.1); SODIUM LEVEL 138 MMOL/L (136-145)
[2025-06-24 09:19] VITALS: BP 142/96
[2025-06-24] MEDS: THIAMINE 200MG 2ML VIAL IV SCH (09:21)
[2025-06-24 09:22] VITALS: BP 142/96
[2025-06-24] MEDS: GABAPENTIN 300 MG CAP PO SCH (09:22)
[2025-06-24] MEDS: PANTOPRAZOLE 40MG VIAL IV SCH (09:22)
[2025-06-24] MEDS: amLODIPine 5 MG TAB PO SCH (09:22)
[2025-06-24] MEDS: CYANOCOBALAMIN 1,000 MCG/ML 1 ML VIAL IM SCH (09:22)
[2025-06-24] MEDS: NS (Normal Saline) 0.9% 1,000 ML IV SCH (09:24)
[2025-06-24] MEDS: ACETAMINOPHEN 325 MG TAB PO PRN (09:29)
[2025-06-24] MEDS: HEPARIN SOD 5000 UNITS/ML 1 ML VIAL/SYRINGE SC SCH (10:15)
[2025-06-24] MEDS: FOLIC ACID 1 MG in NS 50 ML IV SCH (10:56)
[2025-06-24 11:50] VITALS: BP 141/96; TEMP 97.9; O2SAT 97
[2025-06-24 13:24] VITALS: BP 148/97
[2025-06-24] MEDS ORDERED: chlordiazePOXIDE 25 MG CAP PO SCH (21:00)
[2025-06-24] MEDS ORDERED: traZODone 50 MG TAB PO SCH (21:00)
[2025-06-24] MEDS ORDERED: NALTREXONE 50 MG TAB PO SCH (21:00)
[2025-06-24] MEDS ORDERED: SLOW1TAB3 PO (22:54)
[2025-06-25] MEDS ORDERED: CYANOCOBALAMIN 500 MCG TAB PO SCH (09:00)
[2025-06-25] MEDS ORDERED: FOLIC ACID 1 MG TAB PO SCH (09:00)
[2025-06-25] MEDS ORDERED: chlordiazePOXIDE 25 MG CAP PO SCH (21:00)
== END 2025-06-24 14:26 | disposition left against medical advice (07) | DRG 770 ==
LOC: EDBD 07:34 → M ED 07:34 → M ED INP 19:33 → M MSPAV 22:23
PROVIDERS: ADMIT Student in an Organized Health Care Education/Training Program; ATTEND Internal Medicine Nephrology
DX: F10.129 Alcohol abuse with intoxication, unspecified (principal); R45.851 Suicidal ideations; D69.6 Thrombocytopenia, unspecified; G62.9 Polyneuropathy, unspecified; E83.42 Hypomagnesemia; K76.0 Fatty (change of) liver, not elsewhere classified; F32.A Depression, unspecified; F10.139 Alcohol abuse with withdrawal, unspecified; R74.01 Elevation of levels of liver transaminase levels; F41.9 Anxiety disorder, unspecified; F12.10 Cannabis abuse, uncomplicated; E87.6 Hypokalemia; M19.90 Unspecified osteoarthritis, unspecified site; Z85.828 Personal history of other malignant neoplasm of skin; Z91.51 Personal history of suicidal behavior; Z98.1 Arthrodesis status; Z79.899 Other long term (current) drug therapy; Z88.0 Allergy status to penicillin; Z88.8 Allergy status to other drugs, medicaments and biological substances; Z91.040 Latex allergy status; Z91.030 Bee allergy status; Z91.018 Allergy to other foods

== ENCOUNTER 2025-06-24 20:58 | Emergency (ER) | payer OTHER ==
[~2025-06-24] VITALS: Ht 172.7 cm; Wt 79.4 kg
[2025-06-24 21:41] LABS: PLATELET COUNT, AUTOMATED 76 10^3/uL (150-450)
[2025-06-24 22:06] LABS: ETHYL ALCOHOL (ETHANOL) < 0.003 % (0.000-0.010)
[2025-06-24 22:08] LABS: CALCIUM LEVEL 8.4 MG/DL (8.3-10.6); CARBON DIOXIDE LEVEL 26 MMOL/L (20-31); CHLORIDE LEVEL 100 MMOL/L (98-107); CREATININE FOR GFR 0.66 MG/DL (0.70-1.30); GLOMERULAR FILTRATION RATE > 90.0 (>49); MAGNESIUM LEVEL 1.5 MG/DL (1.8-2.4); POTASSIUM SERUM 3.7 MMOL/L (3.5-5.1); SODIUM LEVEL 137 MMOL/L (136-145)
[2025-06-24] MEDS: MAG SULF 1GM/100ML (MAG RUN) 1 GM in IV 1 EA IV ONE ×2 (22:25→23:28)
[2025-06-24] MEDS ORDERED: SLOW1TAB3 PO (22:54)
[2025-06-25 00:48] VITALS: BP 112/68; TEMP 98.1; O2SAT 96
== END 2025-06-25 00:40 | disposition home or self-care (01) ==
LOC: M ED 20:58
DX: F10.10 Alcohol abuse, uncomplicated (principal); F41.9 Anxiety disorder, unspecified; E83.42 Hypomagnesemia; R00.0 Tachycardia, unspecified; I45.10 Unspecified right bundle-branch block; F32.A Depression, unspecified; Z88.0 Allergy status to penicillin; Z88.8 Allergy status to other drugs, medicaments and biological substances; Z91.030 Bee allergy status; Z91.040 Latex allergy status; Z91.018 Allergy to other foods; Z79.899 Other long term (current) drug therapy
CPT/HCPCS: 80048; 82077; 83735; 85027; 93005; 96365; 96366; 99284; J3475

== ENCOUNTER 2025-06-25 10:10 | Emergency (ER) | payer OTHER ==
[~2025-06-25] VITALS: Ht 172.7 cm; Wt 81.8 kg
[~2025-06-25 10:10] MED LIST changes: +SLOW1TAB3 PO
[2025-06-25 10:56] LABS: BASO # 0.0 10^3/uL (0.0-0.2); BASO % 0.5 % (0.0-1.0); EOS # 0.1 10^3/uL (0.0-0.5); EOS % 2.1 % (0.0-3.0); LYMPH # 1.3 10^3/uL (1.5-5.0); LYMPH % 31.7 % (24.0-44.0); MONO # 0.5 10^3/uL (0.0-0.8); MONO % 11.7 % (2.0-8.0); NEUTROPHILS # 2.3 10^3/uL (1.5-8.5); NEUTROPHILS % 53.5 % (36.0-66.0)
[2025-06-25 10:57] LABS: PLATELET COUNT, AUTOMATED 83 10^3/uL (150-450)
[2025-06-25 11:23] LABS: CK-MB VALUE MASS 4.8 NG/ML (<3.6)
[2025-06-25 11:24] LABS: ETHYL ALCOHOL (ETHANOL) 0.004 % (0.000-0.010)
[2025-06-25 11:27] LABS: ALT/SGPT 50 U/L (7.0-40); AST/SGOT 86 U/L (<34); CALCIUM LEVEL 8.6 MG/DL (8.3-10.6); CARBON DIOXIDE LEVEL 25 MMOL/L (20-31); CHLORIDE LEVEL 101 MMOL/L (98-107); CPK CREATINE PHOSPHOKINASE 916 U/L (46-171); CREATININE FOR GFR 0.65 MG/DL (0.70-1.30); FREE T4 1.21 NG/DL (0.89-1.76); GLOMERULAR FILTRATION RATE > 90.0 (>49); MAGNESIUM LEVEL 2.0 MG/DL (1.8-2.4); MB/CK RELATIVE INDEX 0.52 (< OR =4); POTASSIUM SERUM 3.3 MMOL/L (3.5-5.1); SODIUM LEVEL 139 MMOL/L (136-145)
[2025-06-25 11:30] VITALS: O2SAT 84
[2025-06-25 11:31] VITALS: BP 131/80; TEMP 98.4
== END 2025-06-25 11:35 | disposition home or self-care (01) ==
LOC: M ED 10:10
DX: F41.9 Anxiety disorder, unspecified (principal); R00.0 Tachycardia, unspecified; I45.81 Long QT syndrome; I45.10 Unspecified right bundle-branch block; F32.A Depression, unspecified; F10.10 Alcohol abuse, uncomplicated; Z88.0 Allergy status to penicillin; Z88.8 Allergy status to other drugs, medicaments and biological substances; Z91.030 Bee allergy status; Z91.040 Latex allergy status; Z91.018 Allergy to other foods; Z79.899 Other long term (current) drug therapy
CPT/HCPCS: 36415; 71045; 80048; 80053; 82077; 82550; 82553; 83735; 84439; 84443; 84484; 85025; 85027; 85049; 85055; 93005; 96365; 96366; 99284; J3475

== ENCOUNTER 2025-06-25 12:24 | Emergency (ER) | payer OTHER ==
[~2025-06-25] VITALS: Ht 165.1 cm; Wt 73.0 kg
[2025-06-25 12:43] VITALS: TEMP 97.9
[2025-06-25 14:00] VITALS: BP 125/80
[2025-06-25 14:09] VITALS: O2SAT 96
== END 2025-06-25 14:15 | disposition left against medical advice (07) ==
LOC: M ED 12:24
DX: Z53.21 Procedure and treatment not carried out due to patient leaving prior to being seen by health care provider (principal)

== ENCOUNTER 2025-06-25 15:27 | Emergency (ER) | payer OTHER ==
[~2025-06-25] VITALS: Ht 165.1 cm; Wt 73.0 kg
[2025-06-25 15:42] VITALS: TEMP 97.5; O2SAT 95
[2025-06-25 16:17] VITALS: BP 136/86
== END 2025-06-25 16:47 | disposition left against medical advice (07) ==
LOC: M ED 15:27
DX: Z53.21 Procedure and treatment not carried out due to patient leaving prior to being seen by health care provider (principal)

== ENCOUNTER 2025-07-01 13:29 | Emergency (ER) | payer OTHER ==
[2025-07-01 15:27] LABS: PLATELET COUNT, AUTOMATED 252 10^3/uL (150-450)
[2025-07-01] MEDS: ACETAMINOPHEN 325 MG TAB PO ONE (15:32)
[2025-07-01 15:40] VITALS: BP 155/90; O2SAT 96
[2025-07-01 17:47] VITALS: TEMP 97.5
== END 2025-07-01 17:50 | disposition home or self-care (01) ==
LOC: EDBD 13:29 → M ED 13:29
DX: S06.0X0A Concussion without loss of consciousness, initial encounter (principal); Y92.9 Unspecified place or not applicable; Y93.9 Activity, unspecified; Y99.9 Unspecified external cause status; W01.0XXA Fall on same level from slipping, tripping and stumbling without subsequent striking against object, initial encounter; R00.0 Tachycardia, unspecified; I45.10 Unspecified right bundle-branch block; I45.81 Long QT syndrome; I10 Essential (primary) hypertension; K58.9 Irritable bowel syndrome, unspecified; B18.9 Chronic viral hepatitis, unspecified; Z88.0 Allergy status to penicillin; Z88.8 Allergy status to other drugs, medicaments and biological substances; Z91.018 Allergy to other foods; Z91.030 Bee allergy status; Z91.040 Latex allergy status

== ENCOUNTER 2025-07-10 10:46 | Emergency (ER) | payer OTHER ==
[2025-07-10 11:43] LABS: VENOUS BASE EXCESS 1.1 (-2.0-2.0); VENOUS HCO3 28.1 MMOL/L (23.0-27.0); VENOUS O2 SATURATION 75.2 % (60.0-80.0); VENOUS PARTIAL PRESSURE CO2 53.5 mmHg (38.0-50.0); VENOUS PARTIAL PRESSURE O2 46.0 mmHg (30.0-50.0); VENOUS PH 7.338 UNITS (7.330-7.430); VENOUS STANDARD HCO3 24.8 MMOL/L; VENOUS TOTAL CO2 29.7 MMOL/L (24.0-28.0)
[2025-07-10 11:44] LABS: BASO # 0.1 10^3/uL (0.0-0.2); BASO % 1.1 % (0.0-1.0); EOS # 0.1 10^3/uL (0.0-0.5); EOS % 1.6 % (0.0-3.0); LYMPH # 3.7 10^3/uL (1.5-5.0); LYMPH % 66.8 % (24.0-44.0); MONO # 0.4 10^3/uL (0.0-0.8); MONO % 7.7 % (2.0-8.0); NEUTROPHILS # 1.2 10^3/uL (1.5-8.5); NEUTROPHILS % 22.6 % (36.0-66.0); PLATELET COUNT, AUTOMATED 235 10^3/uL (150-450)
[2025-07-10 12:11] LABS: SALICYLATE LEVEL < 3.0 MG/DL (<30)
[2025-07-10 12:12] LABS: OSMOLALITY SERUM 404 MOSM/KG (280-301)
[2025-07-10 12:15] LABS: ALT/SGPT 42 U/L (7.0-40); AST/SGOT 65 U/L (<34); CALCIUM LEVEL 7.9 MG/DL (8.3-10.6); CARBON DIOXIDE LEVEL 29 MMOL/L (20-31); CHLORIDE LEVEL 105 MMOL/L (98-107); CREATININE FOR GFR 0.75 MG/DL (0.70-1.30); GLOMERULAR FILTRATION RATE > 90.0 (>49); MAGNESIUM LEVEL 2.1 MG/DL (1.8-2.4); POTASSIUM SERUM 3.6 MMOL/L (3.5-5.1); SODIUM LEVEL 147 MMOL/L (136-145)
[2025-07-10 12:31] LABS: ETHYL ALCOHOL (ETHANOL) 0.376 % (0.000-0.010)
[2025-07-10] MEDS: ACETAMINOPHEN 325 MG TAB PO ONE (15:39)
[2025-07-10 16:16] VITALS: BP 166/91; TEMP 97.8; O2SAT 98
[2025-07-11] MEDS ORDERED: CLIN-250 PO (12:52)
[2025-07-11] MEDS ORDERED: DOXY-442 PO (12:52)
== END 2025-07-10 16:20 | disposition home or self-care (01) ==
LOC: M ED 10:46
DX: F10.120 Alcohol abuse with intoxication, uncomplicated (principal); R00.0 Tachycardia, unspecified; I45.10 Unspecified right bundle-branch block; I45.81 Long QT syndrome; I10 Essential (primary) hypertension; G47.33 Obstructive sleep apnea (adult) (pediatric); E78.5 Hyperlipidemia, unspecified; B18.9 Chronic viral hepatitis, unspecified; F32.A Depression, unspecified; Z88.0 Allergy status to penicillin; Z88.8 Allergy status to other drugs, medicaments and biological substances; Z91.018 Allergy to other foods; Z91.040 Latex allergy status; Z91.030 Bee allergy status; Z79.2 Long term (current) use of antibiotics; Z79.899 Other long term (current) drug therapy

== ENCOUNTER 2025-07-11 12:26 | Emergency (ER) | payer OTHER ==
[2025-07-11 12:45] VITALS: BP 128/79; O2SAT 90
[2025-07-11] MEDS ORDERED: DOXY-442 PO (12:52)
[2025-07-11] MEDS ORDERED: CLIN-250 PO (12:52)
[2025-07-11] MEDS: TETANUS/DIPHTH/ACEL. PERTUSSIS 0.5 ML SYR IM.IMMUN ONE (13:05)
== END 2025-07-11 13:37 | disposition home or self-care (01) ==
LOC: M ED 12:26 → EDBD 12:26 → M ED 13:37
DX: L03.113 Cellulitis of right upper limb (principal); R00.0 Tachycardia, unspecified; I45.10 Unspecified right bundle-branch block; I45.81 Long QT syndrome; I10 Essential (primary) hypertension; F32.A Depression, unspecified; F10.10 Alcohol abuse, uncomplicated; Z23 Encounter for immunization; Z88.0 Allergy status to penicillin; Z88.8 Allergy status to other drugs, medicaments and biological substances; Z91.030 Bee allergy status; Z91.018 Allergy to other foods; Z79.2 Long term (current) use of antibiotics; Z79.899 Other long term (current) drug therapy; Z53.9 Procedure and treatment not carried out, unspecified reason

== ENCOUNTER 2025-07-11 14:00 | Emergency (ER) | payer OTHER ==
[~2025-07-11] VITALS: Ht 172.7 cm; Wt 77.9 kg
[~2025-07-11 14:00] MED LIST changes: +CLIN-250 PO; +DOXY-442 PO
[2025-07-11 14:12] VITALS: BP 131/74; TEMP 97.6; O2SAT 93
== END 2025-07-11 15:11 | disposition left against medical advice (07) ==
LOC: M ED 14:00
DX: L03.113 Cellulitis of right upper limb (principal); I10 Essential (primary) hypertension; F10.10 Alcohol abuse, uncomplicated; Z88.0 Allergy status to penicillin; Z88.8 Allergy status to other drugs, medicaments and biological substances; Z91.040 Latex allergy status; Z91.030 Bee allergy status; Z79.2 Long term (current) use of antibiotics; Z79.899 Other long term (current) drug therapy; Z53.9 Procedure and treatment not carried out, unspecified reason

== ENCOUNTER 2025-07-11 18:22 | Emergency (ER) | payer OTHER ==
[2025-07-11 20:01] LABS: PLATELET COUNT, AUTOMATED 218 10^3/uL (150-450)
[2025-07-11 20:21] LABS: SALICYLATE LEVEL < 3.0 MG/DL (<30)
[2025-07-11 20:36] LABS: AMPHETAMINES LEVEL URINE NEGATIVE (NEGATIVE); BARBITURATES URINE NEGATIVE (NEGATIVE); BENZODIAZEPINES URINE NEGATIVE (NEGATIVE); COCAINE METABOLITE URINE NEGATIVE (NEGATIVE)
[2025-07-11 20:37] LABS: CANNABINOIDS URINE NEGATIVE (NEGATIVE); METHADONE URINE NEGATIVE (NEGATIVE); OPIATES URINE NEGATIVE (NEGATIVE); PHENCYCLIDINE URINE NEGATIVE (NEGATIVE)
[2025-07-11 20:58] LABS: ALT/SGPT 54 U/L (7.0-40); AST/SGOT 108 U/L (<34); CALCIUM LEVEL 8.6 MG/DL (8.3-10.6); CARBON DIOXIDE LEVEL 24 MMOL/L (20-31); CHLORIDE LEVEL 102 MMOL/L (98-107); CREATININE FOR GFR 0.67 MG/DL (0.70-1.30); ETHYL ALCOHOL (ETHANOL) 0.340 % (0.000-0.010); GLOMERULAR FILTRATION RATE > 90.0 (>49); POTASSIUM SERUM 3.9 MMOL/L (3.5-5.1); SODIUM LEVEL 142 MMOL/L (136-145)
[2025-07-11] MEDS: OXAZEPAM 15MG CAP PO ONE (23:36)
[2025-07-11] MEDS: IBUPROFEN 600 MG TAB PO ONE (23:37)
[2025-07-12 08:04] VITALS: TEMP 97.6; O2SAT 95
[2025-07-12 08:10] VITALS: BP 174/95
== END 2025-07-12 08:36 | disposition home or self-care (01) ==
LOC: M ED 18:22
DX: F10.14 Alcohol abuse with alcohol-induced mood disorder (principal); I10 Essential (primary) hypertension; E78.5 Hyperlipidemia, unspecified; G47.33 Obstructive sleep apnea (adult) (pediatric); B18.9 Chronic viral hepatitis, unspecified; F32.A Depression, unspecified; Z88.0 Allergy status to penicillin; Z88.8 Allergy status to other drugs, medicaments and biological substances; Z91.030 Bee allergy status; Z91.040 Latex allergy status; Z91.018 Allergy to other foods; Z79.2 Long term (current) use of antibiotics; Z79.899 Other long term (current) drug therapy

== ENCOUNTER 2025-07-13 18:27 | Emergency (ER) | payer OTHER ==
[~2025-07-13] VITALS: Ht 172.7 cm; Wt 78.6 kg
[2025-07-13] MEDS: FOLIC ACID 1 MG TAB PO SCH (09:00)
[2025-07-13] MEDS: MULTIVITAMINS/MINERALS THERAP 1 TAB PO SCH (09:00)
[2025-07-13 18:56] LABS: PLATELET COUNT, AUTOMATED 197 10^3/uL (150-450)
[2025-07-13 19:20] LABS: ETHYL ALCOHOL (ETHANOL) 0.098 % (0.000-0.010)
[2025-07-13 19:22] LABS: ALT/SGPT 56 U/L (7.0-40); AST/SGOT 94 U/L (<34); CALCIUM LEVEL 8.7 MG/DL (8.3-10.6); CARBON DIOXIDE LEVEL 22 MMOL/L (20-31); CHLORIDE LEVEL 99 MMOL/L (98-107); CREATININE FOR GFR 0.63 MG/DL (0.70-1.30); GLOMERULAR FILTRATION RATE > 90.0 (>49); POTASSIUM SERUM 3.7 MMOL/L (3.5-5.1); SALICYLATE LEVEL < 3.0 MG/DL (<30); SODIUM LEVEL 133 MMOL/L (136-145)
[2025-07-13 19:30] LABS: AMPHETAMINES LEVEL URINE NEGATIVE (NEGATIVE); BARBITURATES URINE NEGATIVE (NEGATIVE); COCAINE METABOLITE URINE NEGATIVE (NEGATIVE); METHADONE URINE NEGATIVE (NEGATIVE); OPIATES URINE NEGATIVE (NEGATIVE); PHENCYCLIDINE URINE NEGATIVE (NEGATIVE)
[2025-07-13 19:34] LABS: BENZODIAZEPINES URINE POSITIVE (NEGATIVE); CANNABINOIDS URINE POSITIVE (NEGATIVE)
[2025-07-13] MEDS: DOXYCYCLINE HYCLATE 100 MG TABLET PO ONE (20:24)
[2025-07-13] MEDS: THIAMINE 100 MG TAB PO SCH (21:27)
[2025-07-13 21:41] VITALS: BP 150/87; TEMP 98; O2SAT 99
== END 2025-07-13 21:42 | disposition home or self-care (01) ==
LOC: M ED 18:27
DX: F43.0 Acute stress reaction (principal); F10.10 Alcohol abuse, uncomplicated; S51.852A Open bite of left forearm, initial encounter; W54.0XXA Bitten by dog, initial encounter; Y92.9 Unspecified place or not applicable; Y93.9 Activity, unspecified; Y99.9 Unspecified external cause status; I10 Essential (primary) hypertension; F32.A Depression, unspecified; Z88.0 Allergy status to penicillin; Z88.8 Allergy status to other drugs, medicaments and biological substances; Z91.030 Bee allergy status; Z91.018 Allergy to other foods; Z79.2 Long term (current) use of antibiotics; Z79.899 Other long term (current) drug therapy

== ENCOUNTER 2025-07-31 17:41 | Emergency (ER) | payer OTHER ==
[2025-07-31 18:04] VITALS: BP 146/79; TEMP 97.1
[2025-07-31] MEDS: NS (Normal Saline) 0.9% 1,000 ML IV ONE (18:27)
[2025-07-31 18:33] LABS: PLATELET COUNT, AUTOMATED 275 10^3/uL (150-450)
[2025-07-31 18:54] LABS: ALT/SGPT 44 U/L (7.0-40); AST/SGOT 86 U/L (<34); CALCIUM LEVEL 8.8 MG/DL (8.3-10.6); CARBON DIOXIDE LEVEL 30 MMOL/L (20-31); CHLORIDE LEVEL 106 MMOL/L (98-107); CREATININE FOR GFR 0.69 MG/DL (0.70-1.30); GLOMERULAR FILTRATION RATE > 90.0 (>49); POTASSIUM SERUM 3.9 MMOL/L (3.5-5.1); SALICYLATE LEVEL < 3.0 MG/DL (<30); SODIUM LEVEL 150 MMOL/L (136-145)
[2025-07-31 19:14] LABS: ETHYL ALCOHOL (ETHANOL) 0.385 % (0.000-0.010)
[2025-07-31 19:26] VITALS: O2SAT 95
== END 2025-07-31 21:36 | disposition home or self-care (01) ==
LOC: EDBD 17:41 → M ED 17:41
DX: F10.120 Alcohol abuse with intoxication, uncomplicated (principal); K58.9 Irritable bowel syndrome, unspecified; Z88.0 Allergy status to penicillin; Z88.8 Allergy status to other drugs, medicaments and biological substances; Z91.040 Latex allergy status; Z91.030 Bee allergy status; Z91.018 Allergy to other foods; Z79.2 Long term (current) use of antibiotics; Z79.899 Other long term (current) drug therapy
CPT/HCPCS: 80048; 80076; 80143; 82077; 84443; 85027; 96374; 99284; J2765

== ENCOUNTER 2025-08-04 17:05 | Emergency (ER) | payer OTHER ==
[2025-08-04] MEDS: OXAZEPAM 15MG CAP PO ONE (22:19)
[2025-08-04] MEDS: THIAMINE 100 MG TAB PO SCH (22:20)
[2025-08-05] MEDS ORDERED: HOME MED LIST COMPLETE! XX SCH (02:50)
[2025-08-05 06:02] VITALS: BP 160/80; TEMP 97.8; O2SAT 98
[2025-08-05] MEDS ORDERED: FOLIC ACID 1 MG TAB PO SCH (09:00)
[2025-08-05] MEDS ORDERED: MULTIVITAMINS/MINERALS THERAP 1 TAB PO SCH (09:00)
== END 2025-08-05 06:00 | disposition home or self-care (01) ==
LOC: M ED 17:05
DX: F10.120 Alcohol abuse with intoxication, uncomplicated (principal); Z88.0 Allergy status to penicillin; Z88.8 Allergy status to other drugs, medicaments and biological substances; Z91.040 Latex allergy status; Z91.030 Bee allergy status; Z91.018 Allergy to other foods
CPT/HCPCS: 36415; 70450; 70496; 70498; 71046; 80047; 80048; 80076; 80143; 82077; 82550; 84443; 85027; 93005; 99284; Q9967

== ENCOUNTER 2025-08-05 19:54 | Emergency (ER) | payer OTHER ==
[2025-08-05] MEDS ORDERED: NS (Normal Saline) 0.9% 1,000 ML IV ONE (20:20)
[2025-08-05 21:03] LABS: PLATELET COUNT, AUTOMATED 181 10^3/uL (150-450)
[2025-08-05] MEDS ORDERED: ISOVUE-370 76% 100 ML VIAL As Ordered ONE (21:03)
[2025-08-05 21:28] LABS: ETHYL ALCOHOL (ETHANOL) 0.284 % (0.000-0.010)
[2025-08-05 21:30] LABS: CPK CREATINE PHOSPHOKINASE 322 U/L (46-171); SALICYLATE LEVEL < 3.0 MG/DL (<30)
[2025-08-05 21:36] LABS: ALT/SGPT 46 U/L (7.0-40); AST/SGOT 61 U/L (<34); CALCIUM LEVEL 9.6 MG/DL (8.3-10.6); CARBON DIOXIDE LEVEL 22 MMOL/L (20-31); CHLORIDE LEVEL 102 MMOL/L (98-107); CREATININE FOR GFR 0.62 MG/DL (0.70-1.30); GLOMERULAR FILTRATION RATE > 90.0 (>49); POTASSIUM SERUM 3.5 MMOL/L (3.5-5.1); SODIUM LEVEL 142 MMOL/L (136-145)
== END 2025-08-05 21:20 | disposition left against medical advice (07) ==
LOC: M ED 19:54
DX: F10.120 Alcohol abuse with intoxication, uncomplicated (principal); F32.A Depression, unspecified; R00.0 Tachycardia, unspecified; I45.10 Unspecified right bundle-branch block; I45.81 Long QT syndrome; Z88.0 Allergy status to penicillin; Z88.8 Allergy status to other drugs, medicaments and biological substances; Z91.040 Latex allergy status; Z91.030 Bee allergy status; Z91.018 Allergy to other foods; Z53.9 Procedure and treatment not carried out, unspecified reason
CPT/HCPCS: 36415; 70450; 70496; 70498; 71046; 80047; 80048; 80076; 80143; 82077; 82550; 84443; 85027; 93005; 99284; Q9967

== ENCOUNTER 2025-08-17 13:20 | Emergency (ER) | payer OTHER ==
[~2025-08-17] VITALS: Ht 177.8 cm; Wt 77.2 kg
[2025-08-17 13:28] VITALS: BP 143/87; TEMP 97.1; O2SAT 89
[2025-08-17 14:05] LABS: BASO # 0.0 10^3/uL (0.0-0.2); BASO % 0.6 % (0.0-1.0); EOS # 0.0 10^3/uL (0.0-0.5); EOS % 0.4 % (0.0-3.0); LYMPH # 2.7 10^3/uL (1.5-5.0); LYMPH % 53.4 % (24.0-44.0); MONO # 0.4 10^3/uL (0.0-0.8); MONO % 7.4 % (2.0-8.0); NEUTROPHILS # 1.9 10^3/uL (1.5-8.5); NEUTROPHILS % 37.8 % (36.0-66.0); PLATELET COUNT, AUTOMATED 193 10^3/uL (150-450)
[2025-08-17 14:33] LABS: CK-MB VALUE MASS 3.9 NG/ML (<3.6)
[2025-08-17 14:35] LABS: CALCIUM LEVEL 8.6 MG/DL (8.3-10.6); CARBON DIOXIDE LEVEL 25 MMOL/L (20-31); CHLORIDE LEVEL 102 MMOL/L (98-107); CPK CREATINE PHOSPHOKINASE 287 U/L (46-171); CREATININE FOR GFR 0.74 MG/DL (0.70-1.30); GLOMERULAR FILTRATION RATE > 90.0 (>49); MAGNESIUM LEVEL 2.0 MG/DL (1.8-2.4); MB/CK RELATIVE INDEX 1.35 (< OR =4); POTASSIUM SERUM 3.8 MMOL/L (3.5-5.1); SODIUM LEVEL 143 MMOL/L (136-145)
[2025-08-17 14:38] LABS: FREE T4 1.02 NG/DL (0.89-1.76)
[2025-08-17 14:50] LABS: ETHYL ALCOHOL (ETHANOL) 0.309 % (0.000-0.010)
[2025-08-17] MEDS: NS (Normal Saline) 0.9% 1,000 ML IV ONE (14:55)
[2025-08-17 16:13] LABS: CK-MB VALUE MASS 3.9 NG/ML (<3.6)
[2025-08-17 16:19] LABS: CPK CREATINE PHOSPHOKINASE 263 U/L (46-171); MB/CK RELATIVE INDEX 1.48 (< OR =4)
== END 2025-08-17 16:05 | disposition left against medical advice (07) ==
LOC: EDBD 13:20 → M ED 13:20
DX: F10.120 Alcohol abuse with intoxication, uncomplicated (principal); R00.0 Tachycardia, unspecified; I45.10 Unspecified right bundle-branch block; F41.9 Anxiety disorder, unspecified; Z88.0 Allergy status to penicillin; Z88.8 Allergy status to other drugs, medicaments and biological substances; Z91.030 Bee allergy status; Z91.040 Latex allergy status; Z53.9 Procedure and treatment not carried out, unspecified reason

== ENCOUNTER 2025-08-17 22:51 | Emergency (ER) | payer OTHER ==
[2025-08-18 00:43] LABS: ALT/SGPT 46 U/L (7.0-40); AST/SGOT 97 U/L (<34); CALCIUM LEVEL 8.8 MG/DL (8.3-10.6); CARBON DIOXIDE LEVEL 26 MMOL/L (20-31); CHLORIDE LEVEL 104 MMOL/L (98-107); CREATININE FOR GFR 0.74 MG/DL (0.70-1.30); GLOMERULAR FILTRATION RATE > 90.0 (>49); POTASSIUM SERUM 3.9 MMOL/L (3.5-5.1); SALICYLATE LEVEL < 3.0 MG/DL (<30); SODIUM LEVEL 145 MMOL/L (136-145)
[2025-08-18 00:55] LABS: PLATELET COUNT, AUTOMATED 177 10^3/uL (150-450)
[2025-08-18 01:10] LABS: ETHYL ALCOHOL (ETHANOL) 0.401 % (0.000-0.010)
[2025-08-18] MEDS ORDERED: HOME MED LIST COMPLETE! XX SCH (04:30)
[2025-08-18 06:43] VITALS: TEMP 96.8; O2SAT 93
[2025-08-18 06:44] VITALS: BP 133/75
== END 2025-08-18 10:59 | disposition home or self-care (01) ==
LOC: M ED 22:51
DX: F10.120 Alcohol abuse with intoxication, uncomplicated (principal); I10 Essential (primary) hypertension; G47.33 Obstructive sleep apnea (adult) (pediatric); Z88.0 Allergy status to penicillin; Z88.8 Allergy status to other drugs, medicaments and biological substances; Z91.040 Latex allergy status; Z91.030 Bee allergy status; Z91.018 Allergy to other foods
CPT/HCPCS: 36415; 70450; 72125; 80048; 80076; 80143; 82077; 82550; 82553; 83605; 83735; 84145; 84439; 84443; 84484; 85025; 85027; 93005; 93041; 94760; 96361; 96374; 99283; 99284; J2060

== ENCOUNTER 2025-08-19 11:42 | Emergency (ER) | payer OTHER ==
[~2025-08-19] VITALS: Ht 172.7 cm; Wt 84.1 kg
[2025-08-19 11:48] VITALS: TEMP 98.4
[2025-08-19] MEDS: MULTIVITAMINS/MINERALS THERAP 1 TAB PO SCH (11:58)
[2025-08-19] MEDS: THIAMINE 100 MG TAB PO SCH (11:58)
[2025-08-19] MEDS: FOLIC ACID 1 MG TAB PO SCH (11:59)
[2025-08-19] MEDS: NS (Normal Saline) 0.9% 1,000 ML IV ONE (11:59)
[2025-08-19 12:04] LABS: PLATELET COUNT, AUTOMATED 182 10^3/uL (150-450)
[2025-08-19 12:28] LABS: ETHYL ALCOHOL (ETHANOL) 0.229 % (0.000-0.010)
[2025-08-19 12:29] LABS: SALICYLATE LEVEL < 3.0 MG/DL (<30)
[2025-08-19 12:33] LABS: ALT/SGPT 57 U/L (7.0-40); AST/SGOT 108 U/L (<34); CALCIUM LEVEL 8.7 MG/DL (8.3-10.6); CARBON DIOXIDE LEVEL 24 MMOL/L (20-31); CHLORIDE LEVEL 98 MMOL/L (98-107); CREATININE FOR GFR 0.66 MG/DL (0.70-1.30); GLOMERULAR FILTRATION RATE > 90.0 (>49); POTASSIUM SERUM 3.7 MMOL/L (3.5-5.1); SODIUM LEVEL 137 MMOL/L (136-145)
[2025-08-19] MEDS: OXAZEPAM 15MG CAP PO ONE (16:54)
[2025-08-19 17:00] VITALS: BP 158/85; O2SAT 97
== END 2025-08-19 17:10 | disposition short-term general hospital (02) ==
LOC: M ED 11:42
DX: F10.130 Alcohol abuse with withdrawal, uncomplicated (principal); R00.0 Tachycardia, unspecified; I45.10 Unspecified right bundle-branch block; I10 Essential (primary) hypertension; F12.10 Cannabis abuse, uncomplicated; Z88.0 Allergy status to penicillin; Z88.8 Allergy status to other drugs, medicaments and biological substances; Z91.030 Bee allergy status; Z91.040 Latex allergy status; Z91.018 Allergy to other foods

== ENCOUNTER 2025-09-05 11:35 | Emergency (ER) | payer OTHER ==
[~2025-09-05] VITALS: Ht 172.7 cm; Wt 83.5 kg
[2025-09-05 11:43] VITALS: TEMP 97.8
[2025-09-05 12:02] LABS: PLATELET COUNT, AUTOMATED 234 10^3/uL (150-450)
[2025-09-05] MEDS: OXAZEPAM 15MG CAP PO ONE (12:02)
[2025-09-05 12:22] LABS: ETHYL ALCOHOL (ETHANOL) 0.212 % (0.000-0.010)
[2025-09-05 12:24] LABS: ALT/SGPT 42 U/L (7.0-40); AST/SGOT 60 U/L (<34); CALCIUM LEVEL 8.3 MG/DL (8.3-10.6); CARBON DIOXIDE LEVEL 20 MMOL/L (20-31); CHLORIDE LEVEL 100 MMOL/L (98-107); CREATININE FOR GFR 0.74 MG/DL (0.70-1.30); GLOMERULAR FILTRATION RATE > 90.0 (>49); MAGNESIUM LEVEL 1.7 MG/DL (1.8-2.4); POTASSIUM SERUM 3.4 MMOL/L (3.5-5.1); SALICYLATE LEVEL < 3.0 MG/DL (<30); SODIUM LEVEL 138 MMOL/L (136-145)
[2025-09-05 13:00] VITALS: BP 132/75; O2SAT 93
[2025-09-05] MEDS: NS (Normal Saline) 0.9% 1,000 ML IV ONE (13:06)
== END 2025-09-05 14:37 | disposition home or self-care (01) ==
LOC: M ED 11:35 → EDBD 11:35 → M ED 14:37
DX: F10.120 Alcohol abuse with intoxication, uncomplicated (principal); R00.0 Tachycardia, unspecified; I45.10 Unspecified right bundle-branch block; I10 Essential (primary) hypertension; Z88.0 Allergy status to penicillin; Z88.8 Allergy status to other drugs, medicaments and biological substances; Z91.040 Latex allergy status; Z91.018 Allergy to other foods; Z91.030 Bee allergy status

== ENCOUNTER 2025-09-06 14:24 | Emergency (ER) | payer OTHER ==
[~2025-09-06] VITALS: Ht 172.7 cm; Wt 81.8 kg
[2025-09-06 14:26] VITALS: BP 143/88; TEMP 97.8; O2SAT 94
[2025-09-06 15:15] LABS: PLATELET COUNT, AUTOMATED 210 10^3/uL (150-450)
[2025-09-06 15:46] LABS: AMPHETAMINES LEVEL URINE NEGATIVE (NEGATIVE); BARBITURATES URINE NEGATIVE (NEGATIVE); COCAINE METABOLITE URINE NEGATIVE (NEGATIVE); ETHYL ALCOHOL (ETHANOL) 0.237 % (0.000-0.010); METHADONE URINE NEGATIVE (NEGATIVE); OPIATES URINE NEGATIVE (NEGATIVE)
[2025-09-06 15:47] LABS: PHENCYCLIDINE URINE NEGATIVE (NEGATIVE)
[2025-09-06 15:48] LABS: ALT/SGPT 61 U/L (7.0-40); AST/SGOT 126 U/L (<34); CALCIUM LEVEL 8.4 MG/DL (8.3-10.6); CARBON DIOXIDE LEVEL 24 MMOL/L (20-31); CHLORIDE LEVEL 103 MMOL/L (98-107); CREATININE FOR GFR 0.74 MG/DL (0.70-1.30); GLOMERULAR FILTRATION RATE > 90.0 (>49); POTASSIUM SERUM 3.7 MMOL/L (3.5-5.1); SALICYLATE LEVEL < 3.0 MG/DL (<30); SODIUM LEVEL 141 MMOL/L (136-145)
[2025-09-06 15:49] LABS: BENZODIAZEPINES URINE POSITIVE (NEGATIVE); CANNABINOIDS URINE POSITIVE (NEGATIVE)
== END 2025-09-06 15:22 | disposition left against medical advice (07) ==
LOC: M ED 14:24
DX: F32.A Depression, unspecified (principal); F41.9 Anxiety disorder, unspecified; F10.10 Alcohol abuse, uncomplicated; R00.0 Tachycardia, unspecified; I45.10 Unspecified right bundle-branch block; I10 Essential (primary) hypertension; G47.33 Obstructive sleep apnea (adult) (pediatric); B18.9 Chronic viral hepatitis, unspecified; Z88.0 Allergy status to penicillin; Z88.8 Allergy status to other drugs, medicaments and biological substances; Z91.018 Allergy to other foods; Z91.040 Latex allergy status; Z91.030 Bee allergy status; Z53.9 Procedure and treatment not carried out, unspecified reason

== ENCOUNTER 2025-09-07 16:23 | Emergency (ER) | payer OTHER ==
[~2025-09-07] VITALS: Ht 172.7 cm; Wt 84.1 kg
[2025-09-07 17:48] LABS: PLATELET COUNT, AUTOMATED 195 10^3/uL (150-450)
[2025-09-07 18:04] LABS: ETHYL ALCOHOL (ETHANOL) 0.284 % (0.000-0.010)
[2025-09-07 18:06] LABS: ALT/SGPT 62 U/L (7.0-40); AST/SGOT 112 U/L (<34); CALCIUM LEVEL 8.6 MG/DL (8.3-10.6); CARBON DIOXIDE LEVEL 24 MMOL/L (20-31); CHLORIDE LEVEL 105 MMOL/L (98-107); CREATININE FOR GFR 0.71 MG/DL (0.70-1.30); GLOMERULAR FILTRATION RATE > 90.0 (>49); POTASSIUM SERUM 4.0 MMOL/L (3.5-5.1); SALICYLATE LEVEL < 3.0 MG/DL (<30); SODIUM LEVEL 145 MMOL/L (136-145)
[2025-09-07 18:59] VITALS: BP 149/90; TEMP 98.8; O2SAT 96
== END 2025-09-07 19:06 | disposition home or self-care (01) ==
LOC: M ED 16:23
DX: F10.120 Alcohol abuse with intoxication, uncomplicated (principal); R00.0 Tachycardia, unspecified; I45.10 Unspecified right bundle-branch block; I10 Essential (primary) hypertension; Z88.0 Allergy status to penicillin; Z88.8 Allergy status to other drugs, medicaments and biological substances; Z91.030 Bee allergy status; Z91.018 Allergy to other foods; Z91.040 Latex allergy status

== ENCOUNTER 2025-09-07 23:00 | Emergency (ER) | payer OTHER ==
[2025-09-07 23:12] VITALS: BP 122/73; TEMP 97.6; O2SAT 97
== END 2025-09-08 00:01 | disposition left against medical advice (07) ==
LOC: M ED 23:00
DX: Z53.21 Procedure and treatment not carried out due to patient leaving prior to being seen by health care provider (principal)

== ENCOUNTER 2025-09-08 00:36 | Emergency (ER) | payer OTHER ==
[2025-09-08 00:58] VITALS: BP 137/99; TEMP 98.3; O2SAT 95
== END 2025-09-08 02:23 | disposition left against medical advice (07) ==
LOC: M ED 00:36
DX: Z53.21 Procedure and treatment not carried out due to patient leaving prior to being seen by health care provider (principal)

== ENCOUNTER 2025-09-10 13:09 | Emergency (ER) | payer OTHER ==
[2025-09-10 14:06] LABS: PLATELET COUNT, AUTOMATED 148 10^3/uL (150-450)
[2025-09-10 14:37] LABS: ALT/SGPT 75 U/L (7.0-40); AST/SGOT 140 U/L (<34); CALCIUM LEVEL 7.9 MG/DL (8.3-10.6); CARBON DIOXIDE LEVEL 21 MMOL/L (20-31); CHLORIDE LEVEL 97 MMOL/L (98-107); CREATININE FOR GFR 0.67 MG/DL (0.70-1.30); GLOMERULAR FILTRATION RATE > 90.0 (>49); POTASSIUM SERUM 3.3 MMOL/L (3.5-5.1); SALICYLATE LEVEL < 3.0 MG/DL (<30); SODIUM LEVEL 136 MMOL/L (136-145)
[2025-09-10 15:20] LABS: ETHYL ALCOHOL (ETHANOL) 0.306 % (0.000-0.010)
[2025-09-10] MEDS: THIAMINE 100 MG TAB PO SCH (20:27)
[2025-09-10] MEDS: POTASSIUM CHLORIDE 10MEQ SR TABLET PO ONE (20:27)
[2025-09-10 22:45] LABS: AMPHETAMINES LEVEL URINE NEGATIVE (NEGATIVE); BARBITURATES URINE NEGATIVE (NEGATIVE); COCAINE METABOLITE URINE NEGATIVE (NEGATIVE); METHADONE URINE NEGATIVE (NEGATIVE); OPIATES URINE NEGATIVE (NEGATIVE)
[2025-09-10 22:46] LABS: BENZODIAZEPINES URINE POSITIVE (NEGATIVE); CANNABINOIDS URINE NEGATIVE (NEGATIVE); PHENCYCLIDINE URINE NEGATIVE (NEGATIVE)
[2025-09-11 02:13] VITALS: BP 115/63; TEMP 99.5; O2SAT 93
[2025-09-11] MEDS ORDERED: FOLIC ACID 1 MG TAB PO SCH (09:00)
[2025-09-11] MEDS ORDERED: MULTIVITAMINS/MINERALS THERAP 1 TAB PO SCH (09:00)
== END 2025-09-11 03:05 | disposition home or self-care (01) ==
LOC: M ED 13:09
DX: F10.120 Alcohol abuse with intoxication, uncomplicated (principal); S62.626A Displaced fracture of middle phalanx of right little finger, initial encounter for closed fracture; Y92.9 Unspecified place or not applicable; Y93.9 Activity, unspecified; Y99.9 Unspecified external cause status; I10 Essential (primary) hypertension; Z88.0 Allergy status to penicillin; Z88.8 Allergy status to other drugs, medicaments and biological substances; Z91.030 Bee allergy status; Z91.040 Latex allergy status

== ENCOUNTER → 2025-09-11 | Outpatient (CLI) | payer MEDICAID, OTHER | LOC: M OUTALCOH 11:58 | PROVIDERS: ATTEND Psychiatry & Neurology Psychiatry | DX: F10.20 Alcohol dependence, uncomplicated (principal) ==

== ENCOUNTER 2025-09-22 09:57 | Emergency (ER) | payer MEDICAID, OTHER ==
[~2025-09-22] VITALS: Ht 172.7 cm; Wt 83.9 kg
[2025-09-22 10:55] VITALS: BP 156/85; TEMP 97.1; O2SAT 95
[2025-09-22 14:07] LABS: PLATELET COUNT, AUTOMATED 252 10^3/uL (150-450)
[2025-09-22 14:29] LABS: ETHYL ALCOHOL (ETHANOL) 0.139 % (0.000-0.010)
[2025-09-22 14:31] LABS: ALT/SGPT 67 U/L (7.0-40); AST/SGOT 58 U/L (<34); CALCIUM LEVEL 8.6 MG/DL (8.3-10.6); CARBON DIOXIDE LEVEL 26 MMOL/L (20-31); CHLORIDE LEVEL 98 MMOL/L (98-107); CREATININE FOR GFR 0.74 MG/DL (0.70-1.30); GLOMERULAR FILTRATION RATE > 90.0 (>49); POTASSIUM SERUM 4.2 MMOL/L (3.5-5.1); SALICYLATE LEVEL < 3.0 MG/DL (<30); SODIUM LEVEL 138 MMOL/L (136-145)
== END 2025-09-22 17:01 | disposition home or self-care (01) ==
LOC: M ED 09:57
DX: S62.626A Displaced fracture of middle phalanx of right little finger, initial encounter for closed fracture (principal); F10.14 Alcohol abuse with alcohol-induced mood disorder; Y92.9 Unspecified place or not applicable; Y93.9 Activity, unspecified; Y99.9 Unspecified external cause status; Z88.0 Allergy status to penicillin; Z88.8 Allergy status to other drugs, medicaments and biological substances; Z91.030 Bee allergy status; Z91.018 Allergy to other foods; Z91.040 Latex allergy status

== ENCOUNTER 2025-09-22 22:40 | Emergency (ER) | payer OTHER ==
[2025-09-22] MEDS: LORazepam 1 MG TAB PO STA (23:18)
[2025-09-23] MEDS: LORazepam 1 MG TAB PO STA (00:09)
[2025-09-23 03:13] LABS: PLATELET COUNT, AUTOMATED 229 10^3/uL (150-450)
[2025-09-23 03:33] LABS: AMPHETAMINES LEVEL URINE NEGATIVE (NEGATIVE)
[2025-09-23 03:34] LABS: BARBITURATES URINE NEGATIVE (NEGATIVE); BENZODIAZEPINES URINE POSITIVE (NEGATIVE); CANNABINOIDS URINE POSITIVE (NEGATIVE); COCAINE METABOLITE URINE NEGATIVE (NEGATIVE); METHADONE URINE NEGATIVE (NEGATIVE); OPIATES URINE NEGATIVE (NEGATIVE); PHENCYCLIDINE URINE NEGATIVE (NEGATIVE)
[2025-09-23 03:39] LABS: ETHYL ALCOHOL (ETHANOL) < 0.003 % (0.000-0.010)
[2025-09-23 03:41] LABS: SALICYLATE LEVEL < 3.0 MG/DL (<30)
[2025-09-23 03:50] LABS: ALT/SGPT 55 U/L (7.0-40); AST/SGOT 50 U/L (<34); CALCIUM LEVEL 9.0 MG/DL (8.3-10.6); CARBON DIOXIDE LEVEL 27 MMOL/L (20-31); CHLORIDE LEVEL 99 MMOL/L (98-107); CREATININE FOR GFR 0.59 MG/DL (0.70-1.30); GLOMERULAR FILTRATION RATE > 90.0 (>49); POTASSIUM SERUM 3.8 MMOL/L (3.5-5.1); SODIUM LEVEL 138 MMOL/L (136-145)
[2025-09-23] MEDS: OXAZEPAM 15MG CAP PO ONE (04:13)
[2025-09-23 16:09] VITALS: BP 151/88; TEMP 97; O2SAT 97
== END 2025-09-23 16:10 | disposition home or self-care (01) ==
LOC: M ED 22:40
DX: F10.180 Alcohol abuse with alcohol-induced anxiety disorder (principal); Z88.0 Allergy status to penicillin; Z88.8 Allergy status to other drugs, medicaments and biological substances; Z91.030 Bee allergy status; Z91.018 Allergy to other foods; Z91.040 Latex allergy status

== ENCOUNTER 2025-09-24 08:00 | Outpatient (RCR) | payer MEDICAID | END 2025-10-17 | LOC: M OUTALCOH 08:00 | PROVIDERS: ATTEND Psychiatry & Neurology Psychiatry | DX: F10.20 Alcohol dependence, uncomplicated (principal) | CPT/HCPCS: H2011 ×2 ==

== ENCOUNTER 2025-10-04 15:28 | Emergency (ER) | payer MEDICAID, OTHER ==
[2025-10-04 16:04] LABS: BASO # 0.0 10^3/uL (0.0-0.2); BASO % 0.5 % (0.0-1.0); EOS # 0.1 10^3/uL (0.0-0.5); EOS % 1.2 % (0.0-3.0); LYMPH # 3.1 10^3/uL (1.5-5.0); LYMPH % 55.2 % (24.0-44.0); MONO # 0.3 10^3/uL (0.0-0.8); MONO % 5.1 % (2.0-8.0); NEUTROPHILS # 2.1 10^3/uL (1.5-8.5); NEUTROPHILS % 37.8 % (36.0-66.0); PLATELET COUNT, AUTOMATED 178 10^3/uL (150-450)
[2025-10-04 16:28] LABS: CALCIUM LEVEL 8.4 MG/DL (8.3-10.6); CARBON DIOXIDE LEVEL 27 MMOL/L (20-31); CHLORIDE LEVEL 102 MMOL/L (98-107); CREATININE FOR GFR 0.73 MG/DL (0.70-1.30); GLOMERULAR FILTRATION RATE > 90.0 (>49); POTASSIUM SERUM 4.0 MMOL/L (3.5-5.1); SODIUM LEVEL 145 MMOL/L (136-145)
[2025-10-04 16:36] LABS: ETHYL ALCOHOL (ETHANOL) 0.384 % (0.000-0.010)
[2025-10-04] MEDS ORDERED: HOME MED LIST COMPLETE! XX SCH (16:45)
[2025-10-04 17:25] LABS: CK-MB VALUE MASS 3.0 NG/ML (<3.6)
[2025-10-04 17:27] LABS: ALT/SGPT 35 U/L (7.0-40); AST/SGOT 47 U/L (<34); SALICYLATE LEVEL < 3.0 MG/DL (<30)
[2025-10-04 17:33] LABS: CPK CREATINE PHOSPHOKINASE 224 U/L (46-171); MB/CK RELATIVE INDEX 1.33 (< OR =4)
[2025-10-04 19:44] LABS: SALICYLATE LEVEL < 3.0 MG/DL (<30)
[2025-10-04] MEDS: LORazepam 1 MG TAB PO ONE ×2 (21:33→22:25)
[2025-10-04] MEDS: NS (Normal Saline) 0.9% 1,000 ML IV ONE (21:34)
[2025-10-04 21:51] LABS: CK-MB VALUE MASS 3.2 NG/ML (<3.6)
[2025-10-04 21:53] LABS: CPK CREATINE PHOSPHOKINASE 228.0 U/L (46-171); MB/CK RELATIVE INDEX 1.4 (< OR =4)
[2025-10-04] MEDS: ACETAMINOPHEN 325 MG TAB PO ONE (22:25)
[2025-10-04] MEDS: ONDANSETRON 4MG ORAL DISINTEGRATING TAB PO ONE (22:40)
[2025-10-05 05:57] VITALS: TEMP 97.9; O2SAT 95
[2025-10-05 05:59] VITALS: BP 142/74
== END 2025-10-05 06:13 | disposition home or self-care (01) ==
LOC: M ED 15:28 → EDBD 15:28 → M ED 10-05 06:13
DX: F10.120 Alcohol abuse with intoxication, uncomplicated (principal); F43.10 Post-traumatic stress disorder, unspecified; R00.0 Tachycardia, unspecified; I45.10 Unspecified right bundle-branch block; I45.81 Long QT syndrome; S62.626A Displaced fracture of middle phalanx of right little finger, initial encounter for closed fracture; Y92.9 Unspecified place or not applicable; Y93.9 Activity, unspecified; Y99.9 Unspecified external cause status; X58.XXXA Exposure to other specified factors, initial encounter; F41.9 Anxiety disorder, unspecified; F32.A Depression, unspecified; Z88.0 Allergy status to penicillin; Z88.8 Allergy status to other drugs, medicaments and biological substances; Z91.030 Bee allergy status; Z91.040 Latex allergy status; Z91.018 Allergy to other foods

== ENCOUNTER 2025-10-07 10:02 | Emergency (ER) | payer OTHER ==
[~2025-10-07] VITALS: Ht 172.7 cm; Wt 84.1 kg
[2025-10-07 10:36] LABS: PLATELET COUNT, AUTOMATED 141 10^3/uL (150-450)
[2025-10-07] MEDS: FOLIC ACID 1 MG TAB PO SCH (10:49)
[2025-10-07] MEDS: THIAMINE 100 MG TAB PO SCH (10:50)
[2025-10-07] MEDS: MULTIVITAMINS/MINERALS THERAP 1 TAB PO SCH (10:50)
[2025-10-07 11:00] LABS: ETHYL ALCOHOL (ETHANOL) 0.026 % (0.000-0.010)
[2025-10-07 11:02] LABS: SALICYLATE LEVEL < 3.0 MG/DL (<30)
[2025-10-07 11:08] LABS: ALT/SGPT 45 U/L (7.0-40); AST/SGOT 70 U/L (<34); CALCIUM LEVEL 8.9 MG/DL (8.3-10.6); CARBON DIOXIDE LEVEL 23 MMOL/L (20-31); CHLORIDE LEVEL 96 MMOL/L (98-107); CREATININE FOR GFR 0.70 MG/DL (0.70-1.30); GLOMERULAR FILTRATION RATE > 90.0 (>49); POTASSIUM SERUM 3.3 MMOL/L (3.5-5.1); SODIUM LEVEL 133 MMOL/L (136-145)
[2025-10-07 12:39] LABS: AMPHETAMINES LEVEL URINE NEGATIVE (NEGATIVE)
[2025-10-07 12:40] LABS: BARBITURATES URINE NEGATIVE (NEGATIVE); CANNABINOIDS URINE NEGATIVE (NEGATIVE); COCAINE METABOLITE URINE NEGATIVE (NEGATIVE); METHADONE URINE NEGATIVE (NEGATIVE); OPIATES URINE NEGATIVE (NEGATIVE); PHENCYCLIDINE URINE NEGATIVE (NEGATIVE)
[2025-10-07 12:50] LABS: BENZODIAZEPINES URINE POSITIVE (NEGATIVE)
[2025-10-07] MEDS ORDERED: ISOVUE-370 76% 100 ML VIAL As Ordered ONE (13:34)
[2025-10-07 19:15] VITALS: BP 118/64; TEMP 98.4; O2SAT 98
[2025-10-07] MEDS ORDERED: THIAMINE 100 MG TAB PO SCH (21:00)
[2025-10-08] MEDS ORDERED: FOLIC ACID 1 MG TAB PO SCH (09:00)
[2025-10-08] MEDS ORDERED: MULTIVITAMINS/MINERALS THERAP 1 TAB PO SCH (09:00)
== END 2025-10-07 19:23 | disposition home or self-care (01) ==
LOC: M ED 10:02
DX: F43.0 Acute stress reaction (principal); S22.41XA Multiple fractures of ribs, right side, initial encounter for closed fracture; S62.656A Nondisplaced fracture of middle phalanx of right little finger, initial encounter for closed fracture; Y92.9 Unspecified place or not applicable; Y93.9 Activity, unspecified; Y99.9 Unspecified external cause status; I10 Essential (primary) hypertension; G47.33 Obstructive sleep apnea (adult) (pediatric); F32.A Depression, unspecified; F10.10 Alcohol abuse, uncomplicated; Z88.0 Allergy status to penicillin; Z88.8 Allergy status to other drugs, medicaments and biological substances; Z91.030 Bee allergy status; Z91.040 Latex allergy status; Z91.018 Allergy to other foods
CPT/HCPCS: 36415; 70450; 71101; 71260; 73130; 74177; 80048; 80076; 80143; 80307; 82077; 84443; 85027; 93041; 99285; Q9967